=== PATIENT | female | born 1980 | race African-American/Black ===

== ENCOUNTER 2016-10-09 17:00 | Emergency (ER) | payer OTHER ==
[2016-10-09 17:26] VITALS: BP 134/70; PULSE 70; TEMP 97.8; BMI 45.8
--- NOTE | 2016-10-09 18:08 | PDOC ---
History of Present Illness - General Chief Complaint: Sore Throat Stated Complaint: EAR PROBLEM/SORE THROAT Time Seen by Provider: 10/09/16 17:43 History Source: Patient Exam Limitations: No Limitations - History of Present Illness Initial Comments: 10/09/16 18:15 Patient is here with complaints of bilateral clogged ears. States also has a sore throat but denies having fever, cough, runny nose. has suffered from excessive ear wax in the past and has had treatments by ear nose and throat doctor. [facility] mother has used hydrogen peroxide for the past 2 days but has not had any resolved. Timing/Duration: unsure Severity: mild Associated Symptoms: reports: denies symptoms. denies: fever/chills Past History - Travel Traveled outside of the country in the last 30 days: No Close contact w/someone who was outside of country & ill: No - Past Medical History Allergies/Adverse Reactions: Allergies Allergy/AdvReac Type Severity Reaction Status Date / Time azithromycin [From Zithromax] Allergy Severe Swelling Verified 10/09/16 17:26 bismuth subsalicylate Allergy Severe Swelling Verified 10/09/16 17:26 [From Kaopectate (bismuth subsalicy)] hydromorphone HCl Allergy Intermediate Swelling Verified 10/09/16 17:26 [From Dilaudid] Home Medications: Ambulatory Orders Quetiapine Fumarate [Seroquel -] 400 mg PO HS #30 tablet 04/18/13 Omeprazole [Prilosec (RX)] 60 mg PO DAILY 01/15/16 Lamotrigine [Lamictal -] 200 mg PO BID #60 tablet 02/09/16 Levetiracetam 1,000 mg PO BID #60 tablet 02/09/16 Quetiapine Fumarate [Seroquel] 100 tab PO HS #30 tablet 02/09/16 Trazodone HCl [Desyrel -] 200 mg PO HS #60 tablet 02/09/16 Levetiracetam [Keppra -] 500 mg PO BID 10/09/16 Anemia: Yes (no meds ) Asthma: No Cancer: No Cardiac Disorders: No CVA: No COPD: No CHF: No Dementia: No Diabetes: No GI Disorders: Yes (ACID REFLUX) Disorders: No HTN: No Hypercholesterolemia: No Kidney Stones: No Liver Disease: No Suicide Attempt (Hx): No Seizures: Yes Thyroid Disease: No - Surgical History Abdominal Surgery: No Appendectomy: No Cardiac Surgery: No Cholecystectomy: No Lung Surgery: No Neurologic Surgery: Yes (V/P shunt revision 02/24/12) Orthopedic Surgery: No - Reproductive History PID: No - Immunization History Immunization Up to Date: Yes - Psycho/Social/Smoking Cessation Hx Anxiety: No Suicidal Ideation: No Smoking History: Current every day smoker Have you smoked in the past 12 months: Yes Number of Cigarettes Smoked Daily: 10 Cigars Per Day: 0 Information on smoking cessation initiated: No 'Breaking Loose' booklet given: 01/15/16 Hx Alcohol Use: Yes (SOCIAL) Drug/Substance Use Hx: No Substance Use Type: None Hx Substance Use Treatment: Yes (longest abstinence about 1 year,completed this program in 2012) Review of Systems - Review of Systems Able to Perform ROS?: Yes Is the patient limited [place] proficient: Yes Constitutional: Yes: See HPI, Malaise. No: Symptoms Reported, Fever Respiratory: Yes: See HPI, Cough Integumentary: Yes: See HPI. No: Symptoms Reported Neurological: No: Symptoms reported All Other Systems: Reviewed and Negative *Physical Exam - Vital Signs Last Vital Signs Temp Pulse Resp BP Pulse Ox 97.8 F 70 20 134/70 100 10/09/16 17:22 10/09/16 17:22 10/09/16 17:22 10/09/16 17:22 10/09/16 17:22 - Physical Exam General Appearance: Yes: Nourished, Appropriately Dressed, Apparent Distress HEENT: positive: ALEKSANDRA, TMs Normal Neck: positive: Tender, Supple, Lymphadenopathy (R), Lymphadenopathy (L) Respiratory/Chest: positive: Lungs Clear, Normal Breath Sounds Cardiovascular: positive: Regular Rate Gastrointestinal/Abdominal: positive: Normal Bowel Sounds, Soft Extremity: positive: Normal Capillary Refill, Normal Range of Motion Integumentary: positive: Normal Color, Dry, Warm, Pale Neurologic: positive: care team assistant II-XII NML intact, Fully Oriented, Alert, Normal Mood/ Affect, Normal Response, Motor Strength 11/05 Procedures - Additional Procedures Progress: 10/09/16 18:35 Irrigation to bilateral ears with good result of large amount of cerumen in both canals. Clear and TMs visualized with good landmarks Medical Decision Making - Medical Decision Making 10/09/16 18:36 Ceruminosis, encourage patient to continue hydrogen peroxide instillation and follow-up with ENT Rapid stress Test negative 10/09/16 18:37 *DC/Admit/Observation/Transfer Diagnosis at time of Disposition: Ceruminosis Qualifiers: Laterality: bilateral Qualified Code(s): H61.23 - Impacted cerumen, bilateral - Discharge Dispostion Disposition: HOME Condition at time of disposition: Stable Admit: No - Referrals Referrals: Deepak Escalera MD [Staff Physician] - - Patient Instructions Printed Discharge Instructions: DI for Cerumen Impaction Additional Instructions: Do not use Q-tips, or any other small objects on the inner aspect of the ear canal - may only use Q-tips only on the outside to clean ears Ear wax may be packed by use of Q-tips to the inner canal and become hardened May use hydrogen peroxide 3 times a week to continued keep ear wax soft and able to expel Rinse in shower after hydrogen peroxide instillation to wash ear wax out [id number] preparations also assist in wax buildup Aloe up with private physician or ear nose and throat doctor as needed Rest, drink lots of fluids: Teas, water, soups, Pedialyte Saltwater gargles Steamy showers/seem to face break up mucus Avoid contact with others until fevers and cough resolved Lots of handwashing and good hygiene Continue [id number] medications for symptomatic relief Tylenol or Motrin for fever and pain Followup with private physician in one to 2 days as needed Return to emergency department for worsened symptoms, fevers, dehydration
== END 2016-10-09 18:36 | disposition home or self-care (01) ==
LOC: JERFT 17:00
PROC: 3E1B78Z Irrigation of Ear using Irrigating Substance, Via Natural or Artificial Opening (ICD-10-PCS; principal; 2016-10-09)
DX: H61.23 Impacted cerumen, bilateral (principal); K21.9 Gastro-esophageal reflux disease without esophagitis; Z98.2 Presence of cerebrospinal fluid drainage device; F17.210 Nicotine dependence, cigarettes, uncomplicated
CPT/HCPCS: 69209; 87070; 87430; 99281-25

== ENCOUNTER 2016-11-02 21:21 | Inpatient (IN) | payer OTHER ==
[2016-11-02 21:52] VITALS: BMI 47.2
--- NOTE | 2016-11-02 22:39 | HP ---
CIWA Score - CIWA Score Nausea/Vomitin-Mild Nausea/No Vomiting Muscle Tremors: 4-Moderate,w/Arms Extend Anxiety: 4-Mod. Anxious/Guarded Agitation: 4-Moderately Restless Paroxysmal Sweats: 1-Minimal Palms Moist Orientation: 1-Uncertain about Date Tacttile Disturbances: 0-None Auditory Disturbances: 0-None Visual Disturbances: 0-None Headache: 0-None Present CIWA-Ar Total Score: 15 Admission [facility] - HPI Chief Complaint: withdrawal sx Allergies/Adverse Reactions: Allergies Allergy/AdvReac Type Severity Reaction Status Date / Time azithromycin [From Zithromax] Allergy Severe Swelling Verified 10/09/16 17:26 bismuth subsalicylate Allergy Severe Swelling Verified 10/09/16 17:26 [From Kaopectate (bismuth subsalicy)] hydromorphone HCl Allergy Intermediate Swelling Verified 10/09/16 17:26 [From Dilaudid] History of Present Illness: 36 years old female with long history of alcohol cocaine marijuana nocotine, has cephalic shunt since age 4, and bipolar and gerd is admitted to detox Exam Limitations: No Limitations - Ebola screening Have you traveled outside of the country in the last 21 days: No (N) Have you had contact with anyone from an Ebola affected area: No Have you been sick,other than usual withdrawal symptoms: No Do you have a fever: No - Review of Systems Constitutional: Chills, Changes in sleep, Weight Stable EENT: reports: Blurred Vision (needed eye glasses) Respiratory: reports: No Symptoms reported Cardiac: reports: No Symptoms Reported GI: reports: Nausea, Poor Fluid Intake, Indigestion, Abdominal cramping : reports: No Symptoms Reported Musculoskeletal: reports: No Symptoms Reported Integumentary: reports: No Symptoms Reported Neuro: reports: Seizure (last episode 2016), Tremors Endocrine: reports: No Symptoms Reported Hematology: reports: No Symptoms Reported Psychiatric: reports: Judgement Intact, Anxious, Depressed Other Systems: Reviewed and Negative Patient History - Patient Medical History Hx Anemia: Yes (no meds ) Hx Asthma: No Hx Chronic Obstructive Pulmonary Disease (COPD): No Hx Cancer: No Hx Cardiac Disorders: No Hx Congestive Heart Failure: No Hx Hypertension: No Hx Hypercholesterolemia: No Hx Pacemaker: No HX Cerebrovascular Accident: No Hx Seizures: Yes Hx Dementia: No Hx Diabetes: No Hx Gastrointestinal Disorders: Yes (ACID REFLUX) Hx Liver Disease: No Hx Genitourinary Disorders: No Hx Sexually Transmitted Disorders: No Hx Renal Disease (ESRD): No Hx Thyroid Disease: No Hx Human Immunodeficiency Virus (HIV): No (NEGATIVE HX) Hx Hepatitis C: No Hx Depression: No Hx Suicide Attempt: No Hx Bipolar Disorder: Yes (prozac 60mgbid,lamictal 100mg bid) Hx Schizophrenia: No - Patient Surgical History Past Surgical History: Yes Hx Neurologic Surgery: Yes (V/P shunt revision 02/24/12) Hx Cataract Extraction: No Hx Cardiac Surgery: No Hx Lung Surgery: No Hx Breast Surgery: No Hx Breast Biopsy: No Hx Abdominal Surgery: Yes (2011) Hx Appendectomy: No Hx Cholecystectomy: No Hx Genitourinary Surgery: No Hx Section: No Hx Orthopedic Surgery: No Hx Hysterectomy: No Other Surgical History: 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 SIDE OF HEAD Anesthesia Reaction: No - PPD History Previous Implant?: Yes Documented Results: Negative w/o proof Implanted On Prior [facility] Admission?: Yes Date: 01/17/16 Results: 0mm PPD to be Administered?: No - Reproductive History Patient is a Female of Child Bearing Age (11 -55 yrs old): Yes Last Menstrual Period: 11/01/16 Patient : No - Smoking Cessation Smoking history: Current every day smoker Have you smoked in the past 12 months: Yes Aproximately how many cigarettes per day: 15 Cigars Per Day: 0 Hx Chewing Tobacco Use: No Initiated information on smoking cessation: Yes 'Breaking Loose' booklet given: 11/02/16 - Substance & Tx. History Hx Alcohol Use: Yes Hx Substance Use: Yes Substance Use Type: Alcohol, Cocaine, Marijuana Hx Substance Use Treatment: Yes - Substances Abused Alcohol Route: Oral Frequency: Daily Amount used: 3 pints volka Age of first use: 17 Date of Last Use: 11/01/16 Cocaine Route: Smoking Frequency: Daily Amount used: 500$ Age of first use: 23 Date of Last Use: 11/01/16 Family Disease History - Family Disease History Family Disease History: Diabetes: Grandparent (ON DIALYSIS), Mother (ON DIALYSIS ), Heart Disease: Father (HTN), Other: Grandparent, Mother Admission Physical Exam [facility] - Vital Signs Vital Signs: Vital Signs - 24 hr 11/02/16 21:48 Temperature 97.6 F Pulse Rate 70 Respiratory 16 Rate Blood Pressure 126/75 - Physical General Appearance: Yes: Appropriately Dressed, Mild Distress, Obese, Tremorous , Irritable, Sweating, Anxious HEENTM: Yes: Hearing grossly Normal, Normal ENT Inspection, Normocephalic, Normal Voice Respiratory: Yes: Chest Non-Tender, Lungs Clear, Normal Breath Sounds, No Respiratory Distress, No Accessory Muscle Use Neck: Yes: Supple, Trachea in good position Breast: Yes: Breasts Symetrical Cardiology: Yes: Regular Rhythm, Regular Rate, S1, S2 Abdominal: Yes: Non Tender, Soft Genitourinary: Yes: Within Normal Limits Back: Yes: Normal Inspection Musculoskeletal: Yes: full range of Motion, Gait Steady Extremities: Yes: Normal Inspection, Normal Range of Motion, Non-Tender, Tremors Neurological: Yes: Alert, Motor Strength 5/5, Normal Response, Depressed Affect Integumentary: Yes: Warm Lymphatic: Yes: Within Normal Limits - Diagnostic (1) Bipolar I disorder, most recent episode mixed Current Visit: Yes Status: Suspected (2) Intracranial shunt Current Visit: Yes Status: Chronic Comment: revised 2014 (3) Nicotine dependence Current Visit: Yes Status: Acute Qualifiers: Nicotine product type: cigarettes Substance use status: in withdrawal Qualified Code(s): F17.213 - Nicotine dependence, cigarettes, with withdrawal (4) GERD (gastroesophageal reflux disease) Current Visit: Yes Status: Chronic Qualifiers: Esophagitis presence: without esophagitis Qualified Code(s): K21.9 - Gastro-esophageal reflux disease without esophagitis Cleared for Admission [facility] - Detox or Rehab [facility] Level of Care: Medically Managed Detox Regimen/Protocol: Librium [facility] Breath Alcohol Content Breath Alcohol Content: 0 Urine Pregancy Test - Result Urine Test Results: Negative- NO Line Present Urine Drug Screen - Results Drug Screen Negative: No Urine Drug Screen Results: THC-Marijuana, KATIE-Cocaine
[2016-11-02] MEDS ORDERED: NICOTINE POLACRILEX 4 MG GUM BC PRN (22:46)
[2016-11-02] MEDS ORDERED: MAGNESIUM CITRATE 300 ML BOTTLE PO PRN (22:46)
[2016-11-02] MEDS ORDERED: LOPERAMIDE HCL 2 MG CAPSULE PO PRN (22:46)
[2016-11-02] MEDS ORDERED: hydrOXYzine PAMOATE 50 MG CAPSULE (FP) PO PRN (22:46)
[2016-11-02] MEDS ORDERED: MAGNESIUM HYDROX 2400MG/30ML ORAL SUSPENSION 30 ML CUP PO PRN (22:46)
[2016-11-02] MEDS ORDERED: MAG HYDROX/AL HYDROX/SIMETH 30 ML UNIT-DOSE CUP PO PRN (22:46)
[2016-11-02] MEDS ORDERED: guaiFENesin/D-METHORPHAN HB 10 ML UNIT-DOSE CUPS PO PRN (22:46)
[2016-11-02] MEDS ORDERED: chlordiazePOXIDE HCL 25 MG CAPSULE PO ONE (22:46)
[2016-11-02] MEDS ORDERED: P-EPHED 60MG/TRIPROLIDI 2.5MG TABLET PO PRN (22:46)
[2016-11-02] MEDS ORDERED: ACETAMINOPHEN 325 MG TABLET (FP) PO PRN (22:46)
[2016-11-02] MEDS ORDERED: chlordiazePOXIDE HCL 25 MG CAPSULE PO PRN (22:46)
[2016-11-02] MEDS ORDERED: MENTHOL/PHENOL 1 EACH UD MM PRN (22:46)
[2016-11-02] MEDS ORDERED: diphenhydrAMINE HCL 50 MG CAPSULE PO PRN (22:46)
[2016-11-02] MEDS: levETIRAcetam 500 MG TABLET (FP) PO SCH (23:50)
[2016-11-02] MEDS: chlordiazePOXIDE HCL 25 MG CAPSULE PO SCH (23:50)
[2016-11-03] MEDS: chlordiazePOXIDE HCL 25 MG CAPSULE PO SCH ×4 (06:02→22:17)
--- NOTE | 2016-11-03 10:43 | CONSULT ---
[facility] Psychiatric Consult - Data Date of interview: 11/03/16 Admission source: [facility] Identifying data: This is 36 years old female with psychiatric hospitalization history intoxicated with: Alcohol, Cocaine, Cannabis, PCP, Nicotine Substance Abuse History: - Smoking Cessation. Smoking history: Current every day smoker. Have you smoked in the past 12 months: Yes. Aproximately how many cigarettes per day: 15. Cigars Per Day: 0. Hx Chewing Tobacco Use: No. Initiated information on smoking cessation: Yes. 'Breaking Loose' booklet given : 11/02/16. - Substance & Tx. History. Hx Alcohol Use: Yes. Hx Substance Use : Yes. Substance Use Type: Alcohol, Cocaine, Marijuana. Hx Substance Use Treatment: Yes. - Substances Abused. Alcohol. Route: Oral. Frequency: Daily. Amount used: 3 pints volka. Age of first use: 17. Date of Last Use: . Cocaine. Route: Smoking. Frequency: Daily. Amount used: 500$. Age of first use: 23. 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 Reports taking prior to admission: Trazodon 200mg po qhs. Lamictal 200mg po bid. As per compurter was on Seroquel 100mg poqd, 400mg po qhs, refysing to restart Seroquel during Detox Physical/Sexual Abuse/Trauma History: Denies Additional Comment: Seroquel 100mg poqd, 400mg po qhs. Trazodon 200mg po qhs. Lamictal 200mg po bid Mental Status Exam - Mental Status Exam Alert and Oriented to: Person Cognitive Function: Fair Patient Appearance: Unkempt Mood: Sad Affect: Flat Patient Behavior: Sedated, Guarded Speech Pattern: Delayed Voice Loudness: Mildly Loud Thought Process: Circumstantial Thought Disorder: Being Controlled Hallucinations: Denies Suicidal Ideation: Denies Homicidal Ideation: Denies Insight/Judgement: Fair Sleep: Difficulty falling asleep Appetite: Weight gain Muscle strength/Tone: Mild Hypotonicity Gait/Station: Shuffling Additional Comments: Seroquel 100mg poqd, 400mg po qhs. Trazodon 200mg po qhs. Lamictal 200mg po bid Psychiatric Findings - Problem List ([place] 1, 2,3) (1) Nicotine dependence Current Visit: Yes Status: Acute Qualifiers: Nicotine product type: cigarettes Substance use status: in withdrawal Qualified Code(s): F17.213 - Nicotine dependence, cigarettes, with withdrawal (2) Bipolar I disorder, most recent episode mixed Current Visit: Yes Status: Suspected (3) Alcohol dependence Current Visit: No Status: Active (4) Bipolar disorder Current Visit: No Status: Chronic (5) Cannabis abuse Current Visit: No Status: Chronic (6) Morbid obesity Current Visit: No Status: Chronic Qualifiers: Obesity type: unspecified obesity type Qualified Code(s): E66.01 - Morbid (severe) obesity due to excess calories (7) PCP (phencyclidine) abuse Current Visit: No Status: Chronic - Initial Treatment Plan Initial Treatment Plan: Seroquel 100mg poqd, 400mg po qhs- refused to start. Trazodon 200mg po qhs. Lamictal 200mg po bid
[2016-11-03] MEDS: lamoTRIgine 100 MG TABLET (FP) PO SCH ×2 (10:59→22:17)
[2016-11-03] MEDS: PRENATAL VITAMINS W/ FOLIC ACID TABLET (FP) PO SCH (10:59)
[2016-11-03] MEDS: levETIRAcetam 500 MG TABLET (FP) PO SCH ×2 (11:00→22:18)
[2016-11-03] MEDS: RANITIDINE HCL 150 MG TABLET (FP) PO SCH ×2 (11:00→22:17)
[2016-11-03] MEDS: NICOTINE 21 MG/24 HOURS TOPICAL PATCH TD SCH (11:00)
--- NOTE | 2016-11-03 11:00 | PN ---
S CIWA - CIWA Score Nausea/Vomitin-No Nausea/No Vomiting Muscle Tremors: 4-Moderate,w/Arms Extend Anxiety: 3 Agitation: 3 Paroxysmal Sweats: 3 Orientation: 0-Oriented Tacttile Disturbances: 0-None Auditory Disturbances: 0-None Visual Disturbances: 0-None Headache: 1-Very Mild CIWA-Ar Total Score: 14 S Progress Note (SOAP) Subjective: sweats agitation irritable interrupted sleep Objective: 11/03/16 11:00 Vital Signs Temperature 97.9 F 11/03/16 09:54 Pulse Rate 87 11/03/16 09:54 Respiratory Rate 18 11/03/16 09:54 Blood Pressure 111/73 11/03/16 09:54 O2 Sat by Pulse Oximetry (%) labs pending awake/alert ambulating no acute distress Assessment: 11/03/16 11:01 withdrawal sx Plan: continue detox increase fluids labs pending
--- NOTE | 2016-11-03 13:23 | EKG ---
Test Reason : Blood Pressure : / mmHG Vent. Rate : 068 BPM Atrial Rate : 068 BPM P-R Int : 136 ms QRS Dur : 086 ms QT Int : 374 ms P-R-T Axes : 051 018 015 degrees QTc Int : 397 ms NORMAL SINUS RHYTHM NONSPECIFIC T WAVE ABNORMALITY ABNORMAL ECG WHEN COMPARED WITH ECG OF 13-NOV-2008 13:26, QT HAS SHORTENED Confirmed by MARY JANE MCCALL, ASTRID ([id number]) on 11/03/2016 1:23:11 PM Referred By: Confirmed By:ASTRID HINTON MD
[2016-11-03] MEDS: traZODone HCL 100 MG TABLET (FP) PO SCH (22:17)
[2016-11-03] MEDS: THIAMINE HCL 100 MG TABLET (FP) PO SCH (22:17)
[2016-11-04] MEDS: chlordiazePOXIDE HCL 25 MG CAPSULE PO SCH ×3 (06:34→17:39)
[2016-11-04 10:15] LABS: MCH 27.4 pg (25.7-33.7); MCHC 32.2 g/dl (32.0-36.0); MEAN CELL VOLUME 85.1 fl (80-96); MEAN PLT VOLUME 10.7 fl (7.5-11.1); PLATELET COUNT 197 K/MM3 (134-434); WHITE BLOOD COUNT 3.5 K/mm3 (4.0-10.0)
[2016-11-04] MEDS: RANITIDINE HCL 150 MG TABLET (FP) PO SCH ×2 (10:34→22:21)
[2016-11-04] MEDS: levETIRAcetam 500 MG TABLET (FP) PO SCH ×2 (10:34→22:21)
[2016-11-04] MEDS: lamoTRIgine 100 MG TABLET (FP) PO SCH ×2 (10:34→22:21)
[2016-11-04] MEDS: PRENATAL VITAMINS W/ FOLIC ACID TABLET (FP) PO SCH (10:34)
[2016-11-04] MEDS: NICOTINE 21 MG/24 HOURS TOPICAL PATCH TD SCH (10:36)
[2016-11-04 10:46] LABS: ALBUMIN 3.1 g/dl (3.4-5.0); ALK PHOS 48 U/L (45-117); ANION GAP 7 (8-16); BILIRUBIN,TOTAL 0.1 mg/dL (0.2-1.0); CALCIUM 8.6 mg/dL (8.5-10.1); CO2 28 mmol/L (21-32); COCKROFT - GAULT 283.8065; CREATININE 0.5 mg/dL (0.55-1.02); GLUCOSE,RANDOM 82 mg/dL (74-106); SGOT/AST 6 U/L (15-37); SGPT/ALT 15 U/L (12-78); TOT PROT 5.7 g/dl (6.4-8.2)
[2016-11-04] MEDS: THIAMINE HCL 100 MG TABLET (FP) PO SCH (22:21)
[2016-11-04] MEDS: chlordiazePOXIDE 5 MG CAPSULE PO SCH (22:21)
[2016-11-04] MEDS: traZODone HCL 100 MG TABLET (FP) PO SCH (22:21)
[2016-11-05] MEDS: chlordiazePOXIDE 5 MG CAPSULE PO SCH ×3 (05:27→17:18)
[2016-11-05] MEDS: lamoTRIgine 100 MG TABLET (FP) PO SCH ×2 (10:43→23:00)
[2016-11-05] MEDS: RANITIDINE HCL 150 MG TABLET (FP) PO SCH ×2 (10:43→22:59)
[2016-11-05] MEDS: levETIRAcetam 500 MG TABLET (FP) PO SCH ×2 (10:43→22:59)
[2016-11-05] MEDS: PRENATAL VITAMINS W/ FOLIC ACID TABLET (FP) PO SCH (10:43)
[2016-11-05] MEDS: NICOTINE 21 MG/24 HOURS TOPICAL PATCH TD SCH (10:44)
--- NOTE | 2016-11-05 11:46 | PN ---
S CIWA - CIWA Score Nausea/Vomitin-No Nausea/No Vomiting Muscle Tremors: 3 Anxiety: 2 Agitation: 2 Paroxysmal Sweats: 2 Orientation: 0-Oriented Tacttile Disturbances: 0-None Auditory Disturbances: 0-None Visual Disturbances: 0-None Headache: 0-None Present CIWA-Ar Total Score: 9 BHS Progress Note (SOAP) Subjective: sweats agitation sleepy Objective: 11/05/16 11:45 Vital Signs Temperature 97.7 F 11/05/16 10:50 Pulse Rate 79 11/05/16 10:50 Respiratory Rate 18 11/05/16 10:50 Blood Pressure 123/78 11/05/16 10:50 O2 Sat by Pulse Oximetry (%) Laboratory Tests 11/04/16 11/04/16 11/04/16 07:00 07:00 07:00 WBC 3.5 L RBC 4.06 Hgb 11.1 Hct 34.5 MCV 85.1 MCHC 32.2 RDW 15.0 Plt Count 197 D MPV 10.7 Sodium 144 Potassium 3.8 Chloride 109 H Carbon Dioxide 28 D Anion Gap 7 L BUN 6 L D Creatinine 0.5 L Creat Clearance w eGFR > 60 Random Glucose 82 Calcium 8.6 Total Bilirubin 0.1 L D AST 6 L D ALT 15 Alkaline Phosphatase 48 Total Protein 5.7 L Albumin 3.1 L Valproic Acid 13.840 L RPR Titer 11/04/16 07:00 WBC RBC Hgb Hct MCV MCHC RDW Plt Count MPV Sodium Potassium Chloride Carbon Dioxide Anion Gap BUN Creatinine Creat Clearance w eGFR Random Glucose Calcium Total Bilirubin AST ALT Alkaline Phosphatase Total Protein Albumin Valproic Acid RPR Titer Nonreactive awake/alert ambulating no acute distress Assessment: 11/05/16 11:45 withdrawals sx Plan: continue detox increase fluids
[2016-11-05] MEDS: traZODone HCL 100 MG TABLET (FP) PO SCH (22:59)
[2016-11-05] MEDS: chlordiazePOXIDE HCL 10 MG CAPSULE PO SCH (22:59)
[2016-11-05] MEDS: THIAMINE HCL 100 MG TABLET (FP) PO SCH (23:00)
[2016-11-06] MEDS: chlordiazePOXIDE HCL 10 MG CAPSULE PO SCH (06:11)
[2016-11-06 06:48] VITALS: BP 115/64; PULSE 73; TEMP 97.5
[2016-11-06] MEDS: lamoTRIgine 100 MG TABLET (FP) PO SCH (09:36)
[2016-11-06] MEDS: levETIRAcetam 500 MG TABLET (FP) PO SCH (09:36)
--- NOTE | 2016-11-06 15:31 | DS ---
[facility] Detox Discharge Summary Admission Date: 11/02/16 Discharge Date: 11/06/16 - History Present History: Alcohol Dependence, Cocaine Dependence Pertinent Past History: GERD - Physical Exam Results Vital Signs: Vital Signs Temperature 97.5 F L 11/06/16 06:00 Pulse Rate 73 11/06/16 06:00 Respiratory Rate 20 11/06/16 06:00 Blood Pressure 115/64 11/06/16 06:00 O2 Sat by Pulse Oximetry (%) Pertinent Admission Physical Exam Findings: WITHDRAWAL SX Laboratory Last Values WBC 3.5 K/mm3 (4.0-10.0) L 11/04/16 07:00 RBC 4.06 M/mm3 (3.60-5.2) 11/04/16 07:00 Hgb 11.1 GM/dL (10.7-15.3) 11/04/16 07:00 Hct 34.5 % (32.4-45.2) 11/04/16 07:00 MCV 85.1 fl (80-96) 11/04/16 07:00 MCHC 32.2 g/dl (32.0-36.0) 11/04/16 07:00 RDW 15.0 % (11.6-15.6) 11/04/16 07:00 Plt Count 197 K/MM3 (134-434) D 11/04/16 07:00 MPV 10.7 fl (7.5-11.1) 11/04/16 07:00 Sodium 144 mmol/L (136-145) 11/04/16 07:00 Potassium 3.8 mmol/L (3.5-5.1) 11/04/16 07:00 Chloride 109 mmol/L (98-107) H 11/04/16 07:00 Carbon Dioxide 28 mmol/L (21-32) D 11/04/16 07:00 Anion Gap 7 (8-16) L 11/04/16 07:00 BUN 6 mg/dL (7-18) L D 11/04/16 07:00 Creatinine 0.5 mg/dL (0.55-1.02) L 11/04/16 07:00 Creat Clearance w eGFR > 60 (>60) 11/04/16 07:00 Random Glucose 82 mg/dL (74-106) 11/04/16 07:00 Calcium 8.6 mg/dL (8.5-10.1) 11/04/16 07:00 Total Bilirubin 0.1 mg/dL (0.2-1.0) L D 11/04/16 07:00 AST 6 U/L (15-37) L D 11/04/16 07:00 ALT 15 U/L (12-78) 11/04/16 07:00 Alkaline Phosphatase 48 U/L (45-117) 11/04/16 07:00 Total Protein 5.7 g/dl (6.4-8.2) L 11/04/16 07:00 Albumin 3.1 g/dl (3.4-5.0) L 11/04/16 07:00 Valproic Acid 13.840 ug/ml (50-100) L 11/04/16 07:00 RPR Titer Nonreactive (NONREACTIVE) 11/04/16 07:00 LABS NOTED - Treatment Hospital Course: Detox Protocol Followed, Detoxed Safely, Responded well, Discharged Condition Good - Medication Discharge Medications: Ambulatory Orders Quetiapine Fumarate [Seroquel -] 400 mg PO HS #30 tablet 04/18/13 Omeprazole [Prilosec (RX)] 60 mg PO DAILY 01/15/16 Lamotrigine [Lamictal -] 200 mg PO BID #60 tablet 02/09/16 Levetiracetam 1,000 mg PO BID #60 tablet 02/09/16 Quetiapine Fumarate [Seroquel] 100 tab PO HS #30 tablet 02/09/16 Trazodone HCl [Desyrel -] 200 mg PO HS #60 tablet 02/09/16 Levetiracetam [Keppra -] 500 mg PO BID 10/09/16 Lamotrigine [Lamictal -] 200 mg PO BID #60 tablet 11/03/16 Trazodone HCl [Desyrel -] 200 mg PO HS #30 tablet 11/03/16 Levetiracetam [Keppra -] 1,000 mg PO BID #60 tablet 11/06/16 - Diagnosis (1) Alcohol dependence Status: Active (2) GERD (gastroesophageal reflux disease) Status: Chronic Qualifiers: Esophagitis presence: without esophagitis Qualified Code(s): K21.9 - Gastro-esophageal reflux disease without esophagitis (3) PCP (phencyclidine) abuse Status: Acute (4) Bipolar I disorder, most recent episode mixed Status: Suspected - AMA Did Patient Leave Against Medical Advice: No
== END 2016-11-06 09:42 | disposition home or self-care (01) | DRG 776 ==
LOC: YASAS 21:21 → Y6N 22:20
PROVIDERS: ADMIT Internal Medicine Addiction Medicine; ATTEND Internal Medicine Addiction Medicine
PROC: HZ2ZZZZ Detoxification Services for Substance Abuse Treatment (ICD-10-PCS; principal; 2016-11-06)
DX: F12.10 Cannabis abuse, uncomplicated (principal); F16.10 Hallucinogen abuse, uncomplicated; F17.213 Nicotine dependence, cigarettes, with withdrawal; F31.89 Other bipolar disorder; K21.9 Gastro-esophageal reflux disease without esophagitis; E66.01 Morbid (severe) obesity due to excess calories; Z68.42 Body mass index [BMI] 45.0-49.9, adult
CPT/HCPCS: 36415; 80053; 80164; 85027; 86593; 93005; 93010

== ENCOUNTER 2016-11-09 13:18 | Inpatient (IN) | payer OTHER ==
[2016-11-09 15:03] VITALS: BMI 45.7
[2016-11-09] MEDS ORDERED: LOPERAMIDE HCL 2 MG CAPSULE PO PRN (16:30)
[2016-11-09] MEDS ORDERED: hydrOXYzine PAMOATE 50 MG CAPSULE (FP) PO PRN (16:30)
[2016-11-09] MEDS ORDERED: MAGNESIUM CITRATE 300 ML BOTTLE PO PRN (16:30)
[2016-11-09] MEDS ORDERED: MAGNESIUM HYDROX 2400MG/30ML ORAL SUSPENSION 30 ML CUP PO PRN (16:30)
--- NOTE | 2016-11-09 16:30 | HP ---
[id number] Admission to Rehab: 11/09/16 - Vital signs Vital Signs: Vital Signs Period Temp Pulse Resp BP Sys/Ryan Pulse Ox Last 24 Hr 96 F 100 20 158/72 - Findings Detox History & Physical reviewed: Yes Concur with findings: Yes Comments/Additional Findings: admitted to rehab for alcohol, cocaine, marijuana , pcp, nicotine dependence, needs reading eye glasses, concur with previous physical assessment
[2016-11-09] MEDS ORDERED: COLLOIDAL OATMEAL 1 BAR EACH TP PRN (16:35)
[2016-11-09] MEDS: THIAMINE HCL 100 MG TABLET (FP) PO SCH (22:27)
[2016-11-09] MEDS: RANITIDINE HCL 150 MG TABLET (FP) PO SCH (22:28)
[2016-11-09] MEDS: guaiFENesin/D-METHORPHAN HB 10 ML UNIT-DOSE CUPS PO PRN (22:28)
[2016-11-09] MEDS: levETIRAcetam 500 MG TABLET (FP) PO SCH (22:28)
[2016-11-09] MEDS: diphenhydrAMINE HCL 50 MG CAPSULE PO PRN (22:29)
[2016-11-09 23:20] LABS: URINE APPEARANCE CLEAR; URINE BILIRUBIN NEGATIVE (NEGATIVE); URINE BLOOD NEGATIVE (NEGATIVE); URINE COLOR YELLOW; URINE GLUCOSE (UA) NEGATIVE (NEGATIVE); URINE KETONE NEGATIVE (NEGATIVE); URINE LEUK ESTERASE NEGATIVE (NEGATIVE); URINE NITRITE NEGATIVE (NEGATIVE); URINE PROTEIN NEGATIVE (NEGATIVE); URINE UROBILINOGEN NEGATIVE E.U./dl (0.2-1.0)
[2016-11-10] MEDS: guaiFENesin/D-METHORPHAN HB 10 ML UNIT-DOSE CUPS PO PRN ×2 (07:32→21:40)
[2016-11-10] MEDS: MENTHOL/PHENOL 1 EACH UD MM PRN ×2 (07:33→20:04)
[2016-11-10] MEDS: ACETAMINOPHEN 325 MG TABLET (FP) PO PRN (09:02)
[2016-11-10] MEDS: NICOTINE 14 MG/24 HOURS TOPICAL PATCH TD SCH (10:07)
[2016-11-10] MEDS: levETIRAcetam 500 MG TABLET (FP) PO SCH ×2 (10:07→21:40)
[2016-11-10] MEDS: PRENATAL VITAMINS W/ FOLIC ACID TABLET (FP) PO SCH (10:08)
[2016-11-10] MEDS: RANITIDINE HCL 150 MG TABLET (FP) PO SCH ×2 (10:08→21:40)
--- NOTE | 2016-11-10 10:18 | HP ---
Psychiatrist Admission - Data Date of interview: 11/10/16 Admission source: [address] [place] [address] Identifying data: This is one of the multiple admissions to [address] [place] [address] for this 36 years old AA female ,childless,resides with grandmother,supported by PA. Medical History: H/O SENIOR ACCOUNTING ANALYST shunt(Hydroencephaly),Seizure disorder,Obesity. Psychiatric History: Patient was dx with Bipolar disorder about 5 years ago.She reports 2 psychiatric hospitalizations.Most recent admission was 3 years ago to [facility] due to severe depression,drug use.Patient has been under psychiatric care at [facility],prescribed Lamictal 100 mg po daily, Seroquel 200 mg po hs and Ambien 10 mg po hs by .Currently she sees psychiatrist at [facility] Outpatient clinic in the [place].Medications:Depakote 250 mg po bid,Trazodone 200 mg po hs and Lamictal 200 mg po bid. Physical/Sexual Abuse/Trauma History: denies Vital Signs: Vital Signs - 24 hr 11/09/16 11/10/16 11/10/16 15:01 00:30 07:27 Temperature 96 F L 98.3 F Pulse Rate 100 H 79 Respiratory 20 18 18 Rate Blood Pressure 158/72 140/57 Allergies/Adverse Reactions: Allergies Allergy/AdvReac Type Severity Reaction Status Date / Time azithromycin [From Zithromax] Allergy Severe Swelling Verified 10/09/16 17:26 bismuth subsalicylate Allergy Severe Swelling Verified 10/09/16 17:26 [From Kaopectate (bismuth subsalicy)] hydromorphone HCl Allergy Intermediate Swelling Verified 10/09/16 17:26 [From Dilaudid] Concur with the findings of this exam: Yes - Substance Abuse/Tx History Hx Alcohol Use: Yes (reports drinking on and off for years) Hx Substance Use: Yes (marijuana since 16 yo($20) ,cocaine since 25 yo ($200 daily),PCP since 2014) Substance Use Type: Alcohol, Cocaine, Marijuana Hx Substance Use Treatment: Yes (completed this program in Feb 2016,reports 9 months of abstinence) - Admission Criteria Previous failed treatment: Yes Poor recovery environment: Yes Comorbidities: Yes Lacks judgement: Yes Mental Status Exam - Mental Status Exam Alert and Oriented to: Time, Place, Person Cognitive Function: Grossly Intact Patient Appearance: Unkempt Mood: Sad, Anxious Affect: Mood Congruent, Labile Patient Behavior: Cooperative Speech Pattern: Clear Voice Loudness: Normal Thought Process: Goal Oriented Thought Disorder: Being Controlled Hallucinations: Denies Suicidal Ideation: Denies Homicidal Ideation: Denies Insight/Judgement: Fair Sleep: Fair Appetite: Good Muscle strength/Tone: Normal Gait/Station: Normal Psychiatric Findings - Problem List ([place] 1, 2,3) (1) Alcohol dependence Current Visit: Yes Status: Chronic (2) Cellulitis of finger Current Visit: Yes Status: Suspected (3) Ceruminosis Current Visit: Yes Status: Chronic (4) Nicotine dependence Current Visit: Yes Status: Chronic Qualifiers: (5) PCP (phencyclidine) abuse Current Visit: Yes Status: Chronic (6) Cocaine dependence Current Visit: No Status: Chronic (7) GERD (gastroesophageal reflux disease) Current Visit: Yes Status: Chronic Qualifiers: Esophagitis presence: without esophagitis Qualified Code(s): K21.9 - Gastro-esophageal reflux disease without esophagitis (8) Intracranial shunt Current Visit: Yes Status: Inactive Comment: revised 2014 (9) Morbid obesity Current Visit: Yes Status: Chronic Qualifiers: Obesity type: unspecified obesity type Qualified Code(s): E66.01 - Morbid (severe) obesity due to excess calories (10) SEIZURE HX Current Visit: Yes Status: Chronic (11) Bipolar I disorder, most recent episode mixed Current Visit: Yes Status: Chronic (12) Cannabis dependence Current Visit: Yes Status: Chronic - Initial Treatment Plan Initial Treatment Plan: Continue current medications as per plan.Will monitor progress.
--- NOTE | 2016-11-10 11:27 | EKG ---
Test Reason : Blood Pressure : / mmHG Vent. Rate : 079 BPM Atrial Rate : 079 BPM P-R Int : 138 ms QRS Dur : 088 ms QT Int : 414 ms P-R-T Axes : 000 022 014 degrees QTc Int : 474 ms NORMAL SINUS RHYTHM NONSPECIFIC T WAVE ABNORMALITY PROLONGED QT ABNORMAL ECG WHEN COMPARED WITH ECG OF 02-NOV-2016 22:56, QT HAS LENGTHENED Confirmed by MARY JANE MCCALL, ASTRID ([id number]) on 11/10/2016 11:27:18 AM Referred By: Confirmed By:ASTRID HINTON MD
[2016-11-10 12:25] LABS: HIV 1 & 2 AB NEGATIVE; HIV 1 AGp24 NEGATIVE
[2016-11-10] MEDS: DIVALPROEX SODIUM 250 MG TABLET E.C. (FP) PO SCH ×2 (14:16→21:40)
[2016-11-10] MEDS: MAG HYDROX/AL HYDROX/SIMETH 30 ML UNIT-DOSE CUP PO PRN (20:05)
[2016-11-10] MEDS: THIAMINE HCL 100 MG TABLET (FP) PO SCH (21:40)
[2016-11-10] MEDS: lamoTRIgine 100 MG TABLET (FP) PO SCH (21:42)
[2016-11-10] MEDS: traZODone HCL 100 MG TABLET (FP) PO SCH (21:43)
[2016-11-11] MEDS: NICOTINE POLACRILEX 2 MG GUM BC PRN ×2 (06:38→10:16)
[2016-11-11] MEDS: guaiFENesin/D-METHORPHAN HB 10 ML UNIT-DOSE CUPS PO PRN (06:38)
[2016-11-11] MEDS: MENTHOL/PHENOL 1 EACH UD MM PRN (06:38)
[2016-11-11] MEDS ORDERED: PT OWN MED DRAWER 7, Y5N ONE (08:52)
[2016-11-11] MEDS: DIVALPROEX SODIUM 250 MG TABLET E.C. (FP) PO SCH ×2 (10:13→21:26)
[2016-11-11] MEDS: PRENATAL VITAMINS W/ FOLIC ACID TABLET (FP) PO SCH (10:14)
[2016-11-11] MEDS: NICOTINE 14 MG/24 HOURS TOPICAL PATCH TD SCH (10:15)
[2016-11-11] MEDS: levETIRAcetam 500 MG TABLET (FP) PO SCH ×2 (10:15→21:27)
[2016-11-11] MEDS: lamoTRIgine 100 MG TABLET (FP) PO SCH ×2 (10:15→21:27)
[2016-11-11] MEDS: ACETAMINOPHEN 325 MG TABLET (FP) PO PRN (10:16)
[2016-11-11] MEDS: RANITIDINE HCL 150 MG TABLET (FP) PO SCH ×2 (10:16→21:26)
[2016-11-11] MEDS ORDERED: FLUCONAZOLE 50 MG TABLET PO ONE (12:41)
[2016-11-11] MEDS: MAG HYDROX/AL HYDROX/SIMETH 30 ML UNIT-DOSE CUP PO PRN ×2 (12:43→21:29)
--- NOTE | 2016-11-11 12:43 | PN ---
S Progress Note Note: pharynx injected,uri,amoxicillin 500 mgs po tid for 7 days,diflucan 150 mgs po once
[2016-11-11] MEDS: AMOXICILLIN 500 MG CAPSULE (FP) PO SCH ×2 (14:28→21:26)
[2016-11-11] MEDS: traZODone HCL 100 MG TABLET (FP) PO SCH (21:26)
[2016-11-11] MEDS: THIAMINE HCL 100 MG TABLET (FP) PO SCH (21:26)
[2016-11-12] MEDS: AMOXICILLIN 500 MG CAPSULE (FP) PO SCH ×3 (06:29→21:42)
[2016-11-12] MEDS: ACETAMINOPHEN 325 MG TABLET (FP) PO PRN (06:30)
[2016-11-12] MEDS: PRENATAL VITAMINS W/ FOLIC ACID TABLET (FP) PO SCH (10:26)
[2016-11-12] MEDS: RANITIDINE HCL 150 MG TABLET (FP) PO SCH ×2 (10:26→21:43)
[2016-11-12] MEDS: levETIRAcetam 500 MG TABLET (FP) PO SCH ×2 (10:26→21:43)
[2016-11-12] MEDS: DIVALPROEX SODIUM 250 MG TABLET E.C. (FP) PO SCH ×2 (10:26→21:43)
[2016-11-12] MEDS: lamoTRIgine 100 MG TABLET (FP) PO SCH ×2 (10:27→21:43)
[2016-11-12] MEDS: NICOTINE 14 MG/24 HOURS TOPICAL PATCH TD SCH (10:27)
[2016-11-12] MEDS: THIAMINE HCL 100 MG TABLET (FP) PO SCH (21:43)
[2016-11-12] MEDS: traZODone HCL 100 MG TABLET (FP) PO SCH (21:43)
[2016-11-13] MEDS: ACETAMINOPHEN 325 MG TABLET (FP) PO PRN (06:19)
[2016-11-13] MEDS: AMOXICILLIN 500 MG CAPSULE (FP) PO SCH ×3 (06:19→21:38)
[2016-11-13] MEDS: RANITIDINE HCL 150 MG TABLET (FP) PO SCH ×2 (09:59→21:38)
[2016-11-13] MEDS: levETIRAcetam 500 MG TABLET (FP) PO SCH ×2 (09:59→21:38)
[2016-11-13] MEDS: NICOTINE 14 MG/24 HOURS TOPICAL PATCH TD SCH (09:59)
[2016-11-13] MEDS: PRENATAL VITAMINS W/ FOLIC ACID TABLET (FP) PO SCH (10:00)
[2016-11-13] MEDS: lamoTRIgine 100 MG TABLET (FP) PO SCH ×2 (10:00→21:38)
[2016-11-13] MEDS: DIVALPROEX SODIUM 250 MG TABLET E.C. (FP) PO SCH ×2 (10:00→21:38)
[2016-11-13] MEDS: THIAMINE HCL 100 MG TABLET (FP) PO SCH (21:37)
[2016-11-13] MEDS: traZODone HCL 100 MG TABLET (FP) PO SCH (21:37)
[2016-11-13] MEDS: NICOTINE POLACRILEX 2 MG GUM BC PRN (21:39)
[2016-11-14] MEDS: AMOXICILLIN 500 MG CAPSULE (FP) PO SCH ×3 (07:00→21:46)
[2016-11-14] MEDS: NICOTINE POLACRILEX 2 MG GUM BC PRN (07:02)
[2016-11-14] MEDS: DIVALPROEX SODIUM 250 MG TABLET E.C. (FP) PO SCH ×2 (10:01→21:46)
[2016-11-14] MEDS: RANITIDINE HCL 150 MG TABLET (FP) PO SCH ×2 (10:01→21:46)
[2016-11-14] MEDS: NICOTINE 14 MG/24 HOURS TOPICAL PATCH TD SCH (10:01)
[2016-11-14] MEDS: lamoTRIgine 100 MG TABLET (FP) PO SCH ×2 (10:01→21:47)
[2016-11-14] MEDS: levETIRAcetam 500 MG TABLET (FP) PO SCH ×2 (10:01→21:46)
[2016-11-14] MEDS: ACETAMINOPHEN 325 MG TABLET (FP) PO PRN (10:03)
[2016-11-14] MEDS: PRENATAL VITAMINS W/ FOLIC ACID TABLET (FP) PO SCH (10:08)
--- NOTE | 2016-11-14 11:24 | PN ---
[facility] Progress Note Note: HISTORY OF MIGRAINE HEADACHE,USED TO TAKE IMITREX,[id number] MGS PO NOW,CLOSE MONITORING
[2016-11-14] MEDS ORDERED: SUMAtriptan SUCCINATE 50 MG TABLET PO ONE (11:30)
[2016-11-14] MEDS: traZODone HCL 100 MG TABLET (FP) PO SCH (21:46)
[2016-11-14] MEDS: THIAMINE HCL 100 MG TABLET (FP) PO SCH (21:48)
[2016-11-15] MEDS: AMOXICILLIN 500 MG CAPSULE (FP) PO SCH ×3 (06:44→21:37)
[2016-11-15] MEDS: guaiFENesin/D-METHORPHAN HB 10 ML UNIT-DOSE CUPS PO PRN ×3 (06:44→21:40)
[2016-11-15] MEDS: ACETAMINOPHEN 325 MG TABLET (FP) PO PRN (06:45)
[2016-11-15] MEDS ORDERED: PT OWN MED DRAWER 7, Y5N ONE ×3 (08:20→12:14)
[2016-11-15] MEDS: DIVALPROEX SODIUM 250 MG TABLET E.C. (FP) PO SCH ×2 (10:07→21:37)
[2016-11-15] MEDS: RANITIDINE HCL 150 MG TABLET (FP) PO SCH ×2 (10:08→21:38)
[2016-11-15] MEDS: levETIRAcetam 500 MG TABLET (FP) PO SCH ×2 (10:08→21:38)
[2016-11-15] MEDS: NICOTINE 14 MG/24 HOURS TOPICAL PATCH TD SCH (10:08)
[2016-11-15] MEDS: PRENATAL VITAMINS W/ FOLIC ACID TABLET (FP) PO SCH (10:10)
[2016-11-15] MEDS: MENTHOL/PHENOL 1 EACH UD MM PRN ×4 (10:12→21:41)
[2016-11-15] MEDS: lamoTRIgine 100 MG TABLET (FP) PO SCH ×2 (10:31→21:38)
[2016-11-15] MEDS: MAG HYDROX/AL HYDROX/SIMETH 30 ML UNIT-DOSE CUP PO PRN (18:33)
[2016-11-15] MEDS: traZODone HCL 100 MG TABLET (FP) PO SCH (21:38)
[2016-11-15] MEDS: THIAMINE HCL 100 MG TABLET (FP) PO SCH (21:38)
[2016-11-15] MEDS: P-EPHED 60MG/TRIPROLIDI 2.5MG TABLET PO PRN (21:39)
[2016-11-16] MEDS: MENTHOL/PHENOL 1 EACH UD MM PRN (02:22)
[2016-11-16] MEDS: guaiFENesin/D-METHORPHAN HB 10 ML UNIT-DOSE CUPS PO PRN (06:04)
[2016-11-16] MEDS: AMOXICILLIN 500 MG CAPSULE (FP) PO SCH ×3 (06:04→21:28)
[2016-11-16] MEDS: PRENATAL VITAMINS W/ FOLIC ACID TABLET (FP) PO SCH (10:26)
[2016-11-16] MEDS: NICOTINE 14 MG/24 HOURS TOPICAL PATCH TD SCH (10:26)
[2016-11-16] MEDS: levETIRAcetam 500 MG TABLET (FP) PO SCH ×2 (10:26→21:28)
[2016-11-16] MEDS: DIVALPROEX SODIUM 250 MG TABLET E.C. (FP) PO SCH ×2 (10:26→21:28)
[2016-11-16] MEDS: lamoTRIgine 100 MG TABLET (FP) PO SCH ×2 (10:26→21:28)
[2016-11-16] MEDS: RANITIDINE HCL 150 MG TABLET (FP) PO SCH ×2 (10:26→21:28)
[2016-11-16] MEDS: P-EPHED 60MG/TRIPROLIDI 2.5MG TABLET PO PRN (10:29)
[2016-11-16] MEDS: MAG HYDROX/AL HYDROX/SIMETH 30 ML UNIT-DOSE CUP PO PRN (18:56)
[2016-11-16] MEDS: traZODone HCL 100 MG TABLET (FP) PO SCH (21:28)
[2016-11-16] MEDS: THIAMINE HCL 100 MG TABLET (FP) PO SCH (21:28)
[2016-11-16] MEDS: ACETAMINOPHEN 325 MG TABLET (FP) PO PRN (21:30)
[2016-11-17] MEDS: AMOXICILLIN 500 MG CAPSULE (FP) PO SCH ×3 (06:27→21:28)
[2016-11-17] MEDS: ACETAMINOPHEN 325 MG TABLET (FP) PO PRN (06:29)
[2016-11-17] MEDS: SUMAtriptan SUCCINATE 50 MG TABLET PO PRN (06:30)
[2016-11-17] MEDS: NICOTINE 14 MG/24 HOURS TOPICAL PATCH TD SCH (10:17)
[2016-11-17] MEDS: DIVALPROEX SODIUM 250 MG TABLET E.C. (FP) PO SCH ×2 (10:18→21:28)
[2016-11-17] MEDS: RANITIDINE HCL 150 MG TABLET (FP) PO SCH ×2 (10:18→21:28)
[2016-11-17] MEDS: levETIRAcetam 500 MG TABLET (FP) PO SCH ×2 (10:18→21:28)
[2016-11-17] MEDS: lamoTRIgine 100 MG TABLET (FP) PO SCH ×2 (10:18→21:29)
[2016-11-17] MEDS: PRENATAL VITAMINS W/ FOLIC ACID TABLET (FP) PO SCH (10:18)
[2016-11-17] MEDS: NICOTINE POLACRILEX 2 MG GUM BC PRN (13:17)
[2016-11-17] MEDS: MAG HYDROX/AL HYDROX/SIMETH 30 ML UNIT-DOSE CUP PO PRN (21:28)
[2016-11-17] MEDS: THIAMINE HCL 100 MG TABLET (FP) PO SCH (21:28)
[2016-11-17] MEDS: traZODone HCL 100 MG TABLET (FP) PO SCH (21:29)
[2016-11-18] MEDS: AMOXICILLIN 500 MG CAPSULE (FP) PO SCH ×2 (06:25→13:19)
[2016-11-18] MEDS: lamoTRIgine 100 MG TABLET (FP) PO SCH ×2 (09:33→21:35)
[2016-11-18] MEDS: NICOTINE 14 MG/24 HOURS TOPICAL PATCH TD SCH (09:34)
[2016-11-18] MEDS: levETIRAcetam 500 MG TABLET (FP) PO SCH ×2 (09:34→21:35)
[2016-11-18] MEDS: PRENATAL VITAMINS W/ FOLIC ACID TABLET (FP) PO SCH (09:34)
[2016-11-18] MEDS: DIVALPROEX SODIUM 250 MG TABLET E.C. (FP) PO SCH ×2 (09:34→21:35)
[2016-11-18] MEDS: RANITIDINE HCL 150 MG TABLET (FP) PO SCH ×2 (09:34→21:35)
[2016-11-18] MEDS: traZODone HCL 100 MG TABLET (FP) PO SCH (21:35)
[2016-11-18] MEDS: MAG HYDROX/AL HYDROX/SIMETH 30 ML UNIT-DOSE CUP PO PRN (21:35)
[2016-11-18] MEDS: THIAMINE HCL 100 MG TABLET (FP) PO SCH (21:35)
[2016-11-19] MEDS: DIVALPROEX SODIUM 250 MG TABLET E.C. (FP) PO SCH ×2 (10:06→21:36)
[2016-11-19] MEDS: NICOTINE 14 MG/24 HOURS TOPICAL PATCH TD SCH (10:06)
[2016-11-19] MEDS: PRENATAL VITAMINS W/ FOLIC ACID TABLET (FP) PO SCH (10:06)
[2016-11-19] MEDS: levETIRAcetam 500 MG TABLET (FP) PO SCH ×2 (10:06→21:37)
[2016-11-19] MEDS: RANITIDINE HCL 150 MG TABLET (FP) PO SCH ×2 (10:06→21:37)
[2016-11-19] MEDS: lamoTRIgine 100 MG TABLET (FP) PO SCH ×2 (10:07→21:37)
[2016-11-19] MEDS: NICOTINE POLACRILEX 2 MG GUM BC PRN (10:08)
[2016-11-19] MEDS: traZODone HCL 100 MG TABLET (FP) PO SCH (21:36)
[2016-11-19] MEDS: THIAMINE HCL 100 MG TABLET (FP) PO SCH (21:37)
[2016-11-19] MEDS: MAG HYDROX/AL HYDROX/SIMETH 30 ML UNIT-DOSE CUP PO PRN (21:45)
[2016-11-20] MEDS: PRENATAL VITAMINS W/ FOLIC ACID TABLET (FP) PO SCH (10:01)
[2016-11-20] MEDS: levETIRAcetam 500 MG TABLET (FP) PO SCH ×2 (10:01→21:18)
[2016-11-20] MEDS: RANITIDINE HCL 150 MG TABLET (FP) PO SCH ×2 (10:01→21:18)
[2016-11-20] MEDS: lamoTRIgine 100 MG TABLET (FP) PO SCH ×2 (10:01→21:18)
[2016-11-20] MEDS: DIVALPROEX SODIUM 250 MG TABLET E.C. (FP) PO SCH ×2 (10:01→21:18)
[2016-11-20] MEDS: NICOTINE 14 MG/24 HOURS TOPICAL PATCH TD SCH (10:02)
[2016-11-20] MEDS: NICOTINE POLACRILEX 2 MG GUM BC PRN (10:03)
[2016-11-20] MEDS: traZODone HCL 100 MG TABLET (FP) PO SCH (21:18)
[2016-11-20] MEDS: THIAMINE HCL 100 MG TABLET (FP) PO SCH (21:18)
[2016-11-21] MEDS: SUMAtriptan SUCCINATE 50 MG TABLET PO PRN (07:55)
[2016-11-21] MEDS: levETIRAcetam 500 MG TABLET (FP) PO SCH ×2 (09:48→21:19)
[2016-11-21] MEDS: DIVALPROEX SODIUM 250 MG TABLET E.C. (FP) PO SCH ×2 (09:48→21:19)
[2016-11-21] MEDS: lamoTRIgine 100 MG TABLET (FP) PO SCH ×2 (09:48→21:19)
[2016-11-21] MEDS: NICOTINE 14 MG/24 HOURS TOPICAL PATCH TD SCH (09:48)
[2016-11-21] MEDS: RANITIDINE HCL 150 MG TABLET (FP) PO SCH ×2 (09:49→21:19)
[2016-11-21] MEDS: ACETAMINOPHEN 325 MG TABLET (FP) PO PRN ×2 (09:49→15:53)
[2016-11-21] MEDS: PRENATAL VITAMINS W/ FOLIC ACID TABLET (FP) PO SCH (09:49)
[2016-11-21] MEDS: MAG HYDROX/AL HYDROX/SIMETH 30 ML UNIT-DOSE CUP PO PRN ×2 (09:50→21:19)
[2016-11-21] MEDS: traZODone HCL 100 MG TABLET (FP) PO SCH (21:19)
[2016-11-21] MEDS: THIAMINE HCL 100 MG TABLET (FP) PO SCH (21:19)
[2016-11-21] MEDS: diphenhydrAMINE HCL 50 MG CAPSULE PO PRN (21:21)
[2016-11-22] MEDS: levETIRAcetam 500 MG TABLET (FP) PO SCH ×2 (10:10→21:33)
[2016-11-22] MEDS: DIVALPROEX SODIUM 250 MG TABLET E.C. (FP) PO SCH ×2 (10:10→21:33)
[2016-11-22] MEDS: RANITIDINE HCL 150 MG TABLET (FP) PO SCH ×2 (10:10→21:33)
[2016-11-22] MEDS: NICOTINE 14 MG/24 HOURS TOPICAL PATCH TD SCH (10:10)
[2016-11-22] MEDS: PRENATAL VITAMINS W/ FOLIC ACID TABLET (FP) PO SCH (10:19)
[2016-11-22] MEDS: lamoTRIgine 100 MG TABLET (FP) PO SCH ×2 (10:38→21:33)
[2016-11-22] MEDS: THIAMINE HCL 100 MG TABLET (FP) PO SCH (21:33)
[2016-11-22] MEDS: traZODone HCL 100 MG TABLET (FP) PO SCH (21:33)
[2016-11-22] MEDS: MAG HYDROX/AL HYDROX/SIMETH 30 ML UNIT-DOSE CUP PO PRN (21:35)
[2016-11-23] MEDS: levETIRAcetam 500 MG TABLET (FP) PO SCH ×2 (10:40→21:33)
[2016-11-23] MEDS: RANITIDINE HCL 150 MG TABLET (FP) PO SCH ×2 (10:40→21:33)
[2016-11-23] MEDS: lamoTRIgine 100 MG TABLET (FP) PO SCH ×2 (10:40→21:34)
[2016-11-23] MEDS: PRENATAL VITAMINS W/ FOLIC ACID TABLET (FP) PO SCH (10:40)
[2016-11-23] MEDS: DIVALPROEX SODIUM 250 MG TABLET E.C. (FP) PO SCH ×2 (10:40→21:34)
[2016-11-23] MEDS: NICOTINE 14 MG/24 HOURS TOPICAL PATCH TD SCH (10:41)
[2016-11-23] MEDS: THIAMINE HCL 100 MG TABLET (FP) PO SCH (21:33)
[2016-11-23] MEDS: traZODone HCL 100 MG TABLET (FP) PO SCH (21:33)
[2016-11-23] MEDS: diphenhydrAMINE HCL 50 MG CAPSULE PO PRN (21:34)
[2016-11-24] MEDS: SUMAtriptan SUCCINATE 50 MG TABLET PO PRN (06:17)
[2016-11-24] MEDS: NICOTINE 14 MG/24 HOURS TOPICAL PATCH TD SCH (10:28)
[2016-11-24] MEDS: levETIRAcetam 500 MG TABLET (FP) PO SCH ×2 (10:28→21:31)
[2016-11-24] MEDS: RANITIDINE HCL 150 MG TABLET (FP) PO SCH ×2 (10:29→21:31)
[2016-11-24] MEDS: lamoTRIgine 100 MG TABLET (FP) PO SCH ×2 (10:29→21:32)
[2016-11-24] MEDS: PRENATAL VITAMINS W/ FOLIC ACID TABLET (FP) PO SCH (10:29)
[2016-11-24] MEDS: DIVALPROEX SODIUM 250 MG TABLET E.C. (FP) PO SCH ×2 (10:29→21:31)
[2016-11-24] MEDS: NICOTINE POLACRILEX 2 MG GUM BC PRN ×2 (10:30→21:33)
[2016-11-24] MEDS: MAG HYDROX/AL HYDROX/SIMETH 30 ML UNIT-DOSE CUP PO PRN (18:45)
[2016-11-24] MEDS: traZODone HCL 100 MG TABLET (FP) PO SCH (21:31)
[2016-11-24] MEDS: THIAMINE HCL 100 MG TABLET (FP) PO SCH (21:31)
[2016-11-25] MEDS: SUMAtriptan SUCCINATE 50 MG TABLET PO PRN (05:59)
[2016-11-25] MEDS: levETIRAcetam 500 MG TABLET (FP) PO SCH ×2 (10:38→21:33)
[2016-11-25] MEDS: lamoTRIgine 100 MG TABLET (FP) PO SCH ×2 (10:38→21:33)
[2016-11-25] MEDS: DIVALPROEX SODIUM 250 MG TABLET E.C. (FP) PO SCH ×2 (10:38→21:33)
[2016-11-25] MEDS: RANITIDINE HCL 150 MG TABLET (FP) PO SCH ×2 (10:38→21:33)
[2016-11-25] MEDS: NICOTINE 14 MG/24 HOURS TOPICAL PATCH TD SCH (10:39)
[2016-11-25] MEDS: PRENATAL VITAMINS W/ FOLIC ACID TABLET (FP) PO SCH (10:40)
[2016-11-25] MEDS: ACETAMINOPHEN 325 MG TABLET (FP) PO PRN (13:41)
[2016-11-25] MEDS: MAG HYDROX/AL HYDROX/SIMETH 30 ML UNIT-DOSE CUP PO PRN (19:23)
[2016-11-25] MEDS: THIAMINE HCL 100 MG TABLET (FP) PO SCH (21:33)
[2016-11-25] MEDS: traZODone HCL 100 MG TABLET (FP) PO SCH (21:33)
[2016-11-25] MEDS: diphenhydrAMINE HCL 50 MG CAPSULE PO PRN (21:34)
[2016-11-26] MEDS: RANITIDINE HCL 150 MG TABLET (FP) PO SCH ×2 (10:33→21:52)
[2016-11-26] MEDS: lamoTRIgine 100 MG TABLET (FP) PO SCH ×2 (10:33→21:51)
[2016-11-26] MEDS: DIVALPROEX SODIUM 250 MG TABLET E.C. (FP) PO SCH ×2 (10:33→21:52)
[2016-11-26] MEDS: levETIRAcetam 500 MG TABLET (FP) PO SCH ×2 (10:34→21:52)
[2016-11-26] MEDS: NICOTINE 14 MG/24 HOURS TOPICAL PATCH TD SCH (10:34)
[2016-11-26] MEDS: PRENATAL VITAMINS W/ FOLIC ACID TABLET (FP) PO SCH (10:34)
[2016-11-26] MEDS: NICOTINE POLACRILEX 2 MG GUM BC PRN (10:36)
[2016-11-26] MEDS: SUMAtriptan SUCCINATE 50 MG TABLET PO PRN (18:58)
[2016-11-26] MEDS: MAG HYDROX/AL HYDROX/SIMETH 30 ML UNIT-DOSE CUP PO PRN (18:58)
[2016-11-26] MEDS: diphenhydrAMINE HCL 50 MG CAPSULE PO PRN (21:51)
[2016-11-26] MEDS: traZODone HCL 100 MG TABLET (FP) PO SCH (21:51)
[2016-11-26] MEDS: THIAMINE HCL 100 MG TABLET (FP) PO SCH (21:52)
[2016-11-27] MEDS: ACETAMINOPHEN 325 MG TABLET (FP) PO PRN (04:39)
[2016-11-27] MEDS ORDERED: PT OWN MED DRAWER 7, Y5N ONE (08:58)
[2016-11-27] MEDS: RANITIDINE HCL 150 MG TABLET (FP) PO SCH ×2 (09:29→21:24)
[2016-11-27] MEDS: NICOTINE 14 MG/24 HOURS TOPICAL PATCH TD SCH (09:29)
[2016-11-27] MEDS: levETIRAcetam 500 MG TABLET (FP) PO SCH ×2 (09:29→21:25)
[2016-11-27] MEDS: DIVALPROEX SODIUM 250 MG TABLET E.C. (FP) PO SCH ×2 (09:30→21:25)
[2016-11-27] MEDS: lamoTRIgine 100 MG TABLET (FP) PO SCH ×2 (09:30→21:25)
[2016-11-27] MEDS: PRENATAL VITAMINS W/ FOLIC ACID TABLET (FP) PO SCH (09:30)
[2016-11-27] MEDS: BACITRACIN 30 GM TUBE TOPICAL OINTMENT TP SCH (11:18)
[2016-11-27] MEDS: NICOTINE POLACRILEX 2 MG GUM BC PRN ×2 (12:56→21:26)
[2016-11-27] MEDS: THIAMINE HCL 100 MG TABLET (FP) PO SCH (21:24)
[2016-11-27] MEDS: traZODone HCL 100 MG TABLET (FP) PO SCH (21:24)
[2016-11-27] MEDS: diphenhydrAMINE HCL 50 MG CAPSULE PO PRN (21:25)
[2016-11-28] MEDS: SUMAtriptan SUCCINATE 50 MG TABLET PO PRN (06:08)
[2016-11-28] MEDS ORDERED: PT OWN MED DRAWER 7, Y5N ONE (08:47)
[2016-11-28] MEDS: BACITRACIN 30 GM TUBE TOPICAL OINTMENT TP SCH (10:05)
[2016-11-28] MEDS: NICOTINE 14 MG/24 HOURS TOPICAL PATCH TD SCH (10:06)
[2016-11-28] MEDS: DIVALPROEX SODIUM 250 MG TABLET E.C. (FP) PO SCH ×2 (10:06→21:36)
[2016-11-28] MEDS: RANITIDINE HCL 150 MG TABLET (FP) PO SCH ×2 (10:06→21:36)
[2016-11-28] MEDS: levETIRAcetam 500 MG TABLET (FP) PO SCH ×2 (10:06→21:36)
[2016-11-28] MEDS: lamoTRIgine 100 MG TABLET (FP) PO SCH ×2 (10:06→21:35)
[2016-11-28] MEDS: PRENATAL VITAMINS W/ FOLIC ACID TABLET (FP) PO SCH (10:07)
[2016-11-28] MEDS: THIAMINE HCL 100 MG TABLET (FP) PO SCH (21:35)
[2016-11-28] MEDS: diphenhydrAMINE HCL 50 MG CAPSULE PO PRN (21:36)
[2016-11-28] MEDS: traZODone HCL 100 MG TABLET (FP) PO SCH (21:36)
[2016-11-29] MEDS: ACETAMINOPHEN 325 MG TABLET (FP) PO PRN (06:37)
[2016-11-29] MEDS: levETIRAcetam 500 MG TABLET (FP) PO SCH ×2 (10:45→21:46)
[2016-11-29] MEDS: lamoTRIgine 100 MG TABLET (FP) PO SCH ×2 (10:45→21:45)
[2016-11-29] MEDS: BACITRACIN 30 GM TUBE TOPICAL OINTMENT TP SCH (10:45)
[2016-11-29] MEDS: RANITIDINE HCL 150 MG TABLET (FP) PO SCH ×2 (10:45→21:45)
[2016-11-29] MEDS: NICOTINE 14 MG/24 HOURS TOPICAL PATCH TD SCH (10:46)
[2016-11-29] MEDS: DIVALPROEX SODIUM 250 MG TABLET E.C. (FP) PO SCH ×2 (10:46→21:45)
[2016-11-29] MEDS: PRENATAL VITAMINS W/ FOLIC ACID TABLET (FP) PO SCH (10:46)
[2016-11-29] MEDS: NICOTINE POLACRILEX 2 MG GUM BC PRN ×2 (10:47→19:01)
[2016-11-29] MEDS: MAG HYDROX/AL HYDROX/SIMETH 30 ML UNIT-DOSE CUP PO PRN ×2 (13:07→19:01)
[2016-11-29] MEDS: traZODone HCL 100 MG TABLET (FP) PO SCH (21:45)
[2016-11-29] MEDS: THIAMINE HCL 100 MG TABLET (FP) PO SCH (21:45)
[2016-11-29] MEDS: diphenhydrAMINE HCL 50 MG CAPSULE PO PRN (21:46)
[2016-11-30] MEDS: SUMAtriptan SUCCINATE 50 MG TABLET PO PRN (06:04)
[2016-11-30] MEDS: lamoTRIgine 100 MG TABLET (FP) PO SCH ×2 (10:02→21:30)
[2016-11-30] MEDS: BACITRACIN 30 GM TUBE TOPICAL OINTMENT TP SCH (10:02)
[2016-11-30] MEDS: levETIRAcetam 500 MG TABLET (FP) PO SCH ×2 (10:02→21:31)
[2016-11-30] MEDS: RANITIDINE HCL 150 MG TABLET (FP) PO SCH ×2 (10:03→21:30)
[2016-11-30] MEDS: NICOTINE 14 MG/24 HOURS TOPICAL PATCH TD SCH (10:03)
[2016-11-30] MEDS: DIVALPROEX SODIUM 250 MG TABLET E.C. (FP) PO SCH ×2 (10:03→21:59)
[2016-11-30] MEDS: PRENATAL VITAMINS W/ FOLIC ACID TABLET (FP) PO SCH (10:04)
[2016-11-30] MEDS: NICOTINE POLACRILEX 2 MG GUM BC PRN ×2 (10:05→21:32)
[2016-11-30] MEDS: THIAMINE HCL 100 MG TABLET (FP) PO SCH (21:30)
[2016-11-30] MEDS: MAG HYDROX/AL HYDROX/SIMETH 30 ML UNIT-DOSE CUP PO PRN (21:30)
[2016-11-30] MEDS: traZODone HCL 100 MG TABLET (FP) PO SCH (21:30)
[2016-11-30] MEDS: diphenhydrAMINE HCL 50 MG CAPSULE PO PRN (21:31)
[2016-12-01] MEDS ORDERED: PT OWN MED DRAWER 7, Y5N ONE (08:27)
[2016-12-01] MEDS: levETIRAcetam 500 MG TABLET (FP) PO SCH ×2 (09:20→21:30)
[2016-12-01] MEDS: lamoTRIgine 100 MG TABLET (FP) PO SCH ×2 (09:21→21:30)
[2016-12-01] MEDS: RANITIDINE HCL 150 MG TABLET (FP) PO SCH ×2 (09:21→21:30)
[2016-12-01] MEDS: BACITRACIN 30 GM TUBE TOPICAL OINTMENT TP SCH (09:21)
[2016-12-01] MEDS: NICOTINE POLACRILEX 2 MG GUM BC PRN (09:22)
[2016-12-01] MEDS: NICOTINE 14 MG/24 HOURS TOPICAL PATCH TD SCH (09:22)
[2016-12-01] MEDS: PRENATAL VITAMINS W/ FOLIC ACID TABLET (FP) PO SCH (09:23)
[2016-12-01] MEDS: ACETAMINOPHEN 325 MG TABLET (FP) PO PRN (10:46)
[2016-12-01] MEDS: DIVALPROEX SODIUM 250 MG TABLET E.C. (FP) PO SCH ×2 (10:46→21:30)
[2016-12-01] MEDS: traZODone HCL 100 MG TABLET (FP) PO SCH (21:30)
[2016-12-01] MEDS: THIAMINE HCL 100 MG TABLET (FP) PO SCH (21:30)
[2016-12-02] MEDS ORDERED: PT OWN MED DRAWER 7, Y5N ONE (08:29)
[2016-12-02] MEDS: BACITRACIN 30 GM TUBE TOPICAL OINTMENT TP SCH (10:16)
[2016-12-02] MEDS: DIVALPROEX SODIUM 250 MG TABLET E.C. (FP) PO SCH ×2 (10:17→21:28)
[2016-12-02] MEDS: levETIRAcetam 500 MG TABLET (FP) PO SCH ×2 (10:17→21:28)
[2016-12-02] MEDS: lamoTRIgine 100 MG TABLET (FP) PO SCH ×2 (10:17→21:28)
[2016-12-02] MEDS: RANITIDINE HCL 150 MG TABLET (FP) PO SCH ×2 (10:18→21:28)
[2016-12-02] MEDS: NICOTINE 14 MG/24 HOURS TOPICAL PATCH TD SCH (10:19)
[2016-12-02] MEDS: NICOTINE POLACRILEX 2 MG GUM BC PRN (10:19)
[2016-12-02] MEDS: PRENATAL VITAMINS W/ FOLIC ACID TABLET (FP) PO SCH (10:19)
[2016-12-02] MEDS: SUMAtriptan SUCCINATE 50 MG TABLET PO PRN (19:09)
[2016-12-02] MEDS: THIAMINE HCL 100 MG TABLET (FP) PO SCH (21:28)
[2016-12-02] MEDS: diphenhydrAMINE HCL 50 MG CAPSULE PO PRN (21:28)
[2016-12-02] MEDS: traZODone HCL 100 MG TABLET (FP) PO SCH (21:29)
[2016-12-03] MEDS: DIVALPROEX SODIUM 250 MG TABLET E.C. (FP) PO SCH ×2 (10:19→21:31)
[2016-12-03] MEDS: BACITRACIN 30 GM TUBE TOPICAL OINTMENT TP SCH (10:20)
[2016-12-03] MEDS: levETIRAcetam 500 MG TABLET (FP) PO SCH ×2 (10:20→21:31)
[2016-12-03] MEDS: lamoTRIgine 100 MG TABLET (FP) PO SCH ×2 (10:20→21:31)
[2016-12-03] MEDS: NICOTINE POLACRILEX 2 MG GUM BC PRN ×2 (10:21→21:34)
[2016-12-03] MEDS: PRENATAL VITAMINS W/ FOLIC ACID TABLET (FP) PO SCH (10:21)
[2016-12-03] MEDS: RANITIDINE HCL 150 MG TABLET (FP) PO SCH ×2 (10:21→21:31)
[2016-12-03] MEDS: NICOTINE 14 MG/24 HOURS TOPICAL PATCH TD SCH (10:21)
[2016-12-03] MEDS: ACETAMINOPHEN 325 MG TABLET (FP) PO PRN ×2 (10:22→21:32)
[2016-12-03] MEDS: THIAMINE HCL 100 MG TABLET (FP) PO SCH (21:31)
[2016-12-03] MEDS: traZODone HCL 100 MG TABLET (FP) PO SCH (21:31)
[2016-12-03] MEDS: diphenhydrAMINE HCL 50 MG CAPSULE PO PRN (21:32)
[2016-12-04] MEDS: SUMAtriptan SUCCINATE 50 MG TABLET PO PRN (06:28)
[2016-12-04] MEDS: ACETAMINOPHEN 325 MG TABLET (FP) PO PRN ×2 (06:55→14:38)
[2016-12-04] MEDS: NICOTINE 14 MG/24 HOURS TOPICAL PATCH TD SCH (09:25)
[2016-12-04] MEDS: DIVALPROEX SODIUM 250 MG TABLET E.C. (FP) PO SCH ×2 (09:25→21:47)
[2016-12-04] MEDS: PRENATAL VITAMINS W/ FOLIC ACID TABLET (FP) PO SCH (09:25)
[2016-12-04] MEDS: levETIRAcetam 500 MG TABLET (FP) PO SCH ×2 (09:25→21:46)
[2016-12-04] MEDS: lamoTRIgine 100 MG TABLET (FP) PO SCH ×2 (09:25→21:48)
[2016-12-04] MEDS: RANITIDINE HCL 150 MG TABLET (FP) PO SCH ×2 (09:26→21:47)
[2016-12-04] MEDS: NICOTINE POLACRILEX 2 MG GUM BC PRN ×3 (09:26→21:46)
[2016-12-04] MEDS: BACITRACIN 30 GM TUBE TOPICAL OINTMENT TP SCH (09:27)
[2016-12-04] MEDS ORDERED: PT OWN MED DRAWER 7, Y5N ONE (20:15)
[2016-12-04] MEDS: diphenhydrAMINE HCL 50 MG CAPSULE PO PRN (21:47)
[2016-12-04] MEDS: traZODone HCL 100 MG TABLET (FP) PO SCH (21:47)
[2016-12-04] MEDS: THIAMINE HCL 100 MG TABLET (FP) PO SCH (21:48)
[2016-12-05] MEDS: ACETAMINOPHEN 325 MG TABLET (FP) PO PRN ×3 (06:13→21:26)
[2016-12-05] MEDS: DIVALPROEX SODIUM 250 MG TABLET E.C. (FP) PO SCH ×2 (09:58→21:26)
[2016-12-05] MEDS: levETIRAcetam 500 MG TABLET (FP) PO SCH ×2 (09:58→21:25)
[2016-12-05] MEDS: BACITRACIN 30 GM TUBE TOPICAL OINTMENT TP SCH (09:58)
[2016-12-05] MEDS: PRENATAL VITAMINS W/ FOLIC ACID TABLET (FP) PO SCH (09:59)
[2016-12-05] MEDS: lamoTRIgine 100 MG TABLET (FP) PO SCH ×2 (09:59→21:25)
[2016-12-05] MEDS: RANITIDINE HCL 150 MG TABLET (FP) PO SCH ×2 (09:59→21:26)
[2016-12-05] MEDS: NICOTINE 14 MG/24 HOURS TOPICAL PATCH TD SCH (09:59)
[2016-12-05] MEDS: NICOTINE POLACRILEX 2 MG GUM BC PRN ×3 (09:59→21:29)
[2016-12-05] MEDS: traZODone HCL 100 MG TABLET (FP) PO SCH (21:26)
[2016-12-05] MEDS: THIAMINE HCL 100 MG TABLET (FP) PO SCH (21:26)
[2016-12-05] MEDS: diphenhydrAMINE HCL 50 MG CAPSULE PO PRN (21:26)
[2016-12-06 06:59] VITALS: BP 151/77; PULSE 71; TEMP 98
[2016-12-06] MEDS: ACETAMINOPHEN 325 MG TABLET (FP) PO PRN (07:19)
[2016-12-06] MEDS: MAG HYDROX/AL HYDROX/SIMETH 30 ML UNIT-DOSE CUP PO PRN (08:31)
--- NOTE | 2016-12-06 09:03 | PN ---
Psychiatric Progress Note Vital Signs: Vital Signs Period Temp Pulse Resp BP Sys/Ryan Pulse Ox Last 24 Hr 98.0 F 71 18-18 151/77 Date of Session: 12/06/16 Chief Complaint:: Discharge visit HPI: Patient addressed Alcohol,PCP,Cannabis,Cocaine dependence comorbid with Bipolar I disorder. ROS: Significant for Obesity. Current Medications: Active Medications Generic Name Dose Route Start Last Admin Trade Name Freq PRN Reason Stop Dose Admin Acetaminophen 650 mg 11/09/16 16:30 12/06/16 07:19 Tylenol - PO 650 mg Q4H PRN Administration PAIN Al Hydroxide/Mg Hydroxide 30 ml 11/09/16 16:30 12/06/16 08:31 Mylanta Oral Suspension - PO 30 ml Q6H PRN Administration DYSPEPSIA Bacitracin 1 applic 11/27/16 10:00 12/05/16 09:58 Bacitracin - TP 1 applic DAILY DANIA Administration Colloidal Oatmeal 1 applic 11/09/16 16:35 Aveeno Soap - TP DAILY PRN HYGEINE Diphenhydramine HCl 50 mg 11/09/16 16:30 12/05/16 21:26 Benadryl - PO 50 mg HSMR1 PRN Administration INSOMNIA Divalproex Sodium 250 mg 11/10/16 14:00 12/05/16 21:26 Depakote - PO 250 mg BID DANIA Administration Eucalyptus/Menthol/Phenol/Sorbitol 1 each 11/09/16 16:30 11/16/16 02:22 Cepastat Lozenge - MM 1 each Q4H PRN Administration SORE THROAT Guaifenesin 10 ml 11/09/16 16:30 11/16/16 06:04 Robitussin Dm - PO 10 ml Q6H PRN Administration COUGH Hydroxyzine Pamoate 50 mg 11/09/16 16:30 Vistaril - PO Q4H PRN AGITATION Lamotrigine 200 mg 11/10/16 22:00 12/05/16 21:25 Lamictal - PO 200 mg BID DANIA Administration Levetiracetam 1,000 mg 11/09/16 22:00 12/05/16 21:25 Keppra - PO 1,000 mg BID DANIA Administration Loperamide HCl 4 mg 11/09/16 16:30 11/26/16 21:52 Imodium - PO 4 mg Q6H PRN Administration DIARRHEA Magnesium Citrate 300 ml 11/09/16 16:30 Citroma - PO Q48H PRN CONSTIPATION Magnesium Hydroxide 30 ml 11/09/16 16:30 Milk Of Magnesia - PO DAILY PRN CONSTIPATION Nicotine 14 mg 11/10/16 10:00 12/05/16 09:59 Nicoderm Patch - TD Not Given DAILY DANIA Nicotine Polacrilex 2 mg 11/09/16 16:30 12/05/16 21:29 Nicorette Gum - BC 2 mg Q2H PRN Administration NICOTINE REPLACEMENT RX Multivit/Folic Acid/Iron 1 tab 11/10/16 10:00 12/05/16 09:59 Vitamins (Sjr) - PO Not Given DAILY DANIA Pseudoephedrine/Triprolidine 1 combo 11/09/16 16:30 11/16/16 10:29 Actifed - PO 1 combo TID PRN Administration NASAL CONGESTION Ranitidine HCl 150 mg 11/09/16 22:00 12/05/16 21:26 Zantac - PO 150 mg BID DANIA Administration Sumatriptan Succinate 50 mg 11/15/16 14:49 12/04/16 06:28 Imitrex - PO 50 mg DAILY PRN Administration HEADACHE Thiamine HCl 100 mg 11/09/16 22:00 12/05/16 21:26 Vitamin B1 - PO 100 mg HS DANIA Administration Trazodone HCl 200 mg 11/10/16 22:00 12/05/16 21:26 Desyrel - PO 200 mg HS DANIA Administration Current Side Effect: No Lab tests ordered: No Lab tests reviewed: Yes Provider note:: Patient completed this program today.She has met her treatment goals and will continue to address her issues on outpatient basis at [facility].She continues to find that Trazodone 200 mg o hs,Depakote 250 mg po did, Lamictal 200 mg po bid help to cope with mood instability,depression, insomnia.scripts for 30 days provided. Therapy provided focusing on relapse prevention.Coping skills,support system utilization to maintai recovery has been discussed with patient.Supportive therapy provided. ptient is stable for discharged today. Patient is stable for discharge today. Total face to face time:: 30 Mental Status Exam - Mental Status Exam Alert and Oriented to: Time, Place, Person Cognitive Function: Grossly Intact Patient Appearance: Well Groomed Mood: Irritable Affect: Labile Patient Behavior: Cooperative Speech Pattern: Clear Voice Loudness: Normal Thought Process: Goal Oriented Thought Disorder: Not Present Hallucinations: Denies Homicidal Ideation: Denies Insight/Judgement: Fair Sleep: Fair Appetite: Good Muscle strength/Tone: Normal Gait/Station: Normal Psychiatric Treatment Plan - Problem List (1) Alcohol dependence Current Visit: Yes (2) Cellulitis of finger Current Visit: Yes (3) Ceruminosis Current Visit: Yes (4) Nicotine dependence Current Visit: Yes Qualifiers: (5) PCP (phencyclidine) abuse Current Visit: Yes (6) Cocaine dependence Current Visit: No (7) GERD (gastroesophageal reflux disease) Current Visit: Yes Qualifiers: Esophagitis presence: without esophagitis Qualified Code(s): K21.9 - Gastro-esophageal reflux disease without esophagitis (8) Intracranial shunt Current Visit: Yes Comment: revised 2014 (9) Morbid obesity Current Visit: Yes Qualifiers: Obesity type: unspecified obesity type Qualified Code(s): E66.01 - Morbid (severe) obesity due to excess calories (10) SEIZURE HX Current Visit: Yes (11) Bipolar I disorder, most recent episode mixed Current Visit: Yes (12) Cannabis dependence Current Visit: Yes
[2016-12-06] MEDS: BACITRACIN 30 GM TUBE TOPICAL OINTMENT TP SCH (09:15)
[2016-12-06] MEDS: levETIRAcetam 500 MG TABLET (FP) PO SCH (09:16)
[2016-12-06] MEDS: PRENATAL VITAMINS W/ FOLIC ACID TABLET (FP) PO SCH (09:16)
[2016-12-06] MEDS: lamoTRIgine 100 MG TABLET (FP) PO SCH (09:16)
[2016-12-06] MEDS: DIVALPROEX SODIUM 250 MG TABLET E.C. (FP) PO SCH (09:17)
[2016-12-06] MEDS: NICOTINE 14 MG/24 HOURS TOPICAL PATCH TD SCH (09:18)
== END 2016-12-06 09:25 | disposition home or self-care (01) | DRG 772 ==
LOC: YASAS 13:18 → Y3E 18:38
PROVIDERS: ADMIT Psychiatry & Neurology Psychiatry; ATTEND Psychiatry & Neurology Psychiatry
PROC: HZ42ZZZ Group Counseling for Substance Abuse Treatment, Cognitive-Behavioral (ICD-10-PCS; principal; 2016-12-06)
DX: F10.20 Alcohol dependence, uncomplicated (principal); F14.20 Cocaine dependence, uncomplicated; F12.20 Cannabis dependence, uncomplicated; F17.210 Nicotine dependence, cigarettes, uncomplicated; F31.9 Bipolar disorder, unspecified; F16.10 Hallucinogen abuse, uncomplicated; G40.909 Epilepsy, unspecified, not intractable, without status epilepticus; K21.9 Gastro-esophageal reflux disease without esophagitis; L03.019 Cellulitis of unspecified finger; E66.01 Morbid (severe) obesity due to excess calories; Z68.42 Body mass index [BMI] 45.0-49.9, adult
CPT/HCPCS: 36415; 81003; 84702; 87389; 93005; 93010

== ENCOUNTER 2017-08-19 14:27 | Inpatient (IN) | payer OTHER ==
[2017-08-19 17:53] VITALS: BMI 31.1
--- NOTE | 2017-08-19 21:28 | HP ---
CIWA Score - CIWA Score Nausea/Vomitin-No Nausea/No Vomiting Muscle Tremors: 4-Moderate,w/Arms Extend Anxiety: 4-Mod. Anxious/Guarded Agitation: 4-Moderately Restless Paroxysmal Sweats: 1-Minimal Palms Moist Orientation: 0-Oriented Tacttile Disturbances: 2-Mild Itch/Numbness/Burn Auditory Disturbances: 0-None Visual Disturbances: 0-None Headache: 2-Mild CIWA-Ar Total Score: 17 Admission ROS S - HPI Chief Complaint: C/O WITHDRAWAL SX'S FROM ALCOHOL. SEEKING DETOX TXMENT Allergies/Adverse Reactions: Allergies Allergy/AdvReac Type Severity Reaction Status Date / Time azithromycin [From Zithromax] Allergy Severe Swelling Verified 08/19/17 20:42 bismuth subsalicylate Allergy Severe Swelling Verified 08/19/17 20:42 [From Kaopectate (bismuth subsalicy)] hydromorphone HCl Allergy Intermediate Swelling Verified 08/19/17 20:42 [From Dilaudid] History of Present Illness: 37 Y.O. FEMLAE WITH POLYSUBSTANCE DEPENDENCE SEEKING DETOX FOR ALCOHOLISM. SHE IS REFERRED BY HER PAROL OFFICER. SHE IS KNOWN [facility]. LAST HERE 11/2016 FOR REHAB. SHE DENIES ANY DETOX/REHAB SINCE. DENIES ANY SIGNIFICANT PERIOD OF CLEAN TIME. Exam Limitations: No Limitations - Ebola screening Have you traveled outside of the country in the last 21 days: No Have you had contact with anyone from an Ebola affected area: No Have you been sick,other than usual withdrawal symptoms: No Do you have a fever: No - Review of Systems Constitutional: Chills, Loss of Appetite, Changes in sleep EENT: reports: No Symptoms Reported Respiratory: reports: No Symptoms reported Cardiac: reports: No Symptoms Reported GI: reports: Poor Appetite, Poor Fluid Intake : reports: No Symptoms Reported Musculoskeletal: reports: No Symptoms Reported Integumentary: reports: No Symptoms Reported Neuro: reports: Seizure, Other (PATIENT SERVICE TECHNICIAN PST SHUNT) Endocrine: reports: No Symptoms Reported Hematology: reports: No Symptoms Reported Psychiatric: reports: Anxious, Depressed Other Systems: Reviewed and Negative Patient History - Patient Medical History Hx Anemia: No Hx Asthma: No Hx Chronic Obstructive Pulmonary Disease (COPD): No Hx Cancer: No Hx Cardiac Disorders: No Hx Congestive Heart Failure: No Hx Hypertension: No Hx Hypercholesterolemia: No Hx Pacemaker: No HX Cerebrovascular Accident: No Hx Seizures: No Hx Dementia: No Hx Diabetes: No Hx Gastrointestinal Disorders: Yes (GERD) Hx Liver Disease: No Hx Genitourinary Disorders: No Hx Sexually Transmitted Disorders: No Hx Renal Disease (ESRD): No Hx Thyroid Disease: No Hx Human Immunodeficiency Virus (HIV): No Hx Hepatitis C: No Hx Depression: Yes Hx Suicide Attempt: No Hx Bipolar Disorder: Yes (prozac 60mgbid,lamictal 100mg bid) Hx Schizophrenia: No Other Medical History: DENIES - Patient Surgical History Past Surgical History: Yes Hx Neurologic Surgery: Yes (V/P shunt revision 02/24/12) Hx Cataract Extraction: No Hx Cardiac Surgery: No Hx Lung Surgery: No Hx Breast Surgery: No Hx Breast Biopsy: No Hx Abdominal Surgery: Yes (2011) Hx Appendectomy: No Hx Cholecystectomy: No Hx Genitourinary Surgery: No Hx Section: No Hx Orthopedic Surgery: No Hx Hysterectomy: No Other Surgical History: 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 SIDE OF HEAD Anesthesia Reaction: No - PPD History Previous Implant?: Yes Documented Results: Negative w/proof Date: 01/17/16 Results: 0mm PPD to be Administered?: Yes - Reproductive History Patient is a Female of Child Bearing Age (11 -55 yrs old): Yes Last Menstrual Period: 08/09/16 [place] : [place] [facility] - Smoking Cessation Smoking history: Current every day smoker Have you smoked in the past 12 months: Yes Aproximately how many cigarettes per day: 10 Cigars Per Day: 0 Hx Chewing Tobacco Use: No Initiated information on smoking cessation: Yes 'Breaking Loose' booklet given: 08/19/17 - Substance & Tx. History Hx Alcohol Use: Yes Hx Substance Use: Yes Substance Use Type: Alcohol, Cocaine, Tranquilizers (TCA/PCP) Hx Substance Use Treatment: Yes ([facility]) - Substances Abused Alcohol Route: Oral Frequency: Daily Amount used: liquor- 1 pint, beer- 1 six pack Age of first use: 18 Date of Last Use: 08/19/17 Cocaine Route: Inhalation Frequency: Daily Amount used: $80 WORTH Age of first use: 25 Date of Last Use: 08/18/17 PCP Route: Smoking Frequency: 1-2 times per week Amount used: 2 BAGS Age of first use: 25 Date of Last Use: 08/18/17 Family Disease History - Family Disease History Family Disease History: Diabetes: Grandparent (ON DIALYSIS), Mother (ON DIALYSIS ), Heart Disease: Father (HTN), Other: Grandparent, Mother Admission Physical Exam [facility] - Vital Signs Vital Signs: Vital Signs - 24 hr 08/19/17 17:51 Temperature 96.5 F L Pulse Rate 68 Respiratory 20 Rate Blood Pressure 165/87 - Physical General Appearance: Yes: Appropriately Dressed, Mild Distress, Irritable, Anxious HEENTM: Yes: EOMI, Normocephalic, Normal Voice, ALEKSANDRA, Pharynx Normal Respiratory: Yes: Chest Non-Tender, Lungs Clear, Normal Breath Sounds, No Respiratory Distress, No Accessory Muscle Use Neck: Yes: No masses,lesions,Nodules, Supple, Trachea in good position Breast: Yes: Breast Exam Deferred Cardiology: Yes: Regular Rhythm, Regular Rate, S1, S2 Abdominal: Yes: Normal Bowel Sounds, Non Tender, Soft, Surgical Scar Genitourinary: Yes: Within Normal Limits Back: Yes: Normal Inspection Musculoskeletal: Yes: full range of Motion, Gait Steady Extremities: Yes: Normal Capillary Refill, Normal Range of Motion, Non-Tender, Tremors Neurological: Yes: negative assembler II-XII NML intact, Fully Oriented, Alert, Motor Strength 5/5 Integumentary: Yes: Normal Color, Dry, Warm Lymphatic: Yes: Within Normal Limits - Diagnostic (1) Alcohol dependence with uncomplicated withdrawal Current Visit: Yes Status: Chronic (2) Cocaine dependence, uncomplicated Current Visit: Yes Status: Chronic (3) GERD (gastroesophageal reflux disease) Current Visit: No Status: Chronic Qualifiers: Esophagitis presence: without esophagitis Qualified Code(s): K21.9 - Gastro -esophageal reflux disease without esophagitis (4) Nicotine dependence Current Visit: No Status: Chronic Qualifiers: Nicotine product type: cigarettes Substance use status: uncomplicated Qualified Code(s): F17.210 - Nicotine dependence, cigarettes, uncomplicated (5) PCP (phencyclidine) abuse Current Visit: No Status: Chronic (6) SEIZURE HX Current Visit: No Status: Chronic Cleared for Admission [facility] - Detox or Rehab [facility] Level of Care: Medically Managed Detox Regimen/Protocol: Librium [facility] Breath Alcohol Content Breath Alcohol Content: 0.013 Urine Pregancy Test - Result Urine Test Results: Negative- NO Line Present Urine Drug Screen - Results Drug Screen Negative: No Urine Drug Screen Results: KATIE-Cocaine, PCP-Phencyclidine, TCA-Tricyclic Antidepress
[2017-08-19] MEDS ORDERED: NICOTINE POLACRILEX 2 MG GUM BC PRN (21:40)
[2017-08-19] MEDS ORDERED: ACETAMINOPHEN 325 MG TABLET (FP) PO PRN (21:40)
[2017-08-19] MEDS ORDERED: chlordiazePOXIDE HCL 25 MG CAPSULE PO PRN (21:40)
[2017-08-19] MEDS ORDERED: MAGNESIUM HYDROX 2400MG/30ML ORAL SUSPENSION 30 ML CUP PO PRN (21:40)
[2017-08-19] MEDS ORDERED: MENTHOL/PHENOL 1 EACH UD MM PRN (21:40)
[2017-08-19] MEDS ORDERED: MAG HYDROX/AL HYDROX/SIMETH 30 ML UNIT-DOSE CUP PO PRN (21:40)
[2017-08-19] MEDS ORDERED: MAGNESIUM CITRATE 300 ML BOTTLE PO PRN (21:40)
[2017-08-19] MEDS ORDERED: P-EPHED 60MG/TRIPROLIDI 2.5MG TABLET PO PRN (21:40)
[2017-08-19] MEDS ORDERED: LOPERAMIDE HCL 2 MG CAPSULE PO PRN (21:40)
[2017-08-19] MEDS ORDERED: guaiFENesin/D-METHORPHAN HB 10 ML UNIT-DOSE CUPS PO PRN (21:40)
[2017-08-19] MEDS: THIAMINE HCL 100 MG TABLET (FP) PO SCH (22:29)
[2017-08-19] MEDS: levETIRAcetam 500 MG TABLET (FP) PO SCH (22:30)
[2017-08-19] MEDS: chlordiazePOXIDE HCL 25 MG CAPSULE PO SCH (22:30)
[2017-08-19] MEDS: PANTOPRAZOLE 40 MG TABLET (FP) PO SCH (22:30)
[2017-08-20] MEDS: chlordiazePOXIDE HCL 25 MG CAPSULE PO SCH ×4 (05:44→22:13)
[2017-08-20] MEDS: IBUPROFEN 400 MG TABLET (FP) PO PRN (05:45)
--- NOTE | 2017-08-20 09:28 | PN ---
S CIWA - CIWA Score Nausea/Vomitin Muscle Tremors: 3 Anxiety: 3 Agitation: 3 Paroxysmal Sweats: 1-Minimal Palms Moist Orientation: 0-Oriented Tacttile Disturbances: 1-Very Mild Itch/Numbness Auditory Disturbances: 1-Very Mild Visual Disturbances: 1-Very Mild Sensitivity Headache: 2-Mild CIWA-Ar Total Score: 18 BHS Progress Note (SOAP) Subjective: ALERT,IRRITABLE,ANXIOUS,INTERRUPTED SLEEP,TREMOR Objective: 08/20/17 09:26 Vital Signs Temperature 97.9 F 08/20/17 06:46 Pulse Rate 66 08/20/17 06:46 Respiratory Rate 16 08/20/17 06:46 Blood Pressure 108/68 08/20/17 06:46 O2 Sat by Pulse Oximetry (%) EKG NSR WITHH SINUS ARRHYTHMIA NO CHEST PAIN,NO SOB,NO DIZZINESS 08/20/17 09:27 LABS PENDING Assessment: 08/20/17 09:27 WITHDRAWAL SYMPTOM Plan: CONTINUE DETOX
[2017-08-20] MEDS: PANTOPRAZOLE 40 MG TABLET (FP) PO SCH (10:26)
[2017-08-20] MEDS: NICOTINE 14 MG/24 HOURS TOPICAL PATCH TD SCH (10:26)
[2017-08-20] MEDS: levETIRAcetam 500 MG TABLET (FP) PO SCH ×2 (10:26→22:13)
[2017-08-20] MEDS: PRENATAL VITAMINS W/ FOLIC ACID TABLET (FP) PO SCH (10:28)
--- NOTE | 2017-08-20 12:18 | EKG ---
Test Reason : Blood Pressure : / mmHG Vent. Rate : 063 BPM Atrial Rate : 063 BPM P-R Int : 130 ms QRS Dur : 084 ms QT Int : 420 ms P-R-T Axes : 047 017 015 degrees QTc Int : 429 ms NORMAL SINUS RHYTHM WITH SINUS ARRHYTHMIA NONSPECIFIC T WAVE ABNORMALITY ABNORMAL ECG WHEN COMPARED WITH ECG OF 09-NOV-2016 21:34, NO SIGNIFICANT CHANGE WAS FOUND Confirmed by ADELINA DOS SANTOS MD ([id number]) on 08/20/2017 12:18:47 PM Referred By: Confirmed By:ADELINA DOS SANTOS MD
[2017-08-20 12:32] LABS: URINE APPEARANCE CLOUDY; URINE BILIRUBIN NEGATIVE (NEGATIVE); URINE BLOOD NEGATIVE (NEGATIVE); URINE COLOR YELLOW; URINE GLUCOSE (UA) NEGATIVE (NEGATIVE); URINE KETONE NEGATIVE (NEGATIVE); URINE LEUK ESTERASE TRACE (NEGATIVE); URINE NITRITE NEGATIVE (NEGATIVE); URINE PROTEIN NEGATIVE (NEGATIVE); URINE UROBILINOGEN NEGATIVE mg/dL (0.2-1.0)
[2017-08-20 12:34] LABS: HEMATOCRIT 35.1 % (32.4-45.2); MCH 26.6 pg (25.7-33.7); MCHC 31.2 g/dl (32.0-36.0); MEAN CELL VOLUME 85.1 fl (80-96); MEAN PLT VOLUME 10.1 fl (7.5-11.1); PLATELET COUNT 213 K/MM3 (134-434); RBC 4.12 M/mm3 (3.60-5.2); RDW 15.8 % (11.6-15.6); WHITE BLOOD COUNT 4.5 K/mm3 (4.0-10.0)
[2017-08-20 12:49] LABS: EPI CELLS MANY /HPF (FEW); URINE MUCUS MANY
[2017-08-20 12:50] LABS: CHLORIDE 107 mmol/L (98-107); POTASSIUM 4.2 mmol/L (3.5-5.1); SODIUM 140 mmol/L (136-145)
[2017-08-20 13:00] LABS: ALBUMIN 3.3 g/dl (3.4-5.0); ALK PHOS 48 U/L (45-117); ANION GAP 7 (8-16); BILIRUBIN,TOTAL 0.4 mg/dL (0.2-1.0); BLOOD UREA NITROGEN 11 mg/dL (7-18); CALCIUM 8.4 mg/dL (8.5-10.1); CO2 26 mmol/L (21-32); CREATININE 0.5 mg/dL (0.55-1.02); GLUCOSE,RANDOM 89 mg/dL (74-106); SGOT/AST < 3 U/L (15-37); SGPT/ALT 8 U/L (12-78); TOT PROT 6.1 g/dl (6.4-8.2)
--- NOTE | 2017-08-20 17:38 | CONSULT ---
[facility] Psychiatric Consult - Data Date of interview: 08/20/17 Admission source: [facility] Identifying data: Readmission to [facility] for this 37 y/o AA female seeking detox treatment on for alcohol,cocaine and phencyclidine dependence.Patient is single,mother of one,domiciled,unemployed and supported on welfare. Substance Abuse History: Confirmed by patient in this interview.Smoking history : Current every day smoker. Have you smoked in the past 12 months: Yes. Aproximately how many cigarettes per day: 10. Cigars Per Day: 0. Hx Chewing Tobacco Use: No. Initiated information on smoking cessation: Yes. 'Breaking Loose' booklet given: 08/19/17. - Substance & Tx. History. Hx Alcohol Use: Yes. Hx Substance Use: Yes. Substance Use Type: Alcohol, Cocaine, Tranquilizers (TCA/PCP). Hx Substance Use Treatment: Yes ([facility] - Substances Abused. Alcohol. Route: Oral. Frequency: Daily. Amount used: liquor- 1 pint, beer- 1 six pack. Age of first use: 18. Date of Last Use: 08/19/17. Cocaine. Route: Inhalation. Frequency: Daily. Amount used: $80 WORTH. Age of first use: 25. Date of Last Use: 08/18/17. PCP. Route: Smoking. Frequency: 1-2 times per week. Amount used: 2 BAGS. Age of first use: 25. Date of Last Use: 08/18/17 Medical History: History of hydrocephaly (P shunt),obesity,GERD and seizure disorder. Psychiatric History: Patient reports a history of two psychiatric hospitalizations ([facility] and [facility]) .Diagnosed with Bipolar Disorder and PTSD.Known to [facility] in [place].Ms Galeano indicates that she gets her psychiatric outpatient services at the [facility] in [place].Prescribed zoloft 100 mg/day + trazodone 100 mg/hs + depakote (dose not recaled).Patient denies history of suicide attempts. Physical/Sexual Abuse/Trauma History: Patient declines to discuss this domain. Additional Comment: Urine Drug Screen Results: KATIE-Cocaine, PCP-Phencyclidine, TCA-Tricyclic Antidepressant.Noted. Mental Status Exam - Mental Status Exam Alert and Oriented to: Time, Place, Person Cognitive Function: Good Patient Appearance: Well Groomed (obese) Mood: Withdrawn, Irritable Affect: Mood Congruent Patient Behavior: Fatigued, Appropriate, Cooperative Speech Pattern: Clear, Appropriate Voice Loudness: Normal Thought Process: Goal Oriented Thought Disorder: Not Present Hallucinations: Denies Suicidal Ideation: Denies Homicidal Ideation: Denies Insight/Judgement: Poor Sleep: Poorly, Difficulty falling asleep Appetite: Good Muscle strength/Tone: Normal Gait/Station: Normal Psychiatric Findings - Problem List ([place] 1, 2,3) (1) Alcohol dependence with uncomplicated withdrawal Current Visit: Yes Status: Chronic (2) Cocaine dependence, uncomplicated Current Visit: Yes Status: Acute (3) PCP (phencyclidine) abuse Current Visit: Yes Status: Chronic (4) Nicotine dependence Current Visit: Yes Status: Acute Qualifiers: Nicotine product type: cigarettes Substance use status: uncomplicated Qualified Code(s): F17.210 - Nicotine dependence, cigarettes, uncomplicated (5) Substance induced mood disorder Current Visit: Yes Status: Acute (6) Bipolar disorder Current Visit: Yes Status: Acute Comment: Self-report and according to records.On medications. (7) Insomnia Current Visit: Yes Status: Acute - Initial Treatment Plan Initial Treatment Plan: Psychoeducation.Records revisited.Sleep hygiene.Detoxification in progress.Medications: trazodone 100 mg po hs + depakote 250 mg po bid + zoloft 50 mg po daily.Medications confirmed by review of pharmacy claims of 07/14/17 and 07/12/17 at [facility].No refills for seroquel.Side effects/benefits of each drug discussed with the patient.Ms Galeano is in agreement with this plan of care.Valproic acid level : pending.Observation.
[2017-08-20] MEDS: traZODone HCL 50 MG TABLET (FP) PO SCH (22:13)
[2017-08-20] MEDS: THIAMINE HCL 100 MG TABLET (FP) PO SCH (22:13)
[2017-08-20] MEDS: DIVALPROEX SODIUM 250 MG TABLET E.C. (FP) PO SCH (22:13)
[2017-08-20] MEDS: hydrOXYzine PAMOATE 50 MG CAPSULE (FP) PO PRN (22:14)
[2017-08-21] MEDS: chlordiazePOXIDE HCL 25 MG CAPSULE PO SCH ×3 (05:51→17:25)
[2017-08-21] MEDS: SERTRALINE HCL 50 MG TABLET (FP) PO SCH (10:24)
[2017-08-21] MEDS: PRENATAL VITAMINS W/ FOLIC ACID TABLET (FP) PO SCH (10:24)
[2017-08-21] MEDS: levETIRAcetam 500 MG TABLET (FP) PO SCH ×2 (10:24→22:40)
[2017-08-21] MEDS: PANTOPRAZOLE 40 MG TABLET (FP) PO SCH (10:24)
[2017-08-21] MEDS: DIVALPROEX SODIUM 250 MG TABLET E.C. (FP) PO SCH ×2 (10:24→22:40)
[2017-08-21] MEDS: NICOTINE 14 MG/24 HOURS TOPICAL PATCH TD SCH (10:25)
[2017-08-21] MEDS: IBUPROFEN 400 MG TABLET (FP) PO PRN ×2 (10:26→17:54)
--- NOTE | 2017-08-21 11:26 | PN ---
S CIWA - CIWA Score Nausea/Vomitin-Mild Nausea/No Vomiting Muscle Tremors: 4-Moderate,w/Arms Extend Anxiety: 4-Mod. Anxious/Guarded Agitation: 4-Moderately Restless Paroxysmal Sweats: 1-Minimal Palms Moist Orientation: 0-Oriented Tacttile Disturbances: 1-Very Mild Itch/Numbness Auditory Disturbances: 0-None Visual Disturbances: 0-None Headache: 1-Very Mild CIWA-Ar Total Score: 16 BHS Progress Note (SOAP) Subjective: sweat tremor irritable anxiety agitation Objective: 08/21/17 11:24 Vital Signs Temperature 98.2 F 08/21/17 09:48 Pulse Rate 99 H 08/21/17 09:48 Respiratory Rate 16 08/21/17 09:48 Blood Pressure 145/78 08/21/17 09:48 O2 Sat by Pulse Oximetry (%) Laboratory Last Values WBC 4.5 K/mm3 (4.0-10.0) 08/20/17 07:50 RBC 4.12 M/mm3 (3.60-5.2) 08/20/17 07:50 Hgb 11.0 GM/dL (10.7-15.3) 08/20/17 07:50 Hct 35.1 % (32.4-45.2) 08/20/17 07:50 MCV 85.1 fl (80-96) 08/20/17 07:50 MCH 26.6 pg (25.7-33.7) 08/20/17 07:50 MCHC 31.2 g/dl (32.0-36.0) L 08/20/17 07:50 RDW 15.8 % (11.6-15.6) H 08/20/17 07:50 Plt Count 213 K/MM3 (134-434) 08/20/17 07:50 MPV 10.1 fl (7.5-11.1) 08/20/17 07:50 Sodium 140 mmol/L (136-145) 08/20/17 07:50 Potassium 4.2 mmol/L (3.5-5.1) 08/20/17 07:50 Chloride 107 mmol/L (98-107) 08/20/17 07:50 Carbon Dioxide 26 mmol/L (21-32) 08/20/17 07:50 Anion Gap 7 (8-16) L 08/20/17 07:50 BUN 11 mg/dL (7-18) 08/20/17 07:50 Creatinine 0.5 mg/dL (0.55-1.02) L 08/20/17 07:50 Creat Clearance w eGFR > 60 (>60) 08/20/17 07:50 Random Glucose 89 mg/dL (74-106) 08/20/17 07:50 Calcium 8.4 mg/dL (8.5-10.1) L 08/20/17 07:50 Total Bilirubin 0.4 mg/dL (0.2-1.0) D 08/20/17 07:50 AST < 3 U/L (15-37) L 08/20/17 07:50 ALT 8 U/L (12-78) L 08/20/17 07:50 Alkaline Phosphatase 48 U/L (45-117) 08/20/17 07:50 Total Protein 6.1 g/dl (6.4-8.2) L 08/20/17 07:50 Albumin 3.3 g/dl (3.4-5.0) L 08/20/17 07:50 Urine Color Yellow 08/20/17 08:30 Urine Appearance Cloudy 08/20/17 08:30 Urine pH 6.0 (5.0-8.0) 08/20/17 08:30 Ur Specific [place] 1.023 (1.001-1.035) 08/20/17 08:30 Urine Protein Negative (NEGATIVE) 08/20/17 08:30 Urine Glucose (UA) Negative (NEGATIVE) 08/20/17 08:30 Urine Ketones Negative (NEGATIVE) 08/20/17 08:30 Urine Blood Negative (NEGATIVE) 08/20/17 08:30 Urine Nitrite Negative (NEGATIVE) 08/20/17 08:30 Urine Bilirubin Negative (NEGATIVE) 08/20/17 08:30 Urine Urobilinogen Negative mg/dL (0.2-1.0) 08/20/17 08:30 Ur Leukocyte Esterase Trace (NEGATIVE) 08/20/17 08:30 Urine WBC (Auto) 17 /hpf (3-5) 08/20/17 08:30 Urine RBC (Auto) None /hpf (0-3) 08/20/17 08:30 Ur Epithelial Cells Many /HPF (FEW) 08/20/17 08:30 Urine Mucus Many 08/20/17 08:30 RPR Titer Nonreactive (NONREACTIVE) 08/20/17 07:50 lab noted Assessment: 08/21/17 11:25 withdrawal sx Plan: continue detox
[2017-08-21] MEDS: THIAMINE HCL 100 MG TABLET (FP) PO SCH (22:40)
[2017-08-21] MEDS: chlordiazePOXIDE 5 MG CAPSULE PO SCH (22:40)
[2017-08-21] MEDS: traZODone HCL 50 MG TABLET (FP) PO SCH (22:40)
[2017-08-21] MEDS: hydrOXYzine PAMOATE 50 MG CAPSULE (FP) PO PRN (22:41)
[2017-08-22] MEDS: chlordiazePOXIDE 5 MG CAPSULE PO SCH ×4 (06:27→18:01)
--- NOTE | 2017-08-22 09:47 | PN ---
S Progress Note (SOAP) Subjective: ALERT,IRRITABLE,ANXIOUS,INTERRUPTED SLEEP Objective: 08/22/17 09:45 Vital Signs Temperature 97.6 F 08/22/17 06:36 Pulse Rate 85 08/22/17 06:36 Respiratory Rate 18 08/22/17 06:36 Blood Pressure 108/56 08/22/17 06:36 O2 Sat by Pulse Oximetry (%) Assessment: 08/22/17 09:45 WITHDRAWAL SYMPTOM Plan: CONTINUE DETOX,DISCHARGE IN AM
[2017-08-22] MEDS: PRENATAL VITAMINS W/ FOLIC ACID TABLET (FP) PO SCH (10:34)
[2017-08-22] MEDS: PANTOPRAZOLE 40 MG TABLET (FP) PO SCH (10:35)
[2017-08-22] MEDS: SERTRALINE HCL 50 MG TABLET (FP) PO SCH (10:35)
[2017-08-22] MEDS: DIVALPROEX SODIUM 250 MG TABLET E.C. (FP) PO SCH ×2 (10:35→22:08)
[2017-08-22] MEDS: levETIRAcetam 500 MG TABLET (FP) PO SCH ×2 (10:35→22:08)
[2017-08-22] MEDS: NICOTINE 21 MG/24 HOURS TOPICAL PATCH TD SCH (10:36)
[2017-08-22] MEDS: IBUPROFEN 400 MG TABLET (FP) PO PRN (18:01)
[2017-08-22] MEDS: hydrOXYzine PAMOATE 50 MG CAPSULE (FP) PO PRN (19:04)
[2017-08-22] MEDS: traZODone HCL 50 MG TABLET (FP) PO SCH (22:08)
[2017-08-22] MEDS: chlordiazePOXIDE HCL 10 MG CAPSULE PO SCH (22:08)
[2017-08-22] MEDS: THIAMINE HCL 100 MG TABLET (FP) PO SCH (22:08)
[2017-08-23] MEDS: chlordiazePOXIDE HCL 10 MG CAPSULE PO SCH ×2 (05:59→10:13)
--- NOTE | 2017-08-23 08:44 | DS ---
[facility] Detox Discharge Summary Admission Date: 08/19/17 Discharge Date: 08/23/17 - History Present History: Alcohol Dependence, Cocaine Dependence Additional Comments: FOLLOW UP WITH AFTER CARE PROGRAM ARRANGEMENT Pertinent Past History: GERD NICOTINE DEPENDENCE - Physical Exam Results Vital Signs: Vital Signs Temperature 97.9 F 08/23/17 06:00 Pulse Rate 87 08/23/17 06:00 Respiratory Rate 18 08/23/17 06:00 Blood Pressure 122/54 08/23/17 06:00 O2 Sat by Pulse Oximetry (%) Pertinent Admission Physical Exam Findings: WITHDRAWALSIGNS AND SYMPTOM - Treatment Hospital Course: Detox Protocol Followed, Detoxed Safely, Responded well, Discharged Condition Good, Rehab Referral Accepted Patient has Accepted a Rehab Referral to: [facility] - Medication Discharge Medications: Ambulatory Orders Omeprazole [Prilosec (RX)] 60 mg PO DAILY 01/15/16 Levetiracetam 1,000 mg PO BID #60 tablet 02/09/16 Quetiapine Fumarate [Seroquel] 100 tab PO HS #30 tablet 02/09/16 Ranitidine [Zantac -] 150 mg PO BID #60 tablet 12/03/16 levETIRAcetam [Keppra -] 1,000 mg PO BID #60 tablet 12/03/16 Divalproex [Depakote -] 250 mg PO BID #60 tablet.ec 12/06/16 Lamotrigine [LaMICtal -] 200 mg PO BID #120 tablet 12/06/16 traZODone HCL [Desyrel -] 200 mg PO HS #60 tablet 12/06/16 - Diagnosis (1) Alcohol dependence with uncomplicated withdrawal Current Visit: Yes Status: Chronic (2) Cocaine dependence, uncomplicated Current Visit: Yes Status: Acute (3) GERD (gastroesophageal reflux disease) Current Visit: No Status: Chronic Qualifiers: Esophagitis presence: without esophagitis Qualified Code(s): K21.9 - Gastro -esophageal reflux disease without esophagitis (4) Nicotine dependence Current Visit: Yes Status: Acute Qualifiers: Nicotine product type: cigarettes Substance use status: uncomplicated Qualified Code(s): F17.210 - Nicotine dependence, cigarettes, uncomplicated (5) Bipolar disorder Current Visit: Yes Status: Acute (6) Substance induced mood disorder Current Visit: Yes Status: Acute - AMA Did Patient Leave Against Medical Advice: No
[2017-08-23] MEDS: levETIRAcetam 500 MG TABLET (FP) PO SCH (10:10)
[2017-08-23] MEDS: SERTRALINE HCL 50 MG TABLET (FP) PO SCH (10:10)
[2017-08-23] MEDS: PRENATAL VITAMINS W/ FOLIC ACID TABLET (FP) PO SCH (10:11)
[2017-08-23] MEDS: DIVALPROEX SODIUM 250 MG TABLET E.C. (FP) PO SCH (10:11)
[2017-08-23] MEDS: PANTOPRAZOLE 40 MG TABLET (FP) PO SCH (10:11)
[2017-08-23] MEDS: NICOTINE 21 MG/24 HOURS TOPICAL PATCH TD SCH (10:12)
[2017-08-23 10:17] VITALS: BP 98/54; PULSE 92; TEMP 97.5
== END 2017-08-23 13:30 | disposition other institution (70) | DRG 774 ==
LOC: YASAS 14:27 → Y6N 21:21
PROVIDERS: ADMIT Internal Medicine; ATTEND Internal Medicine
PROC: HZ2ZZZZ Detoxification Services for Substance Abuse Treatment (ICD-10-PCS; principal; 2017-08-19)
DX: F10.230 Alcohol dependence with withdrawal, uncomplicated (principal); F14.20 Cocaine dependence, uncomplicated; F17.210 Nicotine dependence, cigarettes, uncomplicated; F31.9 Bipolar disorder, unspecified; F19.24 Other psychoactive substance dependence with psychoactive substance-induced mood disorder; G47.00 Insomnia, unspecified; K21.9 Gastro-esophageal reflux disease without esophagitis
CPT/HCPCS: 36415; 80053; 80164; 81003; 81015; 85027; 86593; 93005; 93010

== ENCOUNTER 2017-08-23 13:09 | Inpatient (IN) | payer OTHER ==
[2017-08-23] MEDS ORDERED: IBUPROFEN 400 MG TABLET (FP) PO PRN (14:23)
[2017-08-23] MEDS ORDERED: hydrOXYzine PAMOATE 50 MG CAPSULE (FP) PO PRN (14:23)
[2017-08-23] MEDS ORDERED: MAGNESIUM HYDROX 2400MG/30ML ORAL SUSPENSION 30 ML CUP PO PRN (14:23)
[2017-08-23] MEDS ORDERED: MENTHOL/PHENOL 1 EACH UD MM PRN (14:23)
[2017-08-23] MEDS ORDERED: NICOTINE POLACRILEX 2 MG GUM BUC PRN (14:23)
[2017-08-23] MEDS ORDERED: LOPERAMIDE HCL 2 MG CAPSULE PO PRN (14:23)
[2017-08-23] MEDS ORDERED: P-EPHED 60MG/TRIPROLIDI 2.5MG TABLET PO PRN (14:23)
[2017-08-23] MEDS ORDERED: guaiFENesin/D-METHORPHAN HB 10 ML UNIT-DOSE CUPS PO PRN (14:23)
[2017-08-23] MEDS ORDERED: ACETAMINOPHEN 325 MG TABLET (FP) PO PRN (14:23)
[2017-08-23] MEDS ORDERED: MAGNESIUM CITRATE 300 ML BOTTLE PO PRN (14:23)
[2017-08-23] MEDS ORDERED: MAG HYDROX/AL HYDROX/SIMETH 30 ML UNIT-DOSE CUP PO PRN (14:23)
--- NOTE | 2017-08-23 14:23 | HP ---
[facility] Rehab Assess/Revision - Admission History Admitted to Rehab [facility]: [facility] Date of Admission to Rehab: 08/23/2017 - Vital signs Vital Signs: as permedical record, reviewed labs as well - Findings Detox History & Physical reviewed: Yes Concur with findings: Yes Inpatient Rehab Admission - Initial Determination Are CD services needed?: Yes Free of communicable disease: Yes Not in need of hospitalization: Yes - Rehab Admission Criteria Comorbidities: Yes Lacks judgement: Yes Patient is meeting Inpatient Rehab admission criteria:: Yes
--- NOTE | 2017-08-23 16:24 | HP ---
Psychiatrist Admission - Data Date of interview: 08/23/17 Admission source: [address] [place] [address] Identifying data: This is the first admission to [address] [place] [address] for this 37 years old H female single Medical History: ObesityGErD,H/OSeizure disorder. Vital Signs: Vital Signs - 24 hr 08/23/17 14:37 Temperature 97.1 F L Pulse Rate 98 H Respiratory 18 Rate Blood Pressure 106/69 Allergies/Adverse Reactions: Allergies Allergy/AdvReac Type Severity Reaction Status Date / Time azithromycin [From Zithromax] Allergy Severe Swelling Verified 08/19/17 20:42 bismuth subsalicylate Allergy Severe Swelling Verified 08/19/17 20:42 [From Kaopectate (bismuth subsalicy)] hydromorphone HCl Allergy Intermediate Swelling Verified 08/19/17 20:42 [From Dilaudid] Date of last physical exam: 08/19/17 Concur with the findings of this exam: Yes - Substance Abuse/Tx History Hx Alcohol Use: Yes Hx Substance Use: Yes (PCP,Crack/cocaine) Substance Use Type: Alcohol, Cocaine Hx Substance Use Treatment: Yes Mental Status Exam - Mental Status Exam Alert and Oriented to: Time, Place, Person Cognitive Function: Grossly Intact Patient Appearance: Unkempt Mood: Anxious Affect: Mood Congruent, Labile Patient Behavior: Cooperative Speech Pattern: Clear Voice Loudness: Normal Thought Process: Goal Oriented Thought Disorder: Not Present Hallucinations: Denies Suicidal Ideation: Denies Homicidal Ideation: Denies Insight/Judgement: Fair Sleep: Fair Appetite: Fair Muscle strength/Tone: Normal Gait/Station: Normal Psychiatric Findings - Problem List ([place] 1, 2,3) (1) Bipolar disorder Current Visit: Yes Status: Chronic Comment: Self-report and according to records.On medications. (2) Cocaine dependence, uncomplicated Current Visit: Yes Status: Chronic (3) Nicotine dependence Current Visit: Yes Status: Chronic Qualifiers: (4) Substance induced mood disorder Current Visit: Yes Status: Chronic - Initial Treatment Plan Initial Treatment Plan: Continue current medications as per plan.
[2017-08-23] MEDS: levETIRAcetam 500 MG TABLET (FP) PO SCH (21:19)
[2017-08-23] MEDS: DIVALPROEX SODIUM 250 MG TABLET E.C. (FP) PO SCH (21:20)
[2017-08-23] MEDS: RANITIDINE HCL 150 MG TABLET (FP) PO SCH (21:21)
[2017-08-23] MEDS ORDERED: traZODone HCL 100 MG TABLET (FP) PO SCH (22:00)
[2017-08-23] MEDS ORDERED: THIAMINE HCL 100 MG TABLET (FP) PO SCH (22:00)
[2017-08-24 06:58] VITALS: BP 141/72; PULSE 91; TEMP 98
[2017-08-24] MEDS ORDERED: NICOTINE 14 MG/24 HOURS TOPICAL PATCH TD SCH (10:00)
[2017-08-24] MEDS ORDERED: PRENATAL VITAMINS W/ FOLIC ACID TABLET (FP) PO SCH (10:00)
[2017-08-24] MEDS ORDERED: SERTRALINE HCL 50 MG TABLET (FP) PO SCH (10:00)
[2017-08-24] MEDS: levETIRAcetam 500 MG TABLET (FP) PO SCH (10:07)
[2017-08-24] MEDS: DIVALPROEX SODIUM 250 MG TABLET E.C. (FP) PO SCH (10:07)
[2017-08-24] MEDS: RANITIDINE HCL 150 MG TABLET (FP) PO SCH (10:08)
[2017-08-24] MEDS ORDERED: diphenhydrAMINE HCL 50 MG CAPSULE PO PRN (13:53)
--- NOTE | 2017-08-24 17:00 | PN ---
[facility] Progress Note Note: Patient decided to to sign out today stating she is not ready for treatment yet.Staff Weapons Officer along with other medical staff made an effort to convince her to continue inpatient stabilization but patient ignored recommendations; Patient will continue to address her issues on outpatient basis.
== END 2017-08-24 16:37 | disposition left against medical advice (07) | DRG 770 ==
LOC: YASAS 13:09 → Y3E 13:10
PROVIDERS: ADMIT Psychiatry & Neurology Psychiatry; ATTEND Psychiatry & Neurology Psychiatry
PROC: HZ42ZZZ Group Counseling for Substance Abuse Treatment, Cognitive-Behavioral (ICD-10-PCS; principal; 2017-08-23)
DX: F14.20 Cocaine dependence, uncomplicated (principal); F19.24 Other psychoactive substance dependence with psychoactive substance-induced mood disorder; F31.9 Bipolar disorder, unspecified; F17.210 Nicotine dependence, cigarettes, uncomplicated
CPT/HCPCS: 36415; 86803; 87389

== ENCOUNTER 2017-10-13 15:41 | Inpatient (IN) | payer OTHER ==
[2017-10-13 20:00] VITALS: BMI 46.0
--- NOTE | 2017-10-13 20:59 | HP ---
Admission [facility] Chief Complaint: "I am here for rehab my parol officer send me here." Allergies/Adverse Reactions: Allergies Allergy/AdvReac Type Severity Reaction Status Date / Time azithromycin [From Zithromax] Allergy Severe Swelling Verified 10/13/17 19:57 bismuth subsalicylate Allergy Severe Swelling Verified 10/13/17 19:57 [From Kaopectate (bismuth subsalicy)] hydromorphone HCl Allergy Intermediate Swelling Verified 10/13/17 19:57 [From Dilaudid] History of Present Illness: 37 yo female with hystory of polysubstace dependence here seeking rehab. Patient was referred by her chief wellness officer. Last detox at [facility] 08/19/17 - 08/23/17. PMHX: migraine, hydrocephalus with MEASUREMENT SPECIALIST shunt, grand mal seizure, last seizure 06/04/18, depression, anxiety. Longest period of sobriety 3 years and 5 months 2006 - 2009. denies suicidal / homicidal ideation. Exam Limitations: No Limitations - Ebola screening Have you traveled outside of the country in the last 21 days: No (N) Have you had contact with anyone from an Ebola affected area: No Have you been sick,other than usual withdrawal symptoms: No Do you have a fever: No - Review of Systems Constitutional: Other (on medications for sleep) EENT: reports: No Symptoms Reported Respiratory: reports: No Symptoms reported Cardiac: reports: No Symptoms Reported GI: reports: No Symptoms Reported : reports: Other (vaginal discharge) Musculoskeletal: reports: No Symptoms Reported Integumentary: reports: Pruritus Neuro: reports: See HPI, Headache Endocrine: reports: No Symptoms Reported Hematology: reports: No Symptoms Reported Psychiatric: reports: Orientated x3, Anxious Other Systems: Reviewed and Negative Patient History - Patient Medical History Hx Anemia: No Hx Asthma: No Hx Chronic Obstructive Pulmonary Disease (COPD): No Hx Cancer: No Hx Cardiac Disorders: No Hx Congestive Heart Failure: No Hx Hypertension: No Hx Hypercholesterolemia: No Hx Pacemaker: No HX Cerebrovascular Accident: No Hx Seizures: Yes Hx Dementia: No Hx Diabetes: No Hx Gastrointestinal Disorders: Yes Hx Liver Disease: No Hx Genitourinary Disorders: No Hx Sexually Transmitted Disorders: No (Chlamydia) Hx Renal Disease (ESRD): No Hx Thyroid Disease: No Hx Human Immunodeficiency Virus (HIV): No Hx Hepatitis C: No Hx Depression: Yes Hx Suicide Attempt: No Hx Bipolar Disorder: Yes (prozac 60mgbid,lamictal 100mg bid) Hx Schizophrenia: No - Patient Surgical History Past Surgical History: Yes Hx Neurologic Surgery: Yes (V/P shunt revision 02/24/12) Hx Cataract Extraction: No Hx Cardiac Surgery: No Hx Lung Surgery: No Hx Breast Surgery: No Hx Breast Biopsy: No Hx Abdominal Surgery: Yes (2011) Hx Appendectomy: No Hx Cholecystectomy: No Hx Genitourinary Surgery: No Hx Section: No Hx Orthopedic Surgery: No Hx Hysterectomy: No Other Surgical History: 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 SIDE OF HEAD Anesthesia Reaction: No - PPD History Previous Implant?: Yes Documented Results: Negative w/proof Date: 08/21/17 Results: 0mm PPD to be Administered?: No - Reproductive History Patient is a Female of Child Bearing Age (11 -55 yrs old): Yes Last Menstrual Period: 10/06/17 - Smoking Cessation Smoking history: Current every day smoker Have you smoked in the past 12 months: Yes Aproximately how many cigarettes per day: 10 Cigars Per Day: 0 Hx Chewing Tobacco Use: No Initiated information on smoking cessation: Yes 'Breaking Loose' booklet given: 10/13/17 - Substance & Tx. History Hx Alcohol Use: No Hx Substance Use: Yes Substance Use Type: Cocaine Hx Substance Use Treatment: Yes - Substances Abused Crack Route: Smoking Frequency: Daily Amount used: $200 Age of first use: 25 Date of Last Use: 10/13/17 Family Disease History - Family Disease History Family Disease History: Diabetes: Grandparent (ON DIALYSIS), Mother (ON DIALYSIS ), Heart Disease: Father (HTN), Other: Grandparent, Mother Admission Physical Exam BHS - Vital Signs Vital Signs: Vital Signs - 24 hr 10/13/17 19:58 Temperature 97.6 F Pulse Rate 87 Respiratory 18 Rate Blood Pressure 127/73 - Physical General Appearance: Yes: Appropriately Dressed, Obese, Anxious HEENTM: Yes: EOMI, Hearing grossly Normal, Normal ENT Inspection, Normocephalic , Normal Voice, ALEKSANDRA, Pharynx Normal, Tm's normal Respiratory: Yes: Chest Non-Tender, Lungs Clear, Normal Breath Sounds, No Respiratory Distress, No Accessory Muscle Use Neck: Yes: No masses,lesions,Nodules, Trachea in good position Breast: Yes: Breast Exam Deferred Cardiology: Yes: Regular Rhythm, Regular Rate Abdominal: Yes: Normal Bowel Sounds, Non Tender, Soft, Protuberent Genitourinary: Yes: Within Normal Limits Back: Yes: Normal Inspection Musculoskeletal: Yes: full range of Motion, Gait Steady, Pelvis Stable Extremities: Yes: Normal Capillary Refill, Normal Inspection, Normal Range of Motion, Non-Tender Neurological: Yes: conditioning yard supervisor II-XII NML intact, Fully Oriented, Alert, Motor Strength 5/5, Normal Mood/Affect Integumentary: Yes: Normal Color, Other (atopic dermatitis) Lymphatic: Yes: Within Normal Limits - Diagnostic (1) Seizure Current Visit: Yes Status: Acute (2) Atopic dermatitis Current Visit: Yes Status: Acute (3) Cocaine dependence Current Visit: Yes Status: Acute Qualifiers: Substance use status: uncomplicated Qualified Code(s): F14.20 - Cocaine dependence, uncomplicated (4) PCP dependence Current Visit: No Status: Acute (5) GERD (gastroesophageal reflux disease) Current Visit: Yes Status: Chronic Qualifiers: Esophagitis presence: without esophagitis Qualified Code(s): K21.9 - Gastro -esophageal reflux disease without esophagitis (6) Morbid obesity Current Visit: No Status: Chronic (7) Nicotine dependence Current Visit: Yes Status: Chronic Qualifiers: Nicotine product type: cigarettes BHS Breath Alcohol Content Breath Alcohol Content: 0.006 Urine Pregancy Test - Result Urine Test Results: Negative- NO Line Present Urine Drug Screen - Results Drug Screen Negative: No Urine Drug Screen Results: KATIE-Cocaine, BZO-Benzodiazepines Inpatient Rehab Admission - Initial Determination Are CD services needed?: Yes Free of communicable disease: Yes Not in need of hospitalization: Yes - Rehab Admission Criteria Previous failed treatment: Yes Poor recovery environment: Yes Comorbidities: Yes Lacks judgement: Yes Patient is meeting Inpatient Rehab admission criteria:: Yes
[2017-10-13] MEDS ORDERED: MENTHOL/PHENOL 1 EACH UD MM PRN (21:24)
[2017-10-13] MEDS ORDERED: MAGNESIUM HYDROX 2400MG/30ML ORAL SUSPENSION 30 ML CUP PO PRN (21:24)
[2017-10-13] MEDS ORDERED: P-EPHED 60MG/TRIPROLIDI 2.5MG TABLET PO PRN (21:24)
[2017-10-13] MEDS ORDERED: MAGNESIUM CITRATE 300 ML BOTTLE PO PRN (21:24)
[2017-10-13] MEDS ORDERED: MAG HYDROX/AL HYDROX/SIMETH 30 ML UNIT-DOSE CUP PO PRN (21:24)
[2017-10-13] MEDS ORDERED: LOPERAMIDE HCL 2 MG CAPSULE PO PRN (21:24)
[2017-10-13] MEDS ORDERED: guaiFENesin/D-METHORPHAN HB 10 ML UNIT-DOSE CUPS PO PRN (21:24)
[2017-10-13] MEDS ORDERED: MELATONIN 5 MG TABLETS PO PRN (22:00)
--- NOTE | 2017-10-13 22:34 | PN ---
[facility] Progress Note Note: Called by nursing staff to order medication for patient. Medication ordered according to recent pharmavy claims(Depakote 250 mg daily & 750 mg HS, Seroquel 300 mg po HS, Zoloft 50 mg po daily and Trazadone 100 mg po HS)
[2017-10-13] MEDS: QUEtiapine FUMARATE 300 MG TABLET PO SCH (23:34)
[2017-10-13] MEDS: THIAMINE HCL 100 MG TABLET (FP) PO SCH (23:34)
[2017-10-13] MEDS: levETIRAcetam 500 MG TABLET (FP) PO SCH (23:34)
[2017-10-13] MEDS: traZODone HCL 100 MG TABLET (FP) PO SCH (23:34)
[2017-10-13] MEDS: DIVALPROEX SODIUM 250 MG TABLET E.C. PO SCH (23:34)
[2017-10-13] MEDS: RANITIDINE HCL 150 MG TABLET (FP) PO SCH (23:34)
[2017-10-14 02:12] LABS: URINE APPEARANCE CLEAR; URINE BILIRUBIN NEGATIVE (<2.0 mg/dL); URINE BLOOD NEGATIVE (NEGATIVE); URINE COLOR LTYELLOW; URINE GLUCOSE (UA) NEGATIVE (NEGATIVE); URINE KETONE NEGATIVE (NEGATIVE); URINE LEUK ESTERASE NEGATIVE (NEGATIVE); URINE NITRITE NEGATIVE (NEGATIVE); URINE PROTEIN NEGATIVE (NEGATIVE); URINE UROBILINOGEN NEGATIVE mg/dL (0.2-1.0)
[2017-10-14] MEDS ORDERED: PT OWN MED DRAWER 7, Y5N ONE (09:30)
[2017-10-14 10:00] LABS: HEMATOCRIT 31.7 % (32.4-45.2); HEMOGLOBIN 10.2 GM/dL (10.7-15.3); MCH 27.7 pg (25.7-33.7); MCHC 32.2 g/dl (32.0-36.0); MEAN CELL VOLUME 85.8 fl (80-96); MEAN PLT VOLUME 10.9 fl (7.5-11.1); PLATELET COUNT 198 K/MM3 (134-434); RDW 15.5 % (11.6-15.6); WHITE BLOOD COUNT 4.2 K/mm3 (4.0-10.0)
[2017-10-14 10:01] LABS: CHLORIDE 112 mmol/L (98-107); POTASSIUM 4.6 mmol/L (3.5-5.1); SODIUM 145 mmol/L (136-145)
[2017-10-14] MEDS: DIVALPROEX SODIUM 250 MG TABLET E.C. PO SCH ×2 (10:02→21:55)
[2017-10-14] MEDS: NICOTINE 14 MG/24 HOURS TOPICAL PATCH TD SCH (10:02)
[2017-10-14] MEDS: PRENATAL VITAMINS W/ FOLIC ACID TABLET (FP) PO SCH (10:02)
[2017-10-14] MEDS: PANTOPRAZOLE 40 MG TABLET (FP) PO SCH (10:03)
[2017-10-14] MEDS: RANITIDINE HCL 150 MG TABLET (FP) PO SCH ×2 (10:03→21:53)
[2017-10-14] MEDS: SERTRALINE HCL 50 MG TABLET (FP) PO SCH (10:03)
[2017-10-14] MEDS: levETIRAcetam 500 MG TABLET (FP) PO SCH ×2 (10:03→21:53)
[2017-10-14 10:23] LABS: ALBUMIN 3.5 g/dl (3.4-5.0); ALK PHOS 50 U/L (45-117); ANION GAP 7 (8-16); BLOOD UREA NITROGEN 15 mg/dL (7-18); CALCIUM 8.7 mg/dL (8.5-10.1); CO2 26 mmol/L (21-32); CREATININE 0.6 mg/dL (0.55-1.02); GLUCOSE,RANDOM 80 mg/dL (74-106); SGOT/AST 6 U/L (15-37); SGPT/ALT 12 U/L (12-78); TOT PROT 6.9 g/dl (6.4-8.2)
[2017-10-14 10:26] LABS: BILIRUBIN,TOTAL < 0.1 mg/dL (0.2-1.0)
--- NOTE | 2017-10-14 10:58 | HP ---
Psychiatrist Admission - Data Date of interview: 10/14/17 Admission source: Probation Identifying data: This is one of the multiple [facility] admission for this 37 years old single Black female, unemployed on public assistance, living with grandmother Medical History: Significant for migraine, seizure disorder and history of treatment for chlamydia and surgery for hydrocephalus with DIAGNOSTIC MEDICAL SONOGRAPHER shunt at age 4 and DIAGNOSTIC MEDICAL SONOGRAPHER shunt revision on 02/24/12. Smokes 10 cigarettes daily Psychiatric History: Patient is well known to this facility on account of multiple previous admissions. Reports being diagnosed with Bipolar disorder in 2011 and has had 2 psychiatric admissions to [facility] and most recently a few years ago to [facility] due to severe depression ,drug use. Patient has been under psychiatric care at [facility] with Dr Galicia, then at [facility] program in the [place].Currently she sees psychiatrist at [facility] in [facility] and she is prescribed Depakote 250 mg daily & 750 mg HS, Trazodone 100 mg po HS and Zoloft 100 mg po daily. She denies history of suicidal ideations. Patient will continue above medications. at present, reports feeling irritable and sleeping poorly Physical/Sexual Abuse/Trauma History: Denies history of emotional, physical or sexual abuse as well as DV relationship Additional Comment: Reports history of multiple misdemeanor arrests on charges of kyler malik and rocío ledesma. Reports being on probation till 2019 Vital Signs: Vital Signs - 24 hr 10/13/17 10/14/17 10/14/17 19:58 01:26 03:30 Temperature 97.6 F Pulse Rate 87 Respiratory 18 18 18 Rate Blood Pressure 127/73 10/14/17 07:13 Temperature 97.9 F Pulse Rate 94 H Respiratory 18 Rate Blood Pressure 107/69 Allergies/Adverse Reactions: Allergies Allergy/AdvReac Type Severity Reaction Status Date / Time azithromycin [From Zithromax] Allergy Severe Swelling Verified 10/13/17 19:57 bismuth subsalicylate Allergy Severe Swelling Verified 10/13/17 19:57 [From Kaopectate (bismuth subsalicy)] hydromorphone HCl Allergy Intermediate Swelling Verified 10/13/17 19:57 [From Dilaudid] Mental Status Exam - Mental Status Exam Alert and Oriented to: Time, Person Cognitive Function: Fair Patient Appearance: Well Groomed Mood: Irritable Affect: Appropriate Patient Behavior: Cooperative Speech Pattern: Clear Voice Loudness: Normal Thought Process: Intact, Goal Oriented Thought Disorder: Not Present Hallucinations: Denies Homicidal Ideation: Denies Insight/Judgement: Fair Sleep: Poorly Appetite: Good Muscle strength/Tone: Normal Gait/Station: Normal Psychiatric Findings - Problem List ([place] 1, 2,3) (1) Cocaine dependence Current Visit: Yes Status: Acute Qualifiers: Substance use status: uncomplicated Qualified Code(s): F14.20 - Cocaine dependence, uncomplicated (2) Alcohol dependence Current Visit: No Status: Acute (3) Cannabis dependence Current Visit: No Status: Acute (4) Nicotine dependence Current Visit: Yes Status: Chronic Qualifiers: Nicotine product type: cigarettes (5) Bipolar disorder Current Visit: No Status: Chronic Comment: Self-report and according to records.On medications. (6) Substance induced mood disorder Current Visit: Yes Status: Acute (7) Substance-induced sleep disorder Current Visit: Yes Status: Acute (8) GERD (gastroesophageal reflux disease) Current Visit: Yes Status: Chronic Qualifiers: Esophagitis presence: without esophagitis Qualified Code(s): K21.9 - Gastro -esophageal reflux disease without esophagitis (9) Morbid obesity Current Visit: No Status: Chronic (10) SEIZURE HX Current Visit: No Status: Chronic - Initial Treatment Plan Initial Treatment Plan: 1) Continue Depakote 250 mg daily & 750 mg HS, Zoloft 50 mg po daily, Seroquel 300 mg po HS and Trzadone 100 mg po HS. 2) Monitor progress
[2017-10-14] MEDS: SELENIUM SULFIDE 2.5% LOTION 4 OZ. TP SCH (11:13)
[2017-10-14] MEDS: ACETAMINOPHEN 325 MG TABLET (FP) PO PRN (15:55)
[2017-10-14] MEDS: NICOTINE POLACRILEX 2 MG GUM BUC PRN ×3 (15:56→21:56)
[2017-10-14] MEDS: THIAMINE HCL 100 MG TABLET (FP) PO SCH (21:53)
[2017-10-14] MEDS: traZODone HCL 100 MG TABLET (FP) PO SCH (21:53)
[2017-10-14] MEDS: QUEtiapine FUMARATE 300 MG TABLET PO SCH (21:53)
[2017-10-15] MEDS: NICOTINE 14 MG/24 HOURS TOPICAL PATCH TD SCH (10:33)
[2017-10-15] MEDS: DIVALPROEX SODIUM 250 MG TABLET E.C. PO SCH ×2 (10:34→21:58)
[2017-10-15] MEDS: SERTRALINE HCL 50 MG TABLET (FP) PO SCH (10:34)
[2017-10-15] MEDS: PRENATAL VITAMINS W/ FOLIC ACID TABLET (FP) PO SCH (10:34)
[2017-10-15] MEDS: levETIRAcetam 500 MG TABLET (FP) PO SCH ×2 (10:34→21:58)
[2017-10-15] MEDS: RANITIDINE HCL 150 MG TABLET (FP) PO SCH ×2 (10:34→21:57)
[2017-10-15] MEDS: PANTOPRAZOLE 40 MG TABLET (FP) PO SCH (10:34)
[2017-10-15] MEDS: SELENIUM SULFIDE 2.5% LOTION 4 OZ. TP SCH (10:37)
[2017-10-15] MEDS: COLLOIDAL OATMEAL 1 BAR EACH TP PRN (10:37)
--- NOTE | 2017-10-15 12:49 | PN ---
S Progress Note Note: VAGINAL DISCHARGE ,VAGINITIS,DIFLUCAN 150 MGS PO ONCE,FLAGYL 500 MGS PO TID FOR 7 DAYS,CLOSE MONITORING
[2017-10-15] MEDS ORDERED: FLUCONAZOLE 50 MG TABLET PO ONE (13:15)
[2017-10-15] MEDS: metroNIDAZOLE 250 MG TABLET PO SCH ×2 (13:40→21:57)
[2017-10-15] MEDS: traZODone HCL 100 MG TABLET (FP) PO SCH (21:57)
[2017-10-15] MEDS: THIAMINE HCL 100 MG TABLET (FP) PO SCH (21:57)
[2017-10-15] MEDS: QUEtiapine FUMARATE 300 MG TABLET PO SCH (21:57)
[2017-10-16] MEDS: metroNIDAZOLE 250 MG TABLET PO SCH ×3 (07:22→22:09)
[2017-10-16] MEDS ORDERED: PT OWN MED DRAWER 7, Y5N ONE (08:39)
[2017-10-16] MEDS: DIVALPROEX SODIUM 250 MG TABLET E.C. PO SCH ×2 (10:21→22:09)
[2017-10-16] MEDS: PRENATAL VITAMINS W/ FOLIC ACID TABLET (FP) PO SCH (10:21)
[2017-10-16] MEDS: levETIRAcetam 500 MG TABLET (FP) PO SCH ×2 (10:21→22:09)
[2017-10-16] MEDS: SERTRALINE HCL 50 MG TABLET (FP) PO SCH (10:21)
[2017-10-16] MEDS: PANTOPRAZOLE 40 MG TABLET (FP) PO SCH (10:21)
[2017-10-16] MEDS: NICOTINE 14 MG/24 HOURS TOPICAL PATCH TD SCH (10:21)
[2017-10-16] MEDS: RANITIDINE HCL 150 MG TABLET (FP) PO SCH ×2 (10:21→22:09)
[2017-10-16] MEDS: SELENIUM SULFIDE 2.5% LOTION 4 OZ. TP SCH (10:21)
[2017-10-16] MEDS: NICOTINE POLACRILEX 2 MG GUM BUC PRN ×2 (10:23→13:49)
[2017-10-16] MEDS: QUEtiapine FUMARATE 300 MG TABLET PO SCH (22:09)
[2017-10-16] MEDS: traZODone HCL 100 MG TABLET (FP) PO SCH (22:09)
[2017-10-16] MEDS: THIAMINE HCL 100 MG TABLET (FP) PO SCH (22:09)
[2017-10-17] MEDS: ACETAMINOPHEN 325 MG TABLET (FP) PO PRN (05:55)
[2017-10-17] MEDS: metroNIDAZOLE 250 MG TABLET PO SCH ×3 (07:12→21:39)
[2017-10-17] MEDS: NICOTINE POLACRILEX 2 MG GUM BUC PRN ×4 (07:13→21:41)
[2017-10-17] MEDS ORDERED: PT OWN MED DRAWER 7, Y5N ONE (08:59)
[2017-10-17] MEDS: DIVALPROEX SODIUM 250 MG TABLET E.C. PO SCH ×2 (11:01→21:39)
[2017-10-17] MEDS: SERTRALINE HCL 50 MG TABLET (FP) PO SCH (11:01)
[2017-10-17] MEDS: levETIRAcetam 500 MG TABLET (FP) PO SCH ×2 (11:01→21:39)
[2017-10-17] MEDS: PRENATAL VITAMINS W/ FOLIC ACID TABLET (FP) PO SCH (11:01)
[2017-10-17] MEDS: PANTOPRAZOLE 40 MG TABLET (FP) PO SCH (11:02)
[2017-10-17] MEDS: RANITIDINE HCL 150 MG TABLET (FP) PO SCH ×2 (11:02→22:10)
[2017-10-17] MEDS: NICOTINE 14 MG/24 HOURS TOPICAL PATCH TD SCH (11:02)
[2017-10-17] MEDS: SELENIUM SULFIDE 2.5% LOTION 4 OZ. TP SCH (11:03)
--- NOTE | 2017-10-17 12:44 | EKG ---
Test Reason : Blood Pressure : / mmHG Vent. Rate : 087 BPM Atrial Rate : 087 BPM P-R Int : 142 ms QRS Dur : 084 ms QT Int : 352 ms P-R-T Axes : 054 027 013 degrees QTc Int : 423 ms NORMAL SINUS RHYTHM NONSPECIFIC T WAVE ABNORMALITY ABNORMAL ECG WHEN COMPARED WITH ECG OF 19-AUG-2017 22:37, NO SIGNIFICANT CHANGE WAS FOUND Confirmed by SEBASTIÁN PHAN MD ([id number]) on 10/17/2017 12:44:08 PM Referred By: Confirmed By:SEBASTIÁN PHAN MD
--- NOTE | 2017-10-17 15:19 | PN ---
[facility] Progress Note Note: Patient states that in June 2017 her ex boyfriend said he had been diagnosed with Gonorrhea. Pt states she never received treatment and denies any symptoms of vaginal discharge, dysuria and pelvic pain. Will order Urine for Chlamydia, GC and trichomonas. Continue to monitor clinically.
[2017-10-17] MEDS: traZODone HCL 100 MG TABLET (FP) PO SCH (21:39)
[2017-10-17] MEDS: QUEtiapine FUMARATE 300 MG TABLET PO SCH (21:39)
[2017-10-17] MEDS: THIAMINE HCL 100 MG TABLET (FP) PO SCH (21:39)
[2017-10-18] MEDS: ACETAMINOPHEN 325 MG TABLET (FP) PO PRN (03:51)
[2017-10-18] MEDS: metroNIDAZOLE 250 MG TABLET PO SCH ×3 (06:44→21:42)
[2017-10-18] MEDS: NICOTINE POLACRILEX 2 MG GUM BUC PRN ×3 (06:45→13:16)
[2017-10-18] MEDS: RANITIDINE HCL 150 MG TABLET (FP) PO SCH ×2 (10:38→21:41)
[2017-10-18] MEDS: levETIRAcetam 500 MG TABLET (FP) PO SCH ×2 (10:38→21:42)
[2017-10-18] MEDS: PRENATAL VITAMINS W/ FOLIC ACID TABLET (FP) PO SCH (10:38)
[2017-10-18] MEDS: DIVALPROEX SODIUM 250 MG TABLET E.C. PO SCH ×2 (10:38→21:45)
[2017-10-18] MEDS: SERTRALINE HCL 50 MG TABLET (FP) PO SCH (10:38)
[2017-10-18] MEDS: SELENIUM SULFIDE 2.5% LOTION 4 OZ. TP SCH (10:38)
[2017-10-18] MEDS: NICOTINE 14 MG/24 HOURS TOPICAL PATCH TD SCH (10:38)
[2017-10-18] MEDS: PANTOPRAZOLE 40 MG TABLET (FP) PO SCH (10:38)
[2017-10-18] MEDS ORDERED: PATIENT'S OWN MEDICATION (NON-FORMULARY) (Sumatriptan Succinate [Sumatriptan Succinate] 10 PO SCH (13:15)
[2017-10-18] MEDS: THIAMINE HCL 100 MG TABLET (FP) PO SCH (21:42)
[2017-10-18] MEDS: traZODone HCL 100 MG TABLET (FP) PO SCH (21:42)
[2017-10-18] MEDS: QUEtiapine FUMARATE 300 MG TABLET PO SCH (21:44)
[2017-10-19] MEDS: metroNIDAZOLE 250 MG TABLET PO SCH ×3 (07:23→21:36)
[2017-10-19] MEDS: NICOTINE POLACRILEX 2 MG GUM BUC PRN ×2 (07:24→10:44)
--- NOTE | 2017-10-19 10:40 | PN ---
Psychiatric Progress Note Vital Signs: Vital Signs Period Temp Pulse Resp BP Sys/Ryan Pulse Ox Last 24 Hr 97.9 F 85 18-18 120/61 Date of Session: 10/19/17 Chief Complaint:: "I need to stop taking zoloft." HPI: Pt. admitted to [facility] for cocaine dependence. ROS: Seizures Current Medications: Active Medications Generic Name Dose Route Start Last Admin Trade Name Freq PRN Reason Stop Dose Admin Acetaminophen 650 mg 10/13/17 21:24 10/18/17 03:51 Tylenol - PO 650 mg Q4H PRN Administration FEVER Al Hydroxide/Mg Hydroxide 30 ml 10/13/17 21:24 Mylanta Oral Suspension - PO Q6H PRN DYSPEPSIA Colloidal Oatmeal 1 applic 10/13/17 21:11 10/15/17 10:37 Aveeno Soap - TP 1 applic DAILY PRN Administration HYGEINE Divalproex Sodium 250 mg 10/14/17 10:00 10/18/17 10:38 Depakote - PO 250 mg DAILY DANIA Administration Divalproex Sodium 750 mg 10/13/17 22:45 10/18/17 21:45 Depakote - PO 750 mg HS DANIA Administration Eucalyptus/Menthol/Phenol/Sorbitol 1 each 10/13/17 21:24 Cepastat Lozenge - MM Q4H PRN SORE THROAT Guaifenesin 10 ml 10/13/17 21:24 Robitussin Dm - PO Q6H PRN COUGH Levetiracetam 1,000 mg 10/13/17 22:00 10/18/17 21:42 Keppra - PO 1,000 mg BID DANIA Administration Loperamide HCl 4 mg 10/13/17 21:24 Imodium - PO Q6H PRN DIARRHEA Magnesium Citrate 300 ml 10/13/17 21:24 Citroma - PO Q48H PRN CONSTIPATION Magnesium Hydroxide 30 ml 10/13/17 21:24 Milk Of Magnesia - PO DAILY PRN CONSTIPATION Melatonin 5 mg 10/13/17 22:00 Melatonin PO HS PRN INSOMNIA Metronidazole 500 mg 10/15/17 14:00 10/19/17 07:23 Flagyl - PO 500 mg TID DANIA Administration Nicotine 14 mg 10/14/17 10:00 10/18/17 10:38 Nicoderm Patch - TD 14 mg DAILY DANIA Administration Nicotine Polacrilex 2 mg 10/13/17 21:24 10/19/17 07:24 Nicorette Gum - BUC 2 mg Q2H PRN Administration NICOTINE REPLACEMENT RX Pantoprazole Sodium 40 mg 10/14/17 10:00 10/18/17 10:38 Protonix - PO 40 mg DAILY DANIA Administration Multivit/Folic Acid/Iron 1 tab 10/14/17 10:00 10/18/17 10:38 Vitamins (Sjr) - PO 1 tab DAILY DANIA Administration Pseudoephedrine/Triprolidine 1 combo 10/13/17 21:24 Actifed - PO TID PRN NASAL CONGESTION Quetiapine Fumarate 300 mg 10/13/17 22:45 10/18/17 21:44 Seroquel - PO 300 mg HS DANIA Administration Ranitidine HCl 150 mg 10/13/17 22:00 10/18/17 21:41 Zantac - PO 150 mg BID DANIA Administration Selenium Sulfide 1 applic 10/14/17 10:00 10/18/17 10:38 Selsun 2.5% Lotion - TP 10/20/17 21:12 1 applic DAILY DANIA Administration Sertraline HCl 50 mg 10/14/17 10:00 10/18/17 10:38 Zoloft - PO 50 mg DAILY DANIA Administration Thiamine HCl 100 mg 10/13/17 22:00 10/18/17 21:42 Vitamin B1 - PO 100 mg HS DANIA Administration Trazodone HCl 100 mg 10/13/17 22:45 10/18/17 21:42 Desyrel - PO 100 mg HS DANIA Administration Medication(s) Change(s): No. Current Side Effect: No Lab tests ordered: No Lab tests reviewed: Yes Provider note:: Patient requesting to speak to rewriter concerning discontinuing zoloft medication. Patient's discharge plan is to be admitted to the [facility] in [facility] after completing the rehabilition program on . Pt. is currently prescribed zoloft in additional to other psychotrophic medications. Patient's utox was positive for benzodiazepines and as per patient the [facility] will not accept patient if she is positive for any drugs. Pt. was recently at [facility] and [facility] receiving valium to assist patient with her detox. Utox results at [facility] was positive for cocaine and benzodiazpines. Pt. believes that accepting zoloft is the reason her utox is positive for benzodiazepine. Patient made aware that zoloft is highly unlikely to test positive for benzodiazepine. In addition, patient made aware that it may take several weeks until benzodiazepines no longer show up positive on her utox since her most recent valium intake. Will speak to DIVISION CONTROLLER concerning ordering a Utox. Patient satisifed and receptive to feedback. Pt. to remain on zoloft 50mg. Will continue to monitor. Total face to face time:: 25 Mental Status Exam - Mental Status Exam Alert and Oriented to: Time, Place, Person Cognitive Function: Good Patient Appearance: Well Groomed Mood: Hopeful Affect: Appropriate, Mood Congruent Patient Behavior: Appropriate, Cooperative Speech Pattern: Clear, Appropriate Voice Loudness: Normal Thought Process: Goal Oriented Thought Disorder: Not Present Hallucinations: Denies Suicidal Ideation: Denies Homicidal Ideation: Denies Insight/Judgement: Poor Sleep: Fair Appetite: Fair Muscle strength/Tone: Normal Gait/Station: Normal Psychiatric Treatment Plan - Problem List (1) Cocaine dependence Current Visit: Yes Qualifiers: Substance use status: uncomplicated Qualified Code(s): F14.20 - Cocaine dependence, uncomplicated (2) Substance induced mood disorder Current Visit: Yes (3) Substance-induced sleep disorder Current Visit: Yes (4) GERD (gastroesophageal reflux disease) Current Visit: Yes Qualifiers: Esophagitis presence: without esophagitis Qualified Code(s): K21.9 - Gastro -esophageal reflux disease without esophagitis (5) Nicotine dependence Current Visit: Yes Qualifiers: Nicotine product type: cigarettes (6) Alcohol dependence Current Visit: No (7) Cannabis dependence Current Visit: No (8) Bipolar disorder Current Visit: No Comment: Self-report and according to records.On medications. (9) Morbid obesity Current Visit: No (10) SEIZURE HX Current Visit: No
[2017-10-19] MEDS: NICOTINE 14 MG/24 HOURS TOPICAL PATCH TD SCH (10:41)
[2017-10-19] MEDS: levETIRAcetam 500 MG TABLET (FP) PO SCH ×2 (10:42→21:35)
[2017-10-19] MEDS: SERTRALINE HCL 50 MG TABLET (FP) PO SCH (10:42)
[2017-10-19] MEDS: RANITIDINE HCL 150 MG TABLET (FP) PO SCH ×2 (10:42→21:36)
[2017-10-19] MEDS: PANTOPRAZOLE 40 MG TABLET (FP) PO SCH (10:42)
[2017-10-19] MEDS: DIVALPROEX SODIUM 250 MG TABLET E.C. PO SCH ×2 (10:42→21:35)
[2017-10-19] MEDS: SELENIUM SULFIDE 2.5% LOTION 4 OZ. TP SCH (10:43)
[2017-10-19] MEDS: PRENATAL VITAMINS W/ FOLIC ACID TABLET (FP) PO SCH (10:43)
[2017-10-19] MEDS: THIAMINE HCL 100 MG TABLET (FP) PO SCH (21:35)
[2017-10-19] MEDS: QUEtiapine FUMARATE 300 MG TABLET PO SCH (21:35)
[2017-10-19] MEDS: traZODone HCL 100 MG TABLET (FP) PO SCH (21:36)
[2017-10-20] MEDS: metroNIDAZOLE 250 MG TABLET PO SCH ×3 (06:22→21:45)
[2017-10-20] MEDS: NICOTINE POLACRILEX 2 MG GUM BUC PRN ×2 (06:22→10:30)
[2017-10-20] MEDS: NICOTINE 14 MG/24 HOURS TOPICAL PATCH TD SCH (10:28)
[2017-10-20] MEDS: PRENATAL VITAMINS W/ FOLIC ACID TABLET (FP) PO SCH (10:28)
[2017-10-20] MEDS: PANTOPRAZOLE 40 MG TABLET (FP) PO SCH (10:29)
[2017-10-20] MEDS: DIVALPROEX SODIUM 250 MG TABLET E.C. PO SCH ×2 (10:29→21:46)
[2017-10-20] MEDS: SERTRALINE HCL 50 MG TABLET (FP) PO SCH (10:29)
[2017-10-20] MEDS: SELENIUM SULFIDE 2.5% LOTION 4 OZ. TP SCH (10:29)
[2017-10-20] MEDS: levETIRAcetam 500 MG TABLET (FP) PO SCH ×2 (10:29→21:45)
[2017-10-20] MEDS: RANITIDINE HCL 150 MG TABLET (FP) PO SCH ×2 (10:29→21:47)
[2017-10-20] MEDS: QUEtiapine FUMARATE 300 MG TABLET PO SCH (21:45)
[2017-10-20] MEDS: THIAMINE HCL 100 MG TABLET (FP) PO SCH (21:45)
[2017-10-20] MEDS: traZODone HCL 100 MG TABLET (FP) PO SCH (21:46)
[2017-10-21] MEDS: metroNIDAZOLE 250 MG TABLET PO SCH ×3 (07:04→21:44)
[2017-10-21] MEDS: ACETAMINOPHEN 325 MG TABLET (FP) PO PRN (07:05)
[2017-10-21] MEDS: NICOTINE 14 MG/24 HOURS TOPICAL PATCH TD SCH (10:48)
[2017-10-21] MEDS: PRENATAL VITAMINS W/ FOLIC ACID TABLET (FP) PO SCH (10:48)
[2017-10-21] MEDS: RANITIDINE HCL 150 MG TABLET (FP) PO SCH ×2 (10:49→21:44)
[2017-10-21] MEDS: PANTOPRAZOLE 40 MG TABLET (FP) PO SCH (10:49)
[2017-10-21] MEDS: levETIRAcetam 500 MG TABLET (FP) PO SCH ×2 (10:49→21:44)
[2017-10-21] MEDS: DIVALPROEX SODIUM 250 MG TABLET E.C. PO SCH ×2 (10:49→21:44)
[2017-10-21] MEDS: SERTRALINE HCL 50 MG TABLET (FP) PO SCH (10:50)
[2017-10-21] MEDS ORDERED: LIDOCAINE 5% TOPICAL PATCH TP ONE (12:45)
[2017-10-21] MEDS: NICOTINE POLACRILEX 2 MG GUM BUC PRN (13:29)
--- NOTE | 2017-10-21 14:44 | PN ---
Psychiatric Progress Note Vital Signs: Vital Signs Period Temp Pulse Resp BP Sys/Ryan Pulse Ox Last 24 Hr 98.2 F 77 17-18 103/69 Date of Session: 10/21/17 Chief Complaint:: "i need to change Zoloft" HPI: Patient is addressing cocaine, alcohol, nicotine dependence comorbid Bipolar I disorder. ROS: migraine, seizure disorder and history of treatment for chlamydia and surgery for hydrocephalus with UPHOLSTERER OUTSIDE shunt at age 4 and UPHOLSTERER OUTSIDE shunt revision on . Current Medications: Active Medications Generic Name Dose Route Start Last Admin Trade Name Freq PRN Reason Stop Dose Admin Acetaminophen 650 mg 10/13/17 21:24 10/21/17 07:05 Tylenol - PO 650 mg Q4H PRN Administration FEVER Al Hydroxide/Mg Hydroxide 30 ml 10/13/17 21:24 Mylanta Oral Suspension - PO Q6H PRN DYSPEPSIA Colloidal Oatmeal 1 applic 10/13/17 21:11 10/15/17 10:37 Aveeno Soap - TP 1 applic DAILY PRN Administration HYGEINE Divalproex Sodium 250 mg 10/14/17 10:00 10/21/17 10:49 Depakote - PO 250 mg DAILY DANIA Administration Divalproex Sodium 750 mg 10/13/17 22:45 10/20/17 21:46 Depakote - PO 750 mg HS DANIA Administration Escitalopram Oxalate 10 mg 10/22/17 10:00 Lexapro - PO DAILY DANIA Eucalyptus/Menthol/Phenol/Sorbitol 1 each 10/13/17 21:24 Cepastat Lozenge - MM Q4H PRN SORE THROAT Guaifenesin 10 ml 10/13/17 21:24 Robitussin Dm - PO Q6H PRN COUGH Levetiracetam 1,000 mg 10/13/17 22:00 10/21/17 10:49 Keppra - PO 1,000 mg BID DANIA Administration Lidocaine 1 patch 10/22/17 10:00 Lidoderm Patch - TP DAILY DANIA Loperamide HCl 4 mg 10/13/17 21:24 Imodium - PO Q6H PRN DIARRHEA Magnesium Citrate 300 ml 10/13/17 21:24 Citroma - PO Q48H PRN CONSTIPATION Magnesium Hydroxide 30 ml 10/13/17 21:24 Milk Of Magnesia - PO DAILY PRN CONSTIPATION Melatonin 5 mg 10/13/17 22:00 Melatonin PO HS PRN INSOMNIA Metronidazole 500 mg 10/15/17 14:00 10/21/17 13:27 Flagyl - PO 500 mg TID DANIA Administration Miscellaneous 1 each 10/21/17 22:00 Lidoderm Patch Removal MC DAILY@2200 DANIA Miscellaneous 1 each 10/21/17 22:00 Lidoderm Patch Removal MC DAILY@2200 DANIA Nicotine 14 mg 10/14/17 10:00 10/21/17 10:48 Nicoderm Patch - TD 14 mg DAILY DANIA Administration Nicotine Polacrilex 2 mg 10/13/17 21:24 10/21/17 13:29 Nicorette Gum - BUC 2 mg Q2H PRN Administration NICOTINE REPLACEMENT RX Pantoprazole Sodium 40 mg 10/14/17 10:00 10/21/17 10:49 Protonix - PO 40 mg DAILY DANIA Administration Multivit/Folic Acid/Iron 1 tab 10/14/17 10:00 10/21/17 10:48 Vitamins (Sjr) - PO 1 tab DAILY DANIA Administration Pseudoephedrine/Triprolidine 1 combo 10/13/17 21:24 Actifed - PO TID PRN NASAL CONGESTION Quetiapine Fumarate 300 mg 10/13/17 22:45 10/20/17 21:45 Seroquel - PO 300 mg HS DANIA Administration Ranitidine HCl 150 mg 10/13/17 22:00 10/21/17 10:49 Zantac - PO 150 mg BID DANIA Administration Thiamine HCl 100 mg 10/13/17 22:00 10/20/17 21:45 Vitamin B1 - PO 100 mg HS DANIA Administration Trazodone HCl 150 mg 10/21/17 14:36 Desyrel - PO HS [facility] Medication(s) Change(s): add Lexapro 10 mg, increase trazodone 150 mg po hs. Current Side Effect: No Lab tests ordered: No Lab tests reviewed: Yes Provider note:: Reviwed the chart, and Malcolm notes appreciated, met with the patient who was asking to change her Zoloft since her urine showed + for benzo's and zoloft might give a false poritive result. Patient also reported that she can't sleep well and needs medications adjustment. discussed indications and properies of Lexpro, medications recommendede, patient agreed with care plan. Total face to face time:: 15 Mental Status Exam - Mental Status Exam Alert and Oriented to: Time, Place, Person Cognitive Function: Grossly Intact Patient Appearance: Well Groomed Mood: Sad, Anxious Affect: Appropriate, Mood Congruent Patient Behavior: Appropriate, Cooperative Speech Pattern: Clear, Appropriate Voice Loudness: Normal Thought Process: Intact, Goal Oriented Thought Disorder: Not Present Hallucinations: Denies Suicidal Ideation: Denies Homicidal Ideation: Denies Insight/Judgement: Fair Sleep: Poorly, Difficulty falling asleep Appetite: Fair Muscle strength/Tone: Normal Gait/Station: Normal Psychiatric Treatment Plan - Problem List (1) Cocaine dependence Current Visit: Yes Qualifiers: Substance use status: uncomplicated Qualified Code(s): F14.20 - Cocaine dependence, uncomplicated (2) Seizure Current Visit: Yes (3) Substance induced mood disorder Current Visit: Yes (4) Substance-induced sleep disorder Current Visit: Yes (5) GERD (gastroesophageal reflux disease) Current Visit: Yes Qualifiers: Esophagitis presence: without esophagitis Qualified Code(s): K21.9 - Gastro -esophageal reflux disease without esophagitis (6) Nicotine dependence Current Visit: Yes Qualifiers: Nicotine product type: cigarettes (7) Alcohol dependence Current Visit: No (8) Insomnia Current Visit: No (9) Bipolar disorder Current Visit: No Comment: Self-report and according to records.On medications. (10) Cocaine dependence Current Visit: No (11) Morbid obesity Current Visit: No
[2017-10-21] MEDS: THIAMINE HCL 100 MG TABLET (FP) PO SCH (21:44)
[2017-10-21] MEDS: QUEtiapine FUMARATE 300 MG TABLET PO SCH (21:44)
[2017-10-21] MEDS: LIDOCAINE PATCH REMOVAL MC SCH ×2 (21:44→21:45)
[2017-10-21] MEDS: traZODone HCL 50 MG TABLET (FP) PO SCH (21:45)
[2017-10-22] MEDS: ACETAMINOPHEN 325 MG TABLET (FP) PO PRN (00:35)
[2017-10-22] MEDS ORDERED: SUMAtriptan SUCCINATE 50 MG TABLET PO ONE (02:30)
[2017-10-22] MEDS: NICOTINE POLACRILEX 2 MG GUM BUC PRN (06:47)
[2017-10-22] MEDS: metroNIDAZOLE 250 MG TABLET PO SCH (06:47)
[2017-10-22] MEDS: NICOTINE 14 MG/24 HOURS TOPICAL PATCH TD SCH (10:41)
[2017-10-22] MEDS: LIDOCAINE 5% TOPICAL PATCH TP SCH (10:41)
[2017-10-22] MEDS: PANTOPRAZOLE 40 MG TABLET (FP) PO SCH (10:41)
[2017-10-22] MEDS: levETIRAcetam 500 MG TABLET (FP) PO SCH ×2 (10:42→21:41)
[2017-10-22] MEDS: DIVALPROEX SODIUM 250 MG TABLET E.C. PO SCH ×2 (10:42→21:41)
[2017-10-22] MEDS: ESCITALOPRAM OXALATE 10 MG TABLET (FP) PO SCH (10:42)
[2017-10-22] MEDS: RANITIDINE HCL 150 MG TABLET (FP) PO SCH ×2 (10:42→21:41)
[2017-10-22] MEDS: PRENATAL VITAMINS W/ FOLIC ACID TABLET (FP) PO SCH (10:42)
[2017-10-22] MEDS: traZODone HCL 50 MG TABLET (FP) PO SCH (21:41)
[2017-10-22] MEDS: LIDOCAINE PATCH REMOVAL MC SCH ×2 (21:43)
[2017-10-22] MEDS: THIAMINE HCL 100 MG TABLET (FP) PO SCH (21:43)
[2017-10-22] MEDS: QUEtiapine FUMARATE 300 MG TABLET PO SCH (21:43)
[2017-10-23] MEDS ORDERED: PT OWN MED DRAWER 7, Y5N ONE ×2 (08:35→20:28)
[2017-10-23] MEDS: LIDOCAINE 5% TOPICAL PATCH TP SCH (09:02)
[2017-10-23] MEDS: ESCITALOPRAM OXALATE 10 MG TABLET (FP) PO SCH (09:02)
[2017-10-23] MEDS: PRENATAL VITAMINS W/ FOLIC ACID TABLET (FP) PO SCH (09:02)
[2017-10-23] MEDS: DIVALPROEX SODIUM 250 MG TABLET E.C. PO SCH ×2 (09:02→21:39)
[2017-10-23] MEDS: levETIRAcetam 500 MG TABLET (FP) PO SCH ×2 (09:02→21:47)
[2017-10-23] MEDS: PANTOPRAZOLE 40 MG TABLET (FP) PO SCH (09:02)
[2017-10-23] MEDS: RANITIDINE HCL 150 MG TABLET (FP) PO SCH ×2 (09:02→21:39)
[2017-10-23] MEDS: NICOTINE 14 MG/24 HOURS TOPICAL PATCH TD SCH (09:02)
[2017-10-23] MEDS: ACETAMINOPHEN 325 MG TABLET (FP) PO PRN (15:11)
[2017-10-23] MEDS: NICOTINE POLACRILEX 2 MG GUM BUC PRN (18:56)
[2017-10-23] MEDS ORDERED: levETIRAcetam 250 MG TABLET (FP) PO ONE (20:24)
[2017-10-23] MEDS: THIAMINE HCL 100 MG TABLET (FP) PO SCH (21:37)
[2017-10-23] MEDS: traZODone HCL 50 MG TABLET (FP) PO SCH (21:38)
[2017-10-23] MEDS: QUEtiapine FUMARATE 300 MG TABLET PO SCH (21:39)
[2017-10-23] MEDS: LIDOCAINE PATCH REMOVAL MC SCH ×2 (21:47)
[2017-10-24] MEDS ORDERED: PT OWN MED DRAWER 7, Y5N ONE ×2 (06:17→08:37)
[2017-10-24] MEDS: SUMAtriptan SUCCINATE 50 MG TABLET PO PRN (06:18)
[2017-10-24] MEDS ORDERED: levETIRAcetam 250 MG TABLET (FP) PO ONE (08:36)
[2017-10-24] MEDS: PANTOPRAZOLE 40 MG TABLET (FP) PO SCH (10:30)
[2017-10-24] MEDS: ESCITALOPRAM OXALATE 10 MG TABLET (FP) PO SCH (10:30)
[2017-10-24] MEDS: NICOTINE 14 MG/24 HOURS TOPICAL PATCH TD SCH (10:30)
[2017-10-24] MEDS: PRENATAL VITAMINS W/ FOLIC ACID TABLET (FP) PO SCH (10:30)
[2017-10-24] MEDS: levETIRAcetam 500 MG TABLET (FP) PO SCH ×2 (10:30→21:19)
[2017-10-24] MEDS: LIDOCAINE 5% TOPICAL PATCH TP SCH (10:30)
[2017-10-24] MEDS: RANITIDINE HCL 150 MG TABLET (FP) PO SCH ×2 (10:31→21:19)
[2017-10-24] MEDS: DIVALPROEX SODIUM 250 MG TABLET E.C. PO SCH ×2 (10:31→21:19)
[2017-10-24] MEDS: NICOTINE POLACRILEX 2 MG GUM BUC PRN ×2 (10:57→13:06)
[2017-10-24] MEDS: traZODone HCL 50 MG TABLET (FP) PO SCH (21:19)
[2017-10-24] MEDS: QUEtiapine FUMARATE 300 MG TABLET PO SCH (21:19)
[2017-10-24] MEDS: THIAMINE HCL 100 MG TABLET (FP) PO SCH (21:19)
[2017-10-24] MEDS: LIDOCAINE PATCH REMOVAL MC SCH ×2 (21:20→21:21)
[2017-10-25] MEDS: LIDOCAINE 5% TOPICAL PATCH TP SCH (10:44)
[2017-10-25] MEDS: NICOTINE 14 MG/24 HOURS TOPICAL PATCH TD SCH (10:44)
[2017-10-25] MEDS: RANITIDINE HCL 150 MG TABLET (FP) PO SCH ×2 (10:45→21:38)
[2017-10-25] MEDS: DIVALPROEX SODIUM 250 MG TABLET E.C. PO SCH ×2 (10:45→21:37)
[2017-10-25] MEDS: PANTOPRAZOLE 40 MG TABLET (FP) PO SCH (10:45)
[2017-10-25] MEDS: levETIRAcetam 500 MG TABLET (FP) PO SCH ×2 (10:45→21:37)
[2017-10-25] MEDS: ESCITALOPRAM OXALATE 10 MG TABLET (FP) PO SCH (10:45)
[2017-10-25] MEDS: PRENATAL VITAMINS W/ FOLIC ACID TABLET (FP) PO SCH (10:46)
[2017-10-25] MEDS: NICOTINE POLACRILEX 2 MG GUM BUC PRN ×3 (11:07→15:39)
[2017-10-25] MEDS: ACETAMINOPHEN 325 MG TABLET (FP) PO PRN (13:28)
[2017-10-25] MEDS ORDERED: PT OWN MED DRAWER 7, Y5N ONE (14:59)
[2017-10-25] MEDS: THIAMINE HCL 100 MG TABLET (FP) PO SCH (21:36)
[2017-10-25] MEDS: QUEtiapine FUMARATE 300 MG TABLET PO SCH (21:38)
[2017-10-25] MEDS: LIDOCAINE PATCH REMOVAL MC SCH ×2 (21:38)
[2017-10-25] MEDS: traZODone HCL 50 MG TABLET (FP) PO SCH (21:38)
[2017-10-26] MEDS ORDERED: PT OWN MED DRAWER 7, Y5N ONE ×3 (03:46→17:25)
[2017-10-26] MEDS: SUMAtriptan SUCCINATE 50 MG TABLET PO PRN ×2 (03:48→17:24)
[2017-10-26] MEDS: ACETAMINOPHEN 325 MG TABLET (FP) PO PRN (03:48)
[2017-10-26] MEDS: NICOTINE POLACRILEX 2 MG GUM BUC PRN ×2 (08:24→10:34)
[2017-10-26] MEDS: levETIRAcetam 500 MG TABLET (FP) PO SCH ×2 (10:32→21:40)
[2017-10-26] MEDS: PANTOPRAZOLE 40 MG TABLET (FP) PO SCH (10:32)
[2017-10-26] MEDS: RANITIDINE HCL 150 MG TABLET (FP) PO SCH ×2 (10:32→21:40)
[2017-10-26] MEDS: ESCITALOPRAM OXALATE 10 MG TABLET (FP) PO SCH (10:32)
[2017-10-26] MEDS: DIVALPROEX SODIUM 250 MG TABLET E.C. PO SCH ×2 (10:32→21:41)
[2017-10-26] MEDS: PRENATAL VITAMINS W/ FOLIC ACID TABLET (FP) PO SCH (10:32)
[2017-10-26] MEDS: LIDOCAINE 5% TOPICAL PATCH TP SCH (10:33)
[2017-10-26] MEDS: NICOTINE 14 MG/24 HOURS TOPICAL PATCH TD SCH (10:33)
[2017-10-26] MEDS: QUEtiapine FUMARATE 300 MG TABLET PO SCH (21:40)
[2017-10-26] MEDS: THIAMINE HCL 100 MG TABLET (FP) PO SCH (21:40)
[2017-10-26] MEDS: traZODone HCL 50 MG TABLET (FP) PO SCH (21:40)
[2017-10-26] MEDS: LIDOCAINE PATCH REMOVAL MC SCH ×2 (21:41)
[2017-10-27] MEDS: DIVALPROEX SODIUM 250 MG TABLET E.C. PO SCH ×2 (10:20→21:36)
[2017-10-27] MEDS: PANTOPRAZOLE 40 MG TABLET (FP) PO SCH (10:20)
[2017-10-27] MEDS: PRENATAL VITAMINS W/ FOLIC ACID TABLET (FP) PO SCH (10:20)
[2017-10-27] MEDS: levETIRAcetam 500 MG TABLET (FP) PO SCH ×2 (10:21→21:36)
[2017-10-27] MEDS: LIDOCAINE 5% TOPICAL PATCH TP SCH (10:21)
[2017-10-27] MEDS: NICOTINE 14 MG/24 HOURS TOPICAL PATCH TD SCH (10:21)
[2017-10-27] MEDS: RANITIDINE HCL 150 MG TABLET (FP) PO SCH ×2 (10:21→21:36)
[2017-10-27] MEDS: ESCITALOPRAM OXALATE 10 MG TABLET (FP) PO SCH (10:21)
[2017-10-27] MEDS: ACETAMINOPHEN 325 MG TABLET (FP) PO PRN (10:23)
[2017-10-27] MEDS: NICOTINE POLACRILEX 2 MG GUM BUC PRN (10:24)
--- NOTE | 2017-10-27 13:39 | PN ---
Psychiatric Progress Note Vital Signs: Vital Signs Period Temp Pulse Resp BP Sys/Ryan Pulse Ox Last 24 Hr 98.1 F 89 18-18 141/76 Date of Session: 10/27/17 Chief Complaint:: Discharge Note HPI: Patient addressing Alcohol, Cocaine and Cannabis Dependence comorbid with Nicotine Dependence, Bipolar Disorder, Substance-Induced Mood Disorder and Substance-Induced Sleep Disorder ROS: GGERD, Morbid Obesity Seizure Current Medications: Active Medications Generic Name Dose Route Start Last Admin Trade Name Freq PRN Reason Stop Dose Admin Acetaminophen 650 mg 10/13/17 21:24 10/27/17 10:23 Tylenol - PO 650 mg Q4H PRN Administration FEVER Al Hydroxide/Mg Hydroxide 30 ml 10/13/17 21:24 Mylanta Oral Suspension - PO Q6H PRN DYSPEPSIA Colloidal Oatmeal 1 applic 10/13/17 21:11 10/15/17 10:37 Aveeno Soap - TP 1 applic DAILY PRN Administration HYGEINE Divalproex Sodium 250 mg 10/14/17 10:00 10/27/17 10:20 Depakote - PO 250 mg DAILY DANIA Administration Divalproex Sodium 750 mg 10/13/17 22:45 10/26/17 21:41 Depakote - PO 750 mg HS DANIA Administration Escitalopram Oxalate 10 mg 10/22/17 10:00 10/27/17 10:21 Lexapro - PO 10 mg DAILY DANIA Administration Eucalyptus/Menthol/Phenol/Sorbitol 1 each 10/13/17 21:24 Cepastat Lozenge - MM Q4H PRN SORE THROAT Guaifenesin 10 ml 10/13/17 21:24 Robitussin Dm - PO Q6H PRN COUGH Levetiracetam 1,000 mg 10/13/17 22:00 10/27/17 10:21 Keppra - PO 1,000 mg BID DANIA Administration Lidocaine 1 patch 10/22/17 10:00 10/27/17 10:21 Lidoderm Patch - TP Not Given DAILY DANIA Loperamide HCl 4 mg 10/13/17 21:24 Imodium - PO Q6H PRN DIARRHEA Magnesium Citrate 300 ml 10/13/17 21:24 Citroma - PO Q48H PRN CONSTIPATION Magnesium Hydroxide 30 ml 10/13/17 21:24 Milk Of Magnesia - PO DAILY PRN CONSTIPATION Melatonin 5 mg 10/13/17 22:00 Melatonin PO HS PRN INSOMNIA Miscellaneous 1 each 10/21/17 22:00 10/26/17 21:41 Lidoderm Patch Removal MC 1 each DAILY@2200 DANIA Administration Miscellaneous 1 each 10/21/17 22:00 10/26/17 21:41 Lidoderm Patch Removal MC 1 each DAILY@2200 DANIA Administration Nicotine 14 mg 10/14/17 10:00 10/27/17 10:21 Nicoderm Patch - TD 14 mg DAILY DANIA Administration Nicotine Polacrilex 2 mg 10/13/17 21:24 10/27/17 10:24 Nicorette Gum - BUC 2 mg Q2H PRN Administration NICOTINE REPLACEMENT RX Pantoprazole Sodium 40 mg 10/14/17 10:00 10/27/17 10:20 Protonix - PO 40 mg DAILY DANIA Administration Multivit/Folic Acid/Iron 1 tab 10/14/17 10:00 10/27/17 10:20 Vitamins (Sjr) - PO 1 tab DAILY DANIA Administration Pseudoephedrine/Triprolidine 1 combo 10/13/17 21:24 Actifed - PO TID PRN NASAL CONGESTION Quetiapine Fumarate 300 mg 10/13/17 22:45 10/26/17 21:40 Seroquel - PO 300 mg HS DANIA Administration Ranitidine HCl 150 mg 10/13/17 22:00 10/27/17 10:21 Zantac - PO 150 mg BID DANIA Administration Sumatriptan Succinate 100 mg 10/22/17 07:32 10/26/17 17:24 Imitrex - PO 100 mg BID PRN Administration HEADACHE Thiamine HCl 100 mg 10/13/17 22:00 10/26/17 21:40 Vitamin B1 - PO 100 mg HS DANIA Administration Trazodone HCl 150 mg 10/21/17 22:00 10/26/17 21:40 Desyrel - PO 150 mg HS DANIA Administration Current Side Effect: No Lab tests ordered: Yes Lab tests reviewed: Yes Provider note:: Patient will complete this program on 10/28/17. She has met her treatment goals and will continue to address her issues in group home residential treatment at [facility] at [address] [place] [address]. Told appeals writer that from his participation in this program, she has learned the importance of making meetings and have a sponsor. She responded well to Depakote 250 mg daily & 750 mg HS, Lexapro 10 mg po daily, Seroquel 300 mg po HS and Trazadone 150 mg po HS. Scripts for 30 days supply of medications will be electronicaly transmitted to [facility] at [address] [place] [address]. She is stable for discharge on 10/28/17 Total face to face time:: 35 Psychiatric Treatment Plan - Problem List (1) Cocaine dependence Current Visit: Yes Qualifiers: Substance use status: uncomplicated Qualified Code(s): F14.20 - Cocaine dependence, uncomplicated (2) Alcohol dependence Current Visit: No (3) Cannabis dependence Current Visit: No (4) Nicotine dependence Current Visit: Yes Qualifiers: Nicotine product type: cigarettes (5) Bipolar disorder Current Visit: No Comment: Self-report and according to records.On medications. (6) Substance induced mood disorder Current Visit: Yes (7) Substance-induced sleep disorder Current Visit: Yes (8) GERD (gastroesophageal reflux disease) Current Visit: Yes Qualifiers: Esophagitis presence: without esophagitis Qualified Code(s): K21.9 - Gastro -esophageal reflux disease without esophagitis (9) Morbid obesity Current Visit: No (10) SEIZURE HX Current Visit: No Initial treatment plan: Patient will be discharged tomorrow and refered to [facility] for group home residential treatment
[2017-10-27] MEDS: THIAMINE HCL 100 MG TABLET (FP) PO SCH (21:36)
[2017-10-27] MEDS: QUEtiapine FUMARATE 300 MG TABLET PO SCH (21:36)
[2017-10-27] MEDS: LIDOCAINE PATCH REMOVAL MC SCH ×2 (21:37)
[2017-10-27] MEDS: traZODone HCL 50 MG TABLET (FP) PO SCH (21:38)
[2017-10-27] MEDS: COLLOIDAL OATMEAL 1 BAR EACH TP PRN (22:21)
[2017-10-28] MEDS ORDERED: PT OWN MED DRAWER 7, Y5N ONE ×2 (01:37→01:39)
[2017-10-28] MEDS: SUMAtriptan SUCCINATE 50 MG TABLET PO PRN (01:38)
[2017-10-28 06:44] VITALS: BP 114/76; PULSE 80; TEMP 97.9
[2017-10-28] MEDS: RANITIDINE HCL 150 MG TABLET (FP) PO SCH (10:07)
[2017-10-28] MEDS: levETIRAcetam 500 MG TABLET (FP) PO SCH (10:07)
[2017-10-28] MEDS: ESCITALOPRAM OXALATE 10 MG TABLET (FP) PO SCH (10:07)
[2017-10-28] MEDS: DIVALPROEX SODIUM 250 MG TABLET E.C. PO SCH (10:08)
[2017-10-28] MEDS: PANTOPRAZOLE 40 MG TABLET (FP) PO SCH (10:08)
[2017-10-28] MEDS: PRENATAL VITAMINS W/ FOLIC ACID TABLET (FP) PO SCH (10:08)
[2017-10-28] MEDS: NICOTINE 14 MG/24 HOURS TOPICAL PATCH TD SCH (10:09)
[2017-10-28] MEDS: LIDOCAINE 5% TOPICAL PATCH TP SCH (10:09)
[2017-10-28] MEDS: NICOTINE POLACRILEX 2 MG GUM BUC PRN (10:09)
== END 2017-10-28 10:30 | disposition home or self-care (01) | DRG 772 ==
LOC: YASAS 15:41 → Y3E 20:26
PROVIDERS: ADMIT Psychiatry & Neurology Psychiatry; ATTEND Psychiatry & Neurology Psychiatry
PROC: HZ42ZZZ Group Counseling for Substance Abuse Treatment, Cognitive-Behavioral (ICD-10-PCS; principal; 2017-10-13)
DX: F10.20 Alcohol dependence, uncomplicated (principal); F14.20 Cocaine dependence, uncomplicated; F12.20 Cannabis dependence, uncomplicated; F17.210 Nicotine dependence, cigarettes, uncomplicated; F19.24 Other psychoactive substance dependence with psychoactive substance-induced mood disorder; F19.282 Other psychoactive substance dependence with psychoactive substance-induced sleep disorder; F31.9 Bipolar disorder, unspecified; K21.9 Gastro-esophageal reflux disease without esophagitis; L20.9 Atopic dermatitis, unspecified; N76.0 Acute vaginitis; E66.01 Morbid (severe) obesity due to excess calories; Z68.42 Body mass index [BMI] 45.0-49.9, adult; Z86.69 Personal history of other diseases of the nervous system and sense organs
CPT/HCPCS: 36415; 80053; 80164; 81003; 85027; 86593; 87389; 93005; 93010

== ENCOUNTER 2018-10-17 11:27 | Inpatient (IN) | payer OTHER ==
[2018-10-17 14:35] VITALS: BMI 48.7
--- NOTE | 2018-10-17 14:48 | HP ---
CIWA Score - Admission Criteria [facility] Guidelines: Admission for Medically Managed Detox: Requires at least one of the followin. CIWA greater than 12 2. Seizures within the past 24 hours 3. Delirium tremens within the past 24 hours 4. Hallucinations within the past 24 hours 5. Acute intervention needed for co occurring medical disorder 6. Acute intervention needed for co occurring psychiatric disorder 7. Severe withdrawal that cannot be handled at a lower level of care (continued vomiting, continued diarrhea, abnormal vital signs) requiring intravenous medication and/or fluids 8. Admission ROS [facility] Chief Complaint: 38 years old female with medical issues of seizure gerd and nicotine dependence came here for crack rehab Allergies/Adverse Reactions: Allergies Allergy/AdvReac Type Severity Reaction Status Date / Time azithromycin [From Zithromax] Allergy Severe Swelling Verified 10/17/18 14:11 bismuth subsalicylate Allergy Severe Swelling Verified 10/17/18 14:11 [From Kaopectate (bismuth subsalicy)] hydromorphone HCl Allergy Intermediate Swelling Verified 10/17/18 14:11 [From Dilaudid] History of Present Illness: I am here for crack rehab Exam Limitations: No Limitations - Ebola screening Have you traveled outside of the country in the last 21 days: No (N) Have you had contact with anyone from an Ebola affected area: No Have you been sick,other than usual withdrawal symptoms: No Do you have a fever: No - Review of Systems Constitutional: No Symptoms Reported EENT: reports: Blurred Vision (treated with eye glasses) Respiratory: reports: No Symptoms reported Cardiac: reports: No Symptoms Reported GI: reports: Abdominal cramping (gerd) : reports: No Symptoms Reported Musculoskeletal: reports: No Symptoms Reported Integumentary: reports: No Symptoms Reported Neuro: reports: Seizure (2008 diagnosted seizure due to "shunt" since age 4 treated with kappro) Endocrine: reports: No Symptoms Reported Hematology: reports: No Symptoms Reported Psychiatric: reports: Judgement Intact, Orientated x3, Anxious Other Systems: Reviewed and Negative Patient History - Patient Medical History Hx Anemia: No Hx Asthma: No Hx Chronic Obstructive Pulmonary Disease (COPD): No Hx Cancer: No Hx Cardiac Disorders: No Hx Congestive Heart Failure: No Hx Hypertension: No Hx Hypercholesterolemia: No Hx Pacemaker: No HX Cerebrovascular Accident: No Hx Seizures: Yes (ON MEDS.) Hx Dementia: No Hx Diabetes: No Hx Gastrointestinal Disorders: Yes (ACID REFLUX) Hx Liver Disease: No Hx Genitourinary Disorders: No Hx Sexually Transmitted Disorders: Yes (GONORRHEA) Hx Renal Disease (ESRD): No Hx Thyroid Disease: No Hx Human Immunodeficiency Virus (HIV): No Hx Hepatitis C: No Hx Depression: Yes Hx Suicide Attempt: No Hx Bipolar Disorder: Yes (prozac 60mgbid,lamictal 100mg bid) Hx Schizophrenia: No - Patient Surgical History Past Surgical History: Yes Hx Neurologic Surgery: Yes (V/P shunt revision 02/24/12) Hx Cataract Extraction: No Hx Cardiac Surgery: No Hx Lung Surgery: No Hx Breast Surgery: No Hx Breast Biopsy: No Hx Abdominal Surgery: Yes (2011) Hx Appendectomy: No Hx Cholecystectomy: No Hx Genitourinary Surgery: No Hx Section: No Hx Orthopedic Surgery: No Hx Hysterectomy: No Other Surgical History: 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 SIDE OF HEAD Anesthesia Reaction: No - PPD History Date: 08/21/17 Results: 0mm - Reproductive History Patient is a Female of Child Bearing Age (11 -55 yrs old): Yes Last Menstrual Period: 10/11/18 Patient : No - Smoking Cessation Smoking history: Current every day smoker Have you smoked in the past 12 months: Yes Aproximately how many cigarettes per day: 10 Cigars Per Day: 0 Hx Chewing Tobacco Use: No Initiated information on smoking cessation: Yes 'Breaking Loose' booklet given: 10/17/18 - Substances abused Crack Substance route: Smoking Frequency: 3-6 times per week Amount used: $120.00 Age of first use: 25 Date of last use: 10/15/18 Cocaine Substance route: Smoking Frequency: 3-6 times per week Amount used: $120.00 Age of first use: 25 Date of last use: 10/15/18 Marijuana/Hashish Substance route: Smoking Frequency: Daily Amount used: $30.00 Age of first use: 17 Date of last use: 10/14/18 Family Disease History - Family Disease History Family Disease History: Diabetes: Grandparent (ON DIALYSIS), Mother (ON DIALYSIS ), Heart Disease: Father (HTN), Other: Grandparent, Mother Admission Physical Exam [facility] - Vital Signs Vital Signs: Vital Signs - 24 hr 10/17/18 10/17/18 14:26 14:42 Temperature 96.8 F L 96.8 F L Pulse Rate 77 77 Respiratory 16 16 Rate Blood Pressure 123/88 123/88 - Physical General Appearance: Yes: Within Normal Limits, No Apparent Distress, Nourished, Obese HEENTM: Yes: Within Normal Limits, Hearing grossly Normal, Normocephalic, Normal Voice, Pharynx Normal Respiratory: Yes: Chest Non-Tender, Lungs Clear, Normal Breath Sounds, No Respiratory Distress, No Accessory Muscle Use Neck: Yes: Within Normal Limits, No masses,lesions,Nodules, Supple, Trachea in good position Breast: Yes: Within Normal Limits, Axillae without masses, Breasts Symetrical, No Discharge Cardiology: Yes: Regular Rhythm, Regular Rate, S1, S2 Abdominal: Yes: Normal Bowel Sounds, Non Tender, Soft, Surgical Scar (since age 4 multiple shunts revision) Genitourinary: Yes: Within Normal Limits Back: Yes: Within Normal Limits Musculoskeletal: Yes: Within Normal Limits, full range of Motion, Gait Steady Extremities: Yes: Within Normal Limits, Normal Capillary Refill, Normal Inspection, Normal Range of Motion, Non-Tender Neurological: Yes: lithopress operator II-XII NML intact, Fully Oriented, Alert, Motor Strength 5/5, Normal Mood/Affect, Normal Response Integumentary: Yes: Normal Color, Warm, Clammy Lymphatic: Yes: Within Normal Limits - Diagnostic (1) Cocaine dependence in controlled environment Current Visit: Yes Status: Acute (2) Seizure Current Visit: Yes Status: Chronic (3) Substance induced mood disorder Current Visit: Yes Status: Suspected (4) Bipolar I disorder, most recent episode mixed Current Visit: Yes Status: Suspected (5) GERD (gastroesophageal reflux disease) Current Visit: Yes Status: Chronic Qualifiers: Esophagitis presence: without esophagitis Qualified Code(s): K21.9 - Gastro -esophageal reflux disease without esophagitis (6) Nicotine dependence Current Visit: Yes Status: Acute Qualifiers: Nicotine product type: cigarettes Substance use status: in withdrawal Qualified Code(s): F17.213 - Nicotine dependence, cigarettes, with withdrawal Cleared for Admission S - Detox or Rehab [facility] Level of Care: Observation Bed Detox Regimen/Protocol: Not Applicable Claeared for Rehab Admission: Yes Breathalyzer - Breathalyzer Breathalyzer: 0 POC Urine test - Test device test lot number: [id number] Expiration date: 03/03/20 - Control test control: Yes - Result Urine Test Results: Negative - NO line present Urine Drug Screen - Test Device Lot number: [id number] Expiration date: 06/02/20 - Control Is test valid?: Yes - Results Drug screen NEGATIVE: No Urine drug screen results: THC-Marijuana, KATIE-Cocaine Inpatient Rehab Admission - Rehab Decision to Admit Inpatient rehab admission?: Yes - Initial Determination Are CD services needed?: Yes Free of communicable disease: Yes Not in need of hospitalization: Yes - Rehab Admission Criteria Previous failed treatment: Yes Poor recovery environment: Yes Comorbidities: Yes Lacks judgement: No Patient is meeting Inpatient Rehab admission criteria:: Yes
[2018-10-17] MEDS ORDERED: NICOTINE POLACRILEX 2 MG GUM BUC PRN (14:55)
[2018-10-17] MEDS ORDERED: guaiFENesin 200 MG/10 ML 10 ML UNIT-DOSE CUPS PO PRN (14:55)
[2018-10-17] MEDS ORDERED: MAGNESIUM CITRATE 300 ML BOTTLE PO PRN (14:55)
[2018-10-17] MEDS ORDERED: LOPERAMIDE HCL 2 MG CAPSULE PO PRN (14:55)
[2018-10-17] MEDS ORDERED: P-EPHED 60MG/TRIPROLIDI 2.5MG TABLET PO PRN (14:55)
[2018-10-17] MEDS ORDERED: MENTHOL/PHENOL 1 EACH UD MM PRN (14:55)
[2018-10-17] MEDS ORDERED: MAGNESIUM HYDROX 2400MG/30ML ORAL SUSPENSION 30 ML CUP PO PRN (14:55)
[2018-10-17] MEDS ORDERED: IBUPROFEN 400 MG TABLET (FP) PO PRN (14:55)
[2018-10-17] MEDS ORDERED: COLLOIDAL OATMEAL 1 BAR EACH TP PRN (15:24)
[2018-10-17] MEDS: NICOTINE 14 MG/24 HOURS TOPICAL PATCH TD SCH (16:03)
[2018-10-17] MEDS ORDERED: TUBERCULIN PPD 5 TU/0.1ML VIAL ID ONE (20:59)
[2018-10-17] MEDS: levETIRAcetam 500 MG TABLET (FP) PO SCH (21:32)
[2018-10-17] MEDS: MELATONIN 5 MG TABLETS PO PRN (21:33)
[2018-10-17] MEDS: MINERAL OIL/PETROLAT/WATER TOPICAL CREAM 113 GM JAR TP SCH (21:33)
[2018-10-17] MEDS: THIAMINE HCL 100 MG TABLET (FP) PO SCH (21:37)
[2018-10-17] MEDS: RANITIDINE HCL 150 MG TABLET (FP) PO SCH (21:37)
[2018-10-18] MEDS: ACETAMINOPHEN 325 MG TABLET (FP) PO PRN (02:49)
[2018-10-18 08:44] LABS: EPI CELLS 6.9 /HPF (0-5/HPF); URINE APPEARANCE CLOUDY; URINE BILIRUBIN NEGATIVE (NEGATIVE); URINE CASTS 63 /lpf (0-8); URINE COLOR YELLOW; URINE GLUCOSE (UA) NEGATIVE (NEGATIVE); URINE KETONE NEGATIVE (NEGATIVE); URINE LEUK ESTERASE 2+ (NEGATIVE); URINE NITRITE NEGATIVE (NEGATIVE); URINE PROTEIN NEGATIVE (NEGATIVE); URINE RBC 1 /hpf (0-4); URINE UROBILINOGEN 0.2 mg/dL (0.2-1.0); URINE WBC 78 /hpf (0-5)
[2018-10-18] MEDS: NICOTINE 14 MG/24 HOURS TOPICAL PATCH TD SCH (09:34)
[2018-10-18] MEDS: levETIRAcetam 500 MG TABLET (FP) PO SCH ×2 (09:35→21:19)
[2018-10-18] MEDS: PRENATAL VITAMINS W/ FOLIC ACID TABLET (FP) PO SCH (09:35)
[2018-10-18] MEDS: RANITIDINE HCL 150 MG TABLET (FP) PO SCH ×2 (09:35→21:19)
[2018-10-18] MEDS: MINERAL OIL/PETROLAT/WATER TOPICAL CREAM 113 GM JAR TP SCH ×2 (09:35→21:22)
[2018-10-18 09:59] LABS: URINE CRYSTALS NONE SEEN /hpf
[2018-10-18 13:02] LABS: ALBUMIN 3.5 g/dl (3.4-5.0); ALK PHOS 63 U/L (45-117); ANION GAP 8 MMOL/L (8-16); BILIRUBIN,TOTAL 0.1 mg/dL (0.2-1); BLOOD UREA NITROGEN 4 mg/dL (7-18); CALCIUM 9.2 mg/dL (8.5-10.1); CHLORIDE 108 mmol/L (98-107); CO2 26 mmol/L (21-32); CREATININE 0.7 mg/dL (0.55-1.3); GLUCOSE,RANDOM 127 mg/dL (74-106); POTASSIUM 3.9 mmol/L (3.5-5.1); SGOT/AST 7 U/L (15-37); SGPT/ALT 18 U/L (13-61); SODIUM 141 mmol/L (136-145); TOT PROT 6.7 g/dl (6.4-8.2)
[2018-10-18 13:34] LABS: HEMATOCRIT 38.5 % (32.4-45.2); HEMOGLOBIN 12.3 GM/dL (10.7-15.3); MCH 26.9 pg (25.7-33.7); MCHC 31.9 g/dl (32.0-36.0); MEAN CELL VOLUME 84.3 fl (80-96); MEAN PLT VOLUME 11.1 fl (7.5-11.1); PLATELET COUNT 191 K/MM3 (134-434); RBC 4.56 M/mm3 (3.60-5.2); RDW 15.5 % (11.6-15.6); WHITE BLOOD COUNT 2.8 K/mm3 (4.0-10.0)
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
--- NOTE | 2018-10-18 15:49 | PN ---
[facility] Progress Note Note: U/A with elevated leukocytes; repeat ordered/.
[2018-10-18] MEDS: MAG HYDROX/AL HYDROX/SIMETH 30 ML UNIT-DOSE CUP PO PRN (19:00)
[2018-10-18] MEDS: THIAMINE HCL 100 MG TABLET (FP) PO SCH (21:19)
[2018-10-18] MEDS: DIVALPROEX SODIUM 500 MG TABLET E.C. PO SCH (21:21)
[2018-10-18] MEDS: traZODone HCL 50 MG TABLET (FP) PO SCH (21:22)
[2018-10-18] MEDS ORDERED: DIVALPROEX SODIUM 250 MG TABLET E.C. PO SCH (22:00)
[2018-10-19 01:29] LABS: PH,URINE 6.5 (5.0-8.0); URINE APPEARANCE Clear; URINE BILIRUBIN Negative (NEGATIVE); URINE COLOR Yellow; URINE GLUCOSE (UA) Negative (NEGATIVE); URINE KETONE Negative (NEGATIVE); URINE LEUK ESTERASE Negative (NEGATIVE); URINE NITRITE Negative (NEGATIVE); URINE PROTEIN Negative (NEGATIVE); URINE UROBILINOGEN 0.2 mg/dL (0.2-1.0)
[2018-10-19 03:21] LABS: EPI CELLS MANY /HPF (0-5/HPF)
[2018-10-19] MEDS: ACETAMINOPHEN 325 MG TABLET (FP) PO PRN (07:03)
[2018-10-19] MEDS: MAG HYDROX/AL HYDROX/SIMETH 30 ML UNIT-DOSE CUP PO PRN ×2 (08:32→17:39)
[2018-10-19] MEDS: DIVALPROEX SODIUM 250 MG TABLET E.C. PO SCH (09:24)
[2018-10-19] MEDS: PRENATAL VITAMINS W/ FOLIC ACID TABLET (FP) PO SCH (09:24)
[2018-10-19] MEDS: levETIRAcetam 500 MG TABLET (FP) PO SCH ×2 (09:24→21:10)
[2018-10-19] MEDS: MINERAL OIL/PETROLAT/WATER TOPICAL CREAM 113 GM JAR TP SCH ×2 (09:25→21:11)
[2018-10-19] MEDS: ESCITALOPRAM OXALATE 10 MG TABLET (FP) PO SCH (09:25)
[2018-10-19] MEDS: RANITIDINE HCL 150 MG TABLET (FP) PO SCH (09:25)
[2018-10-19] MEDS: NICOTINE 14 MG/24 HOURS TOPICAL PATCH TD SCH (09:25)
[2018-10-19] MEDS ORDERED: TRIMETHOBENZAMIDE HCL 300 MG CAPSULE PO PRN (12:31)
--- NOTE | 2018-10-19 16:41 | PN ---
S Progress Note Note: Patient's Depakote on 10/18/18: 13.4. Will continue current medications.
[2018-10-19] MEDS: DIVALPROEX SODIUM 500 MG TABLET E.C. PO SCH (21:10)
[2018-10-19] MEDS: THIAMINE HCL 100 MG TABLET (FP) PO SCH (21:10)
[2018-10-19] MEDS: traZODone HCL 50 MG TABLET (FP) PO SCH (21:11)
[2018-10-20] MEDS: ACETAMINOPHEN 325 MG TABLET (FP) PO PRN (06:23)
[2018-10-20] MEDS ORDERED: PT OWN MED DRAWER 7, Y5N ONE (08:38)
[2018-10-20] MEDS: ESCITALOPRAM OXALATE 10 MG TABLET (FP) PO SCH (10:06)
[2018-10-20] MEDS: NICOTINE 14 MG/24 HOURS TOPICAL PATCH TD SCH (10:06)
[2018-10-20] MEDS: MINERAL OIL/PETROLAT/WATER TOPICAL CREAM 113 GM JAR TP SCH ×2 (10:06→23:19)
[2018-10-20] MEDS: DIVALPROEX SODIUM 250 MG TABLET E.C. PO SCH (10:06)
[2018-10-20] MEDS: PRENATAL VITAMINS W/ FOLIC ACID TABLET (FP) PO SCH (10:06)
[2018-10-20] MEDS: levETIRAcetam 500 MG TABLET (FP) PO SCH ×2 (10:06→21:30)
[2018-10-20] MEDS: PANTOPRAZOLE 40 MG TABLET (FP) PO SCH (10:06)
[2018-10-20] MEDS: traZODone HCL 50 MG TABLET (FP) PO SCH (21:29)
[2018-10-20] MEDS: DIVALPROEX SODIUM 500 MG TABLET E.C. PO SCH (21:30)
[2018-10-20] MEDS: THIAMINE HCL 100 MG TABLET (FP) PO SCH (23:19)
[2018-10-21] MEDS: DIVALPROEX SODIUM 250 MG TABLET E.C. PO SCH (09:44)
[2018-10-21] MEDS: ESCITALOPRAM OXALATE 10 MG TABLET (FP) PO SCH (09:44)
[2018-10-21] MEDS: MINERAL OIL/PETROLAT/WATER TOPICAL CREAM 113 GM JAR TP SCH ×2 (09:44→21:01)
[2018-10-21] MEDS: levETIRAcetam 500 MG TABLET (FP) PO SCH ×2 (09:44→21:00)
[2018-10-21] MEDS: PRENATAL VITAMINS W/ FOLIC ACID TABLET (FP) PO SCH (09:45)
[2018-10-21] MEDS: NICOTINE 14 MG/24 HOURS TOPICAL PATCH TD SCH (09:45)
[2018-10-21] MEDS: PANTOPRAZOLE 40 MG TABLET (FP) PO SCH (09:45)
[2018-10-21] MEDS: DIVALPROEX SODIUM 500 MG TABLET E.C. PO SCH (21:00)
[2018-10-21] MEDS: traZODone HCL 50 MG TABLET (FP) PO SCH (21:00)
[2018-10-21] MEDS: THIAMINE HCL 100 MG TABLET (FP) PO SCH (21:01)
[2018-10-21] MEDS: MELATONIN 5 MG TABLETS PO PRN (21:01)
[2018-10-22] MEDS: PANTOPRAZOLE 40 MG TABLET (FP) PO SCH (10:18)
[2018-10-22] MEDS: NICOTINE 14 MG/24 HOURS TOPICAL PATCH TD SCH (10:18)
[2018-10-22] MEDS: levETIRAcetam 500 MG TABLET (FP) PO SCH ×2 (10:18→21:06)
[2018-10-22] MEDS: PRENATAL VITAMINS W/ FOLIC ACID TABLET (FP) PO SCH (10:19)
[2018-10-22] MEDS: DIVALPROEX SODIUM 250 MG TABLET E.C. PO SCH (10:19)
[2018-10-22] MEDS: ESCITALOPRAM OXALATE 10 MG TABLET (FP) PO SCH (10:19)
[2018-10-22] MEDS: MINERAL OIL/PETROLAT/WATER TOPICAL CREAM 113 GM JAR TP SCH ×2 (10:20→21:07)
[2018-10-22] MEDS: THIAMINE HCL 100 MG TABLET (FP) PO SCH (21:06)
[2018-10-22] MEDS: DIVALPROEX SODIUM 500 MG TABLET E.C. PO SCH (21:06)
[2018-10-22] MEDS: traZODone HCL 50 MG TABLET (FP) PO SCH (21:07)
[2018-10-23] MEDS: ESCITALOPRAM OXALATE 10 MG TABLET (FP) PO SCH (10:37)
[2018-10-23] MEDS: DIVALPROEX SODIUM 250 MG TABLET E.C. PO SCH (10:37)
[2018-10-23] MEDS: PANTOPRAZOLE 40 MG TABLET (FP) PO SCH (10:37)
[2018-10-23] MEDS: PRENATAL VITAMINS W/ FOLIC ACID TABLET (FP) PO SCH (10:37)
[2018-10-23] MEDS: levETIRAcetam 500 MG TABLET (FP) PO SCH ×2 (10:37→21:11)
[2018-10-23] MEDS: NICOTINE 14 MG/24 HOURS TOPICAL PATCH TD SCH (10:38)
[2018-10-23] MEDS: MINERAL OIL/PETROLAT/WATER TOPICAL CREAM 113 GM JAR TP SCH ×2 (10:38→21:12)
[2018-10-23] MEDS: DIVALPROEX SODIUM 500 MG TABLET E.C. PO SCH (21:11)
[2018-10-23] MEDS: THIAMINE HCL 100 MG TABLET (FP) PO SCH (21:11)
[2018-10-23] MEDS: traZODone HCL 50 MG TABLET (FP) PO SCH (21:13)
[2018-10-24] MEDS: ACETAMINOPHEN 325 MG TABLET (FP) PO PRN (01:18)
[2018-10-24] MEDS ORDERED: PT OWN MED DRAWER 7, Y5N ONE (08:58)
[2018-10-24] MEDS: PANTOPRAZOLE 40 MG TABLET (FP) PO SCH (10:27)
[2018-10-24] MEDS: NICOTINE 14 MG/24 HOURS TOPICAL PATCH TD SCH (10:27)
[2018-10-24] MEDS: MINERAL OIL/PETROLAT/WATER TOPICAL CREAM 113 GM JAR TP SCH ×2 (10:27→21:55)
[2018-10-24] MEDS: PRENATAL VITAMINS W/ FOLIC ACID TABLET (FP) PO SCH (10:27)
[2018-10-24] MEDS: DIVALPROEX SODIUM 250 MG TABLET E.C. PO SCH (10:27)
[2018-10-24] MEDS: levETIRAcetam 500 MG TABLET (FP) PO SCH ×2 (10:27→21:53)
[2018-10-24] MEDS: ESCITALOPRAM OXALATE 10 MG TABLET (FP) PO SCH (10:28)
[2018-10-24] MEDS: DIVALPROEX SODIUM 500 MG TABLET E.C. PO SCH (21:53)
[2018-10-24] MEDS: traZODone HCL 50 MG TABLET (FP) PO SCH (21:53)
[2018-10-24] MEDS: THIAMINE HCL 100 MG TABLET (FP) PO SCH (21:53)
[2018-10-25] MEDS: ACETAMINOPHEN 325 MG TABLET (FP) PO PRN (06:17)
[2018-10-25] MEDS: PANTOPRAZOLE 40 MG TABLET (FP) PO SCH (10:35)
[2018-10-25] MEDS: levETIRAcetam 500 MG TABLET (FP) PO SCH ×2 (10:35→21:45)
[2018-10-25] MEDS: PRENATAL VITAMINS W/ FOLIC ACID TABLET (FP) PO SCH (10:35)
[2018-10-25] MEDS: NICOTINE 14 MG/24 HOURS TOPICAL PATCH TD SCH (10:35)
[2018-10-25] MEDS: ESCITALOPRAM OXALATE 10 MG TABLET (FP) PO SCH (10:35)
[2018-10-25] MEDS: DIVALPROEX SODIUM 250 MG TABLET E.C. PO SCH (10:35)
[2018-10-25] MEDS: MINERAL OIL/PETROLAT/WATER TOPICAL CREAM 113 GM JAR TP SCH ×2 (10:36→21:47)
[2018-10-25] MEDS: DIVALPROEX SODIUM 500 MG TABLET E.C. PO SCH (21:45)
[2018-10-25] MEDS: traZODone HCL 50 MG TABLET (FP) PO SCH (21:45)
[2018-10-25] MEDS: THIAMINE HCL 100 MG TABLET (FP) PO SCH (21:45)
[2018-10-25] MEDS: MELATONIN 5 MG TABLETS PO PRN (21:46)
[2018-10-26] MEDS ORDERED: SUMAtriptan SUCCINATE 50 MG TABLET PO PRN (09:19)
[2018-10-26] MEDS: PANTOPRAZOLE 40 MG TABLET (FP) PO SCH (10:13)
[2018-10-26] MEDS: NICOTINE 14 MG/24 HOURS TOPICAL PATCH TD SCH (10:13)
[2018-10-26] MEDS: levETIRAcetam 500 MG TABLET (FP) PO SCH ×2 (10:13→21:46)
[2018-10-26] MEDS: ESCITALOPRAM OXALATE 10 MG TABLET (FP) PO SCH (10:13)
[2018-10-26] MEDS: DIVALPROEX SODIUM 250 MG TABLET E.C. PO SCH (10:13)
[2018-10-26] MEDS: PRENATAL VITAMINS W/ FOLIC ACID TABLET (FP) PO SCH (10:13)
[2018-10-26] MEDS: MINERAL OIL/PETROLAT/WATER TOPICAL CREAM 113 GM JAR TP SCH ×2 (10:14→21:44)
[2018-10-26] MEDS: ACETAMINOPHEN 325 MG TABLET (FP) PO PRN (15:42)
[2018-10-26] MEDS: THIAMINE HCL 100 MG TABLET (FP) PO SCH (21:44)
[2018-10-26] MEDS: traZODone HCL 50 MG TABLET (FP) PO SCH (21:45)
[2018-10-26] MEDS: MELATONIN 5 MG TABLETS PO PRN (21:45)
[2018-10-26] MEDS: DIVALPROEX SODIUM 500 MG TABLET E.C. PO SCH (21:46)
[2018-10-27] MEDS: ACETAMINOPHEN 325 MG TABLET (FP) PO PRN (04:19)
[2018-10-27] MEDS: DIVALPROEX SODIUM 250 MG TABLET E.C. PO SCH (10:53)
[2018-10-27] MEDS: ESCITALOPRAM OXALATE 10 MG TABLET (FP) PO SCH (10:54)
[2018-10-27] MEDS: PANTOPRAZOLE 40 MG TABLET (FP) PO SCH (10:54)
[2018-10-27] MEDS: levETIRAcetam 500 MG TABLET (FP) PO SCH ×2 (10:54→21:05)
[2018-10-27] MEDS: NICOTINE 14 MG/24 HOURS TOPICAL PATCH TD SCH (10:54)
[2018-10-27] MEDS: MINERAL OIL/PETROLAT/WATER TOPICAL CREAM 113 GM JAR TP SCH ×2 (10:55→21:35)
[2018-10-27] MEDS: PRENATAL VITAMINS W/ FOLIC ACID TABLET (FP) PO SCH (10:55)
[2018-10-27] MEDS: MELATONIN 5 MG TABLETS PO PRN (21:05)
[2018-10-27] MEDS: THIAMINE HCL 100 MG TABLET (FP) PO SCH (21:05)
[2018-10-27] MEDS: DIVALPROEX SODIUM 500 MG TABLET E.C. PO SCH (21:05)
[2018-10-27] MEDS: traZODone HCL 50 MG TABLET (FP) PO SCH (21:06)
[2018-10-28] MEDS: levETIRAcetam 500 MG TABLET (FP) PO SCH ×2 (10:31→22:14)
[2018-10-28] MEDS: ESCITALOPRAM OXALATE 10 MG TABLET (FP) PO SCH (10:31)
[2018-10-28] MEDS: PRENATAL VITAMINS W/ FOLIC ACID TABLET (FP) PO SCH (10:31)
[2018-10-28] MEDS: PANTOPRAZOLE 40 MG TABLET (FP) PO SCH (10:32)
[2018-10-28] MEDS: ACETAMINOPHEN 325 MG TABLET (FP) PO PRN (10:32)
[2018-10-28] MEDS: DIVALPROEX SODIUM 250 MG TABLET E.C. PO SCH (10:32)
[2018-10-28] MEDS: NICOTINE 14 MG/24 HOURS TOPICAL PATCH TD SCH (10:32)
[2018-10-28] MEDS: MINERAL OIL/PETROLAT/WATER TOPICAL CREAM 113 GM JAR TP SCH ×2 (10:33→22:13)
[2018-10-28] MEDS ORDERED: PT OWN MED DRAWER 7, Y5N ONE (11:23)
[2018-10-28] MEDS: THIAMINE HCL 100 MG TABLET (FP) PO SCH (22:12)
[2018-10-28] MEDS: MELATONIN 5 MG TABLETS PO PRN (22:13)
[2018-10-28] MEDS: DIVALPROEX SODIUM 500 MG TABLET E.C. PO SCH (22:14)
[2018-10-28] MEDS: traZODone HCL 50 MG TABLET (FP) PO SCH (22:14)
[2018-10-29] MEDS: NICOTINE 14 MG/24 HOURS TOPICAL PATCH TD SCH (10:20)
[2018-10-29] MEDS: levETIRAcetam 500 MG TABLET (FP) PO SCH ×2 (10:20→21:29)
[2018-10-29] MEDS: PRENATAL VITAMINS W/ FOLIC ACID TABLET (FP) PO SCH (10:21)
[2018-10-29] MEDS: PANTOPRAZOLE 40 MG TABLET (FP) PO SCH (10:21)
[2018-10-29] MEDS: ESCITALOPRAM OXALATE 10 MG TABLET (FP) PO SCH (10:21)
[2018-10-29] MEDS: MINERAL OIL/PETROLAT/WATER TOPICAL CREAM 113 GM JAR TP SCH ×2 (10:21→21:42)
[2018-10-29] MEDS: DIVALPROEX SODIUM 250 MG TABLET E.C. PO SCH (10:21)
[2018-10-29] MEDS: ACETAMINOPHEN 325 MG TABLET (FP) PO PRN (16:39)
[2018-10-29] MEDS: MELATONIN 5 MG TABLETS PO PRN (21:29)
[2018-10-29] MEDS: DIVALPROEX SODIUM 500 MG TABLET E.C. PO SCH (21:29)
[2018-10-29] MEDS: traZODone HCL 50 MG TABLET (FP) PO SCH (21:29)
[2018-10-29] MEDS: THIAMINE HCL 100 MG TABLET (FP) PO SCH (21:29)
[2018-10-30] MEDS: ESCITALOPRAM OXALATE 10 MG TABLET (FP) PO SCH (09:49)
[2018-10-30] MEDS: DIVALPROEX SODIUM 250 MG TABLET E.C. PO SCH (09:49)
[2018-10-30] MEDS: MINERAL OIL/PETROLAT/WATER TOPICAL CREAM 113 GM JAR TP SCH ×2 (09:49→21:46)
[2018-10-30] MEDS: levETIRAcetam 500 MG TABLET (FP) PO SCH ×2 (09:49→21:45)
[2018-10-30] MEDS: PANTOPRAZOLE 40 MG TABLET (FP) PO SCH (09:50)
[2018-10-30] MEDS: PRENATAL VITAMINS W/ FOLIC ACID TABLET (FP) PO SCH (09:50)
[2018-10-30] MEDS: NICOTINE 14 MG/24 HOURS TOPICAL PATCH TD SCH (09:50)
--- NOTE | 2018-10-30 15:10 | PN ---
[facility] Progress Note Note: Patient is scheduled for discharge tomorrow. Scripts for 30 days supply of medications(Depakote 250 mg daily & 500 mg HS, Lexapro 10 mg daily, Trazadone 150 mg/hs) will be electronically transmitted to [facility] at [address] [place] [address]
[2018-10-30] MEDS: traZODone HCL 50 MG TABLET (FP) PO SCH (21:35)
[2018-10-30] MEDS: THIAMINE HCL 100 MG TABLET (FP) PO SCH (21:45)
[2018-10-30] MEDS: DIVALPROEX SODIUM 500 MG TABLET E.C. PO SCH (21:45)
[2018-10-31 06:42] VITALS: BP 121/80; PULSE 76; TEMP 97.8
--- NOTE | 2018-10-31 08:27 | PN ---
[facility] Progress Note (SOAP) Subjective: Patient to be discharged today. Objective: Patient A= O x3, no neurological deficits noted; Heart sounds regular, lungs clear, abd soft, non-tender, non-distended. Medically stable for discharge. 10/31/18 08:25 CBC, BMP 10/18/18 08:35 10/18/18 08:35 Vital Signs (72 hours) 10/29/18 10/29/18 10/29/18 00:30 03:30 07:15 Temperature 97.7 F Pulse Rate 82 Respiratory 18 18 18 Rate Blood Pressure 133/83 10/30/18 10/30/18 10/30/18 00:30 03:30 07:12 Temperature 97.9 F Pulse Rate 87 Respiratory 17 18 18 Rate Blood Pressure 141/74 10/31/18 10/31/18 03:30 06:41 Temperature 97.8 F Pulse Rate 76 Respiratory 18 18 Rate Blood Pressure 121/80 Assessment: medically stable for discharge Discharge dx: ETOH dependence, chronic Cocaine dependence, chronic PCP abuse, chronic Cannabis abuse, chronic Seizure Disorder Morbid obesity, chronic 10/31/18 08:28 Plan: Patient will receive aftercare at [facility] [place]; obtains healthcare at [facility]. Prescriptions transmitted to [facility].
[2018-10-31] MEDS: PANTOPRAZOLE 40 MG TABLET (FP) PO SCH (09:00)
[2018-10-31] MEDS: PRENATAL VITAMINS W/ FOLIC ACID TABLET (FP) PO SCH (09:00)
[2018-10-31] MEDS: levETIRAcetam 500 MG TABLET (FP) PO SCH (09:00)
[2018-10-31] MEDS: ESCITALOPRAM OXALATE 10 MG TABLET (FP) PO SCH (09:00)
[2018-10-31] MEDS: NICOTINE 14 MG/24 HOURS TOPICAL PATCH TD SCH (09:00)
[2018-10-31] MEDS: DIVALPROEX SODIUM 250 MG TABLET E.C. PO SCH (09:00)
[2018-10-31] MEDS: MINERAL OIL/PETROLAT/WATER TOPICAL CREAM 113 GM JAR TP SCH (09:01)
== END 2018-10-31 09:05 | disposition home or self-care (01) | DRG 772 ==
LOC: YASAS 11:27 → Y3E 15:28
PROVIDERS: ADMIT Neuromusculoskeletal Medicine & OMM; ATTEND Neuromusculoskeletal Medicine & OMM
PROC: HZ42ZZZ Group Counseling for Substance Abuse Treatment, Cognitive-Behavioral (ICD-10-PCS; principal; 2018-10-17)
PROC: HZ42ZZZ Group Counseling for Substance Abuse Treatment, Cognitive-Behavioral (ICD-10-PCS; 2018-10-17)
DX: F10.20 Alcohol dependence, uncomplicated (principal); F14.20 Cocaine dependence, uncomplicated; F12.20 Cannabis dependence, uncomplicated; F16.20 Hallucinogen dependence, uncomplicated; F17.213 Nicotine dependence, cigarettes, with withdrawal; F19.24 Other psychoactive substance dependence with psychoactive substance-induced mood disorder; F31.9 Bipolar disorder, unspecified; F43.10 Post-traumatic stress disorder, unspecified; G40.909 Epilepsy, unspecified, not intractable, without status epilepticus; E11.9 Type 2 diabetes mellitus without complications; G47.00 Insomnia, unspecified; E66.01 Morbid (severe) obesity due to excess calories; Z68.42 Body mass index [BMI] 45.0-49.9, adult; Z86.19 Personal history of other infectious and parasitic diseases; Z98.2 Presence of cerebrospinal fluid drainage device; Z91.19 Patient's noncompliance with other medical treatment and regimen; Z88.8 Allergy status to other drugs, medicaments and biological substances
CPT/HCPCS: 36415; 80053; 80164; 81003; 85027; 86593

== ENCOUNTER 2018-11-14 13:15 | Inpatient (IN) | payer OTHER ==
--- NOTE | 2018-11-14 15:06 | HP ---
CIWA Score Nausea/Vomitin Muscle Tremors: 3 Anxiety: 1-Mildly Anxious Agitation: 1-Slight > Activity Paroxysmal Sweats: 2 Orientation: 0-Oriented Tacttile Disturbances: 0-None Auditory Disturbances: 0-None Visual Disturbances: 0-None Headache: 2-Mild CIWA-Ar Total Score: 12 - Admission Criteria OASAS Guidelines: Admission for Medically Managed Detox: Requires at least one of the followin. CIWA greater than 12 2. Seizures within the past 24 hours 3. Delirium tremens within the past 24 hours 4. Hallucinations within the past 24 hours 5. Acute intervention needed for co occurring medical disorder 6. Acute intervention needed for co occurring psychiatric disorder 7. Severe withdrawal that cannot be handled at a lower level of care (continued vomiting, continued diarrhea, abnormal vital signs) requiring intravenous medication and/or fluids 8. Patient presents the following: CIWA greater than 12 Admission Criteria Met: Admission criteria met Admission ROS [facility] Chief Complaint: alcohol detox 38 yo with h/o seizures and BLADE [employer]ENDER [employer]NACE TENDER shunt (since ), GERD, bipolar 1, anxiety/ depression/PTSD. Pt was last here had completed 2 weeks of rehab, sent to [facility], left 3 days ago and went to detention and relapsed same day. Fell on face after drinking heavily 3 days ago, here for detox and for alf rehab. Seen in [facility] and eval negative. alcohol- binge drinking for the last 3 days- h/o seizures from alcohol, no h/o DT's no other drug use- has tried cocaine, MJ. DUR: none recently, last year oxycodone Utox- negative, SILVER- 0.82 Allergies/Adverse Reactions: Allergies Allergy/AdvReac Type Severity Reaction Status Date / Time azithromycin [From Zithromax] Allergy Severe Swelling Verified 11/14/18 14:19 bismuth subsalicylate Allergy Severe Swelling Verified 11/14/18 14:19 [From Kaopectate (bismuth subsalicy)] hydromorphone HCl Allergy Intermediate Swelling Verified 11/14/18 14:19 [From Dilaudid] Exam Limitations: No Limitations - Ebola screening Have you traveled outside of the country in the last 21 days: No Have you had contact with anyone from an Ebola affected area: No Do you have a fever: No Patient History - Patient Medical History Hx Anemia: No Hx Asthma: No Hx Chronic Obstructive Pulmonary Disease (COPD): No Hx Cancer: No Hx Cardiac Disorders: No Hx Congestive Heart Failure: No Hx Hypertension: No Hx Hypercholesterolemia: No Hx Pacemaker: No HX Cerebrovascular Accident: No Hx Seizures: Yes (ON MEDS.(LAST 1YR AGO)) Hx Dementia: No Hx Diabetes: No Hx Gastrointestinal Disorders: Yes (ACID REFLUX) Hx Liver Disease: No Hx Genitourinary Disorders: No Hx Sexually Transmitted Disorders: Yes (GONORRHEA) Hx Renal Disease (ESRD): No Hx Thyroid Disease: No Hx Human Immunodeficiency Virus (HIV): No Hx Hepatitis C: No Hx Depression: Yes Hx Suicide Attempt: No Hx Bipolar Disorder: Yes (prozac 60mgbid,lamictal 100mg bid) Hx Schizophrenia: No - Patient Surgical History Past Surgical History: Yes Hx Neurologic Surgery: Yes (V/P shunt revision 02/24/12) Hx Cataract Extraction: No Hx Cardiac Surgery: No Hx Lung Surgery: No Hx Breast Surgery: No Hx Breast Biopsy: No Hx Abdominal Surgery: Yes (2011) Hx Appendectomy: No Hx Cholecystectomy: No Hx Genitourinary Surgery: No Hx Section: No Hx Orthopedic Surgery: No Hx Hysterectomy: No Other Surgical History: 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 SIDE OF HEAD Anesthesia Reaction: No - PPD History Date: 10/19/18 Results: 0mm PPD to be Administered?: No - Reproductive History Last Menstrual Period: 10/11/18 Patient : No - Smoking Cessation Smoking history: Current every day smoker Have you smoked in the past 12 months: Yes Aproximately how many cigarettes per day: 10 Cigars Per Day: 0 Hx Chewing Tobacco Use: No Initiated information on smoking cessation: Yes 'Breaking Loose' booklet given: 11/14/18 - Substance & Tx. History Hx Alcohol Use: Yes Substance Use Type: Alcohol, Marijuana - Substances abused Crack Substance route: Smoking Frequency: 3-6 times per week Amount used: $120.00 Age of first use: 25 Date of last use: 10/15/18 Cocaine Substance route: Smoking Frequency: 3-6 times per week Amount used: $120.00 Age of first use: 25 Date of last use: 10/15/18 Marijuana/Hashish Substance route: Smoking Frequency: Daily Amount used: $30.00 Age of first use: 17 Date of last use: 10/14/18 Alcohol Substance route: Oral Frequency: Daily Amount used: 2 PINTS Age of first use: 17 Date of last use: 11/14/18 Family Disease History - Family Disease History Family Disease History: Diabetes: Grandparent (ON DIALYSIS), Mother (ON DIALYSIS ), Heart Disease: Father (HTN), Other: Grandparent, Mother Admission Physical Exam B[facility] - Vital Signs Vital Signs: Vital Signs - 24 hr 11/14/18 14:27 Temperature 96.7 F L Pulse Rate 85 Respiratory 19 Rate Blood Pressure 151/93 - Physical General Appearance: Yes: Within Normal Limits, Other (obese) HEENTM: Yes: Within Normal Limits, EOMI, Hearing grossly Normal Respiratory: Yes: Within Normal Limits, Lungs Clear Neck: Yes: Within Normal Limits Cardiology: Yes: Within Normal Limits, Regular Rhythm, Regular Rate Abdominal: Yes: Within Normal Limits, Normal Bowel Sounds, Surgical Scar Back: Yes: Within Normal Limits, Normal Inspection Musculoskeletal: Yes: Within Normal Limits Extremities: Yes: Within Normal Limits Neurological: Yes: Within Normal Limits, business continuity global director II-XII NML intact, Fully Oriented, Alert, Motor Strength 5/5 Integumentary: Yes: Within Normal Limits Lymphatic: Yes: Within Normal Limits - Diagnostic (1) Alcohol dependence with uncomplicated withdrawal Current Visit: No Status: Chronic (2) Cocaine dependence Current Visit: No Status: Chronic (3) GERD (gastroesophageal reflux disease) Current Visit: No Status: Chronic Qualifiers: Esophagitis presence: without esophagitis Qualified Code(s): K21.9 - Gastro -esophageal reflux disease without esophagitis (4) Morbid obesity Current Visit: No Status: Chronic (5) Nicotine dependence Current Visit: No Status: Chronic Qualifiers: Nicotine product type: cigarettes Substance use status: in withdrawal Qualified Code(s): F17.213 - Nicotine dependence, cigarettes, with withdrawal (6) SEIZURE HX Current Visit: No Status: Chronic (7) Bipolar I disorder, most recent episode mixed Current Visit: No Status: Suspected Breathalyzer - Breathalyzer Breathalyzer: 0.082 POC Urine test - Test device test lot number: [id number] Expiration date: 03/03/20 - Control test control: Yes Urine Drug Screen - Test Device Lot number: [id number] Expiration date: 08/03/20 - Control Is test valid?: Yes - Results Drug screen NEGATIVE: No Urine drug screen results: KATIE-Cocaine Inpatient Rehab Admission - Rehab Decision to Admit Inpatient rehab admission?: No
[2018-11-14] MEDS ORDERED: ACETAMINOPHEN 325 MG TABLET (FP) PO PRN ×2 (15:13)
[2018-11-14] MEDS ORDERED: MAG HYDROX/AL HYDROX/SIMETH 30 ML UNIT-DOSE CUP PO PRN (15:13)
[2018-11-14] MEDS ORDERED: MAGNESIUM CITRATE 300 ML BOTTLE PO PRN (15:13)
[2018-11-14] MEDS ORDERED: MAGNESIUM HYDROX 2400MG/30ML ORAL SUSPENSION 30 ML CUP PO PRN (15:13)
[2018-11-14] MEDS ORDERED: IBUPROFEN 400 MG TABLET (FP) PO PRN (15:13)
[2018-11-14] MEDS ORDERED: hydrOXYzine PAMOATE 25 MG CAPSULE (FP) PO PRN (15:13)
[2018-11-14] MEDS ORDERED: chlordiazePOXIDE HCL 25 MG CAPSULE PO PRN (15:13)
[2018-11-14] MEDS ORDERED: METHOCARBAMOL 500 MG TABLET PO PRN (15:13)
[2018-11-14] MEDS ORDERED: chlordiazePOXIDE HCL 25 MG CAPSULE PO ONE (15:16)
[2018-11-14] MEDS ORDERED: NICOTINE POLACRILEX 4 MG GUM BUC PRN (15:16)
[2018-11-14] MEDS: chlordiazePOXIDE HCL 25 MG CAPSULE PO SCH ×2 (16:47→22:12)
[2018-11-14] MEDS: DIVALPROEX SODIUM 500 MG TABLET E.C. PO SCH (22:11)
[2018-11-14] MEDS: NEOMYCIN/POLYMYXIN/BACITRACIN (TRIPLE ANTIBIOTIC) 28 GM OINTMENT TP SCH (22:12)
[2018-11-14] MEDS: lamoTRIgine 100 MG TABLET (FP) PO SCH (22:12)
[2018-11-14] MEDS: THIAMINE HCL 100 MG TABLET (FP) PO SCH (22:12)
[2018-11-14] MEDS: levETIRAcetam 500 MG TABLET (FP) PO SCH (22:12)
[2018-11-14] MEDS: MELATONIN 5 MG TABLETS PO PRN (22:14)
[2018-11-14 23:22] LABS: HEMATOCRIT 35.4 % (32.4-45.2); HEMOGLOBIN 11.2 GM/dL (10.7-15.3); MCH 26.5 pg (25.7-33.7); MCHC 31.6 g/dl (32.0-36.0); MEAN CELL VOLUME 84.1 fl (80-96); RDW 16.2 % (11.6-15.6); WHITE BLOOD COUNT 4.2 K/mm3 (4.0-10.0)
[2018-11-14 23:30] LABS: ALBUMIN 3.7 g/dl (3.4-5.0); BILIRUBIN,TOTAL 0.2 mg/dL (0.2-1); CALCIUM 9.2 mg/dL (8.5-10.1); CREATININE 0.5 mg/dL (0.55-1.3); POTASSIUM 3.8 mmol/L (3.5-5.1); TOT PROT 7.4 g/dl (6.4-8.2)
[2018-11-14 23:58] LABS: MEAN PLT VOLUME 10.4 fl (7.5-11.1); PLATELET COUNT 239 K/MM3 (134-434)
[2018-11-15] MEDS: MENTHOL/PHENOL 1 EACH UD MM PRN ×3 (01:14→17:17)
[2018-11-15] MEDS: guaiFENesin 200 MG/10 ML 10 ML UNIT-DOSE CUPS PO PRN ×3 (01:27→17:18)
[2018-11-15 02:27] LABS: EPI CELLS 9.8 /HPF (0-5/HPF); PH,URINE 6.5 (5.0-8.0); URINE APPEARANCE CLOUDY; URINE BACTERIA 2074.7 /hpf (NEGATIVE); URINE BILIRUBIN NEGATIVE (NEGATIVE); URINE CASTS 4 /lpf (0-8); URINE COLOR YELLOW; URINE GLUCOSE (UA) NEGATIVE (NEGATIVE); URINE KETONE NEGATIVE (NEGATIVE); URINE LEUK ESTERASE NEGATIVE (NEGATIVE); URINE NITRITE POSITIVE (NEGATIVE); URINE PROTEIN NEGATIVE (NEGATIVE); URINE RBC 8 /hpf (0-4); URINE UROBILINOGEN 0.2 mg/dL (0.2-1.0); URINE WBC 7 /hpf (0-5)
[2018-11-15] MEDS: chlordiazePOXIDE HCL 25 MG CAPSULE PO SCH ×4 (05:52→22:04)
[2018-11-15] MEDS: PRENATAL VITAMINS W/ FOLIC ACID TABLET (FP) PO SCH (10:28)
[2018-11-15] MEDS: levETIRAcetam 500 MG TABLET (FP) PO SCH ×2 (10:28→22:05)
[2018-11-15] MEDS: DIVALPROEX SODIUM 250 MG TABLET E.C. PO SCH (10:28)
[2018-11-15] MEDS: NICOTINE 21 MG/24 HOURS TOPICAL PATCH TD SCH (10:28)
[2018-11-15] MEDS: PANTOPRAZOLE 40 MG TABLET (FP) PO SCH (10:28)
[2018-11-15] MEDS: lamoTRIgine 100 MG TABLET (FP) PO SCH ×2 (10:29→22:05)
[2018-11-15] MEDS: ESCITALOPRAM OXALATE 10 MG TABLET (FP) PO SCH (10:29)
[2018-11-15] MEDS: NEOMYCIN/POLYMYXIN/BACITRACIN (TRIPLE ANTIBIOTIC) 28 GM OINTMENT TP SCH ×2 (10:29→22:04)
--- NOTE | 2018-11-15 13:13 | PN ---
[facility] CIWA - CIWA Score Nausea/Vomitin-Mild Nausea/No Vomiting Muscle Tremors: 2 Anxiety: 3 Agitation: 2 Paroxysmal Sweats: 1-Minimal Palms Moist Orientation: 0-Oriented Tacttile Disturbances: 0-None Auditory Disturbances: 0-None Visual Disturbances: 0-None Headache: 1-Very Mild CIWA-Ar Total Score: 10 S Progress Note (SOAP) Subjective: taking trazadone 150 mg po daily for depression last dose unknown history of none adherence to medication as prescribed Objective: 11/15/18 13:10 Vital Signs Temperature 97.8 F 11/15/18 09:23 Pulse Rate 72 11/15/18 09:23 Respiratory Rate 18 11/15/18 09:23 Blood Pressure 111/73 11/15/18 09:23 O2 Sat by Pulse Oximetry (%) Laboratory Last Values WBC 4.2 K/mm3 (4.0-10.0) 11/14/18 15:20 RBC 4.20 M/mm3 (3.60-5.2) 11/14/18 15:20 Hgb 11.2 GM/dL (10.7-15.3) 11/14/18 15:20 Hct 35.4 % (32.4-45.2) 11/14/18 15:20 MCV 84.1 fl (80-96) 11/14/18 15:20 MCH 26.5 pg (25.7-33.7) 11/14/18 15:20 MCHC 31.6 g/dl (32.0-36.0) L 11/14/18 15:20 RDW 16.2 % (11.6-15.6) H 11/14/18 15:20 Plt Count 239 K/MM3 (134-434) D 11/14/18 15:20 MPV 10.4 fl (7.5-11.1) 11/14/18 15:20 Sodium 139 mmol/L (136-145) 11/14/18 15:20 Potassium 3.8 mmol/L (3.5-5.1) 11/14/18 15:20 Chloride 107 mmol/L (98-107) 11/14/18 15:20 Carbon Dioxide 26 mmol/L (21-32) 11/14/18 15:20 Anion Gap 6 MMOL/L (8-16) L 11/14/18 15:20 BUN 7 mg/dL (7-18) 11/14/18 15:20 Creatinine 0.5 mg/dL (0.55-1.3) L 11/14/18 15:20 Est GFR (CKD-EPI)AfAm 144.31 11/14/18 15:20 Est GFR (CKD-EPI)NonAf 124.51 11/14/18 15:20 Random Glucose 66 mg/dL (74-106) L 11/14/18 15:20 Calcium 9.2 mg/dL (8.5-10.1) 11/14/18 15:20 Total Bilirubin 0.2 mg/dL (0.2-1) 11/14/18 15:20 AST 19 U/L (15-37) 11/14/18 15:20 ALT 25 U/L (13-61) 11/14/18 15:20 Alkaline Phosphatase 65 U/L (45-117) 11/14/18 15:20 Total Protein 7.4 g/dl (6.4-8.2) 11/14/18 15:20 Albumin 3.7 g/dl (3.4-5.0) 11/14/18 15:20 Urine Color Yellow 11/15/18 00:00 Urine Appearance Cloudy 11/15/18 00:00 Urine pH 6.5 (5.0-8.0) 11/15/18 00:00 Ur Specific [place] 1.010 (1.010-1.035) 11/15/18 00:00 Urine Protein Negative (NEGATIVE) 11/15/18 00:00 Urine Glucose (UA) Negative (NEGATIVE) 11/15/18 00:00 Urine Ketones Negative (NEGATIVE) 11/15/18 00:00 Urine Blood 3+ (NEGATIVE) H 11/15/18 00:00 Urine Nitrite Positive (NEGATIVE) H 11/15/18 00:00 Urine Bilirubin Negative (NEGATIVE) 11/15/18 00:00 Urine Urobilinogen 0.2 mg/dL (0.2-1.0) 11/15/18 00:00 Ur Leukocyte Esterase Negative (NEGATIVE) 11/15/18 00:00 Urine WBC (Auto) 7 /hpf (0-5) 11/15/18 00:00 Urine RBC (Auto) 8 /hpf (0-4) 11/15/18 00:00 Urine Casts (Auto) 4 /lpf (0-8) 11/15/18 00:00 U Epithel Cells (Auto) 9.8 /HPF (0-5/HPF) 11/15/18 00:00 Urine Bacteria (Auto) 2074.7 /hpf (NEGATIVE) 11/15/18 00:00 RPR Titer Nonreactive (NONREACTIVE) 11/14/18 15:20 lab noted Assessment: 11/15/18 13:11 alcohol withdrawal x Plan: continue detox
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
[2018-11-15] MEDS ORDERED: levETIRAcetam 250 MG TABLET (FP) PO ONE (21:24)
[2018-11-15] MEDS ORDERED: traZODone HCL 50 MG TABLET (FP) PO SCH (22:00)
[2018-11-15] MEDS: THIAMINE HCL 100 MG TABLET (FP) PO SCH (22:04)
[2018-11-15] MEDS: DIVALPROEX SODIUM 500 MG TABLET E.C. PO SCH (22:05)
[2018-11-15] MEDS: MELATONIN 5 MG TABLETS PO PRN (22:08)
[2018-11-16] MEDS: chlordiazePOXIDE HCL 25 MG CAPSULE PO SCH ×2 (05:39→10:51)
[2018-11-16] MEDS ORDERED: levETIRAcetam 250 MG TABLET (FP) PO ONE (09:52)
[2018-11-16] MEDS: PANTOPRAZOLE 40 MG TABLET (FP) PO SCH (10:49)
[2018-11-16] MEDS: ESCITALOPRAM OXALATE 10 MG TABLET (FP) PO SCH (10:49)
[2018-11-16] MEDS: DIVALPROEX SODIUM 250 MG TABLET E.C. PO SCH (10:49)
[2018-11-16] MEDS: NEOMYCIN/POLYMYXIN/BACITRACIN (TRIPLE ANTIBIOTIC) 28 GM OINTMENT TP SCH ×2 (10:49→22:46)
[2018-11-16] MEDS: lamoTRIgine 100 MG TABLET (FP) PO SCH ×2 (10:50→22:40)
[2018-11-16] MEDS: levETIRAcetam 500 MG TABLET (FP) PO SCH ×2 (10:50→22:42)
[2018-11-16] MEDS: PRENATAL VITAMINS W/ FOLIC ACID TABLET (FP) PO SCH (10:51)
[2018-11-16] MEDS: NICOTINE 21 MG/24 HOURS TOPICAL PATCH TD SCH (10:52)
--- NOTE | 2018-11-16 13:51 | PN ---
S CIWA - CIWA Score Nausea/Vomitin-Mild Nausea/No Vomiting Muscle Tremors: 2 Anxiety: 1-Mildly Anxious Agitation: 1-Slight > Activity Paroxysmal Sweats: 1-Minimal Palms Moist Orientation: 0-Oriented Tacttile Disturbances: 0-None Auditory Disturbances: 0-None Visual Disturbances: 0-None Headache: 0-None Present CIWA-Ar Total Score: 6 BHS Progress Note (SOAP) Subjective: feeling better but worry about friend at out there no place to go tearful emotional support given patient denies suicidal ideation requests to be seen by a psychiatrist patient is non adherence with his bipolar medication unable to remember last dose Objective: 11/16/18 13:51 Vital Signs Temperature 97.1 F L 11/16/18 09:48 Pulse Rate 71 11/16/18 06:39 Respiratory Rate 18 11/16/18 06:39 Blood Pressure 113/76 11/16/18 06:39 O2 Sat by Pulse Oximetry (%) Laboratory Last Values WBC 4.2 K/mm3 (4.0-10.0) 11/14/18 15:20 RBC 4.20 M/mm3 (3.60-5.2) 11/14/18 15:20 Hgb 11.2 GM/dL (10.7-15.3) 11/14/18 15:20 Hct 35.4 % (32.4-45.2) 11/14/18 15:20 MCV 84.1 fl (80-96) 11/14/18 15:20 MCH 26.5 pg (25.7-33.7) 11/14/18 15:20 MCHC 31.6 g/dl (32.0-36.0) L 11/14/18 15:20 RDW 16.2 % (11.6-15.6) H 11/14/18 15:20 Plt Count 239 K/MM3 (134-434) D 11/14/18 15:20 MPV 10.4 fl (7.5-11.1) 11/14/18 15:20 Sodium 139 mmol/L (136-145) 11/14/18 15:20 Potassium 3.8 mmol/L (3.5-5.1) 11/14/18 15:20 Chloride 107 mmol/L (98-107) 11/14/18 15:20 Carbon Dioxide 26 mmol/L (21-32) 11/14/18 15:20 Anion Gap 6 MMOL/L (8-16) L 11/14/18 15:20 BUN 7 mg/dL (7-18) 11/14/18 15:20 Creatinine 0.5 mg/dL (0.55-1.3) L 11/14/18 15:20 Est GFR (CKD-EPI)AfAm 144.31 11/14/18 15:20 Est GFR (CKD-EPI)NonAf 124.51 11/14/18 15:20 Random Glucose 66 mg/dL (74-106) L 11/14/18 15:20 Calcium 9.2 mg/dL (8.5-10.1) 11/14/18 15:20 Total Bilirubin 0.2 mg/dL (0.2-1) 11/14/18 15:20 AST 19 U/L (15-37) 11/14/18 15:20 ALT 25 U/L (13-61) 11/14/18 15:20 Alkaline Phosphatase 65 U/L (45-117) 11/14/18 15:20 Total Protein 7.4 g/dl (6.4-8.2) 11/14/18 15:20 Albumin 3.7 g/dl (3.4-5.0) 11/14/18 15:20 Urine Color Yellow 11/15/18 00:00 Urine Appearance Cloudy 11/15/18 00:00 Urine pH 6.5 (5.0-8.0) 11/15/18 00:00 Ur Specific [place] 1.010 (1.010-1.035) 11/15/18 00:00 Urine Protein Negative (NEGATIVE) 11/15/18 00:00 Urine Glucose (UA) Negative (NEGATIVE) 11/15/18 00:00 Urine Ketones Negative (NEGATIVE) 11/15/18 00:00 Urine Blood 3+ (NEGATIVE) H 11/15/18 00:00 Urine Nitrite Positive (NEGATIVE) H 11/15/18 00:00 Urine Bilirubin Negative (NEGATIVE) 11/15/18 00:00 Urine Urobilinogen 0.2 mg/dL (0.2-1.0) 11/15/18 00:00 Ur Leukocyte Esterase Negative (NEGATIVE) 11/15/18 00:00 Urine WBC (Auto) 7 /hpf (0-5) 11/15/18 00:00 Urine RBC (Auto) 8 /hpf (0-4) 11/15/18 00:00 Urine Casts (Auto) 4 /lpf (0-8) 11/15/18 00:00 U Epithel Cells (Auto) 9.8 /HPF (0-5/HPF) 11/15/18 00:00 Urine Bacteria (Auto) 2074.7 /hpf (NEGATIVE) 11/15/18 00:00 POC Urine HCG, Qual Negative 11/14/18 14:45 RPR Titer Nonreactive (NONREACTIVE) 11/14/18 15:20 HIV 1&2 Antibody Screen Negative 11/15/18 07:00 HIV P24 Antigen Negative 11/15/18 07:00 lab noted repeat ua Assessment: 11/16/18 13:52 withdrawal sx Plan: continue detox
[2018-11-16] MEDS: chlordiazePOXIDE HCL 10 MG CAPSULE PO SCH ×2 (17:25→22:41)
[2018-11-16] MEDS: chlordiazePOXIDE HCL 10 MG CAPSULE PO PRN (19:49)
[2018-11-16] MEDS: THIAMINE HCL 100 MG TABLET (FP) PO SCH (22:40)
[2018-11-16] MEDS: MELATONIN 5 MG TABLETS PO PRN (22:42)
[2018-11-16] MEDS: DIVALPROEX SODIUM 500 MG TABLET E.C. PO SCH (22:42)
[2018-11-17] MEDS: chlordiazePOXIDE HCL 10 MG CAPSULE PO SCH ×2 (05:46→10:54)
[2018-11-17] MEDS: guaiFENesin 200 MG/10 ML 10 ML UNIT-DOSE CUPS PO PRN ×2 (05:47→10:56)
[2018-11-17] MEDS: MENTHOL/PHENOL 1 EACH UD MM PRN (05:47)
[2018-11-17 06:38] VITALS: BP 98/64; PULSE 68; TEMP 97.5
[2018-11-17] MEDS: chlordiazePOXIDE HCL 10 MG CAPSULE PO PRN (08:29)
--- NOTE | 2018-11-17 10:47 | PN ---
Psychiatric Progress Note Vital Signs: Vital Signs Period Temp Pulse Resp BP Sys/Ryan Pulse Ox Last 24 Hr 97.1 F-97.6 F 68-94 16-18 98-138/64-100 Date of Session: 11/17/18 Chief Complaint:: " I need my trazodone ". HPI: Day 4 of detoxification. Patient requested to see the psychiatrist to discuss addition of trazodone to the regimen. Ms Galeano is complaining of insomnia. She wants to get back to trazodone 150 mg at bedtime. Otherwise, hospital course remains benign. Patient is nearing completion of the detoxification protocol. ROS: Unremarkable. Current Medications: Active Medications Generic Name Dose Route Start Last Admin Trade Name Freq PRN Reason Stop Dose Admin Acetaminophen 650 mg 11/14/18 15:13 Tylenol - PO Q6H PRN PAIN LEVEL 4 - 6 Acetaminophen 650 mg 11/14/18 15:13 Tylenol - PO Q6H PRN FEVER Al Hydroxide/Mg Hydroxide 30 ml 11/14/18 15:13 11/14/18 18:29 Mylanta Oral Suspension - PO 30 ml Q6H PRN Administration DYSPEPSIA Chlordiazepoxide HCl 10 mg 11/16/18 17:00 11/17/18 05:46 Librium - PO 11/17/18 11:01 10 mg [id number] DANIA Administration Chlordiazepoxide HCl 10 mg 11/17/18 17:00 Librium - PO 11/18/18 17:01 Q12H DANIA Chlordiazepoxide HCl 10 mg 11/16/18 17:00 11/17/18 08:29 Librium - PO 11/17/18 17:00 10 mg Q4H PRN Administration WITHDRAWAL(CONT SUBST) Divalproex Sodium 250 mg 11/15/18 10:00 11/16/18 10:49 Depakote - PO 250 mg DAILY DANIA Administration Divalproex Sodium 500 mg 11/14/18 22:00 11/16/18 22:42 Depakote - PO 500 mg HS DAINA Administration Escitalopram Oxalate 10 mg 11/15/18 10:00 11/16/18 10:49 Lexapro - PO 10 mg DAILY DANIA Administration Eucalyptus/Menthol/Phenol/Sorbitol 1 each 11/14/18 15:13 11/17/18 05:47 Cepastat Lozenge - MM 11/20/18 15:14 1 each Q4H PRN Administration SORE THROAT Guaifenesin 10 ml 11/15/18 01:23 11/17/18 05:47 Robitussin - PO 10 ml Q4H PRN Administration COUGH Hydroxyzine Pamoate 25 mg 11/14/18 15:13 Vistaril - PO 11/20/18 15:14 Q6H PRN For Anxiety Ibuprofen 400 mg 11/14/18 15:13 Motrin - PO Q6H PRN PAIN LEVEL 1 - 3 Lamotrigine 100 mg 11/14/18 22:00 11/16/18 22:40 Lamictal - PO 100 mg BID DANIA Administration Levetiracetam 1,000 mg 11/14/18 22:00 11/16/18 22:42 Keppra - PO 1,000 mg BID DANIA Administration Magnesium Citrate 300 ml 11/14/18 15:13 Citroma - PO Q48H PRN CONSTIPATION Magnesium Hydroxide 30 ml 11/14/18 15:13 Milk Of Magnesia - PO PRN PRN CONSTIPATION Melatonin 5 mg 11/14/18 15:13 11/16/18 22:42 Melatonin PO 5 mg HS PRN Administration INSOMNIA Methocarbamol 500 mg 11/14/18 15:13 Robaxin - PO 11/20/18 15:14 Q6H PRN MUSCLE SPASMS Neomycin/Polymyxin/Bacitracin 1 applic 11/14/18 22:00 11/16/18 22:46 Neosporin Topical Ointment - TP 1 applic BID DANIA Administration Nicotine 21 mg 11/15/18 10:00 11/16/18 10:52 Nicoderm Patch - TD 21 mg DAILY DANIA Administration Nicotine Polacrilex 4 mg 11/14/18 15:16 11/14/18 21:29 Nicorette Gum - BUC 4 mg Q2H PRN Administration NICOTINE REPLACEMENT RX Pantoprazole Sodium 40 mg 11/15/18 10:00 11/16/18 10:49 Protonix - PO 40 mg DAILY DANIA Administration Multivit/Folic Acid/Iron 1 tab 11/15/18 10:00 11/16/18 10:51 Vitamins (Sjr) - PO 1 tab DAILY DANIA Administration Thiamine HCl 100 mg 11/14/18 22:00 11/16/18 22:40 Vitamin B1 - PO 100 mg HS DANIA Administration Medication(s) Change(s): Medications are well tolerated. Trazodone 150 mg po hs. Added. Current Side Effect: No Lab tests ordered: No Lab tests reviewed: Yes Provider note:: Chart reviewed. Met with the patient to address her concerns. Ms Galenao insists on getting back on trazodone 150 mg at hs. She is noted as improved, calm, comfortable with bright affect, conversant, coherent and goal- directed. Medications are well tolerated. Patient indicates that she has changed her mind about going to rehabilitation. " I have some personal issues to take care of. I have to secure funds to help my grand mother pay the rent. I won't be able to take care of that matter if I stay for rehabilitation ". She declares that she has decided not to return to [facility] for psychiatric aftercare. " I dont get along with staff there ". Literacy Coach instructed the patient to await referral to another OPD clinic. Ms Galeano declines. " I will look for another outpatient program on my own ". Stable mental status : euthymic mood, bright affect, well-organized thought processes, no suicidal/homicidal ideation/intent or plan. Intact cognition. Patient has returned to baseline. Total face to face time:: 25 Mental Status Exam - Mental Status Exam Alert and Oriented to: Time, Place, Person Cognitive Function: Good Patient Appearance: Well Groomed (obese) Mood: Hopeful, Euthymic Affect: Appropriate, Normal Range Patient Behavior: Appropriate, Cooperative Speech Pattern: Clear, Appropriate Voice Loudness: Normal Thought Process: Intact, Goal Oriented Thought Disorder: Not Present Hallucinations: Denies Suicidal Ideation: Denies Homicidal Ideation: Denies Insight/Judgement: Fair Sleep: Fair Gait/Station: Normal Psychiatric Treatment Plan - Problem List (3) Cocaine dependence Qualifiers: Substance use status: uncomplicated Qualified Code(s): F14.20 - Cocaine dependence, uncomplicated (4) Bipolar disorder Comment: Self-report and according to records.On medications. (6) Nicotine dependence Qualifiers: Nicotine product type: cigarettes Substance use status: in withdrawal Qualified Code(s): F17.213 - Nicotine dependence, cigarettes, with withdrawal
--- NOTE | 2018-11-17 10:50 | DS ---
[facility] Detox Discharge Summary Admission Date: 11/14/18 Discharge Date: 11/17/18 - History Present History: Alcohol Dependence, Cannabis Dependence, Cocaine Dependence Pertinent Past History: 38 yo with h/o seizures and WOUND TREATMENT RN shunt (since ), GERD, bipolar 1, anxiety/ depression/PTSD. Fell on face after drinking heavily 3 days prior to admission here, seen in [place] ER and eval negative. alcohol- binge drinking for the last 3 days- h/o seizures from alcohol, no h/o DT's no other drug use- has tried cocaine, MJ. - Physical Exam Results Vital Signs: Vital Signs Temperature 97.5 F L 11/17/18 06:37 Pulse Rate 68 11/17/18 06:37 Respiratory Rate 18 11/17/18 06:37 Blood Pressure 98/64 11/17/18 06:37 O2 Sat by Pulse Oximetry (%) Pertinent Admission Physical Exam Findings: abrasions healed, pt tolerated detox well- to rehab today - Treatment Hospital Course: Detox Protocol Followed, Detoxed Safely, Responded well, Discharged Condition Good, Rehab Referral Accepted - Medication Discharge Medications: Ambulatory Orders Omeprazole [Prilosec (RX)] 40 mg PO DAILY 01/15/16 Divalproex [Depakote -] 750 mg PO HS #90 tablet.ec 10/27/17 Pantoprazole Sodium [Protonix -] 40 mg PO DAILY #30 tablet.ec 10/27/17 Ranitidine [Zantac -] 150 mg PO BID #60 tablet 10/27/17 Divalproex [Depakote -] 250 mg PO DAILY #30 tablet.ec 10/30/18 Divalproex [Depakote -] 500 mg PO HS #30 tablet.ec 10/30/18 Escitalopram Oxalate [Lexapro -] 10 mg PO DAILY #30 tablet 10/30/18 Trazodone HCl 150 mg PO HS #30 tablet 10/30/18 Lamotrigine [LaMICtal -] 200 mg PO BID #120 tablet 10/31/18 levETIRAcetam [Keppra -] 1,000 mg PO BID #60 tablet 10/31/18 Sumatriptan Succinate 100 mg PO PRN PRN 11/14/18 - Diagnosis (1) Alcohol dependence with uncomplicated withdrawal Current Visit: Yes Status: Acute (2) Cocaine dependence Current Visit: No Status: Chronic (3) GERD (gastroesophageal reflux disease) Current Visit: No Status: Chronic Qualifiers: Esophagitis presence: without esophagitis Qualified Code(s): K21.9 - Gastro -esophageal reflux disease without esophagitis (4) Morbid obesity Current Visit: No Status: Chronic (5) Nicotine dependence Current Visit: Yes Status: Chronic Qualifiers: Nicotine product type: cigarettes Substance use status: in withdrawal Qualified Code(s): F17.213 - Nicotine dependence, cigarettes, with withdrawal (6) SEIZURE HX Current Visit: No Status: Chronic (7) Bipolar I disorder, most recent episode mixed Current Visit: No Status: Suspected
[2018-11-17] MEDS: DIVALPROEX SODIUM 250 MG TABLET E.C. PO SCH (10:53)
[2018-11-17] MEDS: levETIRAcetam 500 MG TABLET (FP) PO SCH (10:53)
[2018-11-17] MEDS: lamoTRIgine 100 MG TABLET (FP) PO SCH (10:54)
[2018-11-17] MEDS: NEOMYCIN/POLYMYXIN/BACITRACIN (TRIPLE ANTIBIOTIC) 28 GM OINTMENT TP SCH (10:54)
[2018-11-17] MEDS: NICOTINE 21 MG/24 HOURS TOPICAL PATCH TD SCH (10:54)
[2018-11-17] MEDS: ESCITALOPRAM OXALATE 10 MG TABLET (FP) PO SCH (10:54)
[2018-11-17] MEDS: PANTOPRAZOLE 40 MG TABLET (FP) PO SCH (10:54)
[2018-11-17] MEDS: PRENATAL VITAMINS W/ FOLIC ACID TABLET (FP) PO SCH (10:54)
--- NOTE | 2018-11-17 11:22 | PN ---
[facility] Progress Note Note: pt changed her mind- refused rehab, wants to go home
[2018-11-17] MEDS ORDERED: chlordiazePOXIDE HCL 10 MG CAPSULE PO SCH (17:00)
== END 2018-11-17 11:42 | disposition home or self-care (01) | DRG 774 ==
LOC: YASAS 13:15 → Y3N 16:12
PROVIDERS: ADMIT Surgery; ATTEND Surgery
PROC: HZ2ZZZZ Detoxification Services for Substance Abuse Treatment (ICD-10-PCS; principal; 2018-11-14)
DX: F10.230 Alcohol dependence with withdrawal, uncomplicated (principal); F14.20 Cocaine dependence, uncomplicated; F12.20 Cannabis dependence, uncomplicated; F17.213 Nicotine dependence, cigarettes, with withdrawal; F31.9 Bipolar disorder, unspecified; F19.24 Other psychoactive substance dependence with psychoactive substance-induced mood disorder; G40.909 Epilepsy, unspecified, not intractable, without status epilepticus; G47.00 Insomnia, unspecified; K21.9 Gastro-esophageal reflux disease without esophagitis; E66.01 Morbid (severe) obesity due to excess calories; Z68.42 Body mass index [BMI] 45.0-49.9, adult; Z91.19 Patient's noncompliance with other medical treatment and regimen; Z88.8 Allergy status to other drugs, medicaments and biological substances
CPT/HCPCS: 36415; 80053; 81003; 81025; 85027; 86593; 87389

== ENCOUNTER 2018-12-24 09:30 | Inpatient (IN) | payer OTHER | END 2018-12-28 11:13 | disposition other institution (70) | LOC: YASAS 09:30 → Y3N 13:03 ==

== ENCOUNTER 2018-12-28 11:02 | Inpatient (IN) | payer OTHER ==
[2018-12-28] MEDS ORDERED: P-EPHED 60MG/TRIPROLIDI 2.5MG TABLET PO PRN (13:11)
[2018-12-28] MEDS ORDERED: MAG HYDROX/AL HYDROX/SIMETH 30 ML UNIT-DOSE CUP PO PRN (13:11)
[2018-12-28] MEDS ORDERED: MAGNESIUM HYDROX 2400MG/30ML ORAL SUSPENSION 30 ML CUP PO PRN (13:11)
[2018-12-28] MEDS ORDERED: MAGNESIUM CITRATE 300 ML BOTTLE PO PRN (13:11)
[2018-12-28] MEDS ORDERED: NICOTINE POLACRILEX 2 MG GUM BUC PRN (13:11)
[2018-12-28] MEDS ORDERED: MENTHOL/PHENOL 1 EACH UD MM PRN (13:11)
[2018-12-28] MEDS ORDERED: guaiFENesin 200 MG/10 ML 10 ML UNIT-DOSE CUPS PO PRN (13:11)
[2018-12-28] MEDS ORDERED: LOPERAMIDE HCL 2 MG CAPSULE PO PRN (13:11)
--- NOTE | 2018-12-28 13:15 | HP ---
[facility] Rehab Assess/Revision - Admission History Admitted to Rehab from: [facility] Date of Admission to Rehab: 12/28/2018 - Vital signs Vital Signs: Vital Signs Period Temp Pulse Resp BP Sys/Ryan Pulse Ox Last 24 Hr 97.7 F 90 18 114/83 - Findings Detox History & Physical reviewed: Yes Concur with findings: Yes Comments/Additional Findings: PATIENT'S MEDICAL / MEDICATION HISTORY REVIEWED PRIOR TO DISCHARGE FROM DETOX UNIT. PATIENT WAS DISCHARGED FROM DETOX UNIT TO BE TAKEN OVER TO REHAB UNIT IN STABLE MEDICAL CONDITION. Inpatient Rehab Admission - Rehab Decision to Admit Inpatient rehab admission?: Yes - Initial Determination Are CD services needed?: Yes Free of communicable disease: Yes Not in need of hospitalization: Yes - Rehab Admission Criteria Previous failed treatment: Yes Poor recovery environment: Yes Comorbidities: Yes Lacks judgement: No Patient is meeting Inpatient Rehab admission criteria:: Yes
[2018-12-28] MEDS: ACETAMINOPHEN 325 MG TABLET (FP) PO PRN (15:21)
[2018-12-28] MEDS: SUMAtriptan SUCCINATE 50 MG TABLET PO PRN (19:13)
[2018-12-28] MEDS: traZODone HCL 50 MG TABLET (FP) PO SCH (21:22)
[2018-12-28] MEDS: DIVALPROEX SODIUM 500 MG TABLET E.C. PO SCH (21:22)
[2018-12-28] MEDS: THIAMINE HCL 100 MG TABLET (FP) PO SCH (21:22)
[2018-12-28] MEDS: levETIRAcetam 500 MG TABLET (FP) PO SCH (21:22)
[2018-12-28] MEDS: LIDOCAINE PATCH REMOVAL MC SCH (21:23)
[2018-12-28] MEDS ORDERED: MELATONIN 5 MG TABLETS PO PRN (22:00)
[2018-12-29] MEDS: PRENATAL VITAMINS W/ FOLIC ACID TABLET (FP) PO SCH (09:37)
[2018-12-29] MEDS: levETIRAcetam 500 MG TABLET (FP) PO SCH ×2 (09:38→21:45)
[2018-12-29] MEDS: DIVALPROEX SODIUM 250 MG TABLET E.C. PO SCH (09:38)
[2018-12-29] MEDS: PANTOPRAZOLE 40 MG TABLET (FP) PO SCH (09:38)
[2018-12-29] MEDS: NICOTINE 21 MG/24 HOURS TOPICAL PATCH TD SCH (09:38)
[2018-12-29] MEDS: IBUPROFEN 400 MG TABLET (FP) PO PRN (09:39)
[2018-12-29] MEDS: LIDOCAINE 5% TOPICAL PATCH TP SCH (09:39)
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
[2018-12-29] MEDS: LIDOCAINE PATCH REMOVAL MC SCH (21:45)
[2018-12-29] MEDS: DIVALPROEX SODIUM 500 MG TABLET E.C. PO SCH (21:45)
[2018-12-29] MEDS ORDERED: PT OWN MED DRAWER 7, Y5N ONE ×2 (21:45→21:48)
[2018-12-29] MEDS: THIAMINE HCL 100 MG TABLET (FP) PO SCH (21:45)
[2018-12-29] MEDS: traZODone HCL 50 MG TABLET (FP) PO SCH (21:45)
[2018-12-29] MEDS: SUMAtriptan SUCCINATE 50 MG TABLET PO PRN (21:46)
[2018-12-29] MEDS: SUVOREXANT 10 MG TABLET PO PRN (21:48)
[2018-12-30] MEDS: ACETAMINOPHEN 325 MG TABLET (FP) PO PRN (02:22)
[2018-12-30] MEDS: PANTOPRAZOLE 40 MG TABLET (FP) PO SCH (09:09)
[2018-12-30] MEDS: LIDOCAINE 5% TOPICAL PATCH TP SCH (09:09)
[2018-12-30] MEDS: levETIRAcetam 500 MG TABLET (FP) PO SCH ×2 (09:09→21:45)
[2018-12-30] MEDS: DIVALPROEX SODIUM 250 MG TABLET E.C. PO SCH (09:09)
[2018-12-30] MEDS: PRENATAL VITAMINS W/ FOLIC ACID TABLET (FP) PO SCH (09:09)
[2018-12-30] MEDS: NICOTINE 21 MG/24 HOURS TOPICAL PATCH TD SCH (09:10)
[2018-12-30] MEDS: LIDOCAINE PATCH REMOVAL MC SCH (21:44)
[2018-12-30] MEDS: THIAMINE HCL 100 MG TABLET (FP) PO SCH (21:44)
[2018-12-30] MEDS: traZODone HCL 50 MG TABLET (FP) PO SCH (21:45)
[2018-12-30] MEDS: DIVALPROEX SODIUM 500 MG TABLET E.C. PO SCH (21:45)
[2018-12-30] MEDS: SUVOREXANT 10 MG TABLET PO PRN (21:46)
[2018-12-31] MEDS: levETIRAcetam 500 MG TABLET (FP) PO SCH ×2 (09:31→21:02)
[2018-12-31] MEDS: PANTOPRAZOLE 40 MG TABLET (FP) PO SCH (09:31)
[2018-12-31] MEDS: PRENATAL VITAMINS W/ FOLIC ACID TABLET (FP) PO SCH (09:31)
[2018-12-31] MEDS: LIDOCAINE 5% TOPICAL PATCH TP SCH (09:31)
[2018-12-31] MEDS: DIVALPROEX SODIUM 250 MG TABLET E.C. PO SCH (09:31)
[2018-12-31] MEDS: NICOTINE 21 MG/24 HOURS TOPICAL PATCH TD SCH (09:31)
[2018-12-31] MEDS ORDERED: INSULIN (NOVOLOG) ASPART 100 UNITS/ML 10ML VIAL ONE (16:46)
[2018-12-31] MEDS ORDERED: PT OWN MED DRAWER 7, Y5N ONE ×2 (16:47→16:49)
[2018-12-31] MEDS: ACETAMINOPHEN 325 MG TABLET (FP) PO PRN (16:48)
[2018-12-31] MEDS: SUMAtriptan SUCCINATE 50 MG TABLET PO PRN (16:48)
[2018-12-31] MEDS ORDERED: levETIRAcetam 250 MG TABLET (FP) PO ONE (20:15)
[2018-12-31] MEDS: DIVALPROEX SODIUM 500 MG TABLET E.C. PO SCH (21:02)
[2018-12-31] MEDS: traZODone HCL 50 MG TABLET (FP) PO SCH (21:02)
[2018-12-31] MEDS: THIAMINE HCL 100 MG TABLET (FP) PO SCH (21:02)
[2018-12-31] MEDS: LIDOCAINE PATCH REMOVAL MC SCH (21:02)
[2018-12-31] MEDS: SUVOREXANT 10 MG TABLET PO PRN (21:04)
[2019-01-01] MEDS ORDERED: levETIRAcetam 250 MG TABLET (FP) PO ONE (08:32)
[2019-01-01] MEDS: NICOTINE 21 MG/24 HOURS TOPICAL PATCH TD SCH (09:27)
[2019-01-01] MEDS: LIDOCAINE 5% TOPICAL PATCH TP SCH (09:27)
[2019-01-01] MEDS: PANTOPRAZOLE 40 MG TABLET (FP) PO SCH (09:28)
[2019-01-01] MEDS: DIVALPROEX SODIUM 250 MG TABLET E.C. PO SCH (09:28)
[2019-01-01] MEDS: levETIRAcetam 500 MG TABLET (FP) PO SCH ×2 (09:29→21:02)
[2019-01-01] MEDS: PRENATAL VITAMINS W/ FOLIC ACID TABLET (FP) PO SCH (09:30)
--- NOTE | 2019-01-01 11:50 | PN ---
[facility] Progress Note (SOAP) Subjective: PT C/O CHRONIC RASH ON FOREHEAD. REPORTS SHE USES T-GEL SHAMPOO. Objective: 01/01/19 11:39 Vital Signs - 24 hr 01/01/19 01/01/19 01/01/19 00:30 03:29 06:30 Temperature Pulse Rate Respiratory 18 18 18 Rate Blood Pressure 01/01/19 06:58 Temperature 98.4 F Pulse Rate 84 Respiratory 18 Rate Blood Pressure 135/79 Laboratory Tests 12/29/18 06:00 HIV 1&2 Antibody Screen Negative HIV P24 Antigen Negative DRY AND SCALY LESION ON HAIRLINE/FOREHEAD. Assessment: 01/01/19 11:40 DERMATITIS Plan: YOLIS VUONG DIRECTED
[2019-01-01] MEDS ORDERED: COLLOIDAL OATMEAL 1 BAR EACH TP PRN (12:02)
[2019-01-01] MEDS: SELENIUM SULFIDE 2.5% LOTION 4 OZ. TP SCH (13:45)
[2019-01-01] MEDS ORDERED: PT OWN MED DRAWER 7, Y5N ONE (15:07)
[2019-01-01] MEDS: ACETAMINOPHEN 325 MG TABLET (FP) PO PRN (18:15)
[2019-01-01] MEDS: THIAMINE HCL 100 MG TABLET (FP) PO SCH (21:02)
[2019-01-01] MEDS: DIVALPROEX SODIUM 500 MG TABLET E.C. PO SCH (21:02)
[2019-01-01] MEDS: traZODone HCL 50 MG TABLET (FP) PO SCH (21:02)
[2019-01-01] MEDS: LIDOCAINE PATCH REMOVAL MC SCH (21:03)
[2019-01-01] MEDS: SUVOREXANT 10 MG TABLET PO PRN (21:04)
[2019-01-02] MEDS ORDERED: PT OWN MED DRAWER 7, Y5N ONE (08:41)
[2019-01-02] MEDS: DIVALPROEX SODIUM 250 MG TABLET E.C. PO SCH (09:23)
[2019-01-02] MEDS: levETIRAcetam 500 MG TABLET (FP) PO SCH ×2 (09:23→21:08)
[2019-01-02] MEDS: PRENATAL VITAMINS W/ FOLIC ACID TABLET (FP) PO SCH (09:23)
[2019-01-02] MEDS: PANTOPRAZOLE 40 MG TABLET (FP) PO SCH (09:23)
[2019-01-02] MEDS: NICOTINE 21 MG/24 HOURS TOPICAL PATCH TD SCH (09:23)
[2019-01-02] MEDS: SELENIUM SULFIDE 2.5% LOTION 4 OZ. TP SCH (09:24)
[2019-01-02] MEDS: IBUPROFEN 400 MG TABLET (FP) PO PRN (09:25)
[2019-01-02] MEDS: LIDOCAINE 5% TOPICAL PATCH TP SCH (09:26)
[2019-01-02] MEDS: THIAMINE HCL 100 MG TABLET (FP) PO SCH (21:08)
[2019-01-02] MEDS: DIVALPROEX SODIUM 500 MG TABLET E.C. PO SCH (21:08)
[2019-01-02] MEDS: traZODone HCL 50 MG TABLET (FP) PO SCH (21:08)
[2019-01-02] MEDS: LIDOCAINE PATCH REMOVAL MC SCH (21:09)
[2019-01-02] MEDS: METHOCARBAMOL 500 MG TABLET PO SCH (21:10)
[2019-01-03] MEDS: PANTOPRAZOLE 40 MG TABLET (FP) PO SCH (10:05)
[2019-01-03] MEDS: levETIRAcetam 500 MG TABLET (FP) PO SCH ×2 (10:05→21:27)
[2019-01-03] MEDS: METHOCARBAMOL 500 MG TABLET PO SCH ×2 (10:05→21:27)
[2019-01-03] MEDS: DIVALPROEX SODIUM 250 MG TABLET E.C. PO SCH (10:05)
[2019-01-03] MEDS: PRENATAL VITAMINS W/ FOLIC ACID TABLET (FP) PO SCH (10:05)
[2019-01-03] MEDS: NICOTINE 21 MG/24 HOURS TOPICAL PATCH TD SCH (10:05)
[2019-01-03] MEDS: LIDOCAINE 5% TOPICAL PATCH TP SCH (10:06)
--- NOTE | 2019-01-03 10:50 | PN ---
Psychiatric Progress Note Vital Signs: Vital Signs Period Temp Pulse Resp BP Sys/Ryan Pulse Ox Last 24 Hr 97.7 F 90 16-18 149/75 Date of Session: 01/03/19 Chief Complaint:: " I can't sleep." HPI: Patient admitted to for alcohol, cocaine ,and cannabis dependence. Patient reports difficulty sleeping. ROS: Patient is coherent, alert and oriented X3. Current Medications: Active Medications Generic Name Dose Route Start Last Admin Trade Name Freq PRN Reason Stop Dose Admin Acetaminophen 650 mg 12/28/18 13:11 01/01/19 18:15 Tylenol - PO 650 mg Q4H PRN Administration FEVER Al Hydroxide/Mg Hydroxide 30 ml 12/28/18 13:11 Mylanta Oral Suspension - PO Q6H PRN DYSPEPSIA Colloidal Oatmeal 1 applic 01/01/19 12:02 01/01/19 14:59 Aveeno Soap - TP 1 applic DAILY PRN Administration HYGEINE Divalproex Sodium 250 mg 12/29/18 10:00 01/03/19 10:05 Depakote - PO 250 mg DAILY DANIA Administration Divalproex Sodium 500 mg 12/28/18 22:00 01/02/19 21:08 Depakote - PO 500 mg HS DANIA Administration Eucalyptus/Menthol/Phenol/Sorbitol 1 each 12/28/18 13:11 Cepastat Lozenge - MM Q4H PRN SORE THROAT Guaifenesin 10 ml 12/28/18 13:11 Robitussin - PO Q6H PRN COUGH Ibuprofen 400 mg 12/28/18 13:11 01/02/19 09:25 Motrin - PO 400 mg Q6H PRN Administration Pain Level 4-6 Levetiracetam 1,000 mg 12/28/18 22:00 01/03/19 10:05 Keppra - PO 1,000 mg BID DANIA Administration Lidocaine 1 patch 12/29/18 10:00 01/03/19 10:06 Lidoderm Patch - TP 1 patch DAILY DANIA Administration Loperamide HCl 4 mg 12/28/18 13:11 Imodium - PO Q6H PRN DIARRHEA Magnesium Citrate 300 ml 12/28/18 13:11 Citroma - PO Q48H PRN CONSTIPATION Magnesium Hydroxide 30 ml 12/28/18 13:11 Milk Of Magnesia - PO DAILY PRN CONSTIPATION Melatonin 5 mg 12/28/18 22:00 Melatonin PO HS PRN INSOMNIA Methocarbamol 500 mg 01/02/19 22:00 01/03/19 10:05 Robaxin - PO 500 mg BID DANIA Administration Miscellaneous 1 each 12/28/18 22:00 01/02/19 21:09 Lidoderm Patch Removal MC 1 each DAILY@2200 DANIA Administration Nicotine 21 mg 12/29/18 10:00 01/03/19 10:05 Nicoderm Patch - TD 21 mg DAILY DANIA Administration Nicotine Polacrilex 2 mg 12/28/18 13:11 Nicorette Gum - BUC Q2H PRN NICOTINE REPLACEMENT RX Pantoprazole Sodium 40 mg 12/29/18 10:00 01/03/19 10:05 Protonix - PO 40 mg DAILY DANIA Administration Multivit/Folic Acid/Iron 1 tab 12/29/18 10:00 01/03/19 10:05 Vitamins (Sjr) - PO 1 tab DAILY DNAIA Administration Pseudoephedrine/Triprolidine 1 combo 12/28/18 13:11 Actifed - PO TID PRN NASAL CONGESTION Selenium Sulfide 1 applic 01/01/19 11:45 01/02/19 09:24 Selsun 2.5% Lotion - TP 01/08/19 11:44 Not Given DAILY DANIA Sumatriptan Succinate 100 mg 12/28/18 13:13 12/31/18 16:48 Imitrex - PO 100 mg BID PRN Administration MIGRAINE Thiamine HCl 100 mg 12/28/18 22:00 01/02/19 21:08 Vitamin B1 - PO 100 mg HS DANIA Administration Trazodone HCl 150 mg 12/28/18 22:00 01/02/19 21:08 Desyrel - PO 150 mg HS DANIA Administration Medication(s) Change(s): Yes. Current Side Effect: No Lab tests ordered: No Lab tests reviewed: Yes Provider note:: Patient reports difficulty sleeping despite accepting trazodone 100mg HS. Patient requesting belsomra for insomnia. Will order Belsomra 10mg HS. Benefits and side effects discussed. Verbal consent given. Total face to face time:: 20 Mental Status Exam - Mental Status Exam Alert and Oriented to: Time, Place, Person Cognitive Function: Good Patient Appearance: Well Groomed Mood: Euthymic Affect: Appropriate Patient Behavior: Appropriate, Cooperative Speech Pattern: Appropriate Voice Loudness: Normal Thought Process: Intact, Goal Oriented Thought Disorder: Not Present Hallucinations: Denies Suicidal Ideation: Denies Homicidal Ideation: Denies Insight/Judgement: Poor Sleep: Poorly Appetite: Fair Muscle strength/Tone: Normal Gait/Station: Normal Psychiatric Treatment Plan - Problem List (1) Alcohol dependence Current Visit: Yes (2) Substance-induced sleep disorder Current Visit: Yes (3) Cannabis dependence Current Visit: Yes Comment: . (4) Cocaine dependence Current Visit: Yes (5) Bipolar disorder Current Visit: Yes Qualifiers: Active/Remission status: remission status unspecified Qualified Code(s): F31.9 - Bipolar disorder, unspecified
[2019-01-03] MEDS: SELENIUM SULFIDE 2.5% LOTION 4 OZ. TP SCH (11:00)
[2019-01-03] MEDS: DIVALPROEX SODIUM 500 MG TABLET E.C. PO SCH (21:27)
[2019-01-03] MEDS: traZODone HCL 50 MG TABLET (FP) PO SCH (21:27)
[2019-01-03] MEDS: THIAMINE HCL 100 MG TABLET (FP) PO SCH (21:27)
[2019-01-03] MEDS: LIDOCAINE PATCH REMOVAL MC SCH (21:29)
[2019-01-03] MEDS ORDERED: SUVOREXANT 10 MG TABLET PO PRN (22:00)
[2019-01-03] MEDS ORDERED: PT OWN MED DRAWER 7, Y5N ONE (22:07)
[2019-01-03] MEDS: IBUPROFEN 400 MG TABLET (FP) PO PRN (22:07)
[2019-01-03] MEDS: SUMAtriptan SUCCINATE 50 MG TABLET PO PRN (22:08)
[2019-01-04] MEDS: LIDOCAINE 5% TOPICAL PATCH TP SCH (10:19)
[2019-01-04] MEDS: PRENATAL VITAMINS W/ FOLIC ACID TABLET (FP) PO SCH (10:19)
[2019-01-04] MEDS: DIVALPROEX SODIUM 250 MG TABLET E.C. PO SCH (10:19)
[2019-01-04] MEDS: METHOCARBAMOL 500 MG TABLET PO SCH ×2 (10:19→21:37)
[2019-01-04] MEDS: PANTOPRAZOLE 40 MG TABLET (FP) PO SCH (10:19)
[2019-01-04] MEDS: levETIRAcetam 500 MG TABLET (FP) PO SCH ×2 (10:19→21:37)
[2019-01-04] MEDS: NICOTINE 21 MG/24 HOURS TOPICAL PATCH TD SCH (10:19)
[2019-01-04] MEDS: SELENIUM SULFIDE 2.5% LOTION 4 OZ. TP SCH (10:20)
[2019-01-04] MEDS ORDERED: PT OWN MED DRAWER 7, Y5N ONE (18:23)
[2019-01-04] MEDS: IBUPROFEN 400 MG TABLET (FP) PO PRN (18:23)
[2019-01-04] MEDS: SUMAtriptan SUCCINATE 50 MG TABLET PO PRN (18:23)
[2019-01-04] MEDS: THIAMINE HCL 100 MG TABLET (FP) PO SCH (21:37)
[2019-01-04] MEDS: traZODone HCL 50 MG TABLET (FP) PO SCH (21:37)
[2019-01-04] MEDS: DIVALPROEX SODIUM 500 MG TABLET E.C. PO SCH (21:37)
[2019-01-04] MEDS: LIDOCAINE PATCH REMOVAL MC SCH (21:39)
[2019-01-05 07:05] VITALS: BP 127/81; PULSE 66; TEMP 98.1
[2019-01-05] MEDS: DIVALPROEX SODIUM 250 MG TABLET E.C. PO SCH (09:12)
[2019-01-05] MEDS: PRENATAL VITAMINS W/ FOLIC ACID TABLET (FP) PO SCH (09:13)
[2019-01-05] MEDS: LIDOCAINE 5% TOPICAL PATCH TP SCH (09:13)
[2019-01-05] MEDS: PANTOPRAZOLE 40 MG TABLET (FP) PO SCH (09:13)
[2019-01-05] MEDS: levETIRAcetam 500 MG TABLET (FP) PO SCH (09:13)
[2019-01-05] MEDS: NICOTINE 21 MG/24 HOURS TOPICAL PATCH TD SCH (09:13)
[2019-01-05] MEDS: METHOCARBAMOL 500 MG TABLET PO SCH (09:18)
[2019-01-05] MEDS: SELENIUM SULFIDE 2.5% LOTION 4 OZ. TP SCH (09:18)
--- NOTE | 2019-01-05 13:44 | PN ---
[facility] Progress Note (SOAP) Subjective: Patient to be discharged today. During her stay in rehab, she participated in Seeking safety meetings and adhered to medication regimen. Objective: A+O x3, no neurological deficits noted. heart sounds regular, lungs clear, abd soft, non-tender, non-distended, +BS. Skin clear, mucous membranes moist. 01/05/19 13:45 Laboratory Last Values HIV 1&2 Antibody Screen Negative 12/29/18 06:00 HIV P24 Antigen Negative 12/29/18 06:00 Vital Signs (72 hours) 01/03/19 01/03/19 01/03/19 00:30 03:30 07:12 Temperature 97.7 F Pulse Rate 90 Respiratory 16 18 18 Rate Blood Pressure 149/75 01/04/19 01/04/19 01/04/19 00:30 03:30 06:59 Temperature 97.6 F Pulse Rate 79 Respiratory 18 18 18 Rate Blood Pressure 138/81 01/05/19 01/05/19 01/05/19 00:30 03:30 07:04 Temperature 98.1 F Pulse Rate 66 Respiratory 18 18 16 Rate Blood Pressure 127/81 Assessment: Medically stable for discharge Discharge Dx ETOH dependence Cocaine Dependence 01/05/19 13:47 01/05/19 13:50 Plan: Patient will go to [facility] for aftercare. Her PCP is Dr. Posey at [address] [place] [address]. Prescriptions were transmitted to [facility].
--- NOTE | 2019-01-05 13:55 | PN ---
[facility] Progress Note Note: Psychiatry Attending's note : Called for prescriptions. Patient is about to be discharged. Chart reviewed. Ms Galeano is known to me. Depakote 250 mg po daily tab # 30 Depakote 500 mg po hs tab # 30 Trazodone 150 mg po hs tab # 30 Informed consent : done at [address] Scripts sent electronically to preferred pharmacy. At [address]
== END 2019-01-05 14:10 | disposition home or self-care (01) | DRG 772 ==
LOC: YASAS 11:02 → Y3E 11:03
PROVIDERS: ADMIT Neuromusculoskeletal Medicine & OMM; ATTEND Neuromusculoskeletal Medicine & OMM
PROC: HZ42ZZZ Group Counseling for Substance Abuse Treatment, Cognitive-Behavioral (ICD-10-PCS; principal; 2018-12-28)
DX: F10.20 Alcohol dependence, uncomplicated (principal); F14.20 Cocaine dependence, uncomplicated; F12.20 Cannabis dependence, uncomplicated; F19.282 Other psychoactive substance dependence with psychoactive substance-induced sleep disorder; F31.9 Bipolar disorder, unspecified; L20.9 Atopic dermatitis, unspecified
CPT/HCPCS: 36415; 87389

== ENCOUNTER 2019-07-13 15:52 | Inpatient (IN) | payer OTHER ==
[2019-07-13 17:22] VITALS: BMI 54.6
--- NOTE | 2019-07-13 18:53 | HP ---
CIWA Score Nausea/Vomitin-No Nausea/No Vomiting Muscle Tremors: 2 Anxiety: 3 Agitation: 2 Paroxysmal Sweats: 2 Orientation: 0-Oriented Tacttile Disturbances: 1-Very Mild Itch/Numbness Auditory Disturbances: 0-None Visual Disturbances: 0-None Headache: 1-Very Mild CIWA-Ar Total Score: 11 - Admission Criteria OASAS Guidelines: Admission for Medically Managed Detox: Requires at least one of the followin. CIWA greater than 12 2. Seizures within the past 24 hours 3. Delirium tremens within the past 24 hours 4. Hallucinations within the past 24 hours 5. Acute intervention needed for co occurring medical disorder 6. Acute intervention needed for co occurring psychiatric disorder 7. Severe withdrawal that cannot be handled at a lower level of care (continued vomiting, continued diarrhea, abnormal vital signs) requiring intravenous medication and/or fluids 8. Patient presents the following: Seizures, delirium tremens or hallucinations in the past 12 hours, Acute intervention needed for co-occurring med or psych disorder Admission Criteria Met: Admission criteria met Admitting History and Physical - Admission Chief Complaint: alcohol withdrawal sx History of Present Illness: Patient is 39 yo female with hx of alcohol and cocaine dependence is here seeking inpatient detox d/t withdrawal sx . Patient reports two months sobriety prior to relapse. Reports hx of frequent ETOH blackouts. PMHX: grand mal seizure last seizure December 2017 on keppra BID, herniate disc, hx hydrocephalus w / right [employer] shunt. Psych: depression, anxiety and bipolar. Denies SI/HI. History Source: Patient Limitations to Obtaining History: No Limitations - Past Medical History ...LMP: 11/30/18 - Smoking History Smoking history: Current every day smoker Have you smoked in the past 12 months: Yes Aproximately how many cigarettes per day: 10 - Alcohol/Substance Use Hx Alcohol Use: Yes Admission ROS [facility] - HPI Allergies/Adverse Reactions: Allergies Allergy/AdvReac Type Severity Reaction Status Date / Time azithromycin [From Zithromax] Allergy Severe Swelling Verified 12/24/18 09:48 bismuth subsalicylate Allergy Severe Swelling Verified 12/24/18 09:48 [From Kaopectate (bismuth subsalicy)] Exam Limitations: No Limitations - Ebola screening Have you traveled outside of the country in the last 21 days: No Have you had contact with anyone from an Ebola affected area: No Do you have a fever: No - Review of Systems Constitutional: Chills, Changes in sleep, Other (weight gain) EENT: reports: Nose Congestion Respiratory: reports: Cough (x 2 days) Cardiac: reports: No Symptoms Reported GI: reports: No Symptoms Reported : reports: No Symptoms Reported Musculoskeletal: reports: Back Pain, Joint Pain Integumentary: reports: No Symptoms Reported Neuro: reports: See HPI Endocrine: reports: Increased Thirst, Change in Weight Hematology: reports: No Symptoms Reported Psychiatric: reports: Orientated x3, Anxious, Depressed Other Systems: Reviewed and Negative Patient History - Patient Medical History Hx Anemia: No Hx Asthma: No Hx Chronic Obstructive Pulmonary Disease (COPD): No Hx Cancer: No Hx Cardiac Disorders: No Hx Congestive Heart Failure: No Hx Hypertension: No Hx Hypercholesterolemia: No Hx Pacemaker: No HX Cerebrovascular Accident: No Hx Seizures: Yes (2018) Hx Dementia: No Hx Diabetes: No Hx Gastrointestinal Disorders: No Hx Liver Disease: No Hx Genitourinary Disorders: No Hx Sexually Transmitted Disorders: No Hx Renal Disease (ESRD): No Hx Thyroid Disease: No Hx Human Immunodeficiency Virus (HIV): No (last 09/19 negative) Hx Hepatitis C: No Hx Depression: Yes Hx Suicide Attempt: No Hx Bipolar Disorder: Yes (prozac 60mgbid,lamictal 100mg bid) Hx Schizophrenia: No - Patient Surgical History Past Surgical History: Yes Hx Neurologic Surgery: Yes (V/P shunt revision 02/24/12,last revision 2015) Hx Cataract Extraction: No Hx Cardiac Surgery: No Hx Lung Surgery: No Hx Breast Surgery: No Hx Breast Biopsy: No Hx Abdominal Surgery: Yes (2018,intestinal obstruction in 2) Hx Appendectomy: No Hx Cholecystectomy: No Hx Genitourinary Surgery: No Hx Section: No Hx Orthopedic Surgery: No Hx Hysterectomy: No Other Surgical History: 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 SIDE OF HEAD Anesthesia Reaction: No - PPD History Date: 10/19/18 Results: 0mm PPD to be Administered?: No - Reproductive History Patient is a Female of Child Bearing Age (11 -55 yrs old): Yes Last Menstrual Period: 07/09/19 Patient : No - Smoking Cessation Smoking history: Current every day smoker Have you smoked in the past 12 months: Yes Aproximately how many cigarettes per day: 10 Cigars Per Day: 0 Hx Chewing Tobacco Use: No Initiated information on smoking cessation: Yes 'Breaking Loose' booklet given: 07/13/19 - Substance & Tx. History Hx Alcohol Use: Yes Hx Substance Use: Yes Substance Use Type: Alcohol, Cocaine Hx Substance Use Treatment: Yes (Last detox and rehab [facility] December 2018) - Substances abused Crack Substance route: Smoking Frequency: Daily Amount used: $100 Age of first use: 25 Date of last use: 07/13/19 Cocaine Substance route: Smoking Frequency: 3-6 times per week Amount used: $120.00 Age of first use: 25 Date of last use: 10/15/18 Marijuana/Hashish Substance route: Smoking Frequency: Daily Amount used: 3 BAGS Age of first use: 17 Date of last use: 07/13/19 Alcohol Substance route: Oral Frequency: 3-6 times per week Amount used: 2 PINTS HENRICKIEY Age of first use: 17 Date of last use: 07/13/19 PCP Substance route: Smoking Frequency: Daily Amount used: 1 baq Age of first use: 25 Date of last use: 07/12/19 Admission Physical Exam [facility] - Vital Signs Vital Signs: Vital Signs - 24 hr 07/13/19 17:03 Temperature 97.0 F L Pulse Rate 90 Respiratory 18 Rate Blood Pressure 132/66 - Physical General Appearance: Yes: Appropriately Dressed, Obese, Irritable, Anxious HEENTM: Yes: EOMI, Hearing grossly Normal, Normal ENT Inspection, Pharynx Normal , Rhinorrhea Respiratory: Yes: Chest Non-Tender, Lungs Clear, Normal Breath Sounds, No Respiratory Distress Neck: Yes: Within Normal Limits Breast: Yes: Breast Exam Deferred Cardiology: Yes: Regular Rhythm, Regular Rate Abdominal: Yes: Normal Bowel Sounds, Non Tender, Protuberent Genitourinary: Yes: Within Normal Limits Back: Yes: Normal Inspection Musculoskeletal: Yes: full range of Motion, Gait Steady, Pelvis Stable Extremities: Yes: Normal Capillary Refill, Normal Inspection, Normal Range of Motion, Non-Tender Neurological: Yes: torsion spring coiling machine setter II-XII NML intact, Fully Oriented, Alert, Motor Strength 5/5, Depressed Affect Integumentary: Yes: Normal Color, Dry, Warm Lymphatic: Yes: Within Normal Limits - Diagnostic (1) Chronic back pain Current Visit: Yes Status: Chronic (2) Alcohol dependence with uncomplicated withdrawal Current Visit: Yes Status: Acute Comment: . (3) Morbid obesity Current Visit: Yes Status: Chronic (4) Nicotine dependence Current Visit: Yes Status: Chronic Qualifiers: Nicotine product type: cigarettes Substance use status: in withdrawal Qualified Code(s): F17.213 - Nicotine dependence, cigarettes, with withdrawal Comment: . (5) Seizure Current Visit: Yes Status: Chronic Cleared for Admission [facility] - Detox or Rehab S Level of Care: Medically Managed Detox Regimen/Protocol: Librium Breathalyzer - Breathalyzer Breathalyzer: 0 POC Urine test - Test device test lot number: [id number] Expiration date: 03/03/20 - Control test control: Yes Urine Drug Screen - Test Device Lot number: [id number] Expiration date: 01/30/21 - Control Is test valid?: Yes - Results Drug screen NEGATIVE: No Urine drug screen results: [facility]ATIE-Cocaine Inpatient Rehab Admission - Rehab Decision to Admit Inpatient rehab admission?: No
[2019-07-13] MEDS ORDERED: chlordiazePOXIDE HCL 25 MG CAPSULE PO PRN (18:55)
[2019-07-13] MEDS ORDERED: hydrOXYzine PAMOATE 25 MG CAPSULE (FP) PO PRN (18:55)
[2019-07-13] MEDS ORDERED: MAGNESIUM HYDROX 2400MG/30ML ORAL SUSPENSION 30 ML CUP PO PRN (18:55)
[2019-07-13] MEDS ORDERED: NICOTINE POLACRILEX 2 MG GUM BUC PRN (18:55)
[2019-07-13] MEDS ORDERED: MAG HYDROX/AL HYDROX/SIMETH 30 ML UNIT-DOSE CUP PO PRN (18:55)
[2019-07-13] MEDS ORDERED: MAGNESIUM CITRATE 300 ML BOTTLE PO PRN (18:55)
[2019-07-13] MEDS ORDERED: ACETAMINOPHEN 325 MG TABLET (FP) PO PRN (18:55)
[2019-07-13] MEDS ORDERED: MELATONIN 5 MG TABLETS PO PRN (18:55)
[2019-07-13] MEDS ORDERED: ACETAMINOPHEN PO SCH (19:00)
[2019-07-13] MEDS ORDERED: ASPIRIN PO SCH (19:00)
[2019-07-13] MEDS ORDERED: [UNRECOGNIZED DRUG - OTHER] PO SCH (19:00)
[2019-07-13] MEDS ORDERED: CAFFEINE PO SCH (19:00)
[2019-07-13] MEDS: LIDOCAINE PATCH REMOVAL MC SCH (22:46)
[2019-07-13] MEDS: levETIRAcetam 500 MG TABLET (FP) PO SCH (22:46)
[2019-07-13] MEDS: THIAMINE HCL 100 MG TABLET (FP) PO SCH (22:46)
[2019-07-13] MEDS: TOLNAFTATE 1% CREAM 15 GM TUBE TP SCH (22:51)
[2019-07-13] MEDS: chlordiazePOXIDE HCL 25 MG CAPSULE PO SCH (23:17)
[2019-07-14] MEDS: chlordiazePOXIDE HCL 25 MG CAPSULE PO SCH ×4 (05:21→22:33)
[2019-07-14] MEDS: MENTHOL/PHENOL 1 EACH UD MM PRN ×3 (06:00→10:03)
[2019-07-14] MEDS: guaiFENesin 200 MG/10 ML 10 ML UNIT-DOSE CUPS PO PRN ×5 (06:00→22:51)
[2019-07-14] MEDS: ACETAMINOPHEN 325 MG TABLET (FP) PO PRN ×2 (07:10→16:36)
--- NOTE | 2019-07-14 09:01 | EKG ---
Test Reason : Blood Pressure : / mmHG Vent. Rate : 088 BPM Atrial Rate : 088 BPM P-R Int : 146 ms QRS Dur : 082 ms QT Int : 376 ms P-R-T Axes : 070 020 -35 degrees QTc Int : 454 ms NORMAL SINUS RHYTHM NONSPECIFIC T WAVE ABNORMALITY ABNORMAL ECG WHEN COMPARED WITH ECG OF 14-OCT-2017 15:11, NO SIGNIFICANT CHANGE WAS FOUND Confirmed by ASTRID HINTON MD ([id number]) on 07/14/2019 9:01:10 AM Referred By: Confirmed By:ASTRID HINTON MD
[2019-07-14 09:59] LABS: HEMATOCRIT 31.1 % (32.4-45.2); MCH 27.6 pg (25.7-33.7); MCHC 32.1 g/dl (32.0-36.0); MEAN CELL VOLUME 86.1 fl (80-96); MEAN PLT VOLUME 9.6 fl (7.5-11.1); PLATELET COUNT 257 K/MM3 (134-434); RBC 3.61 M/mm3 (3.60-5.2); RDW 14.4 % (11.6-15.6); WHITE BLOOD COUNT 4.3 K/mm3 (4.0-10.0)
[2019-07-14] MEDS: PRENATAL VITAMINS W/ FOLIC ACID TABLET (FP) PO SCH (10:04)
[2019-07-14] MEDS: levETIRAcetam 500 MG TABLET (FP) PO SCH ×2 (10:04→22:34)
[2019-07-14] MEDS: PANTOPRAZOLE 40 MG TABLET (FP) PO SCH (10:05)
[2019-07-14] MEDS: METHOCARBAMOL 500 MG TABLET PO PRN ×2 (10:07→16:36)
--- NOTE | 2019-07-14 11:05 | CONSULT ---
[facility] Psychiatric Consult - Data Date of interview: 07/14/19 Admission source: [facility] Identifying data: Patient is a 39 year old single female, without children, unemployed, homeless (was residing with grandmother before admission to detox), and is not currently provided with financial assistance. This is one of multiple admissions for patient. Patient admitted to for alcohol and cocaine dependence. Substance Abuse History: Smoking Cessation. Smoking history: Current every day smoker. Have you smoked in the past 12 months: Yes. Aproximately how many cigarettes per day: 10. Cigars Per Day: 0. Hx Chewing Tobacco Use: No. Initiated information on smoking cessation: Yes. 'Breaking Loose' booklet given : 07/13/19. - Substance & Tx. History. Hx Alcohol Use: Yes. Hx Substance Use : Yes. Substance Use Type: Alcohol, Cocaine. Hx Substance Use Treatment: Yes ( Last detox and rehab [facility] December 2018). - Substances abused. Crack. Substance route: Smoking. Frequency: Daily. Amount used: $100. Age of first use: 25. Date of last use: 07/13/19. Cocaine. Substance route: Smoking. Frequency: 3-6 times per week. Amount used: $120.00. Age of first use: 25. Date of last use: 10/15/18. Marijuana/Hashish. Substance route: Smoking. Frequency: Daily. Amount used: 3 BAGS. Age of first use: 17. Date of last use : 07/13/19. Alcohol. Substance route: Oral. Frequency: 3-6 times per week. Amount used: 2 PINTS HENESSEY. Age of first use: 17. Date of last use: 07/13/19. PCP. Substance route: Smoking. Frequency: Daily. Amount used: 1 baq. Age of first use: 25. Date of last use: 07/12/19 Medical History: History of intestinal obstruction (2011), hydrocephalus (shunt) , morbid obesity, GERD, seizure disorder, diabetes mellitus and past treatment for gonorrhea. Psychiatric History: Patient's first psychiatric contact was in 2011 after reporting suicidal ideation. She was admitted to [facility] for two weeks, diagnosed with Bipolar disorder and prescribed psychotropic medications. Ms. Galeano's most recent psychiatric hospitalization occured in 2013 at [facility] due to Mood instability and suicidal ideation. Patient has received outpatient psychiatric care at the [facility] and most recently in June 2019 at the [facility] outpatient clinic by Dr. sosa but does not plan on seeing him again. States that she is prescribed lexapro 10mg daily + Depakote 250mg daily + 500mg HS + Trazodone 200mg +Lamictal 200mg BID. ( pharmacy to be contacted for verification). Patient denies history of suicide attempt. At present patient reports difficutly sleeping. Physical/Sexual Abuse/Trauma History: denies. Mental Status Exam - Mental Status Exam Alert and Oriented to: Time, Place, Person Cognitive Function: Good Patient Appearance: Well Groomed Mood: Withdrawn, Irritable (Became irritable when informed that lamictal 200mg BID will not be ordered. ) Affect: Mood Congruent Patient Behavior: Cooperative (At first coopertive but became irritable when discussing lamictal medication.) Speech Pattern: Clear Voice Loudness: Normal Thought Process: Goal Oriented Thought Disorder: Not Present Hallucinations: Denies Suicidal Ideation: Denies Homicidal Ideation: Denies Insight/Judgement: Poor Sleep: Fair Appetite: Fair Muscle strength/Tone: Normal Gait/Station: Normal Psychiatric Findings - Problem List ([place] 1, 2,3) (1) Alcohol dependence with uncomplicated withdrawal Current Visit: Yes Status: Acute Comment: . (2) Alcohol dependence Current Visit: Yes Status: Acute (3) Substance-induced sleep disorder Current Visit: Yes Status: Acute (4) Bipolar disorder Current Visit: Yes Status: Chronic Qualifiers: Active/Remission status: remission status unspecified Qualified Code(s): F31.9 - Bipolar disorder, unspecified (5) Cocaine dependence Current Visit: Yes Status: Chronic (6) Substance induced mood disorder Current Visit: Yes Status: Chronic Comment: . - Initial Treatment Plan Initial Treatment Plan: Psychoeducation provided. Detoxification in progress. [facility] contacted at [phone] and able to speak to pharmacist. As per pharmacist the only prescription she received on 06/30/19 were : Depakote 250mg DR daily + 500mg DR HS + Trazodone 200mg HS + Keppra 1000mg BID. Latuda 20mg was ordered but not filled as it needed it a prior authorization. Pharmacist stated that lamictal 200mg BID was last filled on 05/29/19. Patient questioned about her lamictal compliance and stated to comic book writer that the medications are in her property. [facility] able to witness lamcital prescription in security office. Patient filled her lamicatal 200mg BID prescription on 05/29 (same informtion provided by pharmacist) and has seven tablets remaining which proves her noncompliance as medication should have been completed by 06/28. Lamictal 200mg BID will NOT be ordered by comic book writer. Will order Depakote 250mg daily + 500mg HS + Trazodone 200mg HS. Depakote level: 3.4 on 07/14/19 . Benefits and side effects discussed. Verbal consent given.
[2019-07-14 11:10] LABS: ALBUMIN 3.5 g/dl (3.4-5.0); ALK PHOS 49 U/L (45-117); ANION GAP 5 MMOL/L (8-16); BILIRUBIN,TOTAL < 0.1 mg/dL (0.2-1); BLOOD UREA NITROGEN 11.3 mg/dL (7-18); CALCIUM 8.4 mg/dL (8.5-10.1); CHLORIDE 108 mmol/L (98-107); CO2 27 mmol/L (21-32); CREATININE 0.5 mg/dL (0.55-1.3); GLUCOSE,RANDOM 92 mg/dL (74-106); POTASSIUM 3.9 mmol/L (3.5-5.1); SGOT/AST 9 U/L (15-37); SGPT/ALT 19 U/L (13-61); SODIUM 140 mmol/L (136-145); TOT PROT 6.5 g/dl (6.4-8.2)
[2019-07-14] MEDS: LIDOCAINE 5% TOPICAL PATCH TP SCH (11:14)
[2019-07-14] MEDS: NICOTINE 14 MG/24 HOURS TOPICAL PATCH TD SCH (11:15)
[2019-07-14] MEDS: TOLNAFTATE 1% CREAM 15 GM TUBE TP SCH ×2 (11:15→22:34)
--- NOTE | 2019-07-14 11:31 | PN ---
S CIWA - CIWA Score Nausea/Vomitin-No Nausea/No Vomiting Muscle Tremors: 2 Anxiety: 3 Agitation: 0-Normal Activity Paroxysmal Sweats: 3 Orientation: 0-Oriented Tacttile Disturbances: 0-None Auditory Disturbances: 0-None Visual Disturbances: 0-None Headache: 2-Mild CIWA-Ar Total Score: 10 [facility] Progress Note (SOAP) Subjective: c/o headache, sweats, mild shakes, and anxiety. Objective: 07/14/19 11:28 Vital Signs 07/14/19 07/14/19 07/14/19 03:30 06:49 09:26 Temperature 97.8 F 96.4 F L Pulse Rate 78 87 Respiratory 18 18 18 Rate Blood Pressure 106/68 126/82 Laboratory Last Values WBC 4.3 K/mm3 (4.0-10.0) 07/14/19 07:15 RBC 3.61 M/mm3 (3.60-5.2) 07/14/19 07:15 Hgb 10.0 GM/dL (10.7-15.3) L 07/14/19 07:15 Hct 31.1 % (32.4-45.2) L 07/14/19 07:15 MCV 86.1 fl (80-96) 07/14/19 07:15 MCH 27.6 pg (25.7-33.7) 07/14/19 07:15 MCHC 32.1 g/dl (32.0-36.0) 07/14/19 07:15 RDW 14.4 % (11.6-15.6) D 07/14/19 07:15 Plt Count 257 K/MM3 (134-434) 07/14/19 07:15 MPV 9.6 fl (7.5-11.1) 07/14/19 07:15 Sodium 140 mmol/L (136-145) 07/14/19 07:15 Potassium 3.9 mmol/L (3.5-5.1) 07/14/19 07:15 Chloride 108 mmol/L (98-107) H 07/14/19 07:15 Carbon Dioxide 27 mmol/L (21-32) 07/14/19 07:15 Anion Gap 5 MMOL/L (8-16) L 07/14/19 07:15 BUN 11.3 mg/dL (7-18) 07/14/19 07:15 Creatinine 0.5 mg/dL (0.55-1.3) L 07/14/19 07:15 Est GFR (CKD-EPI)AfAm 143.30 07/14/19 07:15 Est GFR (CKD-EPI)NonAf 123.64 07/14/19 07:15 Random Glucose 92 mg/dL (74-106) 07/14/19 07:15 Calcium 8.4 mg/dL (8.5-10.1) L 07/14/19 07:15 Total Bilirubin < 0.1 mg/dL (0.2-1) L 07/14/19 07:15 AST 9 U/L (15-37) L 07/14/19 07:15 ALT 19 U/L (13-61) 07/14/19 07:15 Alkaline Phosphatase 49 U/L (45-117) 07/14/19 07:15 Total Protein 6.5 g/dl (6.4-8.2) 07/14/19 07:15 Albumin 3.5 g/dl (3.4-5.0) 07/14/19 07:15 Labs noted. Assessment: 07/14/19 11:29 AOX3, in no acute respiratory distress. Full ROM, ambulating in the unit. Withdrawal symptoms. Plan: continue detox. Increase fluids.
[2019-07-14] MEDS: DIVALPROEX SODIUM 250 MG TABLET E.C. PO SCH (15:28)
--- NOTE | 2019-07-14 18:56 | PN ---
[facility] Progress Note Note: Patient is referred for productive cough since yesterday. Patient reports cough related to withdrawal symptoms. She reports mild throat irritation. She reports mild SOB, she denies chest pain, palpitation, fever or chills. Vital Signs Temperature 98.1 F 07/14/19 17:32 Pulse Rate 90 07/14/19 17:32 Respiratory Rate 18 07/14/19 17:32 Blood Pressure 101/51 L 07/14/19 17:32 O2 Sat by Pulse Oximetry (%) General Appearance: No apparent distress HEENT: No nasal congestion, no adenopathy, oral mucosa moist and pink without erythema Chest: Lungs clear with no adventitious sounds, not using accessory muscles CVS: S1S2, RRR A/P Cough- Continue with current dose of cough syrup Albuterol via nebulizer every 4 hrs as needed Increase oral fluid intake
[2019-07-14] MEDS: ALBUTEROL SO4 0.083% IH SOL 2.5 MG/3 ML VIAL.NEB. NEB PRN (20:08)
[2019-07-14] MEDS ORDERED: traZODone HCL 150 MG TABLET PO SCH (22:00)
[2019-07-14] MEDS: THIAMINE HCL 100 MG TABLET (FP) PO SCH (22:34)
[2019-07-14] MEDS: traZODone HCL 100 MG TABLET (FP) PO SCH (22:34)
[2019-07-14] MEDS: DIVALPROEX SODIUM 500 MG TABLET E.C. PO SCH (22:34)
[2019-07-14] MEDS: LIDOCAINE PATCH REMOVAL MC SCH (23:14)
[2019-07-15] MEDS: ALBUTEROL SO4 0.083% IH SOL 2.5 MG/3 ML VIAL.NEB. NEB PRN ×2 (02:36→18:59)
[2019-07-15] MEDS: MENTHOL/PHENOL 1 EACH UD MM PRN ×3 (02:36→16:37)
[2019-07-15] MEDS: guaiFENesin 200 MG/10 ML 10 ML UNIT-DOSE CUPS PO PRN ×3 (02:37→16:36)
[2019-07-15] MEDS: chlordiazePOXIDE HCL 25 MG CAPSULE PO SCH ×4 (07:22→22:02)
--- NOTE | 2019-07-15 09:56 | PN ---
[facility] CIWA - CIWA Score Nausea/Vomitin-No Nausea/No Vomiting Muscle Tremors: 1-None Visible, but [place] Anxiety: 3 Agitation: 3 Paroxysmal Sweats: 1-Minimal Palms Moist Orientation: 0-Oriented Tacttile Disturbances: 0-None Auditory Disturbances: 0-None Visual Disturbances: 1-Very Mild Sensitivity Headache: 0-None Present CIWA-Ar Total Score: 9 [facility] Progress Note (SOAP) Subjective: 39 years old female admitted on 07/13/19 for alcohol withdrawal sx management treating with librium detox regimen c/o throat irritation oral pharyngeal mild erythematous no swell no discharge no lesion no lymphadenopathy speech clearly coherently skin warm ambulating steady gait patient is over weight and cigarette smoker addition ventolin prn and symbicort bid and claritin 10 mg po hs strong recommend smoking cessation requests to be seen by a psychiatrist who does not change her psychotropic medication explanation that due to detox regimen psychotropic medication dosage reduction may necessary psychiatric referral Objective: 07/15/19 10:04 Vital Signs Temperature 96.5 F L 07/15/19 09:16 Pulse Rate 97 H 07/15/19 09:16 Respiratory Rate 18 07/15/19 09:16 Blood Pressure 119/69 07/15/19 09:16 O2 Sat by Pulse Oximetry (%) Laboratory Last Values WBC 4.3 K/mm3 (4.0-10.0) 07/14/19 07:15 RBC 3.61 M/mm3 (3.60-5.2) 07/14/19 07:15 Hgb 10.0 GM/dL (10.7-15.3) L 07/14/19 07:15 Hct 31.1 % (32.4-45.2) L 07/14/19 07:15 MCV 86.1 fl (80-96) 07/14/19 07:15 MCH 27.6 pg (25.7-33.7) 07/14/19 07:15 MCHC 32.1 g/dl (32.0-36.0) 07/14/19 07:15 RDW 14.4 % (11.6-15.6) D 07/14/19 07:15 Plt Count 257 K/MM3 (134-434) 07/14/19 07:15 MPV 9.6 fl (7.5-11.1) 07/14/19 07:15 Sodium 140 mmol/L (136-145) 07/14/19 07:15 Potassium 3.9 mmol/L (3.5-5.1) 07/14/19 07:15 Chloride 108 mmol/L (98-107) H 07/14/19 07:15 Carbon Dioxide 27 mmol/L (21-32) 07/14/19 07:15 Anion Gap 5 MMOL/L (8-16) L 07/14/19 07:15 BUN 11.3 mg/dL (7-18) 07/14/19 07:15 Creatinine 0.5 mg/dL (0.55-1.3) L 07/14/19 07:15 Est GFR (CKD-EPI)AfAm 143.30 07/14/19 07:15 Est GFR (CKD-EPI)NonAf 123.64 07/14/19 07:15 Random Glucose 92 mg/dL (74-106) 07/14/19 07:15 Calcium 8.4 mg/dL (8.5-10.1) L 07/14/19 07:15 Total Bilirubin < 0.1 mg/dL (0.2-1) L 07/14/19 07:15 AST 9 U/L (15-37) L 07/14/19 07:15 ALT 19 U/L (13-61) 07/14/19 07:15 Alkaline Phosphatase 49 U/L (45-117) 07/14/19 07:15 Total Protein 6.5 g/dl (6.4-8.2) 07/14/19 07:15 Albumin 3.5 g/dl (3.4-5.0) 07/14/19 07:15 Valproic Acid 3.4 ug/mL (50-100) L 07/14/19 07:15 RPR Titer Nonreactive (NONREACTIVE) 07/14/19 07:15 lab noted patient had nebulizer treatment ambulating on hallway slowly Assessment: 07/15/19 10:05 alcohol withdrawal Plan: librium regimen
[2019-07-15] MEDS ORDERED: ESCITALOPRAM OXALATE 10 MG TABLET (FP) PO SCH (10:00)
[2019-07-15] MEDS: NICOTINE 14 MG/24 HOURS TOPICAL PATCH TD SCH (10:54)
[2019-07-15] MEDS: levETIRAcetam 500 MG TABLET (FP) PO SCH ×2 (10:54→22:02)
[2019-07-15] MEDS: DIVALPROEX SODIUM 250 MG TABLET E.C. PO SCH (10:54)
[2019-07-15] MEDS: TOLNAFTATE 1% CREAM 15 GM TUBE TP SCH ×2 (10:55→22:05)
[2019-07-15] MEDS: PRENATAL VITAMINS W/ FOLIC ACID TABLET (FP) PO SCH (10:55)
[2019-07-15] MEDS: PANTOPRAZOLE 40 MG TABLET (FP) PO SCH (10:55)
[2019-07-15] MEDS: LIDOCAINE 5% TOPICAL PATCH TP SCH (10:55)
[2019-07-15] MEDS: METHOCARBAMOL 500 MG TABLET PO PRN ×2 (10:57→17:48)
[2019-07-15] MEDS: BUDESONIDE/FORMETEROL FUMARATE 160/4.5 mcg INHALER IH SCH ×2 (11:00→22:01)
[2019-07-15] MEDS ORDERED: SUCRALFATE 1 GM TABLET (FP) PO ONE (14:24)
[2019-07-15] MEDS: traZODone HCL 100 MG TABLET (FP) PO SCH (22:01)
[2019-07-15] MEDS: THIAMINE HCL 100 MG TABLET (FP) PO SCH (22:02)
[2019-07-15] MEDS: LORATADINE 10 MG TABLET PO SCH (22:02)
[2019-07-15] MEDS: DIVALPROEX SODIUM 500 MG TABLET E.C. PO SCH (22:02)
[2019-07-15] MEDS: LIDOCAINE PATCH REMOVAL MC SCH (22:05)
[2019-07-16] MEDS ORDERED: chlordiazePOXIDE HCL 10 MG CAPSULE PO PRN
[2019-07-16] MEDS: chlordiazePOXIDE HCL 10 MG CAPSULE PO SCH ×4 (06:01→22:55)
[2019-07-16] MEDS: ALBUTEROL SO4 0.083% IH SOL 2.5 MG/3 ML VIAL.NEB. NEB PRN ×2 (06:45→17:34)
[2019-07-16] MEDS: BUDESONIDE/FORMETEROL FUMARATE 160/4.5 mcg INHALER IH SCH ×2 (10:14→22:55)
[2019-07-16] MEDS: PANTOPRAZOLE 40 MG TABLET (FP) PO SCH (10:15)
[2019-07-16] MEDS: levETIRAcetam 500 MG TABLET (FP) PO SCH ×2 (10:15→22:54)
[2019-07-16] MEDS: TOLNAFTATE 1% CREAM 15 GM TUBE TP SCH ×2 (10:15→22:55)
[2019-07-16] MEDS: DIVALPROEX SODIUM 250 MG TABLET E.C. PO SCH (10:15)
[2019-07-16] MEDS: METHOCARBAMOL 500 MG TABLET PO PRN ×2 (10:16→22:58)
[2019-07-16] MEDS: PRENATAL VITAMINS W/ FOLIC ACID TABLET (FP) PO SCH (10:17)
[2019-07-16] MEDS: NICOTINE 14 MG/24 HOURS TOPICAL PATCH TD SCH (10:18)
[2019-07-16] MEDS: LIDOCAINE 5% TOPICAL PATCH TP SCH (10:18)
--- NOTE | 2019-07-16 11:52 | PN ---
S CIWA - CIWA Score Nausea/Vomitin-No Nausea/No Vomiting Muscle Tremors: 2 Anxiety: 2 Agitation: 2 Paroxysmal Sweats: 1-Minimal Palms Moist Orientation: 0-Oriented Tacttile Disturbances: 0-None Auditory Disturbances: 0-None Visual Disturbances: 0-None Headache: 0-None Present CIWA-Ar Total Score: 7 [facility] Progress Note (SOAP) Subjective: 39 years old female admitted on 07/13/19 for alcohol withdrawal sx management treating with libirum detox regimen no coughing today ambulating on hallway social with peers in day room long history of seizure current treatment is keppra and depakote as per bipolar disorder discussed benefits of medication compliance Objective: 07/16/19 11:56 Vital Signs Temperature 96.6 F L 07/16/19 09:23 Pulse Rate 96 H 07/16/19 09:23 Respiratory Rate 18 07/16/19 09:23 Blood Pressure 135/74 07/16/19 09:23 O2 Sat by Pulse Oximetry (%) Laboratory Last Values WBC 4.3 K/mm3 (4.0-10.0) 07/14/19 07:15 RBC 3.61 M/mm3 (3.60-5.2) 07/14/19 07:15 Hgb 10.0 GM/dL (10.7-15.3) L 07/14/19 07:15 Hct 31.1 % (32.4-45.2) L 07/14/19 07:15 MCV 86.1 fl (80-96) 07/14/19 07:15 MCH 27.6 pg (25.7-33.7) 07/14/19 07:15 MCHC 32.1 g/dl (32.0-36.0) 07/14/19 07:15 RDW 14.4 % (11.6-15.6) D 07/14/19 07:15 Plt Count 257 K/MM3 (134-434) 07/14/19 07:15 MPV 9.6 fl (7.5-11.1) 07/14/19 07:15 Sodium 140 mmol/L (136-145) 07/14/19 07:15 Potassium 3.9 mmol/L (3.5-5.1) 07/14/19 07:15 Chloride 108 mmol/L (98-107) H 07/14/19 07:15 Carbon Dioxide 27 mmol/L (21-32) 07/14/19 07:15 Anion Gap 5 MMOL/L (8-16) L 07/14/19 07:15 BUN 11.3 mg/dL (7-18) 07/14/19 07:15 Creatinine 0.5 mg/dL (0.55-1.3) L 07/14/19 07:15 Est GFR (CKD-EPI)AfAm 143.30 07/14/19 07:15 Est GFR (CKD-EPI)NonAf 123.64 07/14/19 07:15 Random Glucose 92 mg/dL (74-106) 07/14/19 07:15 Calcium 8.4 mg/dL (8.5-10.1) L 07/14/19 07:15 Total Bilirubin < 0.1 mg/dL (0.2-1) L 07/14/19 07:15 AST 9 U/L (15-37) L 07/14/19 07:15 ALT 19 U/L (13-61) 07/14/19 07:15 Alkaline Phosphatase 49 U/L (45-117) 07/14/19 07:15 Total Protein 6.5 g/dl (6.4-8.2) 07/14/19 07:15 Albumin 3.5 g/dl (3.4-5.0) 07/14/19 07:15 POC Urine HCG, Qual Negative 07/13/19 18:10 Valproic Acid 3.4 ug/mL (50-100) L 07/14/19 07:15 RPR Titer Nonreactive (NONREACTIVE) 07/14/19 07:15 lab noted Assessment: 07/16/19 11:57 alcohol withdrawal Plan: librium regimen
[2019-07-16] MEDS: ALBUTEROL SO4 8 GM HFA INHALER IH PRN (17:52)
[2019-07-16] MEDS: guaiFENesin 200 MG/10 ML 10 ML UNIT-DOSE CUPS PO PRN (17:53)
[2019-07-16] MEDS: LIDOCAINE PATCH REMOVAL MC SCH (22:53)
[2019-07-16] MEDS: LORATADINE 10 MG TABLET PO SCH (22:54)
[2019-07-16] MEDS: traZODone HCL 100 MG TABLET (FP) PO SCH (22:55)
[2019-07-16] MEDS: DIVALPROEX SODIUM 500 MG TABLET E.C. PO SCH (22:55)
[2019-07-16] MEDS: THIAMINE HCL 100 MG TABLET (FP) PO SCH (22:55)
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
[2019-07-16] MEDS: MENTHOL/PHENOL 1 EACH UD MM PRN (23:00)
[2019-07-17] MEDS: chlordiazePOXIDE HCL 10 MG CAPSULE PO SCH ×2 (05:26→17:12)
[2019-07-17] MEDS: guaiFENesin 200 MG/10 ML 10 ML UNIT-DOSE CUPS PO PRN (05:27)
[2019-07-17] MEDS: PRENATAL VITAMINS W/ FOLIC ACID TABLET (FP) PO SCH (09:45)
[2019-07-17] MEDS: DIVALPROEX SODIUM 250 MG TABLET E.C. PO SCH (09:45)
[2019-07-17] MEDS: levETIRAcetam 500 MG TABLET (FP) PO SCH ×2 (09:45→22:04)
[2019-07-17] MEDS: LIDOCAINE 5% TOPICAL PATCH TP SCH (09:46)
[2019-07-17] MEDS: BUDESONIDE/FORMETEROL FUMARATE 160/4.5 mcg INHALER IH SCH ×2 (09:46→22:04)
[2019-07-17] MEDS: PANTOPRAZOLE 40 MG TABLET (FP) PO SCH (09:46)
[2019-07-17] MEDS: NICOTINE 14 MG/24 HOURS TOPICAL PATCH TD SCH (09:47)
[2019-07-17] MEDS: TOLNAFTATE 1% CREAM 15 GM TUBE TP SCH ×2 (09:47→22:06)
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
[2019-07-17] MEDS: ALBUTEROL SO4 0.083% IH SOL 2.5 MG/3 ML VIAL.NEB. NEB PRN (16:55)
[2019-07-17] MEDS: ALBUTEROL SO4 8 GM HFA INHALER IH PRN (17:12)
[2019-07-17] MEDS: THIAMINE HCL 100 MG TABLET (FP) PO SCH (22:04)
[2019-07-17] MEDS: traZODone HCL 100 MG TABLET (FP) PO SCH (22:05)
[2019-07-17] MEDS: DIVALPROEX SODIUM 500 MG TABLET E.C. PO SCH (22:05)
[2019-07-17] MEDS: LORATADINE 10 MG TABLET PO SCH (22:05)
[2019-07-17] MEDS: LIDOCAINE PATCH REMOVAL MC SCH (22:06)
[2019-07-17] MEDS: ACETAMINOPHEN 325 MG TABLET (FP) PO PRN (22:08)
[2019-07-18] MEDS ORDERED: chlordiazePOXIDE HCL 10 MG CAPSULE PO ONE (05:00)
--- NOTE | 2019-07-18 08:41 | DS ---
[facility] Detox Discharge Summary Admission Date: 07/13/19 Discharge Date: 07/18/19 - History Present History: Alcohol Dependence, Cocaine Dependence - Physical Exam Results Vital Signs: Vital Signs Temperature 97.3 F L 07/18/19 07:37 Pulse Rate 78 07/18/19 07:37 Respiratory Rate 18 07/18/19 07:37 Blood Pressure 101/52 L 07/18/19 07:37 O2 Sat by Pulse Oximetry (%) - Treatment Hospital Course: Detox Protocol Followed, Detoxed Safely, Responded well, Discharged Condition Good - Medication Discharge Medications: Ambulatory Orders Divalproex [Depakote -] 250 mg PO DAILY #30 tablet.ec 10/30/18 Divalproex [Depakote -] 500 mg PO HS #30 tablet.ec 10/30/18 Escitalopram Oxalate [Lexapro -] 10 mg PO DAILY #30 tablet 10/30/18 Lamotrigine [LaMICtal -] 200 mg PO BID #120 tablet 10/31/18 Divalproex Sodium [Depakote] 250 mg PO DAILY #30 tablet. 01/05/19 Divalproex [Depakote -] 500 mg PO HS #30 tablet.ec 01/05/19 Pantoprazole Sodium [Protonix -] 40 mg PO DAILY #14 tablet.ec 01/05/19 Sumatriptan Succinate 100 mg PO PRN PRN #7 tablet 01/05/19 Trazodone HCl 150 mg PO HS #30 tablet 01/05/19 levETIRAcetam [Keppra -] 1,000 mg PO BID #30 tablet 01/05/19 Aspirin/Acetaminophen/Caffeine [Excedrin Migraine Caplet] 1 each PO PRN Melatonin 10 mg PO HS 07/13/19 Methocarbamol [Robaxin -] 750 mg PO QID 07/13/19 Trazodone HCl 250 mg PO HS 07/13/19 Divalproex Sodium [Depakote] 500 mg PO HS 07/14/19 - Diagnosis (1) Alcohol dependence with uncomplicated withdrawal Current Visit: Yes Status: Chronic (2) Bipolar disorder Current Visit: Yes Status: Chronic Qualifiers: Active/Remission status: remission status unspecified Qualified Code(s): F31.9 - Bipolar disorder, unspecified (3) Chronic back pain Current Visit: Yes Status: Chronic Qualifiers: Back pain location: low back pain (4) Cocaine dependence Current Visit: Yes Status: Chronic (5) Morbid obesity Current Visit: Yes Status: Chronic (6) Nicotine dependence Current Visit: Yes Status: Chronic Qualifiers: Nicotine product type: cigarettes Substance use status: in withdrawal Qualified Code(s): F17.213 - Nicotine dependence, cigarettes, with withdrawal (7) Seizure Current Visit: Yes Status: Chronic - AMA Did Patient Leave Against Medical Advice: No
[2019-07-18 09:25] VITALS: BP 109/76; TEMP 97
[2019-07-18] MEDS: ALBUTEROL SO4 0.083% IH SOL 2.5 MG/3 ML VIAL.NEB. NEB PRN (09:25)
[2019-07-18 09:43] VITALS: PULSE 95
[2019-07-18] MEDS: DIVALPROEX SODIUM 250 MG TABLET E.C. PO SCH (10:14)
[2019-07-18] MEDS: PANTOPRAZOLE 40 MG TABLET (FP) PO SCH (10:14)
[2019-07-18] MEDS: levETIRAcetam 500 MG TABLET (FP) PO SCH (10:15)
[2019-07-18] MEDS: TOLNAFTATE 1% CREAM 15 GM TUBE TP SCH (10:15)
[2019-07-18] MEDS: NICOTINE 14 MG/24 HOURS TOPICAL PATCH TD SCH (10:15)
[2019-07-18] MEDS: BUDESONIDE/FORMETEROL FUMARATE 160/4.5 mcg INHALER IH SCH (10:15)
[2019-07-18] MEDS: LIDOCAINE 5% TOPICAL PATCH TP SCH (10:16)
[2019-07-18] MEDS: PRENATAL VITAMINS W/ FOLIC ACID TABLET (FP) PO SCH (10:16)
[2019-07-18] MEDS: METHOCARBAMOL 500 MG TABLET PO PRN (10:17)
== END 2019-07-18 11:06 | disposition home or self-care (01) | DRG 774 ==
LOC: YASAS 15:52 → Y3N 19:40
PROVIDERS: ADMIT Neuromusculoskeletal Medicine & OMM; ATTEND Neuromusculoskeletal Medicine & OMM
PROC: HZ2ZZZZ Detoxification Services for Substance Abuse Treatment (ICD-10-PCS; principal; 2019-07-13)
DX: F10.230 Alcohol dependence with withdrawal, uncomplicated (principal); F14.20 Cocaine dependence, uncomplicated; F16.20 Hallucinogen dependence, uncomplicated; F12.20 Cannabis dependence, uncomplicated; F17.210 Nicotine dependence, cigarettes, uncomplicated; F19.282 Other psychoactive substance dependence with psychoactive substance-induced sleep disorder; F19.24 Other psychoactive substance dependence with psychoactive substance-induced mood disorder; F31.9 Bipolar disorder, unspecified; G40.909 Epilepsy, unspecified, not intractable, without status epilepticus; M54.89 Other dorsalgia; G89.29 Other chronic pain; R05 Cough; E66.01 Morbid (severe) obesity due to excess calories; Z68.43 Body mass index [BMI] 50.0-59.9, adult; Z98.2 Presence of cerebrospinal fluid drainage device; Z88.8 Allergy status to other drugs, medicaments and biological substances; Z88.1 Allergy status to other antibiotic agents
CPT/HCPCS: 36415; 80053; 80164; 80177; 81025; 85027; 86593; 93005; 93010; 94640

== ENCOUNTER 2020-02-16 11:53 | Inpatient (IN) | payer OTHER ==
[2020-02-16] MEDS ORDERED: MAGNESIUM CITRATE 300 ML BOTTLE PO PRN (11:55)
[2020-02-16] MEDS ORDERED: MAGNESIUM HYDROX 2400MG/30ML ORAL SUSPENSION 30 ML CUP PO PRN (11:55)
[2020-02-16] MEDS ORDERED: guaiFENesin 200 MG/10 ML 10 ML UNIT-DOSE CUPS PO PRN (11:55)
[2020-02-16] MEDS ORDERED: P-EPHED 60MG/TRIPROLIDI 2.5MG TABLET PO PRN (11:55)
[2020-02-16] MEDS ORDERED: MAG HYDROX/AL HYDROX/SIMETH 30 ML UNIT-DOSE CUP PO PRN (11:55)
[2020-02-16] MEDS ORDERED: NICOTINE POLACRILEX 2 MG GUM BUC PRN (11:55)
[2020-02-16] MEDS ORDERED: MENTHOL/PHENOL 1 EACH UD MM PRN (11:55)
[2020-02-16] MEDS ORDERED: LOPERAMIDE HCL 2 MG CAPSULE PO PRN (11:55)
[2020-02-16] MEDS ORDERED: ALBUTEROL SO4 HFA INHALER IH PRN (11:56)
--- NOTE | 2020-02-16 12:00 | HP ---
[facility] Rehab Assess/Revision - Admission History Admitted to Rehab from: [facility] Date of Admission to Rehab: 02/16/2020 - Vital signs Vital Signs: Noted; Stable. - Findings Detox History & Physical reviewed: Yes Concur with findings: Yes Comments/Additional Findings: Patient's Medical / Medication History reviewed prior to Discharge from Detox Unit. Patient was Discharged from Detox unit to be taken over to Rehab unit in stable medical condition. Inpatient Rehab Admission - Rehab Decision to Admit Inpatient rehab admission?: Yes - Initial Determination Are CD services needed?: Yes Free of communicable disease: Yes Not in need of hospitalization: Yes - Rehab Admission Criteria Previous failed treatment: Yes Poor recovery environment: Yes Comorbidities: Yes Lacks judgement: No Patient is meeting Inpatient Rehab admission criteria:: Yes
[2020-02-16] MEDS: hydrOXYzine PAMOATE 25 MG CAPSULE (FP) PO SCH ×3 (14:47→21:29)
[2020-02-16] MEDS: ACETAMINOPHEN 325 MG TABLET (FP) PO PRN (17:09)
[2020-02-16] MEDS: MELATONIN 5 MG TABLETS PO SCH (21:29)
[2020-02-16] MEDS: levETIRAcetam 500 MG TABLET (FP) PO SCH (21:29)
[2020-02-16] MEDS: BUDESONIDE/FORMETEROL FUMARATE 160/4.5 mcg INHALER IH SCH (21:29)
[2020-02-16] MEDS: THIAMINE HCL 100 MG TABLET (FP) PO SCH (23:06)
[2020-02-17] MEDS: hydrOXYzine PAMOATE 25 MG CAPSULE (FP) PO SCH ×3 (06:45→15:02)
[2020-02-17] MEDS ORDERED: HALOPERIDOL 5 MG TABLET PO SCH ×2 (10:00→22:00)
[2020-02-17] MEDS ORDERED: BENZTROPINE MESYLATE 0.5 MG TABLET (FP) PO SCH ×2 (10:00→22:00)
[2020-02-17] MEDS: levETIRAcetam 500 MG TABLET (FP) PO SCH ×2 (10:41→21:38)
[2020-02-17] MEDS: PANTOPRAZOLE 40 MG TABLET PO SCH (10:41)
[2020-02-17] MEDS: BUDESONIDE/FORMETEROL FUMARATE 160/4.5 mcg INHALER IH SCH ×2 (10:42→21:30)
[2020-02-17] MEDS: PRENATAL VITAMINS W/ FOLIC ACID TABLET (FP) PO SCH (10:42)
[2020-02-17] MEDS: NICOTINE 14 MG/24 HOURS TOPICAL PATCH TD SCH (10:42)
[2020-02-17] MEDS: DIVALPROEX SODIUM 500 MG TABLET E.C. PO SCH ×2 (10:43→21:39)
--- NOTE | 2020-02-17 14:59 | CONSULT ---
[facility] Psychiatric Consult - Data Date of interview: 02/17/20 Admission source: [facility] Identifying data: Patient is a 39 year old black female, without children, unemployed, homeless, and is supported by public assistance. This is one of multiple admissions for patient. Patient admitted to for alcohol dependence. Substance Abuse History: Smoking Cessation. Smoking history: Current every day smoker. Have you smoked in the past 12 months: Yes. Aproximately how many cigarettes per day: 6. Hx Chewing Tobacco Use: No. Initiated information on smoking cessation: Yes. 'Breaking Loose' booklet given: 02/11/20. - Substance & Tx. History. Hx Alcohol Use: Yes. Hx Substance Use: No. Substance Use Type: Alcohol. Hx Substance Use Treatment: Yes ([place], [place]). - Substances abused. Alcohol. Substance route: Oral. Frequency: Daily. Amount used: 4 Pints of cognacfrieday. Age of first use: 17. Date of last use: 02/10/20 Medical History: Significant for bronchial asthma, GERD, diabetes mellitus, seizure disorder, morbid obesity, history ot treatment for gonorrhea and surgeries(intestinal obstruction in 2011), hydrocephalus with vp site shunt at 2 weeks old Psychiatric History: Ms. Galeano's first psychiatric contact was in 2011 after reporting suicidal ideation. She was admitted to [facility] for two weeks, diagnosed with Bipolar disorder and prescribed psychotropic medications. Patient was also hospitalized in 2013 at [facility] for mood instability and has had additional psychiatric hospitalizations at [facility]. Ms. Galeano's most recent psychiatric hospitalization was three weeks ago at [facility] secondary to command auditory hallucinations + suicidal ideation. Patient was seen by Dr. Sanderson in detox and was resumed on haldol 5mg daily + 10mg HS + Depakote 500mg daily + 1000mg HS after [facility] was contacted at for medication verification. After discharge from [facility], outpatient care was scheduled to be provided at the [facility] but patient did not attend her outpatient appointment. Ms. Galeano has a prior history of treatment with abilify 10mg + Lexapro 10mg + lamictal 200mg BID+ Trazodone 150mg. History of chronic nonadherence to medication. Patient inquiring information as to why she is not prescribed lamictal as she reports history of taking it for several years. Patient informed that there is no clinical justification to resume lamictal. At present patient presents with slow speech and lethargic presentation although did get mildly irritable when haldol was recommended as a medication of choice to treat her history of mood instability and command auditory hallucinations. Patient c/o feeling like a " zombie, talking slow, and feeling tired." States that prior to admission to detox she was noncompliant with the haldol medication. Patient states that she is no longer interested in taking haldol and therefore had refused the morning dose ( MAR revisited and patient did refuse AM dose) and will no longer take haldol 10mg at night. After speaking with patient for an extensive period of time patient stated that she would be willing to accept haldol 7.5mg HS. Patient denies auditory/ visual hallucinations, suicidal/ homicidal ideation. No psychosis noted. Physical/Sexual Abuse/Trauma History: denies. Mental Status Exam - Mental Status Exam Alert and Oriented to: Time, Place, Person Cognitive Function: Good Patient Appearance: Well Groomed Mood: Withdrawn, Irritable (upset about how the medications have slowed her down) Affect: Mood Congruent Patient Behavior: Fatigued (lethargic) Speech Pattern: Clear (Although presents with slow speech) Voice Loudness: Mildly Soft/Quiet Thought Process: Goal Oriented Thought Disorder: Not Present Hallucinations: Denies Suicidal Ideation: Denies Homicidal Ideation: Denies Insight/Judgement: Poor Sleep: Fair Appetite: Fair Muscle strength/Tone: Normal Gait/Station: Normal Psychiatric Findings - Problem List ([place] 1, 2,3) (1) Alcohol dependence Status: Chronic Qualifiers: Substance use status: uncomplicated Qualified Code(s): F10.20 - Alcohol dependence, uncomplicated (2) Alcohol-induced mood disorder Status: Acute (3) Bipolar disorder Status: Chronic Qualifiers: Active/Remission status: remission status unspecified Qualified Code(s): F31.9 - Bipolar disorder, unspecified (4) Nicotine dependence Status: Chronic Qualifiers: Nicotine product type: cigarettes Substance use status: uncomplicated Qualified Code(s): F17.210 - Nicotine dependence, cigarettes, uncomplicated Comment: . (5) PTSD (post-traumatic stress disorder) Status: Chronic - Initial Treatment Plan Initial Treatment Plan: Psychoeducation provided. Detoxification in progress. Patient was ordered haldol 5mg daily + 10mg HS + Cogentin 0.5mg BID + Depakote 500mg daily + 1000mg HS while in detox. Patient refused morning dose of haldol this morning as she reports no longer wanting to take the medication due to her lethargic presentation and slowed speech. In addition patient is not interested in accepting haldol 10mg at night. 1) Patient is agreeable to accepting Haldol 7.5mg HS + Cogentin 0.5mg HS. 2) Will also change scheduled vistaril 25mg q4h to PRN as per patient's request. 3) Will continue Depakote 500mg daily + 1000mg HS. 4) Will order Depakote level for 02/18/20. Benefits and side effects discussed. Verbal consent given.
[2020-02-17] MEDS: ACETAMINOPHEN 325 MG TABLET (FP) PO PRN (19:23)
[2020-02-17] MEDS: hydrOXYzine PAMOATE 25 MG CAPSULE (FP) PO PRN (19:24)
[2020-02-17] MEDS: THIAMINE HCL 100 MG TABLET (FP) PO SCH (21:37)
[2020-02-17] MEDS: MELATONIN 5 MG TABLETS PO SCH (21:38)
[2020-02-17] MEDS: HALOPERIDOL 5 MG TABLET PO SCH (21:39)
[2020-02-17] MEDS ORDERED: PT OWN MED DRAWER 7, Y5N ONE (22:39)
[2020-02-18] MEDS: PANTOPRAZOLE 40 MG TABLET PO SCH (10:31)
[2020-02-18] MEDS: levETIRAcetam 500 MG TABLET (FP) PO SCH ×2 (10:31→21:32)
[2020-02-18] MEDS: PRENATAL VITAMINS W/ FOLIC ACID TABLET (FP) PO SCH (10:32)
[2020-02-18] MEDS: NICOTINE 14 MG/24 HOURS TOPICAL PATCH TD SCH (10:32)
[2020-02-18] MEDS: DIVALPROEX SODIUM 500 MG TABLET E.C. PO SCH ×2 (10:32→21:32)
[2020-02-18] MEDS: METHOCARBAMOL 500 MG TABLET PO SCH ×2 (10:33→21:32)
[2020-02-18] MEDS: ACETAMINOPHEN 325 MG TABLET (FP) PO PRN ×2 (10:33→15:54)
[2020-02-18] MEDS: BUDESONIDE/FORMETEROL FUMARATE 160/4.5 mcg INHALER IH SCH ×2 (10:35→21:29)
[2020-02-18] MEDS: THIAMINE HCL 100 MG TABLET (FP) PO SCH (21:29)
[2020-02-18] MEDS: METHYL SALICYLATE/MENTHOL OINT 30 GM TUBE TP SCH ×2 (21:30)
[2020-02-18] MEDS: BENZTROPINE MESYLATE 1 MG TABLET PO SCH (21:32)
[2020-02-18] MEDS: HALOPERIDOL 5 MG TABLET PO SCH (21:33)
[2020-02-18] MEDS: MELATONIN 5 MG TABLETS PO SCH (21:33)
[2020-02-19] MEDS: ACETAMINOPHEN 325 MG TABLET (FP) PO PRN ×2 (06:44→21:52)
[2020-02-19] MEDS: hydrOXYzine PAMOATE 25 MG CAPSULE (FP) PO PRN ×2 (06:44→09:55)
[2020-02-19] MEDS: METHOCARBAMOL 500 MG TABLET PO SCH (09:55)
[2020-02-19] MEDS: PRENATAL VITAMINS W/ FOLIC ACID TABLET (FP) PO SCH (09:55)
[2020-02-19] MEDS: levETIRAcetam 500 MG TABLET (FP) PO SCH ×2 (09:55→21:48)
[2020-02-19] MEDS: METHYL SALICYLATE/MENTHOL OINT 30 GM TUBE TP SCH ×2 (09:55→21:50)
[2020-02-19] MEDS: DIVALPROEX SODIUM 500 MG TABLET E.C. PO SCH ×2 (09:55→21:48)
[2020-02-19] MEDS: BUDESONIDE/FORMETEROL FUMARATE 160/4.5 mcg INHALER IH SCH ×2 (09:56→21:52)
[2020-02-19] MEDS: PANTOPRAZOLE 40 MG TABLET PO SCH (09:56)
[2020-02-19] MEDS: NICOTINE 14 MG/24 HOURS TOPICAL PATCH TD SCH (09:56)
[2020-02-19] MEDS: CYCLOBENZAPRINE HCL 10 MG TABLET (FP) PO PRN ×2 (18:26→21:48)
[2020-02-19] MEDS: THIAMINE HCL 100 MG TABLET (FP) PO SCH (21:48)
[2020-02-19] MEDS ORDERED: PT OWN MED DRAWER 7, Y5N ONE (21:50)
[2020-02-19] MEDS: BENZTROPINE MESYLATE 1 MG TABLET PO SCH (21:51)
[2020-02-19] MEDS: MELATONIN 5 MG TABLETS PO SCH (21:52)
[2020-02-19] MEDS: HALOPERIDOL 5 MG TABLET PO SCH (21:52)
[2020-02-20] MEDS: CYCLOBENZAPRINE HCL 10 MG TABLET (FP) PO PRN ×2 (06:21→19:56)
[2020-02-20] MEDS: ACETAMINOPHEN 325 MG TABLET (FP) PO PRN ×2 (06:21→19:55)
[2020-02-20] MEDS: METHYL SALICYLATE/MENTHOL OINT 30 GM TUBE TP SCH ×2 (09:08→21:16)
[2020-02-20] MEDS ORDERED: PT OWN MED DRAWER 7, Y5N ONE ×2 (09:08→18:48)
[2020-02-20] MEDS: DIVALPROEX SODIUM 500 MG TABLET E.C. PO SCH ×2 (10:35→21:15)
[2020-02-20] MEDS: PANTOPRAZOLE 40 MG TABLET PO SCH (10:35)
[2020-02-20] MEDS: hydrOXYzine PAMOATE 25 MG CAPSULE (FP) PO PRN (10:35)
[2020-02-20] MEDS: PRENATAL VITAMINS W/ FOLIC ACID TABLET (FP) PO SCH (10:35)
[2020-02-20] MEDS: levETIRAcetam 500 MG TABLET (FP) PO SCH ×2 (10:35→21:14)
[2020-02-20] MEDS: BUDESONIDE/FORMETEROL FUMARATE 160/4.5 mcg INHALER IH SCH ×2 (10:36→21:16)
[2020-02-20] MEDS: NICOTINE 14 MG/24 HOURS TOPICAL PATCH TD SCH (10:36)
[2020-02-20] MEDS: THIAMINE HCL 100 MG TABLET (FP) PO SCH (21:14)
[2020-02-20] MEDS: BENZTROPINE MESYLATE 1 MG TABLET PO SCH (21:15)
[2020-02-20] MEDS: HALOPERIDOL 5 MG TABLET PO SCH (21:15)
[2020-02-20] MEDS: MELATONIN 5 MG TABLETS PO SCH (21:16)
[2020-02-21] MEDS: PRENATAL VITAMINS W/ FOLIC ACID TABLET (FP) PO SCH (09:30)
[2020-02-21] MEDS: levETIRAcetam 500 MG TABLET (FP) PO SCH ×2 (09:30→21:06)
[2020-02-21] MEDS: hydrOXYzine PAMOATE 25 MG CAPSULE (FP) PO PRN (09:30)
[2020-02-21] MEDS: DIVALPROEX SODIUM 500 MG TABLET E.C. PO SCH ×2 (09:30→21:06)
[2020-02-21] MEDS: NICOTINE 14 MG/24 HOURS TOPICAL PATCH TD SCH (09:31)
[2020-02-21] MEDS: PANTOPRAZOLE 40 MG TABLET PO SCH (09:31)
[2020-02-21] MEDS: METHYL SALICYLATE/MENTHOL OINT 30 GM TUBE TP SCH ×2 (09:31→21:06)
[2020-02-21] MEDS: BUDESONIDE/FORMETEROL FUMARATE 160/4.5 mcg INHALER IH SCH ×2 (09:31→21:06)
[2020-02-21] MEDS: CYCLOBENZAPRINE HCL 10 MG TABLET (FP) PO PRN ×2 (09:32→21:10)
[2020-02-21] MEDS: ACETAMINOPHEN 325 MG TABLET (FP) PO PRN ×2 (09:32→18:43)
[2020-02-21] MEDS ORDERED: PT OWN MED DRAWER 7, Y5N ONE (19:10)
[2020-02-21] MEDS: BENZTROPINE MESYLATE 1 MG TABLET PO SCH (21:05)
[2020-02-21] MEDS: HALOPERIDOL 5 MG TABLET PO SCH (21:05)
[2020-02-21] MEDS: THIAMINE HCL 100 MG TABLET (FP) PO SCH (21:06)
[2020-02-21] MEDS: MELATONIN 5 MG TABLETS PO SCH (21:06)
[2020-02-22 06:41] VITALS: BP 133/70; PULSE 80; TEMP 97.6
--- NOTE | 2020-02-22 09:09 | DS ---
[facility] Rehab Discharge Summary - [facility] Rehab Discharge Summary Admission Date: 02/16/20 Discharge Date: 02/22/20 - History Present History: Alcohol dependence Pertinent Past History: See Dx below - Discharge Physical Exam Vital Signs: Vital Signs Temperature 97.6 F 02/22/20 06:39 Pulse Rate 80 02/22/20 06:39 Respiratory Rate 02/22/20 06:39 Blood Pressure 133/70 02/22/20 06:39 O2 Sat by Pulse Oximetry (%) 99 02/22/20 06:39 Pt declined Brief P/E states "I'm fine, I'm going to [place]". Alert o x 3 nad, no respiratory difficulty oob ambulating with steady gait. Pertinent Admission Physical Exam Findings: Laboratory Tests 02/18/20 08:20 Valproic Acid 78.5 - Treatment Discharge Condition: Discharge condition good Hospital Course: [facility] [place]. - Medication Discharge Medications: Ambulatory Orders Sumatriptan Succinate 100 mg PO PRN PRN #7 tablet 01/05/19 Budesonide/Formeterol Fumarate [SYMBICORT 160/4.5mcg -] 2 puff IH BID #1 inhaler 07/18/19 Lamotrigine [LaMICtal -] 200 mg PO BID #120 tablet 07/18/19 Trazodone HCl 150 mg PO HS #30 tablet 07/18/19 Divalproex [Depakote -] 500 mg PO DAILY 02/11/20 Escitalopram Oxalate [Lexapro -] 20 mg PO DAILY 02/11/20 Trazodone HCl 50 mg PO HS 02/11/20 Albuterol Sulfate Inhaler - [Ventolin HFA Inhaler -] 2 puff IH Q4H PRN #1 inhaler 02/21/20 Aspirin/Acetaminophen/Caffeine [Excedrin Migraine Caplet] 1 each PO PRN #14 tablet 02/21/20 Divalproex Sodium [Depakote] 250 mg PO DAILY #30 tablet. 02/21/20 Divalproex [Depakote -] 500 mg PO HS #30 tablet.ec 02/21/20 Guaifenesin [Robitussin -] 10 ml PO Q6H PRN #1 bottle 02/21/20 Melatonin 10 mg PO HS #14 cap 02/21/20 Methocarbamol [Robaxin -] 750 mg PO TID #30 tablet 02/21/20 Pantoprazole Sodium [Protonix -] 40 mg PO DAILY #14 tablet.ec 02/21/20 Pantoprazole Sodium [Protonix -] 40 mg PO DAILY #30 tablet.ec 02/21/20 levETIRAcetam [Keppra -] 1,000 mg PO BID #30 tablet 02/21/20 Benztropine Mesylate [Cogentin -] 0.5 mg PO HS #14 tablet 02/22/20 Divalproex [Depakote -] 1,000 mg PO HS #60 tablet.ec 02/22/20 Divalproex [Depakote -] 500 mg PO DAILY #30 tablet.ec 02/22/20 Haloperidol [Haldol -] 7.5 mg PO HS 30 Days #45 tablet 02/22/20 - Medication-Assisted Treatment (MAT) Medication-Assisted Treatment (MAT): No - Discharge Instructions Diet, activity, other medical instructions: Diet:NCS Activity: oob ad ben Other medical instructions:follow up with primary care provider for management of comorbid conditions. - Diagnosis (1) Alcohol dependence Status: Chronic Qualifiers: Substance use status: uncomplicated Qualified Code(s): F10.20 - Alcohol dependence, uncomplicated (2) Nicotine dependence Status: Chronic Qualifiers: Nicotine product type: cigarettes Substance use status: uncomplicated Qualified Code(s): F17.210 - Nicotine dependence, cigarettes, uncomplicated (3) GERD (gastroesophageal reflux disease) Status: Chronic Qualifiers: Esophagitis presence: esophagitis presence not specified Qualified Code(s): K21.9 - Gastro-esophageal reflux disease without esophagitis (4) Morbid obesity Status: Chronic (5) Chronic back pain Status: Chronic Qualifiers: Back pain location: low back pain (6) Diabetes mellitus Status: Chronic Qualifiers: Diabetes mellitus type: type 2 Diabetes mellitus rodent exterminator insulin use: without penitentiary use Diabetes mellitus complication status: without complication Qualified Code(s): E11.9 - Type 2 diabetes mellitus without complications (7) SEIZURE HX Status: Chronic (8) Sciatica Status: Chronic Qualifiers: Laterality: right Qualified Code(s): M54.31 - Sciatica, right side - Follow-up Referral Minutes to complete discharge: 20 - AMA Did Patient Leave Against Medical Advice: No
[2020-02-22] MEDS: METHYL SALICYLATE/MENTHOL OINT 30 GM TUBE TP SCH (09:12)
[2020-02-22] MEDS: NICOTINE 14 MG/24 HOURS TOPICAL PATCH TD SCH (09:12)
[2020-02-22] MEDS: PRENATAL VITAMINS W/ FOLIC ACID TABLET (FP) PO SCH (09:12)
[2020-02-22] MEDS: DIVALPROEX SODIUM 500 MG TABLET E.C. PO SCH (09:12)
[2020-02-22] MEDS: levETIRAcetam 500 MG TABLET (FP) PO SCH (09:12)
[2020-02-22] MEDS: PANTOPRAZOLE 40 MG TABLET PO SCH (09:13)
[2020-02-22] MEDS: BUDESONIDE/FORMETEROL FUMARATE 160/4.5 mcg INHALER IH SCH (09:13)
[2020-02-22] MEDS: CYCLOBENZAPRINE HCL 10 MG TABLET (FP) PO PRN (09:16)
== END 2020-02-22 09:51 | disposition home or self-care (01) | DRG 772 ==
LOC: YASAS 11:53 → Y3W 11:55 → Y3E 02-21 13:44
PROVIDERS: ADMIT Allergy & Immunology; ATTEND Allergy & Immunology
PROC: HZ42ZZZ Group Counseling for Substance Abuse Treatment, Cognitive-Behavioral (ICD-10-PCS; principal; 2020-02-16)
DX: F10.20 Alcohol dependence, uncomplicated (principal); F17.210 Nicotine dependence, cigarettes, uncomplicated; F31.9 Bipolar disorder, unspecified; F10.24 Alcohol dependence with alcohol-induced mood disorder; F43.10 Post-traumatic stress disorder, unspecified; K21.9 Gastro-esophageal reflux disease without esophagitis; E11.9 Type 2 diabetes mellitus without complications; G40.909 Epilepsy, unspecified, not intractable, without status epilepticus; M54.31 Sciatica, right side; E66.01 Morbid (severe) obesity due to excess calories; Z68.43 Body mass index [BMI] 50.0-59.9, adult; Z88.1 Allergy status to other antibiotic agents; Z88.8 Allergy status to other drugs, medicaments and biological substances; Z56.0 Unemployment, unspecified; Z59.0 Homelessness
CPT/HCPCS: 80164; U0003

== ENCOUNTER 2020-06-21 14:40 | Inpatient (IN) | payer OTHER ==
[2020-06-21 18:07] VITALS: BMI 55.6
[2020-06-21] MEDS ORDERED: ONDANSETRON *ODT* 4 MG TABLET SL PRN (21:35)
[2020-06-21] MEDS ORDERED: MENTHOL/PHENOL 1 EACH UD MM PRN (21:35)
[2020-06-21] MEDS ORDERED: MAGNESIUM CITRATE 300 ML BOTTLE PO PRN (21:35)
[2020-06-21] MEDS ORDERED: IBUPROFEN 400 MG TABLET (FP) PO PRN (21:35)
[2020-06-21] MEDS ORDERED: P-EPHED 60MG/TRIPROLIDI 2.5MG TABLET PO PRN (21:35)
[2020-06-21] MEDS ORDERED: ACETAMINOPHEN 325 MG TABLET (FP) PO PRN (21:35)
[2020-06-21] MEDS ORDERED: MAGNESIUM HYDROX 2400MG/30ML ORAL SUSPENSION 30 ML CUP PO PRN (21:35)
[2020-06-21] MEDS ORDERED: NICOTINE POLACRILEX 2 MG GUM BUC PRN (21:35)
[2020-06-21] MEDS ORDERED: MAG HYDROX/AL HYDROX/SIMETH 30 ML UNIT-DOSE CUP PO PRN (21:35)
[2020-06-21] MEDS ORDERED: chlordiazePOXIDE HCL 10 MG CAPSULE PO PRN (21:35)
[2020-06-21] MEDS ORDERED: ALBUTEROL SO4 HFA INHALER IH PRN (21:40)
[2020-06-21] MEDS ORDERED: guaiFENesin 200 MG/10 ML 10 ML UNIT-DOSE CUPS PO PRN (21:40)
[2020-06-21] MEDS ORDERED: traZODone HCL 50 MG TABLET (FP) PO SCH (22:00)
[2020-06-21] MEDS: levETIRAcetam 500 MG TABLET (FP) PO SCH (22:15)
[2020-06-21] MEDS: DIVALPROEX SODIUM 500 MG TABLET E.C. PO SCH (22:15)
[2020-06-21] MEDS: THIAMINE HCL 100 MG TABLET (FP) PO SCH (22:15)
[2020-06-21] MEDS: chlordiazePOXIDE HCL 25 MG CAPSULE PO SCH (22:15)
[2020-06-21] MEDS: MELATONIN 5 MG TABLETS PO SCH (22:16)
[2020-06-21] MEDS: BACITRACIN 0.9 GM PACKET TP SCH (22:16)
[2020-06-21] MEDS: BUDESONIDE/FORMETEROL FUMARATE 160/4.5 mcg INHALER IH SCH (22:17)
[2020-06-21] MEDS: METHYL SALICYLATE/MENTHOL OINT 30 GM TUBE TP SCH (23:22)
[2020-06-22] MEDS: chlordiazePOXIDE HCL 25 MG CAPSULE PO SCH ×4 (06:31→22:15)
[2020-06-22 09:25] LABS: HEMATOCRIT 33.1 % (32.4-45.2); HEMOGLOBIN 10.7 GM/dL (10.7-15.3); MCH 27.5 pg (25.7-33.7); MCHC 32.3 g/dl (32.0-36.0); MEAN CELL VOLUME 85.1 fl (80-96); MEAN PLT VOLUME 9.2 fl (7.5-11.1); PLATELET COUNT 275 K/MM3 (134-434); RBC 3.89 M/mm3 (3.60-5.2); RDW 15.6 % (11.6-15.6); WHITE BLOOD COUNT 5.3 K/mm3 (4.0-10.0)
[2020-06-22 09:29] LABS: ALBUMIN 3.4 g/dl (3.4-5.0); BLOOD UREA NITROGEN 8.3 mg/dL (7-18); CALCIUM 9.2 mg/dL (8.5-10.1)
[2020-06-22 09:32] LABS: CREATININE 0.6 mg/dL (0.55-1.3)
[2020-06-22 09:34] LABS: BILIRUBIN,TOTAL 0.3 mg/dL (0.2-1); TOT PROT 6.8 g/dl (6.4-8.2)
[2020-06-22] MEDS: BACITRACIN 0.9 GM PACKET TP SCH ×2 (10:28→22:15)
[2020-06-22] MEDS: DIVALPROEX SODIUM 250 MG TABLET E.C. PO SCH (10:28)
[2020-06-22] MEDS: levETIRAcetam 500 MG TABLET (FP) PO SCH ×2 (10:28→22:15)
[2020-06-22] MEDS: PRENATAL VITAMINS W/ FOLIC ACID TABLET (FP) PO SCH (10:29)
[2020-06-22] MEDS: NICOTINE 14 MG/24 HOURS TOPICAL PATCH TD SCH (10:29)
[2020-06-22] MEDS: ACETAMINOPHEN 325 MG TABLET (FP) PO PRN (10:34)
[2020-06-22] MEDS: METHOCARBAMOL 500 MG TABLET PO PRN (10:34)
[2020-06-22] MEDS: BUDESONIDE/FORMETEROL FUMARATE 160/4.5 mcg INHALER IH SCH ×2 (10:35→22:16)
[2020-06-22] MEDS: PANTOPRAZOLE 40 MG TABLET PO SCH (10:35)
[2020-06-22] MEDS: METHYL SALICYLATE/MENTHOL OINT 30 GM TUBE TP SCH ×2 (10:36→22:21)
[2020-06-22] MEDS: BENZTROPINE MESYLATE 1 MG TABLET PO SCH (22:14)
[2020-06-22] MEDS: THIAMINE HCL 100 MG TABLET (FP) PO SCH (22:14)
[2020-06-22] MEDS: HALOPERIDOL 5 MG TABLET PO SCH (22:15)
[2020-06-22] MEDS: MELATONIN 5 MG TABLETS PO SCH (22:15)
[2020-06-22] MEDS: DIVALPROEX SODIUM 500 MG TABLET E.C. PO SCH (22:15)
[2020-06-23] MEDS: ACETAMINOPHEN 325 MG TABLET (FP) PO PRN (06:13)
[2020-06-23] MEDS: chlordiazePOXIDE HCL 25 MG CAPSULE PO SCH ×4 (06:13→22:36)
[2020-06-23] MEDS: levETIRAcetam 500 MG TABLET (FP) PO SCH ×2 (10:42→22:37)
[2020-06-23] MEDS: PANTOPRAZOLE 40 MG TABLET PO SCH (10:42)
[2020-06-23] MEDS: DIVALPROEX SODIUM 250 MG TABLET E.C. PO SCH (10:42)
[2020-06-23] MEDS: BENZTROPINE MESYLATE 1 MG TABLET PO SCH ×2 (10:43→22:36)
[2020-06-23] MEDS: BACITRACIN 0.9 GM PACKET TP SCH ×2 (10:43→22:36)
[2020-06-23] MEDS: METHYL SALICYLATE/MENTHOL OINT 30 GM TUBE TP SCH ×2 (10:43→22:35)
[2020-06-23] MEDS: HALOPERIDOL 5 MG TABLET PO SCH ×2 (10:43→22:37)
[2020-06-23] MEDS: BUDESONIDE/FORMETEROL FUMARATE 160/4.5 mcg INHALER IH SCH ×2 (10:43→23:12)
[2020-06-23] MEDS: NICOTINE 14 MG/24 HOURS TOPICAL PATCH TD SCH (10:43)
[2020-06-23] MEDS: PRENATAL VITAMINS W/ FOLIC ACID TABLET (FP) PO SCH (10:43)
[2020-06-23] MEDS: METHOCARBAMOL 500 MG TABLET PO PRN ×2 (17:11→22:39)
[2020-06-23] MEDS: THIAMINE HCL 100 MG TABLET (FP) PO SCH (22:36)
[2020-06-23] MEDS: DIVALPROEX SODIUM 500 MG TABLET E.C. PO SCH (22:36)
[2020-06-23] MEDS: MELATONIN 5 MG TABLETS PO SCH (23:12)
[2020-06-24] MEDS ORDERED: chlordiazePOXIDE HCL 10 MG CAPSULE PO PRN
[2020-06-24] MEDS: chlordiazePOXIDE HCL 10 MG CAPSULE PO SCH ×4 (05:36→22:06)
[2020-06-24] MEDS: BACITRACIN 0.9 GM PACKET TP SCH ×2 (10:18→22:07)
[2020-06-24] MEDS: HALOPERIDOL 5 MG TABLET PO SCH ×2 (10:18→22:06)
[2020-06-24] MEDS: PANTOPRAZOLE 40 MG TABLET PO SCH (10:19)
[2020-06-24] MEDS: BENZTROPINE MESYLATE 1 MG TABLET PO SCH ×2 (10:19→22:05)
[2020-06-24] MEDS: PRENATAL VITAMINS W/ FOLIC ACID TABLET (FP) PO SCH (10:19)
[2020-06-24] MEDS: METHYL SALICYLATE/MENTHOL OINT 30 GM TUBE TP SCH ×2 (10:19→22:09)
[2020-06-24] MEDS: NICOTINE 14 MG/24 HOURS TOPICAL PATCH TD SCH (10:19)
[2020-06-24] MEDS: levETIRAcetam 500 MG TABLET (FP) PO SCH ×2 (10:19→22:06)
[2020-06-24] MEDS: DIVALPROEX SODIUM 250 MG TABLET E.C. PO SCH (10:19)
[2020-06-24] MEDS: BUDESONIDE/FORMETEROL FUMARATE 160/4.5 mcg INHALER IH SCH ×2 (10:19→22:09)
[2020-06-24] MEDS: METHOCARBAMOL 500 MG TABLET PO PRN (10:20)
[2020-06-24] MEDS: ACETAMINOPHEN 325 MG TABLET (FP) PO PRN (21:38)
[2020-06-24] MEDS: MELATONIN 5 MG TABLETS PO SCH (22:06)
[2020-06-24] MEDS: DIVALPROEX SODIUM 500 MG TABLET E.C. PO SCH (22:06)
[2020-06-24] MEDS: THIAMINE HCL 100 MG TABLET (FP) PO SCH (22:09)
[2020-06-25] MEDS: chlordiazePOXIDE HCL 10 MG CAPSULE PO SCH ×2 (05:39→17:42)
[2020-06-25] MEDS: levETIRAcetam 500 MG TABLET (FP) PO SCH ×2 (09:48→21:55)
[2020-06-25] MEDS: DIVALPROEX SODIUM 250 MG TABLET E.C. PO SCH (09:48)
[2020-06-25] MEDS: HALOPERIDOL 5 MG TABLET PO SCH ×2 (09:48→21:55)
[2020-06-25] MEDS: PANTOPRAZOLE 40 MG TABLET PO SCH (09:48)
[2020-06-25] MEDS: BENZTROPINE MESYLATE 1 MG TABLET PO SCH ×2 (09:49→21:55)
[2020-06-25] MEDS: BACITRACIN 0.9 GM PACKET TP SCH ×2 (09:49→21:55)
[2020-06-25] MEDS: METHYL SALICYLATE/MENTHOL OINT 30 GM TUBE TP SCH ×2 (09:50→21:56)
[2020-06-25] MEDS: NICOTINE 14 MG/24 HOURS TOPICAL PATCH TD SCH (09:50)
[2020-06-25] MEDS: PRENATAL VITAMINS W/ FOLIC ACID TABLET (FP) PO SCH (09:50)
[2020-06-25] MEDS: BUDESONIDE/FORMETEROL FUMARATE 160/4.5 mcg INHALER IH SCH ×2 (09:54→21:56)
[2020-06-25] MEDS ORDERED: SUMAtriptan SUCCINATE 50 MG TABLET PO PRN (09:54)
[2020-06-25] MEDS: ACETAMINOPHEN 325 MG TABLET (FP) PO PRN (10:07)
[2020-06-25] MEDS: lamoTRIgine 100 MG TABLET PO SCH ×2 (12:47→21:55)
[2020-06-25] MEDS: METHOCARBAMOL 500 MG TABLET PO PRN (18:57)
[2020-06-25] MEDS: MELATONIN 5 MG TABLETS PO SCH (21:55)
[2020-06-25] MEDS: DIVALPROEX SODIUM 500 MG TABLET E.C. PO SCH (21:55)
[2020-06-25] MEDS: THIAMINE HCL 100 MG TABLET (FP) PO SCH (21:55)
[2020-06-25] MEDS ORDERED: traZODone HCL 50 MG TABLET (FP) PO SCH (22:00)
[2020-06-26] MEDS ORDERED: chlordiazePOXIDE HCL 10 MG CAPSULE PO ONE (05:00)
[2020-06-26] MEDS: ACETAMINOPHEN 325 MG TABLET (FP) PO PRN (06:21)
[2020-06-26] MEDS: levETIRAcetam 500 MG TABLET (FP) PO SCH (10:44)
[2020-06-26] MEDS: PANTOPRAZOLE 40 MG TABLET PO SCH (10:44)
[2020-06-26] MEDS: DIVALPROEX SODIUM 250 MG TABLET E.C. PO SCH (10:45)
[2020-06-26] MEDS: BACITRACIN 0.9 GM PACKET TP SCH (10:46)
[2020-06-26] MEDS: lamoTRIgine 100 MG TABLET PO SCH (10:50)
[2020-06-26] MEDS: HALOPERIDOL 5 MG TABLET PO SCH (10:50)
[2020-06-26] MEDS: METHYL SALICYLATE/MENTHOL OINT 30 GM TUBE TP SCH (10:58)
[2020-06-26] MEDS: BENZTROPINE MESYLATE 1 MG TABLET PO SCH (10:58)
[2020-06-26] MEDS: PRENATAL VITAMINS W/ FOLIC ACID TABLET (FP) PO SCH (10:58)
[2020-06-26] MEDS: NICOTINE 14 MG/24 HOURS TOPICAL PATCH TD SCH (10:58)
[2020-06-26 10:59] VITALS: BP 123/83; PULSE 109; TEMP 97.1
[2020-06-26] MEDS: BUDESONIDE/FORMETEROL FUMARATE 160/4.5 mcg INHALER IH SCH (10:59)
== END 2020-06-26 11:03 | disposition other institution (70) | DRG 774 ==
LOC: YASAS 14:40 → Y6N 20:33
PROVIDERS: ADMIT Allergy & Immunology; ATTEND Allergy & Immunology
PROC: HZ2ZZZZ Detoxification Services for Substance Abuse Treatment (ICD-10-PCS; principal; 2020-06-21)
DX: F10.230 Alcohol dependence with withdrawal, uncomplicated (principal); F10.24 Alcohol dependence with alcohol-induced mood disorder; F10.280 Alcohol dependence with alcohol-induced anxiety disorder; F14.20 Cocaine dependence, uncomplicated; F12.20 Cannabis dependence, uncomplicated; F16.20 Hallucinogen dependence, uncomplicated; F17.210 Nicotine dependence, cigarettes, uncomplicated; F19.24 Other psychoactive substance dependence with psychoactive substance-induced mood disorder; F19.282 Other psychoactive substance dependence with psychoactive substance-induced sleep disorder; F31.81 Bipolar II disorder; J45.20 Mild intermittent asthma, uncomplicated; H61.23 Impacted cerumen, bilateral; M54.41 Lumbago with sciatica, right side; M54.42 Lumbago with sciatica, left side; G89.29 Other chronic pain; G40.909 Epilepsy, unspecified, not intractable, without status epilepticus; E11.9 Type 2 diabetes mellitus without complications; G47.00 Insomnia, unspecified; E66.01 Morbid (severe) obesity due to excess calories; Z68.43 Body mass index [BMI] 50.0-59.9, adult; Z88.1 Allergy status to other antibiotic agents; Z88.8 Allergy status to other drugs, medicaments and biological substances; Z87.42 Personal history of other diseases of the female genital tract; S61.012D Laceration without foreign body of left thumb without damage to nail, subsequent encounter; X58.XXXD Exposure to other specified factors, subsequent encounter; Z59.0 Homelessness
CPT/HCPCS: 36415; 80053; 80164; 80177; 81025; 85027; 86780; C9803; U0003

== ENCOUNTER 2020-06-26 10:57 | Inpatient (IN) | payer OTHER ==
[2020-06-26] MEDS ORDERED: P-EPHED 60MG/TRIPROLIDI 2.5MG TABLET PO PRN (15:00)
[2020-06-26] MEDS ORDERED: hydrOXYzine PAMOATE 25 MG CAPSULE (FP) PO PRN (15:00)
[2020-06-26] MEDS ORDERED: MAGNESIUM CITRATE 300 ML BOTTLE PO PRN (15:00)
[2020-06-26] MEDS ORDERED: IBUPROFEN 400 MG TABLET (FP) PO PRN (15:00)
[2020-06-26] MEDS ORDERED: guaiFENesin 200 MG/10 ML 10 ML UNIT-DOSE CUPS PO PRN (15:00)
[2020-06-26] MEDS ORDERED: LOPERAMIDE HCL 2 MG CAPSULE PO PRN (15:00)
[2020-06-26] MEDS ORDERED: MAGNESIUM HYDROX 2400MG/30ML ORAL SUSPENSION 30 ML CUP PO PRN (15:00)
[2020-06-26] MEDS ORDERED: MENTHOL/PHENOL 1 EACH UD MM PRN (15:00)
[2020-06-26] MEDS: ACETAMINOPHEN 325 MG TABLET (FP) PO PRN (17:41)
[2020-06-26] MEDS: BACITRACIN 0.9 GM PACKET TP SCH (21:22)
[2020-06-26] MEDS: MELATONIN 5 MG TABLETS PO SCH (21:22)
[2020-06-26] MEDS: traZODone HCL 50 MG TABLET (FP) PO SCH (21:22)
[2020-06-26] MEDS: CYCLOBENZAPRINE HCL 10 MG TABLET (FP) PO SCH (21:22)
[2020-06-26] MEDS: THIAMINE HCL 100 MG TABLET (FP) PO SCH (21:22)
[2020-06-26] MEDS: DIVALPROEX SODIUM 500 MG TABLET E.C. PO SCH (21:22)
[2020-06-26] MEDS: BENZTROPINE MESYLATE 1 MG TABLET PO SCH (21:23)
[2020-06-26] MEDS: BUDESONIDE/FORMETEROL FUMARATE 160/4.5 mcg INHALER IH SCH (21:25)
[2020-06-26] MEDS: HALOPERIDOL 5 MG TABLET PO SCH (22:18)
[2020-06-26] MEDS: lamoTRIgine 100 MG TABLET PO SCH (22:19)
[2020-06-27] MEDS: CYCLOBENZAPRINE HCL 10 MG TABLET (FP) PO SCH ×3 (06:46→21:19)
[2020-06-27] MEDS: BACITRACIN 0.9 GM PACKET TP SCH ×2 (10:12→21:19)
[2020-06-27] MEDS: SUMAtriptan SUCCINATE 50 MG TABLET PO SCH (10:13)
[2020-06-27] MEDS: DIVALPROEX SODIUM 250 MG TABLET E.C. PO SCH (10:13)
[2020-06-27] MEDS: BENZTROPINE MESYLATE 1 MG TABLET PO SCH ×2 (10:13→21:20)
[2020-06-27] MEDS: HALOPERIDOL 5 MG TABLET PO SCH ×2 (10:13→21:19)
[2020-06-27] MEDS: PRENATAL VITAMINS W/ FOLIC ACID TABLET (FP) PO SCH (10:14)
[2020-06-27] MEDS: PANTOPRAZOLE 40 MG TABLET PO SCH (10:14)
[2020-06-27] MEDS: NICOTINE 14 MG/24 HOURS TOPICAL PATCH TD SCH (10:14)
[2020-06-27] MEDS: lamoTRIgine 100 MG TABLET PO SCH ×2 (10:14→21:19)
[2020-06-27] MEDS: BUDESONIDE/FORMETEROL FUMARATE 160/4.5 mcg INHALER IH SCH ×2 (10:15→21:21)
[2020-06-27] MEDS: ACETAMINOPHEN 325 MG TABLET (FP) PO PRN ×2 (10:16→21:20)
[2020-06-27] MEDS: traZODone HCL 50 MG TABLET (FP) PO SCH (21:19)
[2020-06-27] MEDS: THIAMINE HCL 100 MG TABLET (FP) PO SCH (21:19)
[2020-06-27] MEDS: DIVALPROEX SODIUM 500 MG TABLET E.C. PO SCH (21:19)
[2020-06-27] MEDS: MELATONIN 5 MG TABLETS PO SCH (21:19)
[2020-06-28] MEDS: CYCLOBENZAPRINE HCL 10 MG TABLET (FP) PO SCH ×3 (06:52→21:22)
[2020-06-28] MEDS: BENZTROPINE MESYLATE 1 MG TABLET PO SCH ×2 (10:04→21:22)
[2020-06-28] MEDS: BACITRACIN 0.9 GM PACKET TP SCH ×2 (10:04→21:22)
[2020-06-28] MEDS: PRENATAL VITAMINS W/ FOLIC ACID TABLET (FP) PO SCH (10:05)
[2020-06-28] MEDS: DIVALPROEX SODIUM 250 MG TABLET E.C. PO SCH (10:05)
[2020-06-28] MEDS: NICOTINE 14 MG/24 HOURS TOPICAL PATCH TD SCH (10:05)
[2020-06-28] MEDS: HALOPERIDOL 5 MG TABLET PO SCH ×2 (10:05→21:23)
[2020-06-28] MEDS: lamoTRIgine 100 MG TABLET PO SCH ×2 (10:05→21:23)
[2020-06-28] MEDS: SUMAtriptan SUCCINATE 50 MG TABLET PO SCH (10:05)
[2020-06-28] MEDS: BUDESONIDE/FORMETEROL FUMARATE 160/4.5 mcg INHALER IH SCH ×2 (10:06→21:24)
[2020-06-28] MEDS: PANTOPRAZOLE 40 MG TABLET PO SCH (10:06)
[2020-06-28] MEDS: levETIRAcetam 500 MG TABLET (FP) PO SCH ×2 (10:33→21:22)
[2020-06-28] MEDS: METHYL SALICYLATE/MENTHOL OINT 30 GM TUBE TP SCH ×2 (10:34→21:24)
[2020-06-28] MEDS: DIVALPROEX SODIUM 500 MG TABLET E.C. PO SCH (21:22)
[2020-06-28] MEDS: traZODone HCL 50 MG TABLET (FP) PO SCH (21:22)
[2020-06-28] MEDS: MELATONIN 5 MG TABLETS PO SCH (21:22)
[2020-06-28] MEDS: THIAMINE HCL 100 MG TABLET (FP) PO SCH (21:22)
[2020-06-29] MEDS: CYCLOBENZAPRINE HCL 10 MG TABLET (FP) PO SCH ×3 (06:36→21:27)
[2020-06-29] MEDS: levETIRAcetam 500 MG TABLET (FP) PO SCH ×2 (09:36→21:28)
[2020-06-29] MEDS: HALOPERIDOL 5 MG TABLET PO SCH ×2 (09:36→21:27)
[2020-06-29] MEDS: lamoTRIgine 100 MG TABLET PO SCH ×2 (09:36→22:00)
[2020-06-29] MEDS: BENZTROPINE MESYLATE 1 MG TABLET PO SCH ×2 (09:36→21:28)
[2020-06-29] MEDS: BACITRACIN 0.9 GM PACKET TP SCH ×2 (09:36→21:27)
[2020-06-29] MEDS: BUDESONIDE/FORMETEROL FUMARATE 160/4.5 mcg INHALER IH SCH ×2 (09:36→21:30)
[2020-06-29] MEDS: PANTOPRAZOLE 40 MG TABLET PO SCH (09:36)
[2020-06-29] MEDS: DIVALPROEX SODIUM 250 MG TABLET E.C. PO SCH (09:37)
[2020-06-29] MEDS: PRENATAL VITAMINS W/ FOLIC ACID TABLET (FP) PO SCH (09:37)
[2020-06-29] MEDS: NICOTINE 14 MG/24 HOURS TOPICAL PATCH TD SCH (09:38)
[2020-06-29] MEDS: SUMAtriptan SUCCINATE 50 MG TABLET PO SCH (09:38)
[2020-06-29] MEDS: METHYL SALICYLATE/MENTHOL OINT 30 GM TUBE TP SCH ×2 (09:38→21:30)
[2020-06-29] MEDS ORDERED: PT OWN MED DRAWER 7, Y5N ONE ×2 (19:48→21:29)
[2020-06-29] MEDS: THIAMINE HCL 100 MG TABLET (FP) PO SCH (21:27)
[2020-06-29] MEDS: MELATONIN 5 MG TABLETS PO SCH (21:27)
[2020-06-29] MEDS: DIVALPROEX SODIUM 500 MG TABLET E.C. PO SCH (21:28)
[2020-06-29] MEDS: traZODone HCL 50 MG TABLET (FP) PO SCH (21:28)
[2020-06-30] MEDS: CYCLOBENZAPRINE HCL 10 MG TABLET (FP) PO SCH ×3 (06:39→21:13)
[2020-06-30] MEDS: PRENATAL VITAMINS W/ FOLIC ACID TABLET (FP) PO SCH (09:58)
[2020-06-30] MEDS: SUMAtriptan SUCCINATE 50 MG TABLET PO SCH (09:58)
[2020-06-30] MEDS: DIVALPROEX SODIUM 250 MG TABLET E.C. PO SCH (09:59)
[2020-06-30] MEDS: BENZTROPINE MESYLATE 1 MG TABLET PO SCH ×2 (09:59→21:15)
[2020-06-30] MEDS: BACITRACIN 0.9 GM PACKET TP SCH ×2 (09:59→21:13)
[2020-06-30] MEDS: levETIRAcetam 500 MG TABLET (FP) PO SCH ×2 (09:59→21:13)
[2020-06-30] MEDS: PANTOPRAZOLE 40 MG TABLET PO SCH (09:59)
[2020-06-30] MEDS: BUDESONIDE/FORMETEROL FUMARATE 160/4.5 mcg INHALER IH SCH ×2 (10:00→21:15)
[2020-06-30] MEDS: NICOTINE 14 MG/24 HOURS TOPICAL PATCH TD SCH (10:01)
[2020-06-30] MEDS: lamoTRIgine 100 MG TABLET PO SCH ×2 (11:28→21:13)
[2020-06-30] MEDS: HALOPERIDOL 5 MG TABLET PO SCH ×2 (11:28→21:13)
[2020-06-30] MEDS: METHYL SALICYLATE/MENTHOL OINT 30 GM TUBE TP SCH ×2 (11:29→21:15)
[2020-06-30] MEDS: MELATONIN 5 MG TABLETS PO SCH (21:13)
[2020-06-30] MEDS: THIAMINE HCL 100 MG TABLET (FP) PO SCH (21:13)
[2020-06-30] MEDS: DIVALPROEX SODIUM 500 MG TABLET E.C. PO SCH (21:13)
[2020-06-30] MEDS: traZODone HCL 50 MG TABLET (FP) PO SCH (21:13)
[2020-07-01] MEDS: CYCLOBENZAPRINE HCL 10 MG TABLET (FP) PO SCH ×3 (05:50→21:26)
[2020-07-01] MEDS: PRENATAL VITAMINS W/ FOLIC ACID TABLET (FP) PO SCH (09:51)
[2020-07-01] MEDS: lamoTRIgine 100 MG TABLET PO SCH ×2 (09:51→21:28)
[2020-07-01] MEDS: HALOPERIDOL 5 MG TABLET PO SCH ×2 (09:51→21:30)
[2020-07-01] MEDS: levETIRAcetam 500 MG TABLET (FP) PO SCH ×2 (09:51→21:27)
[2020-07-01] MEDS: SUMAtriptan SUCCINATE 50 MG TABLET PO SCH (09:51)
[2020-07-01] MEDS: PANTOPRAZOLE 40 MG TABLET PO SCH (09:51)
[2020-07-01] MEDS: BENZTROPINE MESYLATE 1 MG TABLET PO SCH ×2 (09:52→21:28)
[2020-07-01] MEDS: METHYL SALICYLATE/MENTHOL OINT 30 GM TUBE TP SCH ×2 (09:52→21:31)
[2020-07-01] MEDS: DIVALPROEX SODIUM 250 MG TABLET E.C. PO SCH (09:52)
[2020-07-01] MEDS: BACITRACIN 0.9 GM PACKET TP SCH ×2 (09:52→21:31)
[2020-07-01] MEDS: BUDESONIDE/FORMETEROL FUMARATE 160/4.5 mcg INHALER IH SCH ×2 (09:57→21:30)
[2020-07-01] MEDS: NICOTINE 14 MG/24 HOURS TOPICAL PATCH TD SCH (09:57)
[2020-07-01] MEDS: NICOTINE POLACRILEX 2 MG GUM BUC PRN (14:55)
[2020-07-01] MEDS: DIVALPROEX SODIUM 500 MG TABLET E.C. PO SCH (21:27)
[2020-07-01] MEDS: traZODone HCL 50 MG TABLET (FP) PO SCH (21:27)
[2020-07-01] MEDS: THIAMINE HCL 100 MG TABLET (FP) PO SCH (21:30)
[2020-07-01] MEDS: MELATONIN 5 MG TABLETS PO SCH (21:30)
[2020-07-02] MEDS: CYCLOBENZAPRINE HCL 10 MG TABLET (FP) PO SCH ×3 (06:17→21:10)
[2020-07-02] MEDS: SUMAtriptan SUCCINATE 50 MG TABLET PO SCH (10:03)
[2020-07-02] MEDS: HALOPERIDOL 5 MG TABLET PO SCH ×2 (10:03→21:10)
[2020-07-02] MEDS: BENZTROPINE MESYLATE 1 MG TABLET PO SCH ×2 (10:03→21:11)
[2020-07-02] MEDS: levETIRAcetam 500 MG TABLET (FP) PO SCH ×2 (10:03→21:10)
[2020-07-02] MEDS: PRENATAL VITAMINS W/ FOLIC ACID TABLET (FP) PO SCH (10:03)
[2020-07-02] MEDS: lamoTRIgine 100 MG TABLET PO SCH ×2 (10:04→21:10)
[2020-07-02] MEDS: PANTOPRAZOLE 40 MG TABLET PO SCH (10:04)
[2020-07-02] MEDS: DIVALPROEX SODIUM 250 MG TABLET E.C. PO SCH (10:04)
[2020-07-02] MEDS: NICOTINE 14 MG/24 HOURS TOPICAL PATCH TD SCH (10:04)
[2020-07-02] MEDS: BUDESONIDE/FORMETEROL FUMARATE 160/4.5 mcg INHALER IH SCH ×2 (10:06→21:11)
[2020-07-02] MEDS: BACITRACIN 0.9 GM PACKET TP SCH ×2 (10:08→21:10)
[2020-07-02] MEDS: METHYL SALICYLATE/MENTHOL OINT 30 GM TUBE TP SCH ×2 (10:08→21:11)
[2020-07-02] MEDS: MELATONIN 5 MG TABLETS PO SCH (21:10)
[2020-07-02] MEDS: traZODone HCL 50 MG TABLET (FP) PO SCH (21:10)
[2020-07-02] MEDS: THIAMINE HCL 100 MG TABLET (FP) PO SCH (21:10)
[2020-07-02] MEDS: DIVALPROEX SODIUM 500 MG TABLET E.C. PO SCH (21:10)
[2020-07-02] MEDS: NICOTINE POLACRILEX 2 MG GUM BUC PRN (21:52)
[2020-07-03] MEDS: ACETAMINOPHEN 325 MG TABLET (FP) PO PRN (03:58)
[2020-07-03] MEDS: CYCLOBENZAPRINE HCL 10 MG TABLET (FP) PO SCH ×3 (06:57→21:08)
[2020-07-03] MEDS ORDERED: PT OWN MED DRAWER 7, Y5N ONE ×3 (08:49→19:06)
[2020-07-03] MEDS: SUMAtriptan SUCCINATE 50 MG TABLET PO SCH (09:42)
[2020-07-03] MEDS: PRENATAL VITAMINS W/ FOLIC ACID TABLET (FP) PO SCH (09:42)
[2020-07-03] MEDS: levETIRAcetam 500 MG TABLET (FP) PO SCH ×2 (09:42→21:08)
[2020-07-03] MEDS: BACITRACIN 0.9 GM PACKET TP SCH ×2 (09:42→21:07)
[2020-07-03] MEDS: NICOTINE 14 MG/24 HOURS TOPICAL PATCH TD SCH (09:43)
[2020-07-03] MEDS: HALOPERIDOL 5 MG TABLET PO SCH ×2 (09:43→22:35)
[2020-07-03] MEDS: DIVALPROEX SODIUM 250 MG TABLET E.C. PO SCH (09:43)
[2020-07-03] MEDS: lamoTRIgine 100 MG TABLET PO SCH ×2 (09:43→21:08)
[2020-07-03] MEDS: BENZTROPINE MESYLATE 1 MG TABLET PO SCH ×2 (09:43→21:08)
[2020-07-03] MEDS: PANTOPRAZOLE 40 MG TABLET PO SCH (09:43)
[2020-07-03] MEDS: METHYL SALICYLATE/MENTHOL OINT 30 GM TUBE TP SCH ×2 (09:43→21:09)
[2020-07-03] MEDS: BUDESONIDE/FORMETEROL FUMARATE 160/4.5 mcg INHALER IH SCH ×2 (09:44→22:25)
[2020-07-03] MEDS: MELATONIN 5 MG TABLETS PO SCH (21:07)
[2020-07-03] MEDS: DIVALPROEX SODIUM 500 MG TABLET E.C. PO SCH (21:08)
[2020-07-03] MEDS: traZODone HCL 50 MG TABLET (FP) PO SCH (21:08)
[2020-07-03] MEDS: THIAMINE HCL 100 MG TABLET (FP) PO SCH (21:08)
[2020-07-03] MEDS: NICOTINE POLACRILEX 2 MG GUM BUC PRN (21:09)
[2020-07-04] MEDS: ACETAMINOPHEN 325 MG TABLET (FP) PO PRN (04:25)
[2020-07-04] MEDS: CYCLOBENZAPRINE HCL 10 MG TABLET (FP) PO SCH ×3 (06:16→21:15)
[2020-07-04] MEDS ORDERED: PT OWN MED DRAWER 7, Y5N ONE ×4 (08:39→19:23)
[2020-07-04] MEDS: levETIRAcetam 500 MG TABLET (FP) PO SCH ×2 (09:24→21:15)
[2020-07-04] MEDS: lamoTRIgine 100 MG TABLET PO SCH ×2 (09:25→21:17)
[2020-07-04] MEDS: BACITRACIN 0.9 GM PACKET TP SCH ×2 (09:25→21:15)
[2020-07-04] MEDS: METHYL SALICYLATE/MENTHOL OINT 30 GM TUBE TP SCH ×2 (09:25→21:15)
[2020-07-04] MEDS: HALOPERIDOL 5 MG TABLET PO SCH ×2 (09:25→21:17)
[2020-07-04] MEDS: SUMAtriptan SUCCINATE 50 MG TABLET PO SCH (09:25)
[2020-07-04] MEDS: BENZTROPINE MESYLATE 1 MG TABLET PO SCH ×2 (09:26→21:16)
[2020-07-04] MEDS: PANTOPRAZOLE 40 MG TABLET PO SCH (09:27)
[2020-07-04] MEDS: PRENATAL VITAMINS W/ FOLIC ACID TABLET (FP) PO SCH (09:28)
[2020-07-04] MEDS: NICOTINE 14 MG/24 HOURS TOPICAL PATCH TD SCH (09:28)
[2020-07-04] MEDS: NICOTINE POLACRILEX 2 MG GUM BUC PRN (09:29)
[2020-07-04] MEDS: BUDESONIDE/FORMETEROL FUMARATE 160/4.5 mcg INHALER IH SCH ×2 (09:29→21:19)
[2020-07-04] MEDS: DIVALPROEX SODIUM 250 MG TABLET E.C. PO SCH (09:29)
[2020-07-04] MEDS: traZODone HCL 50 MG TABLET (FP) PO SCH (21:15)
[2020-07-04] MEDS: DIVALPROEX SODIUM 500 MG TABLET E.C. PO SCH (21:16)
[2020-07-04] MEDS: MELATONIN 5 MG TABLETS PO SCH (21:17)
[2020-07-04] MEDS: MAG HYDROX/AL HYDROX/SIMETH 30 ML UNIT-DOSE CUP PO PRN (21:18)
[2020-07-04] MEDS: THIAMINE HCL 100 MG TABLET (FP) PO SCH (21:19)
[2020-07-05] MEDS: CYCLOBENZAPRINE HCL 10 MG TABLET (FP) PO SCH ×3 (06:13→21:14)
[2020-07-05] MEDS: DIVALPROEX SODIUM 250 MG TABLET E.C. PO SCH (09:51)
[2020-07-05] MEDS: lamoTRIgine 100 MG TABLET PO SCH ×2 (09:51→21:15)
[2020-07-05] MEDS: HALOPERIDOL 5 MG TABLET PO SCH ×2 (09:51→21:15)
[2020-07-05] MEDS: SUMAtriptan SUCCINATE 50 MG TABLET PO SCH (09:51)
[2020-07-05] MEDS: levETIRAcetam 500 MG TABLET (FP) PO SCH ×2 (09:52→21:15)
[2020-07-05] MEDS: METHYL SALICYLATE/MENTHOL OINT 30 GM TUBE TP SCH ×2 (09:52→21:16)
[2020-07-05] MEDS: BACITRACIN 0.9 GM PACKET TP SCH ×2 (09:52→21:16)
[2020-07-05] MEDS: PANTOPRAZOLE 40 MG TABLET PO SCH (09:52)
[2020-07-05] MEDS: BENZTROPINE MESYLATE 1 MG TABLET PO SCH ×2 (09:52→21:14)
[2020-07-05] MEDS: BUDESONIDE/FORMETEROL FUMARATE 160/4.5 mcg INHALER IH SCH ×2 (09:53→21:17)
[2020-07-05] MEDS: NICOTINE 14 MG/24 HOURS TOPICAL PATCH TD SCH (10:18)
[2020-07-05] MEDS: PRENATAL VITAMINS W/ FOLIC ACID TABLET (FP) PO SCH (10:18)
[2020-07-05] MEDS: ACETAMINOPHEN 325 MG TABLET (FP) PO PRN (17:35)
[2020-07-05] MEDS ORDERED: PT OWN MED DRAWER 7, Y5N ONE (19:01)
[2020-07-05] MEDS: traZODone HCL 50 MG TABLET (FP) PO SCH (21:13)
[2020-07-05] MEDS: DIVALPROEX SODIUM 500 MG TABLET E.C. PO SCH (21:15)
[2020-07-05] MEDS: MELATONIN 5 MG TABLETS PO SCH (21:16)
[2020-07-05] MEDS: THIAMINE HCL 100 MG TABLET (FP) PO SCH (21:17)
[2020-07-05] MEDS: NICOTINE POLACRILEX 2 MG GUM BUC PRN (21:37)
[2020-07-06] MEDS: CYCLOBENZAPRINE HCL 10 MG TABLET (FP) PO SCH ×3 (06:19→21:16)
[2020-07-06] MEDS: levETIRAcetam 500 MG TABLET (FP) PO SCH ×2 (09:38→21:16)
[2020-07-06] MEDS: HALOPERIDOL 5 MG TABLET PO SCH ×2 (09:38→21:17)
[2020-07-06] MEDS: PANTOPRAZOLE 40 MG TABLET PO SCH (09:38)
[2020-07-06] MEDS: DIVALPROEX SODIUM 250 MG TABLET E.C. PO SCH (09:38)
[2020-07-06] MEDS: SUMAtriptan SUCCINATE 50 MG TABLET PO SCH (09:38)
[2020-07-06] MEDS: lamoTRIgine 100 MG TABLET PO SCH ×2 (09:38→21:18)
[2020-07-06] MEDS: BUDESONIDE/FORMETEROL FUMARATE 160/4.5 mcg INHALER IH SCH ×2 (09:39→21:20)
[2020-07-06] MEDS: BENZTROPINE MESYLATE 1 MG TABLET PO SCH ×2 (09:39→21:17)
[2020-07-06] MEDS ORDERED: PT OWN MED DRAWER 7, Y5N ONE ×2 (09:40→18:32)
[2020-07-06] MEDS: BACITRACIN 0.9 GM PACKET TP SCH ×2 (09:41→21:20)
[2020-07-06] MEDS: METHYL SALICYLATE/MENTHOL OINT 30 GM TUBE TP SCH ×2 (09:41→21:18)
[2020-07-06] MEDS: PRENATAL VITAMINS W/ FOLIC ACID TABLET (FP) PO SCH (10:17)
[2020-07-06] MEDS: NICOTINE 14 MG/24 HOURS TOPICAL PATCH TD SCH (10:17)
[2020-07-06] MEDS: ACETAMINOPHEN 325 MG TABLET (FP) PO PRN (17:27)
[2020-07-06] MEDS: traZODone HCL 50 MG TABLET (FP) PO SCH (21:15)
[2020-07-06] MEDS: DIVALPROEX SODIUM 500 MG TABLET E.C. PO SCH (21:18)
[2020-07-06] MEDS: MELATONIN 5 MG TABLETS PO SCH (21:18)
[2020-07-06] MEDS: THIAMINE HCL 100 MG TABLET (FP) PO SCH (21:43)
[2020-07-07] MEDS: CYCLOBENZAPRINE HCL 10 MG TABLET (FP) PO SCH ×3 (06:12→21:19)
[2020-07-07] MEDS ORDERED: PT OWN MED DRAWER 7, Y5N ONE ×2 (08:59→19:34)
[2020-07-07] MEDS: levETIRAcetam 500 MG TABLET (FP) PO SCH ×2 (09:54→21:18)
[2020-07-07] MEDS: DIVALPROEX SODIUM 250 MG TABLET E.C. PO SCH (09:54)
[2020-07-07] MEDS: HALOPERIDOL 5 MG TABLET PO SCH ×2 (09:54→21:19)
[2020-07-07] MEDS: BENZTROPINE MESYLATE 1 MG TABLET PO SCH ×2 (09:55→21:18)
[2020-07-07] MEDS: BACITRACIN 0.9 GM PACKET TP SCH ×2 (09:55→21:16)
[2020-07-07] MEDS: METHYL SALICYLATE/MENTHOL OINT 30 GM TUBE TP SCH (09:55)
[2020-07-07] MEDS ORDERED: METHYL SALICYLATE/MENTHOL OINT 30 GM TUBE TP PRN (09:55)
[2020-07-07] MEDS: SUMAtriptan SUCCINATE 50 MG TABLET PO SCH (09:55)
[2020-07-07] MEDS: BUDESONIDE/FORMETEROL FUMARATE 160/4.5 mcg INHALER IH SCH ×2 (09:56→21:20)
[2020-07-07] MEDS: PANTOPRAZOLE 40 MG TABLET PO SCH (09:57)
[2020-07-07] MEDS: NICOTINE 14 MG/24 HOURS TOPICAL PATCH TD SCH (10:01)
[2020-07-07] MEDS: PRENATAL VITAMINS W/ FOLIC ACID TABLET (FP) PO SCH (10:01)
[2020-07-07] MEDS: KETOCONAZOLE 2 % SHAMPOO 120 ML BOTTLE TP SCH (13:39)
[2020-07-07] MEDS: lamoTRIgine 100 MG TABLET PO SCH ×2 (13:39→21:19)
[2020-07-07] MEDS: DIVALPROEX SODIUM 500 MG TABLET E.C. PO SCH (21:18)
[2020-07-07] MEDS: traZODone HCL 50 MG TABLET (FP) PO SCH (21:20)
[2020-07-07] MEDS: MELATONIN 5 MG TABLETS PO SCH (21:20)
[2020-07-07] MEDS: THIAMINE HCL 100 MG TABLET (FP) PO SCH (21:21)
[2020-07-08] MEDS: CYCLOBENZAPRINE HCL 10 MG TABLET (FP) PO SCH ×3 (06:09→21:06)
[2020-07-08] MEDS ORDERED: PT OWN MED DRAWER 7, Y5N ONE ×2 (08:54→10:02)
[2020-07-08] MEDS: levETIRAcetam 500 MG TABLET (FP) PO SCH ×2 (10:01→21:06)
[2020-07-08] MEDS: lamoTRIgine 100 MG TABLET PO SCH ×2 (10:01→21:06)
[2020-07-08] MEDS: DIVALPROEX SODIUM 250 MG TABLET E.C. PO SCH (10:01)
[2020-07-08] MEDS: SUMAtriptan SUCCINATE 50 MG TABLET PO SCH (10:01)
[2020-07-08] MEDS: BENZTROPINE MESYLATE 1 MG TABLET PO SCH ×2 (10:01→21:09)
[2020-07-08] MEDS: BACITRACIN 0.9 GM PACKET TP SCH ×2 (10:01→21:06)
[2020-07-08] MEDS: PANTOPRAZOLE 40 MG TABLET PO SCH (10:02)
[2020-07-08] MEDS: HALOPERIDOL 5 MG TABLET PO SCH ×2 (10:02→21:06)
[2020-07-08] MEDS: PRENATAL VITAMINS W/ FOLIC ACID TABLET (FP) PO SCH (10:02)
[2020-07-08] MEDS: NICOTINE POLACRILEX 2 MG GUM BUC PRN (10:03)
[2020-07-08] MEDS: BUDESONIDE/FORMETEROL FUMARATE 160/4.5 mcg INHALER IH SCH ×2 (10:03→21:09)
[2020-07-08] MEDS: NICOTINE 14 MG/24 HOURS TOPICAL PATCH TD SCH (11:06)
[2020-07-08] MEDS: ACETAMINOPHEN 325 MG TABLET (FP) PO PRN (16:45)
[2020-07-08] MEDS: traZODone HCL 50 MG TABLET (FP) PO SCH (21:06)
[2020-07-08] MEDS: THIAMINE HCL 100 MG TABLET (FP) PO SCH (21:06)
[2020-07-08] MEDS: MELATONIN 5 MG TABLETS PO SCH (21:06)
[2020-07-08] MEDS: DIVALPROEX SODIUM 500 MG TABLET E.C. PO SCH (21:06)
[2020-07-09] MEDS: CYCLOBENZAPRINE HCL 10 MG TABLET (FP) PO SCH ×3 (06:27→21:17)
[2020-07-09] MEDS: DIVALPROEX SODIUM 250 MG TABLET E.C. PO SCH (10:02)
[2020-07-09] MEDS: levETIRAcetam 500 MG TABLET (FP) PO SCH ×2 (10:02→21:17)
[2020-07-09] MEDS: lamoTRIgine 100 MG TABLET PO SCH ×2 (10:02→21:17)
[2020-07-09] MEDS: HALOPERIDOL 5 MG TABLET PO SCH ×2 (10:02→21:17)
[2020-07-09] MEDS: SUMAtriptan SUCCINATE 50 MG TABLET PO SCH (10:03)
[2020-07-09] MEDS: PANTOPRAZOLE 40 MG TABLET PO SCH (10:03)
[2020-07-09] MEDS: NICOTINE 14 MG/24 HOURS TOPICAL PATCH TD SCH (10:03)
[2020-07-09] MEDS: BENZTROPINE MESYLATE 1 MG TABLET PO SCH ×2 (10:03→21:17)
[2020-07-09] MEDS: PRENATAL VITAMINS W/ FOLIC ACID TABLET (FP) PO SCH (10:03)
[2020-07-09] MEDS: BUDESONIDE/FORMETEROL FUMARATE 160/4.5 mcg INHALER IH SCH ×2 (10:03→21:18)
[2020-07-09] MEDS: BACITRACIN 0.9 GM PACKET TP SCH ×2 (10:03→21:17)
[2020-07-09] MEDS: NICOTINE POLACRILEX 2 MG GUM BUC PRN (10:04)
[2020-07-09] MEDS: DIVALPROEX SODIUM 500 MG TABLET E.C. PO SCH (21:17)
[2020-07-09] MEDS: traZODone HCL 50 MG TABLET (FP) PO SCH (21:17)
[2020-07-09] MEDS: THIAMINE HCL 100 MG TABLET (FP) PO SCH (21:17)
[2020-07-09] MEDS: MELATONIN 5 MG TABLETS PO SCH (21:17)
[2020-07-10] MEDS: CYCLOBENZAPRINE HCL 10 MG TABLET (FP) PO SCH ×3 (06:16→21:37)
[2020-07-10] MEDS: PRENATAL VITAMINS W/ FOLIC ACID TABLET (FP) PO SCH (10:13)
[2020-07-10] MEDS: BUDESONIDE/FORMETEROL FUMARATE 160/4.5 mcg INHALER IH SCH ×2 (10:13→21:40)
[2020-07-10] MEDS: levETIRAcetam 500 MG TABLET (FP) PO SCH ×2 (10:13→21:37)
[2020-07-10] MEDS: HALOPERIDOL 5 MG TABLET PO SCH ×2 (10:13→21:37)
[2020-07-10] MEDS: PANTOPRAZOLE 40 MG TABLET PO SCH (10:14)
[2020-07-10] MEDS: SUMAtriptan SUCCINATE 50 MG TABLET PO SCH (10:14)
[2020-07-10] MEDS: NICOTINE 14 MG/24 HOURS TOPICAL PATCH TD SCH (10:14)
[2020-07-10] MEDS: KETOCONAZOLE 2 % SHAMPOO 120 ML BOTTLE TP SCH (10:14)
[2020-07-10] MEDS: BACITRACIN 0.9 GM PACKET TP SCH ×2 (10:14→21:38)
[2020-07-10] MEDS: lamoTRIgine 100 MG TABLET PO SCH ×2 (10:14→21:39)
[2020-07-10] MEDS: NICOTINE POLACRILEX 2 MG GUM BUC PRN (10:14)
[2020-07-10] MEDS: DIVALPROEX SODIUM 250 MG TABLET E.C. PO SCH (10:14)
[2020-07-10] MEDS: BENZTROPINE MESYLATE 1 MG TABLET PO SCH ×2 (10:14→21:38)
[2020-07-10] MEDS: MAG HYDROX/AL HYDROX/SIMETH 30 ML UNIT-DOSE CUP PO PRN (14:31)
[2020-07-10] MEDS: MELATONIN 5 MG TABLETS PO SCH (21:36)
[2020-07-10] MEDS: THIAMINE HCL 100 MG TABLET (FP) PO SCH (21:36)
[2020-07-10] MEDS: DIVALPROEX SODIUM 500 MG TABLET E.C. PO SCH (21:37)
[2020-07-10] MEDS: traZODone HCL 50 MG TABLET (FP) PO SCH (21:37)
[2020-07-11] MEDS: CYCLOBENZAPRINE HCL 10 MG TABLET (FP) PO SCH ×3 (06:25→21:16)
[2020-07-11] MEDS ORDERED: PT OWN MED DRAWER 7, Y5N ONE ×2 (09:01→18:52)
[2020-07-11] MEDS: PRENATAL VITAMINS W/ FOLIC ACID TABLET (FP) PO SCH (09:57)
[2020-07-11] MEDS: HALOPERIDOL 5 MG TABLET PO SCH ×2 (09:58→21:16)
[2020-07-11] MEDS: lamoTRIgine 100 MG TABLET PO SCH ×2 (09:58→21:17)
[2020-07-11] MEDS: SUMAtriptan SUCCINATE 50 MG TABLET PO SCH (09:58)
[2020-07-11] MEDS: BACITRACIN 0.9 GM PACKET TP SCH ×2 (09:58→21:16)
[2020-07-11] MEDS: BENZTROPINE MESYLATE 1 MG TABLET PO SCH ×2 (09:58→21:17)
[2020-07-11] MEDS: PANTOPRAZOLE 40 MG TABLET PO SCH (09:58)
[2020-07-11] MEDS: levETIRAcetam 500 MG TABLET (FP) PO SCH ×2 (09:58→21:16)
[2020-07-11] MEDS: DIVALPROEX SODIUM 250 MG TABLET E.C. PO SCH (10:00)
[2020-07-11] MEDS: BUDESONIDE/FORMETEROL FUMARATE 160/4.5 mcg INHALER IH SCH ×2 (10:00→21:17)
[2020-07-11] MEDS: NICOTINE 14 MG/24 HOURS TOPICAL PATCH TD SCH (10:00)
[2020-07-11] MEDS: MELATONIN 5 MG TABLETS PO SCH (21:16)
[2020-07-11] MEDS: THIAMINE HCL 100 MG TABLET (FP) PO SCH (21:16)
[2020-07-11] MEDS: traZODone HCL 50 MG TABLET (FP) PO SCH (21:16)
[2020-07-11] MEDS: DIVALPROEX SODIUM 500 MG TABLET E.C. PO SCH (21:17)
[2020-07-12] MEDS: CYCLOBENZAPRINE HCL 10 MG TABLET (FP) PO SCH ×3 (05:55→21:17)
[2020-07-12] MEDS ORDERED: PT OWN MED DRAWER 7, Y5N ONE ×2 (08:35→19:09)
[2020-07-12] MEDS: BUDESONIDE/FORMETEROL FUMARATE 160/4.5 mcg INHALER IH SCH ×2 (10:14→21:19)
[2020-07-12] MEDS: DIVALPROEX SODIUM 250 MG TABLET E.C. PO SCH (10:14)
[2020-07-12] MEDS: BENZTROPINE MESYLATE 1 MG TABLET PO SCH ×2 (10:15→21:17)
[2020-07-12] MEDS: levETIRAcetam 500 MG TABLET (FP) PO SCH ×2 (10:15→21:17)
[2020-07-12] MEDS: lamoTRIgine 100 MG TABLET PO SCH ×2 (10:15→21:17)
[2020-07-12] MEDS: PRENATAL VITAMINS W/ FOLIC ACID TABLET (FP) PO SCH (10:15)
[2020-07-12] MEDS: HALOPERIDOL 5 MG TABLET PO SCH ×2 (10:15→21:17)
[2020-07-12] MEDS: SUMAtriptan SUCCINATE 50 MG TABLET PO SCH (10:16)
[2020-07-12] MEDS: BACITRACIN 0.9 GM PACKET TP SCH ×2 (10:17→21:17)
[2020-07-12] MEDS: NICOTINE 14 MG/24 HOURS TOPICAL PATCH TD SCH (10:17)
[2020-07-12] MEDS: PANTOPRAZOLE 40 MG TABLET PO SCH (10:17)
[2020-07-12] MEDS: ACETAMINOPHEN 325 MG TABLET (FP) PO PRN (16:34)
[2020-07-12] MEDS: THIAMINE HCL 100 MG TABLET (FP) PO SCH (21:16)
[2020-07-12] MEDS: MELATONIN 5 MG TABLETS PO SCH (21:16)
[2020-07-12] MEDS: DIVALPROEX SODIUM 500 MG TABLET E.C. PO SCH (21:17)
[2020-07-12] MEDS: traZODone HCL 50 MG TABLET (FP) PO SCH (21:17)
[2020-07-13] MEDS: CYCLOBENZAPRINE HCL 10 MG TABLET (FP) PO SCH ×3 (06:15→21:12)
[2020-07-13] MEDS: ACETAMINOPHEN 325 MG TABLET (FP) PO PRN ×2 (06:15→13:05)
[2020-07-13] MEDS ORDERED: PT OWN MED DRAWER 7, Y5N ONE ×2 (08:50→19:19)
[2020-07-13] MEDS: HALOPERIDOL 5 MG TABLET PO SCH ×2 (09:31→21:13)
[2020-07-13] MEDS: levETIRAcetam 500 MG TABLET (FP) PO SCH ×2 (09:31→21:13)
[2020-07-13] MEDS: SUMAtriptan SUCCINATE 50 MG TABLET PO SCH (09:31)
[2020-07-13] MEDS: BUDESONIDE/FORMETEROL FUMARATE 160/4.5 mcg INHALER IH SCH ×2 (09:31→21:14)
[2020-07-13] MEDS: lamoTRIgine 100 MG TABLET PO SCH ×2 (09:31→21:13)
[2020-07-13] MEDS: PRENATAL VITAMINS W/ FOLIC ACID TABLET (FP) PO SCH (09:31)
[2020-07-13] MEDS: DIVALPROEX SODIUM 250 MG TABLET E.C. PO SCH (09:32)
[2020-07-13] MEDS: PANTOPRAZOLE 40 MG TABLET PO SCH (09:32)
[2020-07-13] MEDS: BENZTROPINE MESYLATE 1 MG TABLET PO SCH ×2 (09:32→21:13)
[2020-07-13] MEDS: BACITRACIN 0.9 GM PACKET TP SCH ×2 (09:32→21:13)
[2020-07-13] MEDS: NICOTINE 14 MG/24 HOURS TOPICAL PATCH TD SCH (09:32)
[2020-07-13] MEDS: KETOCONAZOLE 2 % SHAMPOO 120 ML BOTTLE TP SCH (09:33)
[2020-07-13] MEDS: MELATONIN 5 MG TABLETS PO SCH (21:12)
[2020-07-13] MEDS: THIAMINE HCL 100 MG TABLET (FP) PO SCH (21:12)
[2020-07-13] MEDS: traZODone HCL 50 MG TABLET (FP) PO SCH (21:13)
[2020-07-13] MEDS: DIVALPROEX SODIUM 500 MG TABLET E.C. PO SCH (21:13)
[2020-07-14] MEDS: ACETAMINOPHEN 325 MG TABLET (FP) PO PRN (06:01)
[2020-07-14] MEDS: CYCLOBENZAPRINE HCL 10 MG TABLET (FP) PO SCH ×3 (06:02→21:37)
[2020-07-14] MEDS ORDERED: PT OWN MED DRAWER 7, Y5N ONE ×3 (08:53→19:15)
[2020-07-14] MEDS: HALOPERIDOL 5 MG TABLET PO SCH ×2 (10:10→21:39)
[2020-07-14] MEDS: levETIRAcetam 500 MG TABLET (FP) PO SCH ×2 (10:10→21:36)
[2020-07-14] MEDS: SUMAtriptan SUCCINATE 50 MG TABLET PO SCH (10:10)
[2020-07-14] MEDS: lamoTRIgine 100 MG TABLET PO SCH ×2 (10:10→21:36)
[2020-07-14] MEDS: DIVALPROEX SODIUM 250 MG TABLET E.C. PO SCH (10:10)
[2020-07-14] MEDS: PANTOPRAZOLE 40 MG TABLET PO SCH (10:10)
[2020-07-14] MEDS: BACITRACIN 0.9 GM PACKET TP SCH ×2 (10:11→21:40)
[2020-07-14] MEDS: BENZTROPINE MESYLATE 1 MG TABLET PO SCH ×2 (10:11→21:37)
[2020-07-14] MEDS: PRENATAL VITAMINS W/ FOLIC ACID TABLET (FP) PO SCH (10:12)
[2020-07-14] MEDS: NICOTINE 14 MG/24 HOURS TOPICAL PATCH TD SCH (10:12)
[2020-07-14] MEDS: BUDESONIDE/FORMETEROL FUMARATE 160/4.5 mcg INHALER IH SCH ×2 (10:12→21:40)
[2020-07-14] MEDS: NICOTINE POLACRILEX 2 MG GUM BUC PRN (10:13)
[2020-07-14] MEDS: traZODone HCL 50 MG TABLET (FP) PO SCH (21:36)
[2020-07-14] MEDS: DIVALPROEX SODIUM 500 MG TABLET E.C. PO SCH (21:37)
[2020-07-14] MEDS: MELATONIN 5 MG TABLETS PO SCH (21:39)
[2020-07-14] MEDS: THIAMINE HCL 100 MG TABLET (FP) PO SCH (21:40)
[2020-07-15] MEDS: CYCLOBENZAPRINE HCL 10 MG TABLET (FP) PO SCH ×3 (06:16→21:15)
[2020-07-15] MEDS ORDERED: PT OWN MED DRAWER 7, Y5N ONE ×2 (08:56→19:08)
[2020-07-15] MEDS: PRENATAL VITAMINS W/ FOLIC ACID TABLET (FP) PO SCH (09:54)
[2020-07-15] MEDS: SUMAtriptan SUCCINATE 50 MG TABLET PO SCH (09:54)
[2020-07-15] MEDS: NICOTINE 14 MG/24 HOURS TOPICAL PATCH TD SCH (09:54)
[2020-07-15] MEDS: BENZTROPINE MESYLATE 1 MG TABLET PO SCH ×2 (09:54→21:16)
[2020-07-15] MEDS: PANTOPRAZOLE 40 MG TABLET PO SCH (09:54)
[2020-07-15] MEDS: DIVALPROEX SODIUM 250 MG TABLET E.C. PO SCH (09:54)
[2020-07-15] MEDS: levETIRAcetam 500 MG TABLET (FP) PO SCH ×2 (09:54→21:15)
[2020-07-15] MEDS: lamoTRIgine 100 MG TABLET PO SCH ×2 (09:54→21:15)
[2020-07-15] MEDS: HALOPERIDOL 5 MG TABLET PO SCH ×2 (09:54→21:15)
[2020-07-15] MEDS: BACITRACIN 0.9 GM PACKET TP SCH ×2 (09:54→21:16)
[2020-07-15] MEDS: BUDESONIDE/FORMETEROL FUMARATE 160/4.5 mcg INHALER IH SCH ×2 (09:56→21:17)
[2020-07-15] MEDS: NICOTINE POLACRILEX 2 MG GUM BUC PRN ×3 (09:57→17:48)
[2020-07-15] MEDS: MAG HYDROX/AL HYDROX/SIMETH 30 ML UNIT-DOSE CUP PO PRN (17:48)
[2020-07-15] MEDS: MELATONIN 5 MG TABLETS PO SCH (21:15)
[2020-07-15] MEDS: THIAMINE HCL 100 MG TABLET (FP) PO SCH (21:15)
[2020-07-15] MEDS: traZODone HCL 50 MG TABLET (FP) PO SCH (21:15)
[2020-07-15] MEDS: DIVALPROEX SODIUM 500 MG TABLET E.C. PO SCH (21:15)
[2020-07-15] MEDS: ACETAMINOPHEN 325 MG TABLET (FP) PO PRN (21:16)
[2020-07-16] MEDS: CYCLOBENZAPRINE HCL 10 MG TABLET (FP) PO SCH ×3 (06:24→21:25)
[2020-07-16] MEDS: NICOTINE POLACRILEX 2 MG GUM BUC PRN ×2 (06:24→14:44)
[2020-07-16] MEDS ORDERED: PT OWN MED DRAWER 7, Y5N ONE ×2 (08:49→18:50)
[2020-07-16] MEDS: lamoTRIgine 100 MG TABLET PO SCH ×2 (10:24→21:25)
[2020-07-16] MEDS: HALOPERIDOL 5 MG TABLET PO SCH ×2 (10:24→21:25)
[2020-07-16] MEDS: PRENATAL VITAMINS W/ FOLIC ACID TABLET (FP) PO SCH (10:24)
[2020-07-16] MEDS: SUMAtriptan SUCCINATE 50 MG TABLET PO SCH (10:24)
[2020-07-16] MEDS: KETOCONAZOLE 2 % SHAMPOO 120 ML BOTTLE TP SCH (10:25)
[2020-07-16] MEDS: levETIRAcetam 500 MG TABLET (FP) PO SCH ×2 (10:25→21:25)
[2020-07-16] MEDS: PANTOPRAZOLE 40 MG TABLET PO SCH (10:25)
[2020-07-16] MEDS: NICOTINE 14 MG/24 HOURS TOPICAL PATCH TD SCH (10:25)
[2020-07-16] MEDS: BACITRACIN 0.9 GM PACKET TP SCH ×2 (10:26→21:27)
[2020-07-16] MEDS: BENZTROPINE MESYLATE 1 MG TABLET PO SCH ×2 (10:26→21:25)
[2020-07-16] MEDS: DIVALPROEX SODIUM 250 MG TABLET E.C. PO SCH (10:26)
[2020-07-16] MEDS: BUDESONIDE/FORMETEROL FUMARATE 160/4.5 mcg INHALER IH SCH ×2 (10:28→21:27)
[2020-07-16] MEDS: DIVALPROEX SODIUM 500 MG TABLET E.C. PO SCH (21:25)
[2020-07-16] MEDS: THIAMINE HCL 100 MG TABLET (FP) PO SCH (21:25)
[2020-07-16] MEDS: MELATONIN 5 MG TABLETS PO SCH (21:25)
[2020-07-16] MEDS: traZODone HCL 50 MG TABLET (FP) PO SCH (21:25)
[2020-07-17] MEDS: ACETAMINOPHEN 325 MG TABLET (FP) PO PRN (03:49)
[2020-07-17] MEDS: CYCLOBENZAPRINE HCL 10 MG TABLET (FP) PO SCH ×3 (06:10→21:22)
[2020-07-17] MEDS ORDERED: PT OWN MED DRAWER 7, Y5N ONE ×4 (09:03→18:48)
[2020-07-17] MEDS: PANTOPRAZOLE 40 MG TABLET PO SCH (10:20)
[2020-07-17] MEDS: BENZTROPINE MESYLATE 1 MG TABLET PO SCH ×2 (10:21→21:22)
[2020-07-17] MEDS: lamoTRIgine 100 MG TABLET PO SCH ×2 (10:21→21:22)
[2020-07-17] MEDS: DIVALPROEX SODIUM 250 MG TABLET E.C. PO SCH (10:21)
[2020-07-17] MEDS: HALOPERIDOL 5 MG TABLET PO SCH ×2 (10:21→21:22)
[2020-07-17] MEDS: levETIRAcetam 500 MG TABLET (FP) PO SCH ×2 (10:21→21:22)
[2020-07-17] MEDS: SUMAtriptan SUCCINATE 50 MG TABLET PO SCH (10:22)
[2020-07-17] MEDS: BUDESONIDE/FORMETEROL FUMARATE 160/4.5 mcg INHALER IH SCH ×2 (10:24→21:24)
[2020-07-17] MEDS: NICOTINE POLACRILEX 2 MG GUM BUC PRN ×2 (10:26→21:23)
[2020-07-17] MEDS: PRENATAL VITAMINS W/ FOLIC ACID TABLET (FP) PO SCH (10:47)
[2020-07-17] MEDS: NICOTINE 14 MG/24 HOURS TOPICAL PATCH TD SCH (10:47)
[2020-07-17] MEDS: BACITRACIN 0.9 GM PACKET TP SCH ×2 (10:47→21:23)
[2020-07-17] MEDS: THIAMINE HCL 100 MG TABLET (FP) PO SCH (21:22)
[2020-07-17] MEDS: MELATONIN 5 MG TABLETS PO SCH (21:22)
[2020-07-17] MEDS: DIVALPROEX SODIUM 500 MG TABLET E.C. PO SCH (21:22)
[2020-07-17] MEDS: traZODone HCL 50 MG TABLET (FP) PO SCH (21:22)
[2020-07-18] MEDS: ACETAMINOPHEN 325 MG TABLET (FP) PO PRN (06:26)
[2020-07-18] MEDS: CYCLOBENZAPRINE HCL 10 MG TABLET (FP) PO SCH ×3 (06:26→21:29)
[2020-07-18] MEDS: PRENATAL VITAMINS W/ FOLIC ACID TABLET (FP) PO SCH (10:32)
[2020-07-18] MEDS: lamoTRIgine 100 MG TABLET PO SCH ×2 (10:33→21:30)
[2020-07-18] MEDS: DIVALPROEX SODIUM 250 MG TABLET E.C. PO SCH (10:33)
[2020-07-18] MEDS: BACITRACIN 0.9 GM PACKET TP SCH ×2 (10:33→21:31)
[2020-07-18] MEDS: SUMAtriptan SUCCINATE 50 MG TABLET PO SCH (10:33)
[2020-07-18] MEDS: HALOPERIDOL 5 MG TABLET PO SCH ×2 (10:33→21:29)
[2020-07-18] MEDS: BENZTROPINE MESYLATE 1 MG TABLET PO SCH ×2 (10:33→21:30)
[2020-07-18] MEDS: levETIRAcetam 500 MG TABLET (FP) PO SCH ×2 (10:33→21:29)
[2020-07-18] MEDS: PANTOPRAZOLE 40 MG TABLET PO SCH (10:34)
[2020-07-18] MEDS: NICOTINE 14 MG/24 HOURS TOPICAL PATCH TD SCH (10:34)
[2020-07-18] MEDS: BUDESONIDE/FORMETEROL FUMARATE 160/4.5 mcg INHALER IH SCH ×2 (10:34→21:31)
[2020-07-18] MEDS: NICOTINE POLACRILEX 2 MG GUM BUC PRN (10:34)
[2020-07-18] MEDS ORDERED: PT OWN MED DRAWER 7, Y5N ONE (19:28)
[2020-07-18] MEDS: DIVALPROEX SODIUM 500 MG TABLET E.C. PO SCH (21:29)
[2020-07-18] MEDS: THIAMINE HCL 100 MG TABLET (FP) PO SCH (21:29)
[2020-07-18] MEDS: MELATONIN 5 MG TABLETS PO SCH (21:29)
[2020-07-18] MEDS: traZODone HCL 50 MG TABLET (FP) PO SCH (21:29)
[2020-07-19] MEDS: CYCLOBENZAPRINE HCL 10 MG TABLET (FP) PO SCH ×3 (06:15→21:39)
[2020-07-19] MEDS ORDERED: PT OWN MED DRAWER 7, Y5N ONE ×2 (09:00→19:09)
[2020-07-19] MEDS: SUMAtriptan SUCCINATE 50 MG TABLET PO SCH (10:38)
[2020-07-19] MEDS: levETIRAcetam 500 MG TABLET (FP) PO SCH ×2 (10:38→21:39)
[2020-07-19] MEDS: BACITRACIN 0.9 GM PACKET TP SCH ×2 (10:38→21:41)
[2020-07-19] MEDS: DIVALPROEX SODIUM 250 MG TABLET E.C. PO SCH (10:38)
[2020-07-19] MEDS: lamoTRIgine 100 MG TABLET PO SCH ×2 (10:39→21:39)
[2020-07-19] MEDS: HALOPERIDOL 5 MG TABLET PO SCH ×2 (10:39→21:39)
[2020-07-19] MEDS: BENZTROPINE MESYLATE 1 MG TABLET PO SCH ×2 (10:39→21:41)
[2020-07-19] MEDS: NICOTINE 14 MG/24 HOURS TOPICAL PATCH TD SCH (10:40)
[2020-07-19] MEDS: BUDESONIDE/FORMETEROL FUMARATE 160/4.5 mcg INHALER IH SCH ×2 (10:40→21:39)
[2020-07-19] MEDS: PANTOPRAZOLE 40 MG TABLET PO SCH (10:40)
[2020-07-19] MEDS: PRENATAL VITAMINS W/ FOLIC ACID TABLET (FP) PO SCH (10:40)
[2020-07-19] MEDS: KETOCONAZOLE 2 % SHAMPOO 120 ML BOTTLE TP SCH (11:02)
[2020-07-19] MEDS: THIAMINE HCL 100 MG TABLET (FP) PO SCH (21:38)
[2020-07-19] MEDS: MELATONIN 5 MG TABLETS PO SCH (21:38)
[2020-07-19] MEDS: DIVALPROEX SODIUM 500 MG TABLET E.C. PO SCH (21:39)
[2020-07-19] MEDS: traZODone HCL 50 MG TABLET (FP) PO SCH (21:39)
[2020-07-20] MEDS: CYCLOBENZAPRINE HCL 10 MG TABLET (FP) PO SCH ×3 (06:20→21:38)
[2020-07-20] MEDS ORDERED: PT OWN MED DRAWER 7, Y5N ONE ×2 (08:55→19:47)
[2020-07-20] MEDS: BENZTROPINE MESYLATE 1 MG TABLET PO SCH ×2 (09:52→21:37)
[2020-07-20] MEDS: BACITRACIN 0.9 GM PACKET TP SCH ×2 (09:52→21:40)
[2020-07-20] MEDS: PRENATAL VITAMINS W/ FOLIC ACID TABLET (FP) PO SCH (09:53)
[2020-07-20] MEDS: SUMAtriptan SUCCINATE 50 MG TABLET PO SCH (09:53)
[2020-07-20] MEDS: NICOTINE 14 MG/24 HOURS TOPICAL PATCH TD SCH (09:53)
[2020-07-20] MEDS: levETIRAcetam 500 MG TABLET (FP) PO SCH ×2 (09:53→21:37)
[2020-07-20] MEDS: lamoTRIgine 100 MG TABLET PO SCH ×2 (09:53→21:38)
[2020-07-20] MEDS: DIVALPROEX SODIUM 250 MG TABLET E.C. PO SCH (09:53)
[2020-07-20] MEDS: PANTOPRAZOLE 40 MG TABLET PO SCH (09:53)
[2020-07-20] MEDS: HALOPERIDOL 5 MG TABLET PO SCH ×2 (09:53→21:38)
[2020-07-20] MEDS: BUDESONIDE/FORMETEROL FUMARATE 160/4.5 mcg INHALER IH SCH ×2 (09:54→21:40)
[2020-07-20] MEDS: NICOTINE POLACRILEX 2 MG GUM BUC PRN ×2 (09:56→21:40)
[2020-07-20] MEDS: traZODone HCL 50 MG TABLET (FP) PO SCH (21:36)
[2020-07-20] MEDS: MELATONIN 5 MG TABLETS PO SCH (21:36)
[2020-07-20] MEDS: DIVALPROEX SODIUM 500 MG TABLET E.C. PO SCH (21:38)
[2020-07-20] MEDS: THIAMINE HCL 100 MG TABLET (FP) PO SCH (21:40)
[2020-07-21] MEDS: CYCLOBENZAPRINE HCL 10 MG TABLET (FP) PO SCH ×3 (06:19→21:21)
[2020-07-21] MEDS: ACETAMINOPHEN 325 MG TABLET (FP) PO PRN (08:40)
[2020-07-21] MEDS ORDERED: PT OWN MED DRAWER 7, Y5N ONE ×3 (09:07→18:54)
[2020-07-21] MEDS: BUDESONIDE/FORMETEROL FUMARATE 160/4.5 mcg INHALER IH SCH ×2 (10:08→21:24)
[2020-07-21] MEDS: NICOTINE 14 MG/24 HOURS TOPICAL PATCH TD SCH (10:09)
[2020-07-21] MEDS: NICOTINE POLACRILEX 2 MG GUM BUC PRN ×2 (10:09→19:23)
[2020-07-21] MEDS: BACITRACIN 0.9 GM PACKET TP SCH ×2 (10:09→21:23)
[2020-07-21] MEDS: PRENATAL VITAMINS W/ FOLIC ACID TABLET (FP) PO SCH (10:09)
[2020-07-21] MEDS: HALOPERIDOL 5 MG TABLET PO SCH ×2 (10:09→21:22)
[2020-07-21] MEDS: levETIRAcetam 500 MG TABLET (FP) PO SCH ×2 (10:09→21:21)
[2020-07-21] MEDS: lamoTRIgine 100 MG TABLET PO SCH ×2 (10:09→21:22)
[2020-07-21] MEDS: BENZTROPINE MESYLATE 1 MG TABLET PO SCH ×2 (10:09→21:23)
[2020-07-21] MEDS: PANTOPRAZOLE 40 MG TABLET PO SCH (10:09)
[2020-07-21] MEDS: SUMAtriptan SUCCINATE 50 MG TABLET PO SCH (10:09)
[2020-07-21] MEDS: DIVALPROEX SODIUM 250 MG TABLET E.C. PO SCH (10:10)
[2020-07-21] MEDS: traZODone HCL 50 MG TABLET (FP) PO SCH (21:21)
[2020-07-21] MEDS: DIVALPROEX SODIUM 500 MG TABLET E.C. PO SCH (21:22)
[2020-07-21] MEDS: MELATONIN 5 MG TABLETS PO SCH (21:23)
[2020-07-21] MEDS: THIAMINE HCL 100 MG TABLET (FP) PO SCH (21:24)
[2020-07-22] MEDS: ACETAMINOPHEN 325 MG TABLET (FP) PO PRN ×2 (05:14→21:17)
[2020-07-22] MEDS: CYCLOBENZAPRINE HCL 10 MG TABLET (FP) PO SCH ×3 (05:14→21:16)
[2020-07-22] MEDS ORDERED: PT OWN MED DRAWER 7, Y5N ONE (08:47)
[2020-07-22] MEDS: BACITRACIN 0.9 GM PACKET TP SCH ×2 (09:26→21:18)
[2020-07-22] MEDS: HALOPERIDOL 5 MG TABLET PO SCH ×2 (09:27→21:16)
[2020-07-22] MEDS: BENZTROPINE MESYLATE 1 MG TABLET PO SCH ×2 (09:27→21:16)
[2020-07-22] MEDS: SUMAtriptan SUCCINATE 50 MG TABLET PO SCH (09:27)
[2020-07-22] MEDS: DIVALPROEX SODIUM 250 MG TABLET E.C. PO SCH (09:27)
[2020-07-22] MEDS: NICOTINE 14 MG/24 HOURS TOPICAL PATCH TD SCH (09:28)
[2020-07-22] MEDS: lamoTRIgine 100 MG TABLET PO SCH ×2 (09:28→21:16)
[2020-07-22] MEDS: levETIRAcetam 500 MG TABLET (FP) PO SCH ×2 (09:28→21:16)
[2020-07-22] MEDS: PRENATAL VITAMINS W/ FOLIC ACID TABLET (FP) PO SCH (09:28)
[2020-07-22] MEDS: BUDESONIDE/FORMETEROL FUMARATE 160/4.5 mcg INHALER IH SCH ×2 (09:29→21:18)
[2020-07-22] MEDS: KETOCONAZOLE 2 % SHAMPOO 120 ML BOTTLE TP SCH (09:29)
[2020-07-22] MEDS: PANTOPRAZOLE 40 MG TABLET PO SCH (09:29)
[2020-07-22] MEDS: NICOTINE POLACRILEX 2 MG GUM BUC PRN ×2 (09:30→13:28)
[2020-07-22] MEDS: MELATONIN 5 MG TABLETS PO SCH (21:15)
[2020-07-22] MEDS: THIAMINE HCL 100 MG TABLET (FP) PO SCH (21:15)
[2020-07-22] MEDS: traZODone HCL 50 MG TABLET (FP) PO SCH (21:16)
[2020-07-22] MEDS: DIVALPROEX SODIUM 500 MG TABLET E.C. PO SCH (21:16)
[2020-07-23] MEDS: CYCLOBENZAPRINE HCL 10 MG TABLET (FP) PO SCH ×3 (06:20→21:40)
[2020-07-23] MEDS: BENZTROPINE MESYLATE 1 MG TABLET PO SCH ×2 (10:16→21:42)
[2020-07-23] MEDS: SUMAtriptan SUCCINATE 50 MG TABLET PO SCH (10:17)
[2020-07-23] MEDS: lamoTRIgine 100 MG TABLET PO SCH ×2 (10:17→21:41)
[2020-07-23] MEDS: levETIRAcetam 500 MG TABLET (FP) PO SCH ×2 (10:17→21:39)
[2020-07-23] MEDS: BACITRACIN 0.9 GM PACKET TP SCH ×2 (10:17→21:43)
[2020-07-23] MEDS: HALOPERIDOL 5 MG TABLET PO SCH ×2 (10:17→21:40)
[2020-07-23] MEDS: DIVALPROEX SODIUM 250 MG TABLET E.C. PO SCH (10:20)
[2020-07-23] MEDS: BUDESONIDE/FORMETEROL FUMARATE 160/4.5 mcg INHALER IH SCH ×2 (10:21→21:44)
[2020-07-23] MEDS ORDERED: PT OWN MED DRAWER 7, Y5N ONE (10:21)
[2020-07-23] MEDS: PRENATAL VITAMINS W/ FOLIC ACID TABLET (FP) PO SCH (10:22)
[2020-07-23] MEDS: NICOTINE POLACRILEX 2 MG GUM BUC PRN ×2 (10:22→16:44)
[2020-07-23] MEDS: PANTOPRAZOLE 40 MG TABLET PO SCH (10:22)
[2020-07-23] MEDS: NICOTINE 14 MG/24 HOURS TOPICAL PATCH TD SCH (10:22)
[2020-07-23] MEDS ORDERED: ALBUTEROL SO4 HFA INHALER IH PRN (15:09)
[2020-07-23 20:42] VITALS: TEMP 97.9
[2020-07-23] MEDS: DIVALPROEX SODIUM 500 MG TABLET E.C. PO SCH (21:39)
[2020-07-23] MEDS: traZODone HCL 50 MG TABLET (FP) PO SCH (21:40)
[2020-07-23] MEDS: MELATONIN 5 MG TABLETS PO SCH (21:44)
[2020-07-23] MEDS: THIAMINE HCL 100 MG TABLET (FP) PO SCH (21:44)
[2020-07-23] MEDS: MAG HYDROX/AL HYDROX/SIMETH 30 ML UNIT-DOSE CUP PO PRN (22:18)
[2020-07-24] MEDS: CYCLOBENZAPRINE HCL 10 MG TABLET (FP) PO SCH (06:11)
[2020-07-24 07:11] VITALS: BP 137/77; PULSE 98
[2020-07-24] MEDS: BUDESONIDE/FORMETEROL FUMARATE 160/4.5 mcg INHALER IH SCH (09:32)
[2020-07-24] MEDS: levETIRAcetam 500 MG TABLET (FP) PO SCH (09:33)
[2020-07-24] MEDS: HALOPERIDOL 5 MG TABLET PO SCH (09:33)
[2020-07-24] MEDS: BACITRACIN 0.9 GM PACKET TP SCH (09:33)
[2020-07-24] MEDS: lamoTRIgine 100 MG TABLET PO SCH (09:33)
[2020-07-24] MEDS: SUMAtriptan SUCCINATE 50 MG TABLET PO SCH (09:33)
[2020-07-24] MEDS: BENZTROPINE MESYLATE 1 MG TABLET PO SCH (09:34)
[2020-07-24] MEDS: DIVALPROEX SODIUM 250 MG TABLET E.C. PO SCH (09:34)
[2020-07-24] MEDS: PRENATAL VITAMINS W/ FOLIC ACID TABLET (FP) PO SCH (09:34)
[2020-07-24] MEDS: NICOTINE 14 MG/24 HOURS TOPICAL PATCH TD SCH (09:34)
[2020-07-24] MEDS: PANTOPRAZOLE 40 MG TABLET PO SCH (09:34)
== END 2020-07-24 09:40 | disposition home or self-care (01) | DRG 772 ==
LOC: YASAS 10:57 → Y3E 10:58 → Y3W 16:36
PROVIDERS: ADMIT Allergy & Immunology; ATTEND Allergy & Immunology
PROC: HZ42ZZZ Group Counseling for Substance Abuse Treatment, Cognitive-Behavioral (ICD-10-PCS; principal; 2020-06-26)
DX: F10.20 Alcohol dependence, uncomplicated (principal); F14.20 Cocaine dependence, uncomplicated; F17.210 Nicotine dependence, cigarettes, uncomplicated; K21.9 Gastro-esophageal reflux disease without esophagitis; G40.909 Epilepsy, unspecified, not intractable, without status epilepticus; M54.41 Lumbago with sciatica, right side; M54.42 Lumbago with sciatica, left side; G89.29 Other chronic pain; J45.909 Unspecified asthma, uncomplicated; Z88.0 Allergy status to penicillin

== ENCOUNTER 2020-11-05 09:40 | Inpatient (IN) | payer OTHER ==
[2020-11-05 12:19] VITALS: BMI 54.5
[2020-11-05] MEDS ORDERED: MAG HYDROX/AL HYDROX/SIMETH 30 ML UNIT-DOSE CUP PO PRN (13:28)
[2020-11-05] MEDS ORDERED: NICOTINE POLACRILEX 2 MG GUM BC PRN (13:28)
[2020-11-05] MEDS ORDERED: MAGNESIUM HYDROX 2400MG/30ML ORAL SUSPENSION 30 ML CUP PO PRN (13:28)
[2020-11-05] MEDS ORDERED: MAGNESIUM CITRATE 300 ML BOTTLE PO PRN (13:28)
[2020-11-05] MEDS ORDERED: LOPERAMIDE HCL 2 MG CAPSULE PO PRN (13:28)
[2020-11-05] MEDS ORDERED: P-EPHED 60MG/TRIPROLIDI 2.5MG TABLET PO PRN (13:28)
[2020-11-05] MEDS ORDERED: ALBUTEROL SO4 HFA INHALER IH PRN (13:29)
[2020-11-05] MEDS ORDERED: NICOTINE 7 MG/24 HOURS TOPICAL PATCH TD SCH (13:30)
[2020-11-05] MEDS: hydrOXYzine PAMOATE 25 MG CAPSULE (FP) PO SCH ×3 (15:04→21:23)
[2020-11-05] MEDS: PRENATAL VITAMINS W/ FOLIC ACID TABLET (FP) PO SCH (15:05)
[2020-11-05] MEDS: NICOTINE 14 MG/24 HOURS TOPICAL PATCH TD SCH (15:05)
[2020-11-05] MEDS: DIVALPROEX SODIUM 500 MG TABLET E.C. PO SCH (21:23)
[2020-11-05] MEDS: THIAMINE HCL 100 MG TABLET (FP) PO SCH (21:23)
[2020-11-05] MEDS: MELATONIN 5 MG TABLETS PO SCH (21:23)
[2020-11-05] MEDS: levETIRAcetam 500 MG TABLET (FP) PO SCH (21:23)
[2020-11-05] MEDS: BENZTROPINE MESYLATE 1 MG TABLET PO SCH (21:23)
[2020-11-05] MEDS: lamoTRIgine 100 MG TABLET PO SCH (21:23)
[2020-11-05] MEDS: BUDESONIDE/FORMETEROL FUMARATE 160/4.5 mcg INHALER IH SCH (21:24)
[2020-11-06] MEDS: hydrOXYzine PAMOATE 25 MG CAPSULE (FP) PO SCH ×5 (06:33→21:54)
[2020-11-06] MEDS: IBUPROFEN 600 MG TABLET (FP) PO PRN ×3 (06:34→21:53)
[2020-11-06] MEDS: PANTOPRAZOLE 40 MG TABLET PO SCH (10:26)
[2020-11-06] MEDS: lamoTRIgine 100 MG TABLET PO SCH ×2 (10:26→21:51)
[2020-11-06] MEDS: DIVALPROEX SODIUM 250 MG TABLET E.C. PO SCH (10:26)
[2020-11-06] MEDS: levETIRAcetam 500 MG TABLET (FP) PO SCH ×2 (10:26→21:51)
[2020-11-06] MEDS: BENZTROPINE MESYLATE 1 MG TABLET PO SCH ×2 (10:27→21:51)
[2020-11-06] MEDS: BUDESONIDE/FORMETEROL FUMARATE 160/4.5 mcg INHALER IH SCH ×2 (10:27→21:50)
[2020-11-06] MEDS: NICOTINE 14 MG/24 HOURS TOPICAL PATCH TD SCH (10:27)
[2020-11-06] MEDS: PRENATAL VITAMINS W/ FOLIC ACID TABLET (FP) PO SCH (10:27)
[2020-11-06] MEDS: NICOTINE 21 MG/24 HOURS TOPICAL PATCH TD SCH (10:27)
[2020-11-06] MEDS: METHOCARBAMOL 750 MG TABLET PO PRN ×2 (10:28→21:53)
[2020-11-06] MEDS ORDERED: COLLOIDAL OATMEAL 1 BAR EACH TP PRN (11:19)
[2020-11-06 11:46] LABS: HEMOGLOBIN 11.3 GM/dL (10.7-15.3); MCH 27.5 pg (25.7-33.7); MCHC 32.4 g/dl (32.0-36.0); MEAN CELL VOLUME 84.9 fl (80-96); MEAN PLT VOLUME 9.4 fl (7.5-11.1); PLATELET COUNT 273 K/MM3 (134-434); RBC 4.12 M/mm3 (3.60-5.2); RDW 14.7 % (11.6-15.6); WHITE BLOOD COUNT 4.9 K/mm3 (4.0-10.0)
[2020-11-06 11:51] LABS: ALBUMIN 3.4 g/dl (3.4-5.0); BLOOD UREA NITROGEN 11.6 mg/dL (7-18)
[2020-11-06 11:55] LABS: CREATININE 0.7 mg/dL (0.55-1.3)
[2020-11-06 11:56] LABS: BILIRUBIN,TOTAL 0.3 mg/dL (0.2-1); TOT PROT 6.6 g/dl (6.4-8.2)
[2020-11-06] MEDS: HYDROCORTISONE 1% TOPICAL CREAM 30 GM TUBE TP SCH ×2 (12:50→21:55)
[2020-11-06 17:28] LABS: EPI CELLS >36 /uL (0-25.1); HYALINE CASTS 6 /uL (0-3.1); PH,URINE 6.5 (5.0-8.0); URINE APPEARANCE CLOUDY; URINE BACTERIA 7380 /uL (0-1359); URINE BILIRUBIN NEGATIVE (NEGATIVE); URINE COLOR YELLOW; URINE GLUCOSE (UA) NEGATIVE (NEGATIVE); URINE KETONE NEGATIVE (NEGATIVE); URINE LEUK ESTERASE TRACE (NEGATIVE); URINE NITRITE NEGATIVE (NEGATIVE); URINE PROTEIN 1+ (NEGATIVE); URINE UROBILINOGEN 0.2 mg/dL (0.2-1.0); URINE WBC 154 /uL (0-25.8)
[2020-11-06 17:52] LABS: URINE RBC 73.3 /uL (0-23.9)
[2020-11-06] MEDS ORDERED: PT OWN MED DRAWER 7, Y5N ONE (20:07)
[2020-11-06] MEDS: traZODone HCL 100 MG TABLET (FP) PO SCH (21:50)
[2020-11-06] MEDS: HALOPERIDOL 5 MG TABLET PO SCH (21:51)
[2020-11-06] MEDS: DIVALPROEX SODIUM 500 MG TABLET E.C. PO SCH (21:51)
[2020-11-06] MEDS: THIAMINE HCL 100 MG TABLET (FP) PO SCH (21:51)
[2020-11-06] MEDS: MELATONIN 5 MG TABLETS PO SCH (21:54)
[2020-11-07] MEDS: IBUPROFEN 600 MG TABLET (FP) PO PRN (06:45)
[2020-11-07] MEDS: METHOCARBAMOL 750 MG TABLET PO PRN ×3 (06:48→22:20)
[2020-11-07] MEDS: hydrOXYzine PAMOATE 25 MG CAPSULE (FP) PO SCH ×2 (06:53→10:25)
[2020-11-07] MEDS: DIVALPROEX SODIUM 250 MG TABLET E.C. PO SCH (10:25)
[2020-11-07] MEDS: levETIRAcetam 500 MG TABLET (FP) PO SCH ×2 (10:25→22:15)
[2020-11-07] MEDS: PRENATAL VITAMINS W/ FOLIC ACID TABLET (FP) PO SCH (10:25)
[2020-11-07] MEDS: BUDESONIDE/FORMETEROL FUMARATE 160/4.5 mcg INHALER IH SCH ×2 (10:26→22:14)
[2020-11-07] MEDS: PANTOPRAZOLE 40 MG TABLET PO SCH (10:26)
[2020-11-07] MEDS: lamoTRIgine 100 MG TABLET PO SCH ×2 (10:27→22:17)
[2020-11-07] MEDS: HYDROCORTISONE 1% TOPICAL CREAM 30 GM TUBE TP SCH ×2 (10:30→22:17)
[2020-11-07] MEDS: NICOTINE 14 MG/24 HOURS TOPICAL PATCH TD SCH (10:59)
[2020-11-07] MEDS: NICOTINE 21 MG/24 HOURS TOPICAL PATCH TD SCH (10:59)
[2020-11-07] MEDS ORDERED: PT OWN MED DRAWER 7, Y5N ONE (19:30)
[2020-11-07] MEDS: DIVALPROEX SODIUM 500 MG TABLET E.C. PO SCH (22:15)
[2020-11-07] MEDS: THIAMINE HCL 100 MG TABLET (FP) PO SCH (22:15)
[2020-11-07] MEDS: traZODone HCL 100 MG TABLET (FP) PO SCH (22:15)
[2020-11-07] MEDS: BENZTROPINE MESYLATE 1 MG TABLET PO SCH (22:16)
[2020-11-07] MEDS: HALOPERIDOL 5 MG TABLET PO SCH (22:17)
[2020-11-07] MEDS: MELATONIN 5 MG TABLETS PO SCH (22:17)
[2020-11-07] MEDS: guaiFENesin 200 MG/10 ML 10 ML UNIT-DOSE CUPS PO PRN (22:33)
[2020-11-08] MEDS: levETIRAcetam 500 MG TABLET (FP) PO SCH ×2 (10:18→21:39)
[2020-11-08] MEDS: DIVALPROEX SODIUM 250 MG TABLET E.C. PO SCH (10:18)
[2020-11-08] MEDS: PANTOPRAZOLE 40 MG TABLET PO SCH (10:18)
[2020-11-08] MEDS: lamoTRIgine 100 MG TABLET PO SCH ×2 (10:19→21:39)
[2020-11-08] MEDS: METHOCARBAMOL 750 MG TABLET PO PRN ×2 (10:19→21:42)
[2020-11-08] MEDS: PRENATAL VITAMINS W/ FOLIC ACID TABLET (FP) PO SCH (10:20)
[2020-11-08] MEDS: BUDESONIDE/FORMETEROL FUMARATE 160/4.5 mcg INHALER IH SCH ×2 (10:20→21:40)
[2020-11-08] MEDS: NICOTINE 14 MG/24 HOURS TOPICAL PATCH TD SCH (10:20)
[2020-11-08] MEDS: ACETAMINOPHEN 325 MG TABLET (FP) PO PRN (10:21)
[2020-11-08] MEDS: guaiFENesin 200 MG/10 ML 10 ML UNIT-DOSE CUPS PO PRN (10:24)
[2020-11-08] MEDS: HYDROCORTISONE 1% TOPICAL CREAM 30 GM TUBE TP SCH ×2 (11:25→21:40)
[2020-11-08] MEDS ORDERED: PT OWN MED DRAWER 7, Y5N ONE ×2 (20:57→21:42)
[2020-11-08] MEDS: DIVALPROEX SODIUM 500 MG TABLET E.C. PO SCH (21:38)
[2020-11-08] MEDS: HALOPERIDOL 5 MG TABLET PO SCH (21:38)
[2020-11-08] MEDS: BENZTROPINE MESYLATE 1 MG TABLET PO SCH (21:39)
[2020-11-08] MEDS: traZODone HCL 100 MG TABLET (FP) PO SCH (21:39)
[2020-11-08] MEDS: MELATONIN 5 MG TABLETS PO SCH (21:40)
[2020-11-08] MEDS: IBUPROFEN 600 MG TABLET (FP) PO PRN (21:42)
[2020-11-08] MEDS: THIAMINE HCL 100 MG TABLET (FP) PO SCH (21:44)
[2020-11-09] MEDS ORDERED: PT OWN MED DRAWER 7, Y5N ONE ×2 (08:40→19:37)
[2020-11-09] MEDS: levETIRAcetam 500 MG TABLET (FP) PO SCH ×2 (09:54→21:28)
[2020-11-09] MEDS: PRENATAL VITAMINS W/ FOLIC ACID TABLET (FP) PO SCH (09:54)
[2020-11-09] MEDS: PANTOPRAZOLE 40 MG TABLET PO SCH (09:54)
[2020-11-09] MEDS: DIVALPROEX SODIUM 250 MG TABLET E.C. PO SCH (09:54)
[2020-11-09] MEDS: BUDESONIDE/FORMETEROL FUMARATE 160/4.5 mcg INHALER IH SCH ×2 (09:54→21:30)
[2020-11-09] MEDS: NICOTINE 14 MG/24 HOURS TOPICAL PATCH TD SCH (09:54)
[2020-11-09] MEDS: HYDROCORTISONE 1% TOPICAL CREAM 30 GM TUBE TP SCH ×2 (09:55→21:30)
[2020-11-09] MEDS: lamoTRIgine 100 MG TABLET PO SCH ×2 (09:56→21:28)
[2020-11-09] MEDS: IBUPROFEN 600 MG TABLET (FP) PO PRN ×2 (09:57→16:50)
[2020-11-09] MEDS: guaiFENesin 200 MG/10 ML 10 ML UNIT-DOSE CUPS PO PRN ×2 (09:58→16:50)
[2020-11-09] MEDS: ACETAMINOPHEN 325 MG TABLET (FP) PO PRN (19:00)
[2020-11-09] MEDS: BENZTROPINE MESYLATE 1 MG TABLET PO SCH (21:27)
[2020-11-09] MEDS: traZODone HCL 100 MG TABLET (FP) PO SCH (21:28)
[2020-11-09] MEDS: HALOPERIDOL 5 MG TABLET PO SCH (21:28)
[2020-11-09] MEDS: THIAMINE HCL 100 MG TABLET (FP) PO SCH (21:28)
[2020-11-09] MEDS: DIVALPROEX SODIUM 500 MG TABLET E.C. PO SCH (21:30)
[2020-11-09] MEDS: MELATONIN 5 MG TABLETS PO SCH (21:31)
[2020-11-10 06:05] LABS: SARS-CoV-2 NAA Not Detected (Not Detected)
[2020-11-10] MEDS: IBUPROFEN 600 MG TABLET (FP) PO PRN ×2 (06:25→21:53)
[2020-11-10] MEDS: levETIRAcetam 500 MG TABLET (FP) PO SCH ×2 (10:06→21:48)
[2020-11-10] MEDS: PANTOPRAZOLE 40 MG TABLET PO SCH (10:06)
[2020-11-10] MEDS: DIVALPROEX SODIUM 250 MG TABLET E.C. PO SCH (10:07)
[2020-11-10] MEDS: METHOCARBAMOL 750 MG TABLET PO PRN (10:07)
[2020-11-10] MEDS: PRENATAL VITAMINS W/ FOLIC ACID TABLET (FP) PO SCH (10:07)
[2020-11-10] MEDS: HYDROCORTISONE 1% TOPICAL CREAM 30 GM TUBE TP SCH ×2 (10:07→21:52)
[2020-11-10] MEDS: NICOTINE 14 MG/24 HOURS TOPICAL PATCH TD SCH (10:07)
[2020-11-10] MEDS: lamoTRIgine 100 MG TABLET PO SCH ×2 (10:07→21:49)
[2020-11-10] MEDS: BUDESONIDE/FORMETEROL FUMARATE 160/4.5 mcg INHALER IH SCH ×2 (10:08→21:49)
[2020-11-10] MEDS: guaiFENesin 200 MG/10 ML 10 ML UNIT-DOSE CUPS PO PRN (10:09)
[2020-11-10] MEDS: ACETAMINOPHEN 325 MG TABLET (FP) PO PRN (13:30)
[2020-11-10] MEDS: HALOPERIDOL 5 MG TABLET PO SCH (21:47)
[2020-11-10] MEDS: MELATONIN 5 MG TABLETS PO SCH (21:47)
[2020-11-10] MEDS: DIVALPROEX SODIUM 500 MG TABLET E.C. PO SCH (21:48)
[2020-11-10] MEDS: traZODone HCL 100 MG TABLET (FP) PO SCH (21:51)
[2020-11-10] MEDS: BENZTROPINE MESYLATE 1 MG TABLET PO SCH (21:51)
[2020-11-10] MEDS: THIAMINE HCL 100 MG TABLET (FP) PO SCH (21:53)
[2020-11-11] MEDS: BUDESONIDE/FORMETEROL FUMARATE 160/4.5 mcg INHALER IH SCH ×2 (10:35→21:29)
[2020-11-11] MEDS: levETIRAcetam 500 MG TABLET (FP) PO SCH ×2 (10:36→21:26)
[2020-11-11] MEDS: PANTOPRAZOLE 40 MG TABLET PO SCH (10:36)
[2020-11-11] MEDS: METHOCARBAMOL 750 MG TABLET PO PRN ×2 (10:37→21:25)
[2020-11-11] MEDS: IBUPROFEN 600 MG TABLET (FP) PO PRN ×2 (10:37→16:29)
[2020-11-11] MEDS: DIVALPROEX SODIUM 250 MG TABLET E.C. PO SCH (10:37)
[2020-11-11] MEDS: NICOTINE 14 MG/24 HOURS TOPICAL PATCH TD SCH (10:38)
[2020-11-11] MEDS: PRENATAL VITAMINS W/ FOLIC ACID TABLET (FP) PO SCH (10:38)
[2020-11-11] MEDS: lamoTRIgine 100 MG TABLET PO SCH ×2 (10:38→21:29)
[2020-11-11] MEDS: HYDROCORTISONE 1% TOPICAL CREAM 30 GM TUBE TP SCH ×2 (10:39→21:25)
[2020-11-11] MEDS ORDERED: PT OWN MED DRAWER 7, Y5N ONE ×2 (19:37→21:28)
[2020-11-11] MEDS: HALOPERIDOL 5 MG TABLET PO SCH (21:24)
[2020-11-11] MEDS: hydrOXYzine PAMOATE 25 MG CAPSULE (FP) PO PRN (21:24)
[2020-11-11] MEDS: DIVALPROEX SODIUM 500 MG TABLET E.C. PO SCH (21:24)
[2020-11-11] MEDS: THIAMINE HCL 100 MG TABLET (FP) PO SCH (21:24)
[2020-11-11] MEDS: traZODone HCL 100 MG TABLET (FP) PO SCH (21:25)
[2020-11-11] MEDS: MELATONIN 5 MG TABLETS PO SCH (21:26)
[2020-11-11] MEDS: BENZTROPINE MESYLATE 1 MG TABLET PO SCH (21:26)
[2020-11-12] MEDS: NICOTINE 14 MG/24 HOURS TOPICAL PATCH TD SCH (10:35)
[2020-11-12] MEDS: lamoTRIgine 100 MG TABLET PO SCH ×2 (10:35→21:53)
[2020-11-12] MEDS: DIVALPROEX SODIUM 250 MG TABLET E.C. PO SCH (10:35)
[2020-11-12] MEDS: PANTOPRAZOLE 40 MG TABLET PO SCH (10:35)
[2020-11-12] MEDS: levETIRAcetam 500 MG TABLET (FP) PO SCH ×2 (10:35→21:51)
[2020-11-12] MEDS: PRENATAL VITAMINS W/ FOLIC ACID TABLET (FP) PO SCH (10:35)
[2020-11-12] MEDS: HYDROCORTISONE 1% TOPICAL CREAM 30 GM TUBE TP SCH ×2 (10:36→22:39)
[2020-11-12] MEDS: BUDESONIDE/FORMETEROL FUMARATE 160/4.5 mcg INHALER IH SCH ×2 (10:36→21:50)
[2020-11-12] MEDS: METHOCARBAMOL 750 MG TABLET PO PRN ×2 (10:36→21:54)
[2020-11-12] MEDS ORDERED: PT OWN MED DRAWER 7, Y5N ONE (20:10)
[2020-11-12] MEDS: BENZTROPINE MESYLATE 1 MG TABLET PO SCH (21:50)
[2020-11-12] MEDS: DIVALPROEX SODIUM 500 MG TABLET E.C. PO SCH (21:51)
[2020-11-12] MEDS: HALOPERIDOL 5 MG TABLET PO SCH (21:52)
[2020-11-12] MEDS: traZODone HCL 100 MG TABLET (FP) PO SCH (21:52)
[2020-11-12] MEDS: THIAMINE HCL 100 MG TABLET (FP) PO SCH (21:53)
[2020-11-12] MEDS: MELATONIN 5 MG TABLETS PO SCH (21:55)
[2020-11-13] MEDS: PRENATAL VITAMINS W/ FOLIC ACID TABLET (FP) PO SCH (10:33)
[2020-11-13] MEDS: NICOTINE 14 MG/24 HOURS TOPICAL PATCH TD SCH (10:33)
[2020-11-13] MEDS: BUDESONIDE/FORMETEROL FUMARATE 160/4.5 mcg INHALER IH SCH ×2 (10:33→21:46)
[2020-11-13] MEDS: DIVALPROEX SODIUM 250 MG TABLET E.C. PO SCH (10:34)
[2020-11-13] MEDS: levETIRAcetam 500 MG TABLET (FP) PO SCH ×2 (10:34→21:46)
[2020-11-13] MEDS: PANTOPRAZOLE 40 MG TABLET PO SCH (10:34)
[2020-11-13] MEDS: lamoTRIgine 100 MG TABLET PO SCH ×2 (10:35→21:46)
[2020-11-13] MEDS: ACETAMINOPHEN 325 MG TABLET (FP) PO PRN (10:36)
[2020-11-13] MEDS: HYDROCORTISONE 1% TOPICAL CREAM 30 GM TUBE TP SCH (11:00)
[2020-11-13] MEDS: IBUPROFEN 600 MG TABLET (FP) PO PRN (18:25)
[2020-11-13] MEDS ORDERED: PT OWN MED DRAWER 7, Y5N ONE (19:47)
[2020-11-13] MEDS: HALOPERIDOL 5 MG TABLET PO SCH (21:46)
[2020-11-13] MEDS: DIVALPROEX SODIUM 500 MG TABLET E.C. PO SCH (21:46)
[2020-11-13] MEDS: traZODone HCL 100 MG TABLET (FP) PO SCH (21:46)
[2020-11-13] MEDS: MELATONIN 5 MG TABLETS PO SCH (21:47)
[2020-11-13] MEDS: BENZTROPINE MESYLATE 1 MG TABLET PO SCH (21:47)
[2020-11-13] MEDS: THIAMINE HCL 100 MG TABLET (FP) PO SCH (21:58)
[2020-11-14] MEDS: BUDESONIDE/FORMETEROL FUMARATE 160/4.5 mcg INHALER IH SCH ×2 (10:14→21:21)
[2020-11-14] MEDS: levETIRAcetam 500 MG TABLET (FP) PO SCH ×2 (10:14→21:21)
[2020-11-14] MEDS: PANTOPRAZOLE 40 MG TABLET PO SCH (10:15)
[2020-11-14] MEDS: DIVALPROEX SODIUM 250 MG TABLET E.C. PO SCH (10:15)
[2020-11-14] MEDS: NICOTINE 14 MG/24 HOURS TOPICAL PATCH TD SCH (10:15)
[2020-11-14] MEDS: PRENATAL VITAMINS W/ FOLIC ACID TABLET (FP) PO SCH (10:15)
[2020-11-14] MEDS: IBUPROFEN 600 MG TABLET (FP) PO PRN (10:17)
[2020-11-14] MEDS: lamoTRIgine 100 MG TABLET PO SCH ×2 (10:43→21:21)
[2020-11-14] MEDS ORDERED: PT OWN MED DRAWER 7, Y5N ONE (20:41)
[2020-11-14] MEDS: HALOPERIDOL 5 MG TABLET PO SCH (21:21)
[2020-11-14] MEDS: traZODone HCL 100 MG TABLET (FP) PO SCH (21:21)
[2020-11-14] MEDS: MELATONIN 5 MG TABLETS PO SCH (21:21)
[2020-11-14] MEDS: DIVALPROEX SODIUM 500 MG TABLET E.C. PO SCH (21:21)
[2020-11-14] MEDS: THIAMINE HCL 100 MG TABLET (FP) PO SCH (21:21)
[2020-11-14] MEDS: BENZTROPINE MESYLATE 1 MG TABLET PO SCH (21:22)
[2020-11-15] MEDS: PANTOPRAZOLE 40 MG TABLET PO SCH (09:15)
[2020-11-15] MEDS: DIVALPROEX SODIUM 250 MG TABLET E.C. PO SCH (09:15)
[2020-11-15] MEDS: levETIRAcetam 500 MG TABLET (FP) PO SCH ×2 (09:15→21:50)
[2020-11-15] MEDS: lamoTRIgine 100 MG TABLET PO SCH ×2 (09:15→21:51)
[2020-11-15] MEDS: PRENATAL VITAMINS W/ FOLIC ACID TABLET (FP) PO SCH (09:16)
[2020-11-15] MEDS: ACETAMINOPHEN 325 MG TABLET (FP) PO PRN (09:16)
[2020-11-15] MEDS: NICOTINE 14 MG/24 HOURS TOPICAL PATCH TD SCH (09:16)
[2020-11-15] MEDS: hydrOXYzine PAMOATE 25 MG CAPSULE (FP) PO PRN (09:17)
[2020-11-15] MEDS: BUDESONIDE/FORMETEROL FUMARATE 160/4.5 mcg INHALER IH SCH ×2 (10:41→21:49)
[2020-11-15] MEDS: BENZTROPINE MESYLATE 1 MG TABLET PO SCH (21:50)
[2020-11-15] MEDS: DIVALPROEX SODIUM 500 MG TABLET E.C. PO SCH (21:50)
[2020-11-15] MEDS: HALOPERIDOL 5 MG TABLET PO SCH (21:50)
[2020-11-15] MEDS: traZODone HCL 100 MG TABLET (FP) PO SCH (21:50)
[2020-11-15] MEDS: MELATONIN 5 MG TABLETS PO SCH (21:51)
[2020-11-15] MEDS: THIAMINE HCL 100 MG TABLET (FP) PO SCH (21:51)
[2020-11-15] MEDS: METHOCARBAMOL 750 MG TABLET PO PRN (21:52)
[2020-11-16] MEDS: levETIRAcetam 500 MG TABLET (FP) PO SCH ×2 (10:34→21:17)
[2020-11-16] MEDS: IBUPROFEN 600 MG TABLET (FP) PO PRN (10:34)
[2020-11-16] MEDS: DIVALPROEX SODIUM 250 MG TABLET E.C. PO SCH (10:34)
[2020-11-16] MEDS: BUDESONIDE/FORMETEROL FUMARATE 160/4.5 mcg INHALER IH SCH ×2 (10:35→21:17)
[2020-11-16] MEDS: hydrOXYzine PAMOATE 25 MG CAPSULE (FP) PO PRN (10:35)
[2020-11-16] MEDS: lamoTRIgine 100 MG TABLET PO SCH ×2 (10:35→21:17)
[2020-11-16] MEDS: PANTOPRAZOLE 40 MG TABLET PO SCH (10:35)
[2020-11-16] MEDS: NICOTINE 14 MG/24 HOURS TOPICAL PATCH TD SCH (10:36)
[2020-11-16] MEDS: PRENATAL VITAMINS W/ FOLIC ACID TABLET (FP) PO SCH (10:36)
[2020-11-16] MEDS: DIVALPROEX SODIUM 500 MG TABLET E.C. PO SCH (21:17)
[2020-11-16] MEDS: HALOPERIDOL 5 MG TABLET PO SCH (21:17)
[2020-11-16] MEDS: THIAMINE HCL 100 MG TABLET (FP) PO SCH (21:18)
[2020-11-16] MEDS: MELATONIN 5 MG TABLETS PO SCH (21:18)
[2020-11-16] MEDS: traZODone HCL 100 MG TABLET (FP) PO SCH (21:19)
[2020-11-16] MEDS: BENZTROPINE MESYLATE 1 MG TABLET PO SCH (21:19)
[2020-11-17] MEDS: lamoTRIgine 100 MG TABLET PO SCH ×2 (10:17→21:46)
[2020-11-17] MEDS: PRENATAL VITAMINS W/ FOLIC ACID TABLET (FP) PO SCH (10:17)
[2020-11-17] MEDS: DIVALPROEX SODIUM 250 MG TABLET E.C. PO SCH (10:17)
[2020-11-17] MEDS: levETIRAcetam 500 MG TABLET (FP) PO SCH ×2 (10:17→21:46)
[2020-11-17] MEDS: BUDESONIDE/FORMETEROL FUMARATE 160/4.5 mcg INHALER IH SCH ×2 (10:18→21:45)
[2020-11-17] MEDS: NICOTINE 14 MG/24 HOURS TOPICAL PATCH TD SCH (10:18)
[2020-11-17] MEDS: IBUPROFEN 600 MG TABLET (FP) PO PRN (10:18)
[2020-11-17] MEDS: PANTOPRAZOLE 40 MG TABLET PO SCH (10:18)
[2020-11-17] MEDS: BENZTROPINE MESYLATE 1 MG TABLET PO SCH (21:46)
[2020-11-17] MEDS: traZODone HCL 100 MG TABLET (FP) PO SCH (21:46)
[2020-11-17] MEDS: MELATONIN 5 MG TABLETS PO SCH (21:46)
[2020-11-17] MEDS: HALOPERIDOL 5 MG TABLET PO SCH (21:46)
[2020-11-17] MEDS: THIAMINE HCL 100 MG TABLET (FP) PO SCH (21:46)
[2020-11-17] MEDS: DIVALPROEX SODIUM 500 MG TABLET E.C. PO SCH (21:46)
[2020-11-18 07:24] VITALS: BP 117/71; PULSE 85; TEMP 97.2
[2020-11-18] MEDS: IBUPROFEN 600 MG TABLET (FP) PO PRN (08:44)
[2020-11-18] MEDS: PANTOPRAZOLE 40 MG TABLET PO SCH (09:01)
[2020-11-18] MEDS: NICOTINE 14 MG/24 HOURS TOPICAL PATCH TD SCH (09:01)
[2020-11-18] MEDS: DIVALPROEX SODIUM 250 MG TABLET E.C. PO SCH (09:01)
[2020-11-18] MEDS: levETIRAcetam 500 MG TABLET (FP) PO SCH (09:01)
[2020-11-18] MEDS: BUDESONIDE/FORMETEROL FUMARATE 160/4.5 mcg INHALER IH SCH (09:02)
[2020-11-18] MEDS: PRENATAL VITAMINS W/ FOLIC ACID TABLET (FP) PO SCH (09:02)
[2020-11-18] MEDS: lamoTRIgine 100 MG TABLET PO SCH (09:02)
== END 2020-11-18 09:40 | disposition home or self-care (01) | DRG 772 ==
LOC: YASAS 09:40 → Y5N 14:02
PROVIDERS: ADMIT Allergy & Immunology; ATTEND Allergy & Immunology
PROC: HZ42ZZZ Group Counseling for Substance Abuse Treatment, Cognitive-Behavioral (ICD-10-PCS; principal; 2020-11-05)
DX: F10.20 Alcohol dependence, uncomplicated (principal); F14.20 Cocaine dependence, uncomplicated; F17.210 Nicotine dependence, cigarettes, uncomplicated; F31.9 Bipolar disorder, unspecified; F43.10 Post-traumatic stress disorder, unspecified; G40.909 Epilepsy, unspecified, not intractable, without status epilepticus; G43.909 Migraine, unspecified, not intractable, without status migrainosus; E11.9 Type 2 diabetes mellitus without complications; J45.20 Mild intermittent asthma, uncomplicated; L20.9 Atopic dermatitis, unspecified; M54.41 Lumbago with sciatica, right side; M54.5 Low back pain; G89.29 Other chronic pain; E66.01 Morbid (severe) obesity due to excess calories; Z68.43 Body mass index [BMI] 50.0-59.9, adult; Z88.8 Allergy status to other drugs, medicaments and biological substances; Z59.0 Homelessness; Z56.0 Unemployment, unspecified
CPT/HCPCS: 36415; 80053; 80164; 80177; 81003; 81025; 85027; 86780; C9803; U0003; U0005

== ENCOUNTER 2021-03-07 09:40 | Inpatient (IN) | payer OTHER ==
[2021-03-07 14:17] VITALS: BMI 49.6
[2021-03-07] MEDS ORDERED: MAG HYDROX/AL HYDROX/SIMETH 30 ML UNIT-DOSE CUP PO PRN (15:30)
[2021-03-07] MEDS ORDERED: guaiFENesin 200 MG/10 ML 10 ML UNIT-DOSE CUPS PO PRN (15:30)
[2021-03-07] MEDS ORDERED: P-EPHED 60MG/TRIPROLIDI 2.5MG TABLET PO PRN (15:30)
[2021-03-07] MEDS ORDERED: LOPERAMIDE HCL 2 MG CAPSULE PO PRN (15:30)
[2021-03-07] MEDS ORDERED: NICOTINE 10 MG CARTRIDGE (INHALER) IH PRN (15:30)
[2021-03-07] MEDS ORDERED: ACETAMINOPHEN 325 MG TABLET (FP) PO PRN (15:30)
[2021-03-07] MEDS ORDERED: MAGNESIUM HYDROX 2400MG/30ML ORAL SUSPENSION 30 ML CUP PO PRN (15:30)
[2021-03-07] MEDS ORDERED: MAGNESIUM CITRATE 300 ML BOTTLE PO PRN (15:30)
[2021-03-07] MEDS ORDERED: TUBERCULIN PPD 5 TU/0.1ML VIAL ID ONE (20:58)
[2021-03-07] MEDS: hydrOXYzine PAMOATE 25 MG CAPSULE (FP) PO SCH ×2 (21:30→21:50)
[2021-03-07] MEDS: THIAMINE HCL 100 MG TABLET (FP) PO SCH (21:38)
[2021-03-07] MEDS ORDERED: MELATONIN 5 MG TABLETS PO SCH (22:00)
[2021-03-08] MEDS: hydrOXYzine PAMOATE 25 MG CAPSULE (FP) PO SCH ×5 (06:49→21:21)
[2021-03-08] MEDS ORDERED: ALBUTEROL SO4 HFA INHALER IH PRN (09:28)
[2021-03-08] MEDS ORDERED: DIVALPROEX SODIUM 500 MG TABLET E.C. PO SCH (10:00)
[2021-03-08] MEDS: levETIRAcetam 500 MG TABLET (FP) PO SCH ×2 (11:05→21:21)
[2021-03-08] MEDS: PANTOPRAZOLE 40 MG TABLET PO SCH (11:05)
[2021-03-08] MEDS: DIVALPROEX SODIUM 250 MG TABLET E.C. PO SCH (11:05)
[2021-03-08] MEDS: lamoTRIgine 100 MG TABLET PO SCH ×2 (11:05→21:21)
[2021-03-08] MEDS: PRENATAL VITAMINS W/ FOLIC ACID TABLET (FP) PO SCH (11:06)
[2021-03-08] MEDS: BUDESONIDE/FORMETEROL FUMARATE 160/4.5 mcg INHALER IH SCH ×2 (11:06→21:50)
[2021-03-08] MEDS: NICOTINE 7 MG/24 HOURS TOPICAL PATCH TD SCH (11:06)
[2021-03-08 15:25] LABS: URINE APPEARANCE CLOUDY; URINE BILIRUBIN NEGATIVE (NEGATIVE); URINE COLOR YELLOW; URINE GLUCOSE (UA) NEGATIVE (NEGATIVE); URINE KETONE NEGATIVE (NEGATIVE); URINE LEUK ESTERASE NEGATIVE (NEGATIVE); URINE NITRITE NEGATIVE (NEGATIVE); URINE PROTEIN NEGATIVE (NEGATIVE); URINE UROBILINOGEN 0.2 mg/dL (0.2-1.0)
[2021-03-08] MEDS: THIAMINE HCL 100 MG TABLET (FP) PO SCH (21:20)
[2021-03-08] MEDS: traZODone HCL 100 MG TABLET (FP) PO SCH (21:22)
[2021-03-08] MEDS: HALOPERIDOL 5 MG TABLET PO SCH (21:22)
[2021-03-08] MEDS: DIVALPROEX SODIUM 500 MG TABLET E.C. PO SCH (21:22)
[2021-03-08] MEDS: BENZTROPINE MESYLATE 1 MG TABLET PO SCH (21:22)
[2021-03-08] MEDS: IBUPROFEN 400 MG TABLET (FP) PO PRN (23:08)
[2021-03-09] MEDS: hydrOXYzine PAMOATE 25 MG CAPSULE (FP) PO SCH ×5 (06:12→21:19)
[2021-03-09] MEDS: DIVALPROEX SODIUM 250 MG TABLET E.C. PO SCH (10:43)
[2021-03-09] MEDS: PANTOPRAZOLE 40 MG TABLET PO SCH (11:39)
[2021-03-09] MEDS: levETIRAcetam 500 MG TABLET (FP) PO SCH ×2 (11:39→21:19)
[2021-03-09] MEDS: lamoTRIgine 100 MG TABLET PO SCH ×2 (11:39→21:18)
[2021-03-09] MEDS: IBUPROFEN 400 MG TABLET (FP) PO PRN ×2 (11:41→21:20)
[2021-03-09] MEDS: NICOTINE 7 MG/24 HOURS TOPICAL PATCH TD SCH (11:43)
[2021-03-09] MEDS: BUDESONIDE/FORMETEROL FUMARATE 160/4.5 mcg INHALER IH SCH ×2 (11:43→21:21)
[2021-03-09] MEDS: PRENATAL VITAMINS W/ FOLIC ACID TABLET (FP) PO SCH (11:43)
[2021-03-09] MEDS: traZODone HCL 100 MG TABLET (FP) PO SCH (21:18)
[2021-03-09] MEDS: THIAMINE HCL 100 MG TABLET (FP) PO SCH (21:18)
[2021-03-09] MEDS: BENZTROPINE MESYLATE 1 MG TABLET PO SCH (21:19)
[2021-03-09] MEDS: DIVALPROEX SODIUM 500 MG TABLET E.C. PO SCH (21:19)
[2021-03-09] MEDS: HALOPERIDOL 5 MG TABLET PO SCH (21:19)
[2021-03-09] MEDS: MENTHOL/PHENOL 1 EACH UD MM PRN (21:20)
[2021-03-10] MEDS: hydrOXYzine PAMOATE 25 MG CAPSULE (FP) PO SCH ×3 (06:46→13:59)
[2021-03-10 06:57] VITALS: BP 107/66; PULSE 88; TEMP 96.8
[2021-03-10] MEDS: lamoTRIgine 100 MG TABLET PO SCH (10:03)
[2021-03-10] MEDS: levETIRAcetam 500 MG TABLET (FP) PO SCH (10:03)
[2021-03-10] MEDS: DIVALPROEX SODIUM 250 MG TABLET E.C. PO SCH (10:03)
[2021-03-10] MEDS: PRENATAL VITAMINS W/ FOLIC ACID TABLET (FP) PO SCH (10:03)
[2021-03-10] MEDS: PANTOPRAZOLE 40 MG TABLET PO SCH (10:03)
[2021-03-10] MEDS: BUDESONIDE/FORMETEROL FUMARATE 160/4.5 mcg INHALER IH SCH (10:06)
[2021-03-10] MEDS: NICOTINE 7 MG/24 HOURS TOPICAL PATCH TD SCH (10:06)
[2021-03-10] MEDS: IBUPROFEN 400 MG TABLET (FP) PO PRN (10:37)
[2021-03-10] MEDS: MENTHOL/PHENOL 1 EACH UD MM PRN (17:42)
[2021-03-11 14:07] LABS: SARS-CoV-2 NAA Not Detected (Not Detected)
== END 2021-03-10 17:50 | disposition left against medical advice (07) | DRG 770 ==
LOC: YASAS 09:40 → Y3W 16:51 → Y5N 03-10 10:25
PROVIDERS: ADMIT Allergy & Immunology; ATTEND Allergy & Immunology
PROC: HZ42ZZZ Group Counseling for Substance Abuse Treatment, Cognitive-Behavioral (ICD-10-PCS; principal; 2021-03-07)
DX: F10.20 Alcohol dependence, uncomplicated (principal); F14.20 Cocaine dependence, uncomplicated; F17.210 Nicotine dependence, cigarettes, uncomplicated; F31.9 Bipolar disorder, unspecified; F19.282 Other psychoactive substance dependence with psychoactive substance-induced sleep disorder; F19.24 Other psychoactive substance dependence with psychoactive substance-induced mood disorder; E11.9 Type 2 diabetes mellitus without complications; G40.909 Epilepsy, unspecified, not intractable, without status epilepticus; J45.909 Unspecified asthma, uncomplicated; K21.9 Gastro-esophageal reflux disease without esophagitis; M54.41 Lumbago with sciatica, right side; M54.42 Lumbago with sciatica, left side; E66.01 Morbid (severe) obesity due to excess calories; Z68.42 Body mass index [BMI] 45.0-49.9, adult; Z88.1 Allergy status to other antibiotic agents; Z88.8 Allergy status to other drugs, medicaments and biological substances; Z56.0 Unemployment, unspecified; Z59.0 Homelessness
CPT/HCPCS: 81003; 81025; C9803; U0003; U0005

== ENCOUNTER 2021-03-20 22:15 | Inpatient (IN) | payer OTHER ==
[2021-03-20 23:04] VITALS: BMI 54.6
[2021-03-20] MEDS ORDERED: METHOCARBAMOL 750 MG TABLET PO PRN (23:10)
[2021-03-20] MEDS ORDERED: ALBUTEROL SO4 HFA INHALER IH PRN (23:10)
[2021-03-20] MEDS ORDERED: hydrOXYzine PAMOATE 25 MG CAPSULE (FP) PO PRN (23:12)
[2021-03-20] MEDS ORDERED: MAG HYDROX/AL HYDROX/SIMETH 30 ML UNIT-DOSE CUP PO PRN (23:12)
[2021-03-20] MEDS ORDERED: MAGNESIUM CITRATE 300 ML BOTTLE PO PRN (23:12)
[2021-03-20] MEDS ORDERED: IBUPROFEN 400 MG TABLET (FP) PO PRN (23:12)
[2021-03-20] MEDS ORDERED: ACETAMINOPHEN 325 MG TABLET (FP) PO PRN ×2 (23:12)
[2021-03-20] MEDS ORDERED: P-EPHED 60MG/TRIPROLIDI 2.5MG TABLET PO PRN (23:12)
[2021-03-20] MEDS ORDERED: DICYCLOMINE HCL 10 MG CAPSULE PO PRN (23:12)
[2021-03-20] MEDS ORDERED: ONDANSETRON *ODT* 4 MG TABLET SL PRN (23:12)
[2021-03-20] MEDS ORDERED: MENTHOL/PHENOL 1 EACH UD MM PRN (23:12)
[2021-03-20] MEDS ORDERED: NICOTINE POLACRILEX 4 MG GUM BUC PRN (23:12)
[2021-03-20] MEDS ORDERED: MAGNESIUM HYDROX 2400MG/30ML ORAL SUSPENSION 30 ML CUP PO PRN (23:12)
[2021-03-20] MEDS ORDERED: guaiFENesin 200 MG/10 ML 10 ML UNIT-DOSE CUPS PO PRN (23:12)
[2021-03-20] MEDS ORDERED: NICOTINE 10 MG CARTRIDGE (INHALER) IH PRN (23:12)
[2021-03-20] MEDS ORDERED: diazePAM 5 MG TABLET PO PRN (23:12)
[2021-03-21] MEDS: diazePAM 5 MG TABLET PO SCH ×5 (01:57→22:29)
[2021-03-21] MEDS: levETIRAcetam 500 MG TABLET (FP) PO SCH ×2 (10:59→22:22)
[2021-03-21] MEDS: PANTOPRAZOLE 40 MG TABLET PO SCH (10:59)
[2021-03-21] MEDS: PRENATAL VITAMINS W/ FOLIC ACID TABLET (FP) PO SCH (10:59)
[2021-03-21] MEDS: BUDESONIDE/FORMETEROL FUMARATE 160/4.5 mcg INHALER IH SCH ×2 (11:37→22:29)
[2021-03-21] MEDS: NICOTINE 21 MG/24 HOURS TOPICAL PATCH TD SCH (11:37)
[2021-03-21] MEDS: THIAMINE HCL 100 MG TABLET (FP) PO SCH (22:23)
[2021-03-21] MEDS: METHOCARBAMOL 500 MG TABLET PO PRN (22:23)
[2021-03-21] MEDS: MELATONIN 5 MG TABLETS PO SCH (22:23)
[2021-03-22] MEDS: diazePAM 5 MG TABLET PO SCH ×3 (07:57→22:11)
[2021-03-22] MEDS: PRENATAL VITAMINS W/ FOLIC ACID TABLET (FP) PO SCH (10:16)
[2021-03-22] MEDS: levETIRAcetam 500 MG TABLET (FP) PO SCH ×2 (10:16→22:11)
[2021-03-22] MEDS: PANTOPRAZOLE 40 MG TABLET PO SCH (10:16)
[2021-03-22] MEDS: BUDESONIDE/FORMETEROL FUMARATE 160/4.5 mcg INHALER IH SCH ×2 (10:16→22:20)
[2021-03-22] MEDS: NICOTINE 21 MG/24 HOURS TOPICAL PATCH TD SCH (10:20)
[2021-03-22] MEDS: MELATONIN 5 MG TABLETS PO SCH (22:11)
[2021-03-22] MEDS: THIAMINE HCL 100 MG TABLET (FP) PO SCH (22:11)
[2021-03-22] MEDS: METHOCARBAMOL 500 MG TABLET PO PRN (22:12)
[2021-03-23] MEDS: diazePAM 5 MG TABLET PO SCH ×2 (05:03→17:58)
[2021-03-23] MEDS: PRENATAL VITAMINS W/ FOLIC ACID TABLET (FP) PO SCH (10:21)
[2021-03-23] MEDS: levETIRAcetam 500 MG TABLET (FP) PO SCH ×2 (10:21→23:24)
[2021-03-23] MEDS: PANTOPRAZOLE 40 MG TABLET PO SCH (10:21)
[2021-03-23] MEDS: BUDESONIDE/FORMETEROL FUMARATE 160/4.5 mcg INHALER IH SCH ×2 (10:21→23:25)
[2021-03-23] MEDS: NICOTINE 21 MG/24 HOURS TOPICAL PATCH TD SCH (10:21)
[2021-03-23 14:58] LABS: HEMATOCRIT 36.3 % (32.4-45.2); HEMOGLOBIN 11.9 GM/dL (10.7-15.3); MCH 27.9 pg (25.7-33.7); MCHC 32.8 g/dl (32.0-36.0); MEAN PLT VOLUME 10.2 fl (7.5-11.1); PLATELET COUNT 223 10^3/uL (134-434); RBC 4.27 M/mm3 (3.60-5.2); RDW 14.7 % (11.6-15.6)
[2021-03-23 15:05] LABS: CALCIUM 8.7 mg/dL (8.5-10.1)
[2021-03-23 15:06] LABS: ALBUMIN 3.1 g/dl (3.4-5.0)
[2021-03-23 15:08] LABS: CREATININE 0.5 mg/dL (0.55-1.3)
[2021-03-23 15:10] LABS: BILIRUBIN,TOTAL 0.2 mg/dL (0.2-1); TOT PROT 6.9 g/dl (6.4-8.2)
[2021-03-23] MEDS: MELATONIN 5 MG TABLETS PO SCH (23:24)
[2021-03-23] MEDS: THIAMINE HCL 100 MG TABLET (FP) PO SCH (23:24)
[2021-03-24] MEDS ORDERED: diazePAM 5 MG TABLET PO ONE (06:00)
[2021-03-24 09:27] VITALS: BP 121/67; PULSE 64; TEMP 96.8
[2021-03-24] MEDS: PRENATAL VITAMINS W/ FOLIC ACID TABLET (FP) PO SCH (10:34)
[2021-03-24] MEDS: BUDESONIDE/FORMETEROL FUMARATE 160/4.5 mcg INHALER IH SCH (10:34)
[2021-03-24] MEDS: PANTOPRAZOLE 40 MG TABLET PO SCH (10:34)
[2021-03-24] MEDS: levETIRAcetam 500 MG TABLET (FP) PO SCH (10:34)
[2021-03-24] MEDS: NICOTINE 21 MG/24 HOURS TOPICAL PATCH TD SCH (10:35)
== END 2021-03-24 13:19 | disposition home or self-care (01) | DRG 774 ==
LOC: YASAS 22:15 → Y3N 23:30
PROVIDERS: ADMIT Allergy & Immunology; ATTEND Allergy & Immunology
PROC: HZ2ZZZZ Detoxification Services for Substance Abuse Treatment (ICD-10-PCS; principal; 2021-03-20)
DX: F10.230 Alcohol dependence with withdrawal, uncomplicated (principal); F14.20 Cocaine dependence, uncomplicated; F16.20 Hallucinogen dependence, uncomplicated; F12.20 Cannabis dependence, uncomplicated; F17.210 Nicotine dependence, cigarettes, uncomplicated; F10.24 Alcohol dependence with alcohol-induced mood disorder; F31.9 Bipolar disorder, unspecified; F10.282 Alcohol dependence with alcohol-induced sleep disorder; K21.9 Gastro-esophageal reflux disease without esophagitis; M54.41 Lumbago with sciatica, right side; M54.42 Lumbago with sciatica, left side; G89.29 Other chronic pain; Z59.0 Homelessness; Z88.1 Allergy status to other antibiotic agents; Z88.8 Allergy status to other drugs, medicaments and biological substances
CPT/HCPCS: 36415; 80053; 80177; 81025; 85027; 86780; C9803; U0003; U0005

== ENCOUNTER 2021-04-11 16:09 | Inpatient (IN) | payer OTHER ==
[2021-04-11 16:48] VITALS: BMI 52.5
[2021-04-11] MEDS ORDERED: MAGNESIUM CITRATE 300 ML BOTTLE PO PRN (17:41)
[2021-04-11] MEDS ORDERED: MAG HYDROX/AL HYDROX/SIMETH 30 ML UNIT-DOSE CUP PO PRN (17:41)
[2021-04-11] MEDS ORDERED: NICOTINE 10 MG CARTRIDGE (INHALER) IH PRN (17:41)
[2021-04-11] MEDS ORDERED: ACETAMINOPHEN 325 MG TABLET (FP) PO PRN (17:41)
[2021-04-11] MEDS ORDERED: ONDANSETRON *ODT* 4 MG TABLET SL PRN (17:41)
[2021-04-11] MEDS ORDERED: IBUPROFEN 400 MG TABLET (FP) PO PRN (17:41)
[2021-04-11] MEDS ORDERED: MAGNESIUM HYDROX 2400MG/30ML ORAL SUSPENSION 30 ML CUP PO PRN (17:41)
[2021-04-11] MEDS ORDERED: ALBUTEROL SO4 HFA INHALER IH PRN (20:36)
[2021-04-11] MEDS: MENTHOL/PHENOL 1 EACH UD MM PRN (20:37)
[2021-04-11] MEDS: METHOCARBAMOL 500 MG TABLET PO PRN (20:37)
[2021-04-11] MEDS: levETIRAcetam 500 MG TABLET (FP) PO SCH (22:28)
[2021-04-11] MEDS: THIAMINE HCL 100 MG TABLET (FP) PO SCH (22:28)
[2021-04-11] MEDS: MELATONIN 5 MG TABLETS PO SCH (22:28)
[2021-04-11] MEDS: BUDESONIDE/FORMETEROL FUMARATE 160/4.5 mcg INHALER IH SCH (22:28)
[2021-04-11] MEDS: diazePAM 5 MG TABLET PO SCH (22:36)
[2021-04-12] MEDS: diazePAM 5 MG TABLET PO SCH ×4 (05:57→22:14)
[2021-04-12] MEDS: MENTHOL/PHENOL 1 EACH UD MM PRN ×3 (05:58→22:19)
[2021-04-12] MEDS: ACETAMINOPHEN 325 MG TABLET (FP) PO PRN ×2 (06:36→13:24)
[2021-04-12] MEDS: PRENATAL VITAMINS W/ FOLIC ACID TABLET (FP) PO SCH (11:18)
[2021-04-12] MEDS: METHOCARBAMOL 500 MG TABLET PO PRN (11:18)
[2021-04-12] MEDS: levETIRAcetam 500 MG TABLET (FP) PO SCH ×2 (11:18→22:13)
[2021-04-12] MEDS: LORATADINE 10 MG TABLET PO SCH (11:18)
[2021-04-12] MEDS: BUDESONIDE/FORMETEROL FUMARATE 160/4.5 mcg INHALER IH SCH ×2 (11:22→22:14)
[2021-04-12] MEDS: NICOTINE 14 MG/24 HOURS TOPICAL PATCH TD SCH (11:23)
[2021-04-12] MEDS: guaiFENesin/D-METHORPHAN HB 10 ML UNIT-DOSE CUPS PO PRN ×2 (15:56→22:22)
[2021-04-12] MEDS ORDERED: traZODone HCL 50 MG TABLET (FP) PO SCH (22:00)
[2021-04-12] MEDS ORDERED: DIVALPROEX SODIUM 250 MG TABLET E.C. PO SCH (22:00)
[2021-04-12] MEDS: BENZTROPINE MESYLATE 1 MG TABLET PO SCH (22:12)
[2021-04-12] MEDS: HALOPERIDOL 5 MG TABLET PO SCH (22:13)
[2021-04-12] MEDS: THIAMINE HCL 100 MG TABLET (FP) PO SCH (22:13)
[2021-04-12] MEDS: MELATONIN 5 MG TABLETS PO SCH (22:13)
[2021-04-12] MEDS: traZODone HCL 50 MG TABLET (FP) PO SCH (22:13)
[2021-04-13] MEDS: diazePAM 5 MG TABLET PO SCH ×3 (06:06→22:37)
[2021-04-13] MEDS: guaiFENesin/D-METHORPHAN HB 10 ML UNIT-DOSE CUPS PO PRN ×2 (06:14→22:39)
[2021-04-13] MEDS: LORATADINE 10 MG TABLET PO SCH (10:28)
[2021-04-13] MEDS: PRENATAL VITAMINS W/ FOLIC ACID TABLET (FP) PO SCH (10:28)
[2021-04-13] MEDS: levETIRAcetam 500 MG TABLET (FP) PO SCH ×2 (10:29→22:36)
[2021-04-13] MEDS: BUDESONIDE/FORMETEROL FUMARATE 160/4.5 mcg INHALER IH SCH ×2 (10:29→22:37)
[2021-04-13] MEDS: diazePAM 5 MG TABLET PO PRN (10:29)
[2021-04-13] MEDS: NICOTINE 14 MG/24 HOURS TOPICAL PATCH TD SCH (10:30)
[2021-04-13] MEDS: MENTHOL/PHENOL 1 EACH UD MM PRN ×2 (10:31→22:38)
[2021-04-13] MEDS: METHOCARBAMOL 500 MG TABLET PO PRN (10:34)
[2021-04-13] MEDS: guaiFENesin 600 MG TABLET.ER (FP) PO SCH (12:05)
[2021-04-13] MEDS: SODIUM CHLORIDE NASAL SPRAY 44 ML BOTTLE NS SCH ×2 (14:40→22:38)
[2021-04-13] MEDS: traZODone HCL 50 MG TABLET (FP) PO SCH (22:36)
[2021-04-13] MEDS: THIAMINE HCL 100 MG TABLET (FP) PO SCH (22:37)
[2021-04-13] MEDS: HALOPERIDOL 5 MG TABLET PO SCH (22:37)
[2021-04-13] MEDS: MELATONIN 5 MG TABLETS PO SCH (22:38)
[2021-04-13] MEDS: BENZTROPINE MESYLATE 1 MG TABLET PO SCH (22:38)
[2021-04-14] MEDS: SODIUM CHLORIDE NASAL SPRAY 44 ML BOTTLE NS SCH ×3 (06:26→23:10)
[2021-04-14] MEDS: diazePAM 5 MG TABLET PO SCH ×2 (06:30→17:28)
[2021-04-14] MEDS: LORATADINE 10 MG TABLET PO SCH (10:11)
[2021-04-14] MEDS: guaiFENesin 600 MG TABLET.ER (FP) PO SCH (10:11)
[2021-04-14] MEDS: BUDESONIDE/FORMETEROL FUMARATE 160/4.5 mcg INHALER IH SCH ×2 (10:11→23:10)
[2021-04-14] MEDS: NICOTINE 14 MG/24 HOURS TOPICAL PATCH TD SCH (10:11)
[2021-04-14] MEDS: levETIRAcetam 500 MG TABLET (FP) PO SCH ×2 (10:11→23:06)
[2021-04-14] MEDS: PRENATAL VITAMINS W/ FOLIC ACID TABLET (FP) PO SCH (10:12)
[2021-04-14] MEDS: diazePAM 5 MG TABLET PO PRN (10:14)
[2021-04-14] MEDS: ACETAMINOPHEN 325 MG TABLET (FP) PO PRN ×2 (10:15→20:37)
[2021-04-14] MEDS: BENZTROPINE MESYLATE 1 MG TABLET PO SCH (23:04)
[2021-04-14] MEDS: traZODone HCL 50 MG TABLET (FP) PO SCH (23:05)
[2021-04-14] MEDS: HALOPERIDOL 5 MG TABLET PO SCH (23:06)
[2021-04-14] MEDS: MELATONIN 5 MG TABLETS PO SCH (23:06)
[2021-04-14] MEDS: THIAMINE HCL 100 MG TABLET (FP) PO SCH (23:06)
[2021-04-15] MEDS ORDERED: diazePAM 5 MG TABLET PO ONE (06:00)
[2021-04-15] MEDS: SODIUM CHLORIDE NASAL SPRAY 44 ML BOTTLE NS SCH ×2 (06:20→14:06)
[2021-04-15 09:55] VITALS: TEMP 97.1
[2021-04-15] MEDS: guaiFENesin 600 MG TABLET.ER (FP) PO SCH (11:14)
[2021-04-15] MEDS: LORATADINE 10 MG TABLET PO SCH (11:14)
[2021-04-15] MEDS: PRENATAL VITAMINS W/ FOLIC ACID TABLET (FP) PO SCH (11:14)
[2021-04-15] MEDS: levETIRAcetam 500 MG TABLET (FP) PO SCH (11:14)
[2021-04-15] MEDS: MENTHOL/PHENOL 1 EACH UD MM PRN (11:15)
[2021-04-15] MEDS: BUDESONIDE/FORMETEROL FUMARATE 160/4.5 mcg INHALER IH SCH (11:15)
[2021-04-15] MEDS: NICOTINE 14 MG/24 HOURS TOPICAL PATCH TD SCH (11:15)
[2021-04-15] MEDS: ACETAMINOPHEN 325 MG TABLET (FP) PO PRN (11:42)
[2021-04-15 12:52] VITALS: BP 111/71; PULSE 94
== END 2021-04-15 04:20 | disposition home or self-care (01) | DRG 774 ==
LOC: YASAS 16:09 → Y6N 18:03
PROVIDERS: ADMIT Allergy & Immunology; ATTEND Allergy & Immunology
PROC: HZ2ZZZZ Detoxification Services for Substance Abuse Treatment (ICD-10-PCS; principal; 2021-04-11)
DX: F10.230 Alcohol dependence with withdrawal, uncomplicated (principal); F14.20 Cocaine dependence, uncomplicated; F16.20 Hallucinogen dependence, uncomplicated; F12.20 Cannabis dependence, uncomplicated; F17.210 Nicotine dependence, cigarettes, uncomplicated; G40.909 Epilepsy, unspecified, not intractable, without status epilepticus; J45.20 Mild intermittent asthma, uncomplicated; E66.01 Morbid (severe) obesity due to excess calories; Z68.43 Body mass index [BMI] 50.0-59.9, adult; Z88.1 Allergy status to other antibiotic agents; Z88.8 Allergy status to other drugs, medicaments and biological substances
CPT/HCPCS: 81025; 82962; C9803; U0003; U0005

== ENCOUNTER 2022-07-10 22:27 | Inpatient (IN) | payer OTHER ==
[2022-07-10 23:12] VITALS: BMI 39.2
[2022-07-11] MEDS ORDERED: ALBUTEROL SO4 HFA INHALER IH PRN (00:44)
[2022-07-11] MEDS ORDERED: ACETAMINOPHEN 325 MG TABLET (FP) PO PRN ×2 (00:45)
[2022-07-11] MEDS ORDERED: MAGNESIUM HYDROX 2400MG/30ML ORAL SUSPENSION 30 ML CUP PO PRN (00:45)
[2022-07-11] MEDS ORDERED: NALOXONE HCL (KLOXXADO) 8 MG SPRAY NS PRN (00:45)
[2022-07-11] MEDS ORDERED: MAG HYDROX/AL HYDROX/SIMETH 30 ML UNIT-DOSE CUP PO PRN (00:45)
[2022-07-11] MEDS ORDERED: LOPERAMIDE HCL 2 MG CAPSULE PO PRN (00:45)
[2022-07-11] MEDS ORDERED: NICOTINE POLACRILEX 2 MG GUM BUC PRN (00:45)
[2022-07-11] MEDS ORDERED: DICYCLOMINE HCL 10 MG CAPSULE PO PRN (00:45)
[2022-07-11] MEDS ORDERED: POLYETHYLENE GLYCOL (HEALTHYLAX) 3350 17 GM PACKET PO PRN (00:45)
[2022-07-11] MEDS: levETIRAcetam 500 MG TABLET (FP) PO SCH ×2 (09:46→22:12)
[2022-07-11] MEDS: NICOTINE 14 MG/24 HOURS TOPICAL PATCH TD SCH (09:46)
[2022-07-11] MEDS: PRENATAL VITAMINS W/ FOLIC ACID TABLET (FP) PO SCH (09:47)
[2022-07-11] MEDS: BUDESONIDE/FORMETEROL FUMARATE 80/4.5 mcg INHALER IH SCH ×2 (09:47→22:18)
[2022-07-11] MEDS: hydrOXYzine PAMOATE 25 MG CAPSULE (FP) PO PRN ×2 (14:36→22:14)
[2022-07-11] MEDS: METHOCARBAMOL 500 MG TABLET PO PRN ×2 (14:36→22:14)
[2022-07-11] MEDS: IBUPROFEN 400 MG TABLET (FP) PO PRN (14:36)
[2022-07-11] MEDS: diazePAM 5 MG TABLET PO PRN (14:37)
[2022-07-11] MEDS: diazePAM 5 MG TABLET PO SCH ×2 (17:33→22:12)
[2022-07-11] MEDS ORDERED: MELATONIN 5 MG TABLETS PO SCH (22:00)
[2022-07-11] MEDS: THIAMINE HCL 100 MG TABLET (FP) PO SCH (22:13)
[2022-07-12] MEDS: diazePAM 5 MG TABLET PO SCH ×3 (05:12→22:22)
[2022-07-12] MEDS: IBUPROFEN 600 MG TABLET (FP) PO PRN (08:52)
[2022-07-12] MEDS: BUDESONIDE/FORMETEROL FUMARATE 80/4.5 mcg INHALER IH SCH ×2 (10:45→22:22)
[2022-07-12] MEDS: lamoTRIgine 100 MG TABLET PO SCH ×2 (10:46→22:22)
[2022-07-12] MEDS: LIDOCAINE 5% TOPICAL PATCH TP SCH (10:46)
[2022-07-12] MEDS: levETIRAcetam 500 MG TABLET (FP) PO SCH ×2 (10:46→22:21)
[2022-07-12] MEDS: PRENATAL VITAMINS W/ FOLIC ACID TABLET (FP) PO SCH (10:46)
[2022-07-12] MEDS: NICOTINE 14 MG/24 HOURS TOPICAL PATCH TD SCH (10:46)
[2022-07-12] MEDS: ONDANSETRON *ODT* 4 MG TABLET SL PRN (10:48)
[2022-07-12] MEDS: diazePAM 5 MG TABLET PO PRN (10:48)
[2022-07-12] MEDS ORDERED: SUVOREXANT 10 MG TABLET PO PRN (22:00)
[2022-07-12] MEDS: METHOCARBAMOL 500 MG TABLET PO PRN (22:20)
[2022-07-12] MEDS: THIAMINE HCL 100 MG TABLET (FP) PO SCH (22:20)
[2022-07-12] MEDS: QUEtiapine FUMARATE 50 MG TABLET PO SCH (22:22)
[2022-07-12] MEDS: traZODone HCL 50 MG TABLET (FP) PO SCH (22:22)
[2022-07-12] MEDS: LIDOCAINE PATCH REMOVAL MC SCH (22:22)
[2022-07-13] MEDS: diazePAM 5 MG TABLET PO SCH ×2 (05:06→18:14)
[2022-07-13] MEDS: ONDANSETRON *ODT* 4 MG TABLET SL PRN (05:09)
[2022-07-13] MEDS: LIDOCAINE 5% TOPICAL PATCH TP SCH (09:42)
[2022-07-13] MEDS: NICOTINE 14 MG/24 HOURS TOPICAL PATCH TD SCH (09:47)
[2022-07-13] MEDS: PRENATAL VITAMINS W/ FOLIC ACID TABLET (FP) PO SCH (09:47)
[2022-07-13] MEDS: levETIRAcetam 500 MG TABLET (FP) PO SCH ×2 (09:47→22:20)
[2022-07-13] MEDS: lamoTRIgine 100 MG TABLET PO SCH ×2 (09:47→22:20)
[2022-07-13] MEDS: IBUPROFEN 600 MG TABLET (FP) PO PRN (09:48)
[2022-07-13] MEDS: BUDESONIDE/FORMETEROL FUMARATE 80/4.5 mcg INHALER IH SCH ×2 (09:48→22:21)
[2022-07-13] MEDS: CHLORHEXIDINE GLUCONATE 0.12% 15ML CUP MM SCH ×2 (10:39→22:21)
[2022-07-13] MEDS: NYSTATIN 500,000 UNITS/5 ML SUSPENSION PO SCH ×3 (10:39→22:21)
[2022-07-13] MEDS: traZODone HCL 50 MG TABLET (FP) PO SCH (22:19)
[2022-07-13] MEDS: THIAMINE HCL 100 MG TABLET (FP) PO SCH (22:20)
[2022-07-13] MEDS: LIDOCAINE PATCH REMOVAL MC SCH (22:20)
[2022-07-13] MEDS: QUEtiapine FUMARATE 50 MG TABLET PO SCH (22:20)
[2022-07-13] MEDS: BENZOCAINE/MENTHOL (CHLORASEPTIC ) LOZENGE MM PRN (22:22)
[2022-07-14] MEDS: NYSTATIN 500,000 UNITS/5 ML SUSPENSION PO SCH ×4 (05:42→22:08)
[2022-07-14] MEDS ORDERED: diazePAM 5 MG TABLET PO ONE (06:00)
[2022-07-14] MEDS: LIDOCAINE 5% TOPICAL PATCH TP SCH (10:20)
[2022-07-14] MEDS: NICOTINE 14 MG/24 HOURS TOPICAL PATCH TD SCH (10:21)
[2022-07-14] MEDS: BUDESONIDE/FORMETEROL FUMARATE 80/4.5 mcg INHALER IH SCH ×2 (10:22→22:07)
[2022-07-14] MEDS: BENZOCAINE/MENTHOL (CHLORASEPTIC ) LOZENGE MM PRN (10:23)
[2022-07-14] MEDS: levETIRAcetam 500 MG TABLET (FP) PO SCH ×2 (10:23→22:09)
[2022-07-14] MEDS: lamoTRIgine 100 MG TABLET PO SCH ×2 (10:23→22:08)
[2022-07-14] MEDS: PRENATAL VITAMINS W/ FOLIC ACID TABLET (FP) PO SCH (10:23)
[2022-07-14] MEDS: CHLORHEXIDINE GLUCONATE 0.12% 15ML CUP MM SCH ×2 (11:08→22:08)
[2022-07-14] MEDS: IBUPROFEN 600 MG TABLET (FP) PO PRN (17:07)
[2022-07-14] MEDS: hydrOXYzine PAMOATE 25 MG CAPSULE (FP) PO PRN ×2 (17:07→22:09)
[2022-07-14] MEDS: LIDOCAINE PATCH REMOVAL MC SCH (22:09)
[2022-07-14] MEDS: QUEtiapine FUMARATE 50 MG TABLET PO SCH (22:09)
[2022-07-14] MEDS: guaiFENesin 600 MG TABLET.ER (FP) PO SCH (22:09)
[2022-07-14] MEDS: traZODone HCL 50 MG TABLET (FP) PO SCH (22:09)
[2022-07-14] MEDS: METHOCARBAMOL 500 MG TABLET PO PRN (22:11)
[2022-07-14] MEDS: THIAMINE HCL 100 MG TABLET (FP) PO SCH (22:55)
[2022-07-15] MEDS: NYSTATIN 500,000 UNITS/5 ML SUSPENSION PO SCH ×2 (06:01→10:14)
[2022-07-15 09:54] VITALS: BP 108/57; PULSE 103; RESP 18; TEMP 97.8
[2022-07-15] MEDS: LIDOCAINE 5% TOPICAL PATCH TP SCH (10:12)
[2022-07-15] MEDS: IBUPROFEN 400 MG TABLET (FP) PO PRN (10:12)
[2022-07-15] MEDS: levETIRAcetam 500 MG TABLET (FP) PO SCH (10:12)
[2022-07-15] MEDS: PRENATAL VITAMINS W/ FOLIC ACID TABLET (FP) PO SCH (10:12)
[2022-07-15] MEDS: lamoTRIgine 100 MG TABLET PO SCH (10:12)
[2022-07-15] MEDS: guaiFENesin 600 MG TABLET.ER (FP) PO SCH (10:12)
[2022-07-15] MEDS: hydrOXYzine PAMOATE 25 MG CAPSULE (FP) PO PRN (10:12)
[2022-07-15] MEDS: NICOTINE 14 MG/24 HOURS TOPICAL PATCH TD SCH (10:14)
[2022-07-15] MEDS: CHLORHEXIDINE GLUCONATE 0.12% 15ML CUP MM SCH (10:15)
[2022-07-15] MEDS: BUDESONIDE/FORMETEROL FUMARATE 80/4.5 mcg INHALER IH SCH (10:30)
[2022-07-15] MEDS: BENZOCAINE/MENTHOL (CHLORASEPTIC ) LOZENGE MM PRN (10:33)
== END 2022-07-15 12:08 | disposition home or self-care (01) | DRG 774 ==
LOC: YASAS 22:27 → Y6N 07-11 07:45
PROVIDERS: ADMIT Allergy & Immunology; ATTEND Surgery
PROC: HZ2ZZZZ Detoxification Services for Substance Abuse Treatment (ICD-10-PCS; principal; 2022-07-11)
DX: F10.230 Alcohol dependence with withdrawal, uncomplicated (principal); F14.20 Cocaine dependence, uncomplicated; F16.20 Hallucinogen dependence, uncomplicated; F12.20 Cannabis dependence, uncomplicated; F17.210 Nicotine dependence, cigarettes, uncomplicated; B37.0 Candidal stomatitis; G40.909 Epilepsy, unspecified, not intractable, without status epilepticus; J45.20 Mild intermittent asthma, uncomplicated; K21.9 Gastro-esophageal reflux disease without esophagitis; M54.41 Lumbago with sciatica, right side; M54.42 Lumbago with sciatica, left side; G89.29 Other chronic pain; E66.01 Morbid (severe) obesity due to excess calories; Z68.39 Body mass index [BMI] 39.0-39.9, adult
CPT/HCPCS: 81025; 87811; C9803-CS; Q0162; U0003; U0005